=== PATIENT | female | born 1975 | race Caucasian/White ===

== ENCOUNTER → 2016-04-11 | Outpatient (CLI) | payer OTHER ==
[2016-04-11 17:33] LABS: CH 29.7; CHCM 34.4; HCT 39.6 % (34.0-46.0); HDW 2.98; HGB 13.1 gm/dL (11.4-16.0); MCH 28.8 pg (25.0-35.0); MCHC 33.2 g/dL (31.0-37.0); MCV 86.8 fL (80.0-100.0); Mean Platelet Volume 8.1; RBC 4.57 m/uL (3.80-5.40); RDW 12.8 % (11.5-15.5); WBC 3.2 k/uL (3.8-10.6)
[2016-04-11 17:42] LABS: ALT 134 U/L (9-52); AST 110 U/L (14-36); Alkaline Phosphatase 76 U/L (38-126); Anion Gap 12 mmol/L; Blood Urea Nitrogen 13 mg/dL (7-17); Calcium 9.5 mg/dL (8.4-10.2); Carbon Dioxide 27 mmol/L (22-30); Chloride 105 mmol/L (98-107); Glucose 90 mg/dL (74-99); Non-African American GFR(MDRD) >60 (>60 ml/min/1.73 sqM); Potassium 4.6 mmol/L (3.5-5.1); Sodium 144 mmol/L (137-145); Total Bilirubin 0.5 mg/dL (0.2-1.3); Total Protein 8.2 g/dL (6.3-8.2)
[2016-04-15 13:46] LABS: LOG HIV Copies/mL 4.36 (<1.60)
[2016-04-22 12:16] LABS: Mis test requested (Blood) HIV1 IG
== END | disposition home or self-care (01) ==
LOC: LABWHC1 16:50
PROVIDERS: ATTEND Internal Medicine Infectious Disease
DX: B20 Human immunodeficiency virus [HIV] disease (principal)
CPT/HCPCS: 36415; 80053; 85027; 86360; 87536; 87901; 87906

== ENCOUNTER → 2016-07-24 | Outpatient (CLI) | payer OTHER ==
[2016-07-24 13:07] LABS: Basophils % (A) 1 %; CH 30.9; CHCM 33.9; Eosinophils # (A) 0.1 k/uL (0-0.7); Eosinophils % (A) 2 %; HCT 45.6 % (34.0-46.0); HDW 2.82; Luc # (Auto) 0.13; Luc % (Auto) 2; Lymphocytes # (A) 1.3 k/uL (1.0-4.8); Lymphocytes % (A) 21 %; MCH 30.3 pg (25.0-35.0); MCV 91.7 fL (80.0-100.0); Mean Platelet Volume 7.4; Monocytes # (A) 0.3 k/uL (0-1.0); Monocytes % (A) 4 %; Neutrophils # (A) 4.3 k/uL (1.3-7.7); Neutrophils % (A) 70 %; RBC 4.97 m/uL (3.80-5.40); WBC 6.2 k/uL (3.8-10.6); WBC (Perox) 6.09
[2016-07-24 13:21] LABS: ALT 83 U/L (9-52); AST 57 U/L (14-36); Alkaline Phosphatase 74 U/L (38-126); Anion Gap 12 mmol/L; Blood Urea Nitrogen 17 mg/dL (7-17); Calcium 9.7 mg/dL (8.4-10.2); Carbon Dioxide 23 mmol/L (22-30); Chloride 105 mmol/L (98-107); Glucose 88 mg/dL (74-99); Non-African American GFR(MDRD) >60 (>60 ml/min/1.73 sqM); Potassium 4.4 mmol/L (3.5-5.1); Sodium 140 mmol/L (137-145); Total Bilirubin 0.8 mg/dL (0.2-1.3); Total Protein 8.9 g/dL (6.3-8.2)
[2016-07-25 14:48] LABS: LOG HIV Copies/mL <1.60 (<1.60)
== END | disposition home or self-care (01) ==
LOC: LABWHC1 12:15
PROVIDERS: ATTEND Internal Medicine Infectious Disease
DX: B20 Human immunodeficiency virus [HIV] disease (principal)
CPT/HCPCS: 36415; 80053; 85025; 86360; 87536

== ENCOUNTER 2016-10-28 15:48 | Inpatient (IN) | payer MEDICARE, OTHER ==
[2016-10-28] MEDS ORDERED: IPRATROPIUM-ALBUTEROL 3 ML NEB INHALATION PRN (17:52)
[2016-10-28] MEDS: methylPREDNISolone SOD SUCCI 125 MG/2 ML VIAL IV SCH ×2 (18:32→23:28)
[2016-10-28] MEDS ORDERED: ACETAMINOPHEN TAB 325 MG TAB PO PRN (18:41)
[2016-10-28 18:47] LABS: Basophils % (A) 1 %; CH 30.5; CHCM 33.8; Eosinophils # (A) 0.2 k/uL (0-0.7); Eosinophils % (A) 4 %; HCT 46.1 % (34.0-46.0); HGB 15.6 gm/dL (11.4-16.0); Luc # (Auto) 0.11; Luc % (Auto) 2; Lymphocytes # (A) 0.8 k/uL (1.0-4.8); Lymphocytes % (A) 13 %; MCH 30.8 pg (25.0-35.0); MCHC 33.9 g/dL (31.0-37.0); MCV 90.8 fL (80.0-100.0); Mean Platelet Volume 7.3; Monocytes # (A) 0.3 k/uL (0-1.0); Monocytes % (A) 4 %; Neutrophils # (A) 4.5 k/uL (1.3-7.7); Neutrophils % (A) 77 %; RBC 5.08 m/uL (3.80-5.40); WBC 5.9 k/uL (3.8-10.6)
[2016-10-28 19:08] LABS: Anion Gap 13 mmol/L; Blood Urea Nitrogen 8 mg/dL (7-17); Calcium 9.4 mg/dL (8.4-10.2); Carbon Dioxide 26 mmol/L (22-30); Chloride 102 mmol/L (98-107); Glucose 101 mg/dL (74-99); Non-African American GFR(MDRD) 55 (>60 ml/min/1.73 sqM); Potassium 4.4 mmol/L (3.5-5.1); Sodium 141 mmol/L (137-145)
[2016-10-28 19:26] LABS: Hemoglobin A1C 5.2 % (4.2-6.1)
[2016-10-28] MEDS: SYMBICORT 160-4.5 MCG INHALER INHALATION SCH (20:40)
[2016-10-28] MEDS: ALPRAZolam 0.5 MG TAB PO SCH (20:57)
[2016-10-28] MEDS: STRIBILD PO SCH (20:57)
[2016-10-28] MEDS: HYDROcodone/APAP 10-325MG 1 EACH TAB PO SCH (20:57)
[2016-10-28] MEDS ORDERED: ALPRAZolam 0.5 MG TAB PO PRN (21:00)
[2016-10-28 21:32] LABS: Glucose,Whole Blood 102 mg/dL (75-99)
[2016-10-28] MEDS: INSULIN LISPRO (humaLOG) 300 UNIT/3 ML VIAL SQ SCH (21:47)
[2016-10-29] MEDS: methylPREDNISolone SOD SUCCI 125 MG/2 ML VIAL IV SCH ×4 (05:30→23:48)
[2016-10-29] MEDS: SYMBICORT 160-4.5 MCG INHALER INHALATION SCH (05:32)
[2016-10-29] MEDS: IPRATROPIUM-ALBUTEROL 3 ML NEB INHALATION PRN ×2 (05:32→19:13)
[2016-10-29 07:42] LABS: Glucose,Whole Blood 140 mg/dL (75-99)
[2016-10-29] MEDS: INSULIN LISPRO (humaLOG) 300 UNIT/3 ML VIAL SQ SCH ×4 (07:50→21:33)
[2016-10-29] MEDS: AZITHROMYCIN 500 MG TAB PO SCH (07:51)
[2016-10-29] MEDS: HYDROcodone/APAP 10-325MG 1 EACH TAB PO SCH ×3 (07:51→21:31)
[2016-10-29] MEDS: ALPRAZolam 0.5 MG TAB PO SCH ×3 (07:52→21:31)
[2016-10-29 09:05] LABS: Appearance,Urine Clear (Clear); Bilirubin,Urine Negative (Negative); Glucose,Urine (UA) Negative (Negative); Ketones,Urine Negative (Negative); Leukocyte Esterase,Urine Negative (Negative); Nitrite,Urine Negative (Negative); Protein,Urine Negative (Negative); Specific Gravity,Urine 1.004 (1.001-1.035); UA Billing (MACRO vs. MICRO) CHEM; Urobilinogen,Urine <2.0 mg/dL (<2.0)
--- NOTE | 2016-10-29 10:02 | XR ---
EXAMINATION TYPE: XR chest 1V portable DATE OF EXAM: 10/29/2016 CLINICAL HISTORY: Difficulty breathing progress study. TECHNIQUE: Single AP portable upright view of the chest is obtained. COMPARISON: Chest x-ray from one day earlier FINDINGS: Somewhat low lung volumes are redemonstrated. Lungs remain grossly clear without pleural e ffusion or pneumothorax seen bilaterally. Cardiac silhouette size appears within normal limits. Rombauer us structures are intact. IMPRESSION: Overall stable findings, no suspicious acute infiltrate is identified.
[2016-10-29 12:06] LABS: Glucose,Whole Blood 211 mg/dL (75-99)
--- NOTE | 2016-10-29 12:32 | P.CNPUL ---
History of Present Illness Consult date: 10/29/16 Reason for consult: dyspnea History of present illness: A very pleasant 40-year-old female patient, asthmatic with previous history of smoking and no history of HIV on the treatment with most recent CD4 counts being on the 200 (119 range) and her viral counts are undetectable, who was admitted yesterday from our office because of increased shortness of breath and acute asthma exacerbation. I have had this patient on Symbicort maintenance however she has failed to continue the medication and over the past 3-4 months she hasn't been receiving her maintenance inhaler. She has been utilizing albuterol rescue inhaler and she had become progressively more short of breath and required frequent albuterol treatments. For that reason she came to our office and she was admitted to the hospital for an acute asthma exacerbation. Her chest is tight and she is wheezing and she is having frequent coughing spells. No significant sputum production. No hemoptysis. No thrush. She reports some difficulties in urination and she was obviously need a [employer] evaluation for later stage. No known history of involvement of ALLERGIES. She has a strong personal or family history of bronchial asthma. She smoked extensively in the past however she claims to quit smoking for now. She lives in the [facility] and she describes that her environment is clean. She has pets at home including dogs and cats. Most of nasal polyposis. Most of eczema. She's been having episodes of heartburn. The chest x-ray is not showing any acute suspicious pulmonary infiltrates. The patient is on a combination of DuoNeb nebulized treatments around the clock, Zithromax 5 mg by mouth daily, Symbicort 160/4.5 2 puffs twice a day and IV Solu-Medrol. In terms of her HIV, she is on Stribild tablets ,1 tablet at bedtime. Review of Systems Constitutional: Reports weakness Eyes: denies blurred vision, denies bulging eye, denies decreased vision Ears: deny: decreased hearing, ear discharge, earache, tinnitus Ears, nose, mouth and throat: Denies headache, Denies sore throat Cardiovascular: Reports decreased exercise tolerance, Reports dyspnea on exertion, Reports shortness of breath Respiratory: Reports cough, Reports dyspnea, Reports respiratory infections, Reports wheezing Gastrointestinal: Reports heartburn Genitourinary: Reports pelvic pain, Reports post void dribbling, Reports urgency , Reports vaginal dryness Musculoskeletal: Denies myalgias Musculoskeletal: absent: ankle pain, ankle stiffness, ankle swelling Integumentary: Denies pruritus, Denies rash Neurological: Denies numbness, Denies weakness Psychiatric: Denies anxiety, Denies depression Endocrine: Denies fatigue, Denies weight change Past Medical History Past Medical History: Asthma, Fibromyalgia, Pneumonia, Seizure Disorder Additional Past Medical History / Comment(s): Obesity, AIDS, CD4 count of 119 with undetectable viral count based on the most recent evaluation, acid reflux, osteoarthritis, History of Any Multi-Drug Resistant Organisms: None Reported Past Surgical History: Section, Cholecystectomy, Hysterectomy, Orthopedic Surgery Additional Past Surgical History / Comment(s): left shoulder sx, c-sec x3 Past Anesthesia/Blood Transfusion Reactions: No Reported Reaction Smoking Status: Former smoker - Past Family History Mother Family Medical History: CVA/TIA, Diabetes Mellitus, Myocardial Infarction ([place]) Additional Family Medical History / Comment(s): sarcoidosis, osteoporosis Father Family Medical History: Asthma, COPD Medications and Allergies Home Medications Medication Instructions Recorded Confirmed Type Albuterol Inhaler [Ventolin 2 puff INHALATION RT-Q4H PRN 05/25/14 10/28/16 History Inhaler] Budesonide-Formot 160-4.5 Mcg 2 puff INHALATION RT-BID 05/25/14 10/28/16 History [Symbicort 160-4.5 Mcg Inhaler] ALPRAZolam [ALPRAZolam] 1 mg PO TID 11/09/15 10/28/16 History Hydrocodone/Acetaminophen [[place] 1 tab PO TID 11/09/15 10/28/16 History 10-325] Albuterol Nebulized [Ventolin 2.5 mg INHALATION RT-Q4H PRN 10/28/16 10/28/16 History Nebulized] Elviteg/Holley/Emtric/Tenofo Dis 1 tab PO HS 10/28/16 10/28/16 History [Stribild Tablet] Allergies Allergy/AdvReac Type Severity Reaction Status Date / Time amoxicillin [From Augmentin] Allergy Swelling Verified 10/28/16 18:10 clavulanic acid Allergy Swelling Verified 10/28/16 18:10 [From Augmentin] prochlorperazine edisylate Allergy Confusion Verified 10/28/16 18:10 [From Compazine] prochlorperazine maleate Allergy Confusion Verified 10/28/16 18:10 [From Compazine] morphine AdvReac Chest Pain Verified 10/28/16 18:10 Physical Exam Vitals: Vital Signs Temp Pulse Pulse Pulse Resp BP Pulse Ox 10/29/16 11:56 85 10/29/16 11:41 85 10/29/16 07:00 97.1 F L 83 18 134/69 94 L 10/29/16 05:43 96 10/29/16 05:32 92 10/28/16 23:00 97.3 F L 91 22 136/91 94 L 10/28/16 18:49 97.6 F 91 18 153/96 94 L Intake and Output 10/28/16 10/29/16 10/29/16 22:59 06:59 14:59 Intake Total 740 200 Balance 740 200 Intake: Oral 740 200 Other: Voiding Method Toilet Toilet # Voids 2 2 # Bowel Movements 0 Weight 107.7 kg Head exam was generally normal. There was no scleral icterus or corneal arcus. Mucous membranes were moist.Neck was supple and without jugular venous distension, thyromegaly, or carotid bruits. Carotids were easily palpable bilaterally. There was no adenopathy. Lung sounds are markedly diminished and there is diffuse expiratory wheezes throughout lung his bilaterally.Cardiac exam revealed the PMI to be normally situated and sized. The rhythm was regular and no extrasystoles were noted during several minutes of auscultation. The first and second heart sounds were normal and physiologic splitting of the second heart sound was noted. There were no murmurs, rubs, clicks, or gallops.Abdominal exam revealed normal bowel sounds. The abdomen was soft, non- tender, and without masses, organomegaly, or appreciable enlargement of the abdominal aorta.Examination of the extremities revealed easily palpable radial, femoral and pedal pulses. There was no cyanosis, clubbing or edema. Results - Laboratory Findings CBC and BMP: 10/28/16 18:32 10/28/16 18:32 Abnormal lab findings: Abnormal Labs 10/28/16 10/28/16 10/28/16 18:32 18:32 21:01 Hct 46.1 H Lymphocytes # 0.8 L Creatinine 1.10 H Glucose 101 H POC Glucose (mg/dL) 102 H 10/29/16 10/29/16 06:59 11:55 Hct Lymphocytes # Creatinine Glucose POC Glucose (mg/dL) 140 H 211 H - Diagnostic Findings Chest x-ray: image reviewed Assessment and Plan Plan: Assessment 1 acute asthma exacerbation, likely secondary to suboptimal compliance with her maintenance inhalers. Chest x-ray is free of any acute pulmonary infiltrates. Rule out underlying bronchitis. CD4 count based on the most recent evaluations 119. No previous abortions take infections of the lungs. 2 obesity 3 HIV/AIDS, currently under treatment. Most recent viral counts are undetectable with a CD4 count of 119 4 anxiety/depression, history of 5 chronic pain 6 previous history of smoking. Plan Agree on the current treatment. No need to broaden the antibiotic coverage. Continue bronchodilators. Continue systemic steroids. Stop the Symbicort and it was this patient and accommodation of Perforomist and Pulmicort neb last treatment [id number], twice a day. We'll continue to follow.
--- NOTE | 2016-10-29 12:35 | P.HPIM ---
History of Present Illness Patient is a very pleasant 41-year-old female with history of HIV and last CD4 count being 129 came in with the complaints of shortness of breath was sent in from Dr. Duarte's clinic as patient did not have any improvement in her bronchitis. Patient started having symptoms last and she had a recent visit to [place]. Patient was short of breath wheezing patient is an asthma/ COPD exacerbation. Patient and is unable to cough up any phlegm but does have cough one time she did bring up little greenish sputum. Patient is presently on Rocephin and azithromycin without any pulmonary infiltrate or pneumonia on the chest x-ray because of which Rocephin was discontinued. Azithromycin is being continued and and the infectious disease Dr. Tubbs will decide about antibiotics. And patient is presently on high-dose systemic steroids inhalational treatments. Patient is not on Bactrim at this point of time in spite of her CD4 count because of significant side effects from Bactrim in the past. Patient is feeling better than yesterday but clinically on exam patient has significant expiratory wheeze on bronchus breath sounds bilaterally. Patient denied any fever chills, dysuria. But patient does feel hot from inside Review of Systems REVIEW OF SYSTEMS: CONSTITUTIONAL: No fever, no malaise, no fatigue. HEENT: No recent visual problems or hearing problems. Denied any sore throat. CARDIOVASCULAR: No chest pain, orthopnea, PND, no palpitations, no syncope. PULMONARY: As mentioned in HPI GASTROINTESTINAL: No diarrhea, no nausea, no vomiting, no abdominal pain. Normoactive bowel sounds. NEUROLOGICAL: No headaches, no weakness, no numbness. HEMATOLOGICAL: Denies any bleeding or petechiae. GENITOURINARY: Denies any burning micturition, frequency, or urgency. MUSCULOSKELETAL/RHEUMATOLOGICAL: Denies any joint pain, swelling, or any muscle pain. ENDOCRINE: Denies any polyuria or polydipsia. The rest of the 14-point review of systems is negative. Past Medical History Past Medical History: Asthma, Fibromyalgia, Pneumonia, Seizure Disorder Additional Past Medical History / Comment(s): HIV with AIDS. Last CD4 cell count of 136- 3 MONTHS AGO. migraines, "rt eye has scarring and freckles". * History of "asthma" this has been for many years and seem to be exercise- induced. uti's, "poor circulation" History of Any Multi-Drug Resistant Organisms: None Reported Past Surgical History: Section, Cholecystectomy, Hysterectomy, Orthopedic Surgery Additional Past Surgical History / Comment(s): left shoulder sx, c-sec x3 Past Anesthesia/Blood Transfusion Reactions: No Reported Reaction Smoking Status: Former smoker - Past Family History Mother Family Medical History: CVA/TIA, Diabetes Mellitus, Myocardial Infarction ([place]) Additional Family Medical History / Comment(s): sarcoidosis, osteoporosis Father Family Medical History: Asthma, COPD Medications and Allergies Home Medications Medication Instructions Recorded Confirmed Type Albuterol Inhaler [Ventolin 2 puff INHALATION RT-Q4H PRN 05/25/14 10/28/16 History Inhaler] Budesonide-Formot 160-4.5 Mcg 2 puff INHALATION RT-BID 05/25/14 10/28/16 History [Symbicort 160-4.5 Mcg Inhaler] ALPRAZolam [ALPRAZolam] 1 mg PO TID 11/09/15 10/28/16 History Hydrocodone/Acetaminophen [[place] 1 tab PO TID 11/09/15 10/28/16 History 10-325] Albuterol Nebulized [Ventolin 2.5 mg INHALATION RT-Q4H PRN 10/28/16 10/28/16 History Nebulized] Elviteg/Holley/Emtric/Tenofo Dis 1 tab PO HS 10/28/16 10/28/16 History [Stribild Tablet] Allergies Allergy/AdvReac Type Severity Reaction Status Date / Time amoxicillin [From Augmentin] Allergy Swelling Verified 10/28/16 18:10 clavulanic acid Allergy Swelling Verified 10/28/16 18:10 [From Augmentin] prochlorperazine edisylate Allergy Confusion Verified 10/28/16 18:10 [From Compazine] prochlorperazine maleate Allergy Confusion Verified 10/28/16 18:10 [From Compazine] morphine AdvReac Chest Pain Verified 10/28/16 18:10 Physical Exam Vitals: Vital Signs Temp Pulse Pulse Pulse Resp BP Pulse Ox 10/29/16 11:56 85 10/29/16 11:41 85 10/29/16 07:00 97.1 F L 83 18 134/69 94 L 10/29/16 05:43 96 10/29/16 05:32 92 10/28/16 23:00 97.3 F L 91 22 136/91 94 L 10/28/16 18:49 97.6 F 91 18 153/96 94 L Intake and Output 10/28/16 10/29/16 10/29/16 22:59 06:59 14:59 Intake Total 740 200 Balance 740 200 Intake: Oral 740 200 Other: Voiding Method Toilet Toilet # Voids 2 2 # Bowel Movements 0 Weight 107.7 kg PHYSICAL EXAMINATION: GENERAL: The patient is alert and oriented x3, not in any acute distress. Well developed, well nourished. HEENT: Pupils are round and equally reacting to light. EOMI. No scleral icterus. No conjunctival pallor. Normocephalic, atraumatic. No pharyngeal erythema. No thyromegaly. CARDIOVASCULAR: S1 and S2 present. No murmurs, rubs, or gallops. PULMONARY: Significant expiratory wheezing bilaterally along with rhonchorous breath sounds. The crit mildly decreased air entry into bilateral lung zavala. ABDOMEN: Soft, nontender, nondistended, normoactive bowel sounds. No palpable organomegaly. MUSCULOSKELETAL: No joint swelling or deformity. EXTREMITIES: No cyanosis, clubbing, or pedal edema. NEUROLOGICAL: Gross neurological examination did not reveal any focal deficits. SKIN: No rashes. Results CBC & Chem 7: 10/28/16 18:32 10/28/16 18:32 Labs: Abnormal Lab Results - Last 24 Hours (Table) 10/28/16 10/28/16 10/28/16 Range/Units 18:32 18:32 21:01 Hct 46.1 H (34.0-46.0) % Lymphocytes # 0.8 L (1.0-4.8) k/uL Creatinine 1.10 H (0.52-1.04) mg/dL Glucose 101 H (74-99) mg/dL POC Glucose (mg/dL) 102 H (75-99) mg/dL 10/29/16 10/29/16 Range/Units 06:59 11:55 Hct (34.0-46.0) % Lymphocytes # (1.0-4.8) k/uL Creatinine (0.52-1.04) mg/dL Glucose (74-99) mg/dL POC Glucose (mg/dL) 140 H 211 H (75-99) mg/dL Thrombosis Risk Factor Assmnt - Choose All That Apply Any of the Below Risk Factors Present?: Yes Each Factor Represents 1 point: Obesity (BMI >25) Other Risk Factors: No Thrombosis Risk Factor Assessment Total Risk Factor Score: 1 Thrombosis Risk Factor Assessment Level: Low Risk Assessment and Plan Plan: #1 acute exacerbation of COPD or asthma: Patient is on systemic steroids and inhalation treatments which will be continued. #2 possibility of Bactrim bronchitis for which patient will be continued on azithromycin and infectious disease will eval if the patient. #3 HIV with last CD4 count of 129: Patient is being continued on her antiretroviral therapy. #4 fibromyalgia. #5 seizure disorder. For above-mentioned chronic medical problems patient will be continued on her home medications and monitor.
--- NOTE | 2016-10-29 15:23 | P.CONS ---
History of Present Illness - Reason for Consult Consult date: 10/29/16 Asthma - History of Present Illness This is a 41-year-old female who follows in the office for history of HIV and AIDS who presented to Dr. Estrada's office with cough and shortness of breath secondary to exacerbation of asthma. She states that she went to [place] on Friday for her niece's wedding and returned on Friday while she was gone developed shortness of breath continued to worsen. She does have phlegm production and feels that but is unable to bring it up. Patient went in to see Dr. Estrada in the office and usually follows with Dr. Abraham and. She was made a direct admission for asthma exacerbation. She was placed initially on azithromycin and Rocephin as well as Solu-Medrol and nebulizer treatments. Patient also complains of difficult urination with pain with the initiation of urination and states that she cannot get much urine output. She feels like there is a blockage and she has to bear down very hard. She denies any trauma to the area. She states this is been going on for couple weeks. She also relates that her mother has history of urethral stricture. Patient has brought in Stribild from home which she has been taking here. Patient states that she is due to have her lab work done for Dr. Tubbs and has an appointment on November 07. Review of Systems All systems: negative Constitutional: Reports weakness, Denies chills, Denies fever Eyes: denies blurred vision, denies pain Ears, nose, mouth and throat: Denies headache, Denies sore throat Cardiovascular: Reports decreased exercise tolerance, Reports dyspnea on exertion, Reports leg edema, Denies chest pain, Denies edema, Denies shortness of breath Respiratory: Reports cough, Reports dyspnea, Denies cough with sputum, Denies excessive sputum, Denies hemoptysis, Denies home oxygen Gastrointestinal: Denies abdominal pain, Denies diarrhea, Denies nausea, Denies vomiting Genitourinary: Reports difficulty voiding, Reports pelvic pain, Denies dysuria, Denies hematuria Musculoskeletal: Denies myalgias Integumentary: Denies pruritus, Denies rash Neurological: Denies numbness, Denies weakness Psychiatric: Denies anxiety, Denies depression Endocrine: Denies fatigue, Denies weight change Past Medical History Past Medical History: Asthma, Fibromyalgia, Pneumonia, Seizure Disorder Additional Past Medical History / Comment(s): HIV with AIDS. Last CD4 cell count of 136- 3 MONTHS AGO. migraines, "rt eye has scarring and freckles". * History of "asthma" this has been for many years and seem to be exercise- induced. uti's, "poor circulation" History of Any Multi-Drug Resistant Organisms: None Reported Past Surgical History: Section, Cholecystectomy, Hysterectomy, Orthopedic Surgery Additional Past Surgical History / Comment(s): left shoulder sx, c-sec x3 Past Anesthesia/Blood Transfusion Reactions: No Reported Reaction Smoking Status: Former smoker - Past Family History Mother Family Medical History: CVA/TIA, Diabetes Mellitus, Myocardial Infarction ([place]) Additional Family Medical History / Comment(s): sarcoidosis, osteoporosis Father Family Medical History: Asthma, COPD Medications and Allergies Home Medications Medication Instructions Recorded Confirmed Type Albuterol Inhaler [Ventolin 2 puff INHALATION RT-Q4H PRN 05/25/14 10/28/16 History Inhaler] Budesonide-Formot 160-4.5 Mcg 2 puff INHALATION RT-BID 05/25/14 10/28/16 History [Symbicort 160-4.5 Mcg Inhaler] ALPRAZolam [ALPRAZolam] 1 mg PO TID 11/09/15 10/28/16 History Hydrocodone/Acetaminophen [[place] 1 tab PO TID 11/09/15 10/28/16 History 10-325] Albuterol Nebulized [Ventolin 2.5 mg INHALATION RT-Q4H PRN 10/28/16 10/28/16 History Nebulized] Elviteg/Holley/Emtric/Tenofo Dis 1 tab PO HS 10/28/16 10/28/16 History [Stribild Tablet] Allergies Allergy/AdvReac Type Severity Reaction Status Date / Time amoxicillin [From Augmentin] Allergy Swelling Verified 10/28/16 18:10 clavulanic acid Allergy Swelling Verified 10/28/16 18:10 [From Augmentin] prochlorperazine edisylate Allergy Confusion Verified 10/28/16 18:10 [From Compazine] prochlorperazine maleate Allergy Confusion Verified 10/28/16 18:10 [From Compazine] morphine AdvReac Chest Pain Verified 10/28/16 18:10 Physical Exam Vitals: Vital Signs Temp Pulse Pulse Pulse Resp BP Pulse Ox 10/29/16 07:00 97.1 F L 83 18 134/69 94 L 10/29/16 05:43 96 10/29/16 05:32 92 10/28/16 23:00 97.3 F L 91 22 136/91 94 L 10/28/16 18:49 97.6 F 91 18 153/96 94 L Intake and Output 10/28/16 10/29/16 10/29/16 22:59 06:59 14:59 Intake Total 740 200 Balance 740 200 Intake: Oral 740 200 Other: Voiding Method Toilet Toilet # Voids 2 2 # Bowel Movements 0 Weight 107.7 kg Gen: This is a morbidly obese 41-year-old rob Rutledge female. She is sitting up in bed and appears to be comfortable. She appears to be in no acute distress. She is able to speak in full sentences. HEENT: Head is atraumatic, normocephalic. Pupils equal, round. Sclerae is anicteric. NECK: Supple. No JVD. No lymphadenopathy. No thyromegaly. LUNGS: Diminished with expiratory wheezes bilaterally. No intercostal retractions. HEART: Regular rate and rhythm. No murmur. ABDOMEN: Morbidly obese Soft. Bowel sounds are present. No masses. No tenderness. No suprapubic tenderness. EXTREMITIES: No pedal edema. No calf tenderness. Dorsalis pedis +2 bilaterally. NEUROLOGICAL: Patient is awake, alert and oriented x3. Cranial nerves 2 through 12 are grossly intact. Results Results: Laboratory Results WBC 5.9 k/uL (3.8-10.6) 10/28/16 18:32 RBC 5.08 m/uL (3.80-5.40) 10/28/16 18:32 Hgb 15.6 gm/dL (11.4-16.0) 10/28/16 18:32 Hct 46.1 % (34.0-46.0) H 10/28/16 18:32 MCV 90.8 fL (80.0-100.0) 10/28/16 18:32 MCH 30.8 pg (25.0-35.0) 10/28/16 18:32 MCHC 33.9 g/dL (31.0-37.0) 10/28/16 18:32 RDW 13.0 % (11.5-15.5) 10/28/16 18:32 Plt Count 230 k/uL (150-450) 10/28/16 18:32 Neutrophils % 77 % 10/28/16 18:32 Lymphocytes % 13 % 10/28/16 18:32 Monocytes % 4 % 10/28/16 18:32 Eosinophils % 4 % 10/28/16 18:32 Basophils % 1 % 10/28/16 18:32 Neutrophils # 4.5 k/uL (1.3-7.7) 10/28/16 18:32 Lymphocytes # 0.8 k/uL (1.0-4.8) L 10/28/16 18:32 Monocytes # 0.3 k/uL (0-1.0) 10/28/16 18:32 Eosinophils # 0.2 k/uL (0-0.7) 10/28/16 18:32 Basophils # 0.0 k/uL (0-0.2) 10/28/16 18:32 Sodium 141 mmol/L (137-145) 10/28/16 18:32 Potassium 4.4 mmol/L (3.5-5.1) 10/28/16 18:32 Chloride 102 mmol/L (98-107) 10/28/16 18:32 Carbon Dioxide 26 mmol/L (22-30) 10/28/16 18:32 Anion Gap 13 mmol/L 10/28/16 18:32 BUN 8 mg/dL (7-17) 10/28/16 18:32 Creatinine 1.10 mg/dL (0.52-1.04) H 10/28/16 18:32 Est GFR (MDRD) Af Amer >60 (>60 ml/min/1.73 sqM) 10/28/16 18:32 Est GFR (MDRD) Non-Af 55 (>60 ml/min/1.73 sqM) 10/28/16 18:32 Glucose 101 mg/dL (74-99) H 10/28/16 18:32 POC Glucose (mg/dL) 211 mg/dL (75-99) H 10/29/16 11:55 POC Glu [employer] Service Worker ID Tatiana Wilhelm 10/29/16 11:[address] Glu mg/dL 103 mg/dL 10/28/16 18:32 Hemoglobin A1c 5.2 % (4.2-6.1) 10/28/16 18:32 Calcium 9.4 mg/dL (8.4-10.2) 10/28/16 18:32 Urine Color Colorless 10/29/16 07:56 Urine Appearance Clear (Clear) 10/29/16 07:56 Urine pH 7.0 (5.0-8.0) 10/29/16 07:56 Ur Specific [place] 1.004 (1.001-1.035) 10/29/16 07:56 Urine Protein Negative (Negative) 10/29/16 07:56 Urine Glucose (UA) Negative (Negative) 10/29/16 07:56 Urine Ketones Negative (Negative) 10/29/16 07:56 Urine Blood Negative (Negative) 10/29/16 07:56 Urine Nitrite Negative (Negative) 10/29/16 07:56 Urine Bilirubin Negative (Negative) 10/29/16 07:56 Urine Urobilinogen <2.0 mg/dL (<2.0) 10/29/16 07:56 Ur Leukocyte Esterase Negative (Negative) 10/29/16 07:56 CBC & Chem 7: 10/28/16 18:32 10/28/16 18:32 Labs: Abnormal Lab Results - Last 24 Hours (Table) 10/28/16 10/28/16 10/28/16 Range/Units 18:32 18:32 21:01 Hct 46.1 H (34.0-46.0) % Lymphocytes # 0.8 L (1.0-4.8) k/uL Creatinine 1.10 H (0.52-1.04) mg/dL Glucose 101 H (74-99) mg/dL POC Glucose (mg/dL) 102 H (75-99) mg/dL 10/29/16 Range/Units 06:59 Hct (34.0-46.0) % Lymphocytes # (1.0-4.8) k/uL Creatinine (0.52-1.04) mg/dL Glucose (74-99) mg/dL POC Glucose (mg/dL) 140 H (75-99) mg/dL Assessment and Plan Plan: This is a 41-year-old female presented to the hospital with acute exacerbation of asthma and is under the care of Dr. Mims. Patient also has history of HIV and AIDS for which she follows on a regular basis. Patient is due for follow-up appointment this month regarding repeat viral and CD4 counts which will be done at that time. Patient is currently on azithromycin which will be continued. Continue supportive care. Further recommendations as patient progresses. The above dictated assessment and findings were discussed with Dr. Tubbs. The impression and plan of care have been directed as dictated. Brenda Castro nurse practitioner acting as scribe for Dr. Tubbs.
[2016-10-29 17:31] LABS: Glucose,Whole Blood 179 mg/dL (75-99)
--- NOTE | 2016-10-29 18:27 | P.CON ---
Consult Note - . Consult date: 10/29/16 Assessment/Plan:: This is a 41-year-old female who follows in the office for history of HIV and AIDS who presented to Dr. Estrada's office with cough and shortness of breath secondary to exacerbation of asthma. She states that she went to [place] on Friday for her niece's wedding and returned on Friday while she was gone developed shortness of breath continued to worsen. She does have phlegm production and feels that but is unable to bring it up. Patient went in to see Dr. Estrada in the office and usually follows with Dr. Abraham and. She was made a direct admission for asthma exacerbation. She was placed initially on azithromycin and Rocephin as well as Solu-Medrol and nebulizer treatments. Patient also complains of difficult urination with pain with the initiation of urination and states that she cannot get much urine output. She feels like there is a blockage and she has to bear down very hard. She denies any trauma to the area. She states this is been going on for couple weeks. She also relates that her mother has history of urethral stricture. Patient has brought in Stribild from home which she has been taking here. Patient states that she is due to have her lab work done for Dr. Tubbs and has an appointment on November 07. Please see the consult note as dictated by nurse practitioner Mrs. Brenda Castro. 5-year-old woman presents as with an acute exacerbation of her asthma. She's been seen by pulmonary critical care. With her treatment she is now doing much better. Will continue current antibiotic therapy. She's having difficulty some urinary retention. Last for a bladder scan to see if this can't evaluate the possibility of urinary retention. If he is having difficulties urological evaluation or gynecological elevation would be indicated. Continue the Stribild as before and she is been tolerating it well. His first further follow-up of her HIV this can be done as an outpatient. Her routine testing do not need to be done during this stay. We will follow. I agree with evaluation , assessment and plan this 61 by nurse practitioner Mrs. Brenda Castro.
[2016-10-29] MEDS: FORMOTEROL FUMARATE 20 MCG/2 ML NEBU INHALATION SCH (19:13)
[2016-10-29] MEDS: BUDESONIDE 0.5 MG/2 ML NEBU INHALATION SCH (19:13)
[2016-10-29 20:50] LABS: Glucose,Whole Blood 230 mg/dL (75-99)
[2016-10-29] MEDS: STRIBILD PO SCH (21:31)
[2016-10-30] MEDS: IPRATROPIUM-ALBUTEROL 3 ML NEB INHALATION PRN ×6 (04:38→23:14)
[2016-10-30] MEDS: methylPREDNISolone SOD SUCCI 125 MG/2 ML VIAL IV SCH ×4 (06:57→23:27)
[2016-10-30 07:08] LABS: Glucose,Whole Blood 133 mg/dL (75-99)
[2016-10-30] MEDS: BUDESONIDE 0.5 MG/2 ML NEBU INHALATION SCH ×2 (07:17→19:33)
[2016-10-30] MEDS: FORMOTEROL FUMARATE 20 MCG/2 ML NEBU INHALATION SCH ×2 (07:17→19:33)
[2016-10-30] MEDS: HYDROcodone/APAP 10-325MG 1 EACH TAB PO SCH ×3 (07:54→21:31)
[2016-10-30] MEDS: ALPRAZolam 0.5 MG TAB PO SCH ×3 (07:54→21:32)
[2016-10-30] MEDS: AZITHROMYCIN 500 MG TAB PO SCH (07:55)
[2016-10-30] MEDS: INSULIN LISPRO (humaLOG) 300 UNIT/3 ML VIAL SQ SCH ×4 (07:55→21:32)
--- NOTE | 2016-10-30 09:29 | P.DS ---
Providers Date of admission: 10/28/16 17:29 This discharge summary and progress note Attending physician: Waleska Garcia Consults: 10/28/16 17:49 Consult Physician Routine Consulting Provider: Laura Mims Consult Reason/Comments: asthma exacerbation Do you want consulting provider notified?: Yes 10/28/16 20:37 Consult Physician Urgent Consulting Provider: Sujit Tubbs Reason/Comments: asthma Do you want consulting provider notified?: Yes [facility] [place] [facility] Course: 2-year-old female was admitted for severe back and bronchitis possibly and patient is and azithromycin. Patient is also being treated for COPD exacerbation. Patient saturations are good. Will ablate the patient in the hallway. Although her saturations are good patient is not feeling well and is still feeling short of breath and patient still has significant expiratory wheezing and rhonchus breath sounds because of that reason I'll leave the decision of discharge to pulmonary. Meantime will often walking pulse ox. Patient is still complaining of shortness of breath patient didn't sleep well probably because of the systemic steroids she is on which of which is high-dose. , Patient denied any nausea, vomiting, dysuria, new focal weakness. PHYSICAL EXAMINATION: GENERAL: The patient is alert and oriented x3, not in any acute distress. Well developed, well nourished. HEENT: Pupils are round and equally reacting to light. EOMI. No scleral icterus. No conjunctival pallor. Normocephalic, atraumatic. No pharyngeal erythema. No thyromegaly. CARDIOVASCULAR: S1 and S2 present. No murmurs, rubs, or gallops. PULMONARY: Improved expiratory wheezing bilaterally along with rhonchorous breath sounds. mildly decreased air entry into bilateral lung zavala. ABDOMEN: Soft, nontender, nondistended, normoactive bowel sounds. No palpable organomegaly. MUSCULOSKELETAL: No joint swelling or deformity. EXTREMITIES: No cyanosis, clubbing, or pedal edema. NEUROLOGICAL: Gross neurological examination did not reveal any focal deficits. SKIN: No rashes. #1 acute exacerbation of COPD or asthma: Patient is on systemic steroids and inhalation treatments which will be continued. #2 possibility of Bactrim bronchitis for which patient will be continued on azithromycin and discharge antibiotics as per infectious disease #3 HIV with last CD4 count of 129: Patient is being continued on her antiretroviral therapy. #4 fibromyalgia. #5 seizure disorder. Plan - Discharge Summary New Discharge Prescriptions: New predniSONE 10 mg PO DAILY #30 tab No Action Albuterol Inhaler [Ventolin Inhaler] 2 puff INHALATION RT-Q4H PRN PRN Reason: Shortness Of Breath Budesonide-Formot 160-4.5 Mcg [Symbicort 160-4.5 Mcg Inhaler] 2 puff INHALATION RT-BID Hydrocodone/Acetaminophen [Hudson 10-325] 1 tab PO TID ALPRAZolam [ALPRAZolam] 1 mg PO TID Albuterol Nebulized [Ventolin Nebulized] 2.5 mg INHALATION RT-Q4H PRN PRN Reason: Shortness Of Breath Elviteg/Holley/Emtric/Tenofo Dis [Stribild Tablet] 1 tab PO HS Discharge Medication List Albuterol Inhaler [Ventolin Inhaler] 2 puff INHALATION RT-Q4H PRN 05/25/14 [ History] Budesonide-Formot 160-4.5 Mcg [Symbicort 160-4.5 Mcg Inhaler] 2 puff INHALATION RT-BID 05/25/14 [History] ALPRAZolam [ALPRAZolam] 1 mg PO TID 11/09/15 [History] Hydrocodone/Acetaminophen [Hudson 10-325] 1 tab PO TID 11/09/15 [History] Albuterol Nebulized [Ventolin Nebulized] 2.5 mg INHALATION RT-Q4H PRN 10/28/16 [ History] Elviteg/Holley/Emtric/Tenofo Dis [Stribild Tablet] 1 tab PO HS 10/28/16 [History] predniSONE 10 mg PO DAILY #30 tab 10/30/16 [Rx] Patient Instructions/Handouts: Asthma (DC) Discharge Disposition: HOME SELF-CARE
[2016-10-30 12:16] LABS: Glucose,Whole Blood 192 mg/dL (75-99)
[2016-10-30] MEDS ORDERED: CHLORPHEN-HYDROcod 8-10mg/5ml 5 ML ORAL.SYRG PO SCH (13:00)
--- NOTE | 2016-10-30 13:48 | P.PN ---
Subjective A very pleasant 40-year-old female patient, asthmatic with previous history of smoking and no history of HIV on the treatment with most recent CD4 counts being on the 200 (119 range) and her viral counts are undetectable, who was admitted yesterday from our office because of increased shortness of breath and acute asthma exacerbation. I have had this patient on Symbicort maintenance however she has failed to continue the medication and over the past 3-4 months she hasn't been receiving her maintenance inhaler. She has been utilizing albuterol rescue inhaler and she had become progressively more short of breath and required frequent albuterol treatments. For that reason she came to our office and she was admitted to the hospital for an acute asthma exacerbation. Her chest is tight and she is wheezing and she is having frequent coughing spells. No significant sputum production. No hemoptysis. No thrush. She reports some difficulties in urination and she was obviously need a EYELET MAKER evaluation for later stage. No known history of involvement of ALLERGIES. She has a strong personal or family history of bronchial asthma. She smoked extensively in the past however she claims to quit smoking for now. She lives in the [facility] and she describes that her environment is clean. She has pets at home including dogs and cats. Most of nasal polyposis. Most of eczema. She's been having episodes of heartburn. The chest x-ray is not showing any acute suspicious pulmonary infiltrates. The patient is on a combination of DuoNeb nebulized treatments around the clock, Zithromax 5 mg by mouth daily, Symbicort 160/4.5 2 puffs twice a day and IV Solu-Medrol. In terms of her HIV, she is on Stribild tablets ,1 tablet at bedtime. The patient is seen again today in follow-up on the regular medical floor. She is awake and alert. She has had ongoing issues with coughing, chest tightness and shortness of breath. She also has complaints of insomnia most likely secondary to the steroids. She has been on her bronchodilators, Pulmicort and Perforomist, IV Solu Medrol and empiric antibiotics in the form of azithromycin. He continues to maintain good O2 saturations up to 100% on 2 L/m per nasal cannula. She's been afebrile. Hemodynamically stable. Objective - Vital Signs Vital signs: Vital Signs Temp 96.6 F L 10/30/16 07:00 Pulse 92 10/30/16 11:35 Resp 18 10/30/16 07:00 BP 116/56 10/30/16 07:00 Pulse Ox 100 10/30/16 07:00 Intake & Output 10/29/16 10/30/16 10/30/16 18:59 06:59 18:59 Intake Total 940 Balance 940 Intake: Oral 940 Other: Voiding Method Toilet Toilet # Voids 1 1 1 # Bowel Movements 0 1 - Exam Head exam was generally normal. There was no scleral icterus or corneal arcus. Mucous membranes were moist.Neck was supple and without jugular venous distension, thyromegaly, or carotid bruits. Carotids were easily palpable bilaterally. There was no adenopathy. Lung sounds are markedly diminished and there is diffuse expiratory wheezes throughout lung his bilaterally.Cardiac exam revealed the PMI to be normally situated and sized. The rhythm was regular and no extrasystoles were noted during several minutes of auscultation. The first and second heart sounds were normal and physiologic splitting of the second heart sound was noted. There were no murmurs, rubs, clicks, or gallops.Abdominal exam revealed normal bowel sounds. The abdomen was soft, non- tender, and without masses, organomegaly, or appreciable enlargement of the abdominal aorta.Examination of the extremities revealed easily palpable radial, femoral and pedal pulses. There was no cyanosis, clubbing or edema. - Labs CBC & Chem 7: 10/28/16 18:32 10/28/16 18:32 Labs: Abnormal Lab Results - Last 24 Hours (Table) 10/29/16 10/29/16 10/30/16 Range/Units 17:19 20:45 07:06 POC Glucose (mg/dL) 179 H 230 H 133 H (75-99) mg/dL 10/30/16 Range/Units 12:15 POC Glucose (mg/dL) 192 H (75-99) mg/dL Assessment and Plan Plan: Assessment 1 acute asthma exacerbation, likely secondary to suboptimal compliance with her maintenance inhalers. Chest x-ray is free of any acute pulmonary infiltrates. Rule out underlying bronchitis. CD4 count based on the most recent evaluations 119. No previous abortions take infections of the lungs. 2 obesity 3 HIV/AIDS, currently under treatment. Most recent viral counts are undetectable with a CD4 count of 119 4 anxiety/depression, history of 5 chronic pain 6 previous history of smoking. Plan The patient is seen and evaluated by Dr. Mims. We would prefer to continue with IV Solu-Medrol and she is still quite bronchospastic and wheezing. We will add Ambien for her insomnia. She remains on Xanax as needed. We did add Tussionex for her cough. We will continue to follow make further recommendations based on her clinical status.
[2016-10-30] MEDS ORDERED: CHLORPHEN-HYDROcod 8-10mg/5ml 5 ML ORAL.SYRG PO ONE (13:52)
[2016-10-30 16:44] LABS: Glucose,Whole Blood 168 mg/dL (75-99)
--- NOTE | 2016-10-30 17:54 | CDI ---
In responding to this query, please exercise your independent professional judgment. The [facility] Coding Staff and Clinical Documentation Specialists appreciate your assistance in clarifying documentation, maintaining compliance with coding guidelines, accurately documenting patients condition and capturing severity of illness. The fact that a question is asked does not imply that any particular answer is desired or expected. Communication forms are a method of clarifying documentation and are not made part of the Legal Health Record. Thank you in advance for your clarification. Last Revision, May 2015 Radha Castellanos [address] [facility] [place] [address] Documentation Clarification Form Date: 10/30/2016 5:41:00 PM From: Celia Efraín Admit Date: 10/28/2016 5:29:00 PM Patient Name: Mirtha Victor Visit Number: [id number] Discharge Date: Dr. 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 Patient history/risk factors: Asthma, HIV, Former smoker Clinical Indicators: Present with increased shortness of breath and diagnosed with acute asthma exacerbation. Her chest is tight and she is wheezing and having frequent coughing spells Chest x-ray: negative Vital Signs: Other Clinical Indicators: Treatment: Symbicort Albuterol Duoneb's ZZithromax PO Solu-Medrol IV (taper) Monitor O2 Saturations (titrate O2) In your professional opinion, can you please further specify the following, if known? With Acute Asthma Exacerbation Severity Mild intermittent Mild persistent Moderate persistent Severe persistent Other, please specify Unable to determine Form or Type Cough variant Childhood Exercise induced bronchospasm Extrinsic allergic Idiosyncratic Intrinsic nonallergic Late-onset Mixed Other, please specify Unable to determine Please document as an addendum in your progress notes in order to capture severity of illness and risk of mortality. Include clinical findings that support your diagnosis. FYI: Press F11 to launch patient chart. Place X here if this finding has no clinical significance, is not applicable or if you are not able to provide any additional documentation. NICOLA
[2016-10-30 20:48] LABS: Glucose,Whole Blood 250 mg/dL (75-99)
[2016-10-30] MEDS: CHLORPHEN-HYDROcod 8-10mg/5ml 5 ML ORAL.SYRG PO SCH (21:30)
[2016-10-30] MEDS: STRIBILD PO SCH (21:32)
[2016-10-31] MEDS: ZOLPIDEM 10 MG TAB PO PRN (02:17)
[2016-10-31] MEDS: IPRATROPIUM-ALBUTEROL 3 ML NEB INHALATION PRN ×4 (03:09→19:01)
[2016-10-31] MEDS: methylPREDNISolone SOD SUCCI 125 MG/2 ML VIAL IV SCH ×4 (06:14→23:47)
[2016-10-31 07:21] LABS: Glucose,Whole Blood 130 mg/dL (75-99)
[2016-10-31] MEDS: BUDESONIDE 0.5 MG/2 ML NEBU INHALATION SCH ×2 (07:44→19:00)
[2016-10-31] MEDS: FORMOTEROL FUMARATE 20 MCG/2 ML NEBU INHALATION SCH ×2 (07:44→19:01)
[2016-10-31] MEDS: INSULIN LISPRO (humaLOG) 300 UNIT/3 ML VIAL SQ SCH ×4 (07:45→20:54)
[2016-10-31] MEDS: CHLORPHEN-HYDROcod 8-10mg/5ml 5 ML ORAL.SYRG PO SCH ×2 (08:34→20:39)
[2016-10-31] MEDS: AZITHROMYCIN 500 MG TAB PO SCH (08:35)
[2016-10-31] MEDS: HYDROcodone/APAP 10-325MG 1 EACH TAB PO SCH ×3 (08:35→23:46)
[2016-10-31] MEDS: ALPRAZolam 0.5 MG TAB PO SCH ×3 (08:35→23:46)
--- NOTE | 2016-10-31 12:04 | P.PN ---
Subjective 41-year-old female was admitted for severe back and bronchitis possibly and patient is and azithromycin. Patient is also being treated for COPD exacerbation. Patient saturations are good. Will ablate the patient in the hallway. Although her saturations are good patient is not feeling well and is still feeling short of breath and patient still has significant expiratory wheezing and rhonchus breath sounds because of that reason I'll leave the decision of discharge to pulmonary. Meantime will often walking pulse ox. Patient is still complaining of shortness of breath patient didn't sleep well probably because of the systemic steroids she is on which of which is high-dose. , Patient denied any nausea, vomiting, dysuria, new focal weakness. 10/31/2016 Patient says she doesn't have any significant improvement although her wheezing did improve patient has good air entry into bilateral lung zavala. Objective - Vital Signs Vital signs: Vital Signs Temp 97.1 F L 10/31/16 07:00 Pulse 88 10/31/16 10:50 Resp 16 10/31/16 10:50 BP 134/72 10/31/16 07:00 Pulse Ox 95 10/31/16 07:44 Intake & Output 10/30/16 10/31/16 10/31/16 18:59 06:59 18:59 Other: # Voids 3 2 - Exam PHYSICAL EXAMINATION: GENERAL: The patient is alert and oriented x3, not in any acute distress. Well developed, well nourished. HEENT: Pupils are round and equally reacting to light. EOMI. No scleral icterus. No conjunctival pallor. Normocephalic, atraumatic. No pharyngeal erythema. No thyromegaly. CARDIOVASCULAR: S1 and S2 present. No murmurs, rubs, or gallops. PULMONARY: Improved expiratory wheezing bilaterally along with rhonchorous breath sounds. mildly decreased air entry into bilateral lung zavala. ABDOMEN: Soft, nontender, nondistended, normoactive bowel sounds. No palpable organomegaly. MUSCULOSKELETAL: No joint swelling or deformity. EXTREMITIES: No cyanosis, clubbing, or pedal edema. NEUROLOGICAL: Gross neurological examination did not reveal any focal deficits. SKIN: No rashes. - Labs CBC & Chem 7: 10/28/16 18:32 10/28/16 18:32 Labs: Abnormal Lab Results - Last 24 Hours (Table) 10/30/16 10/30/1610/30/17 Range/Units 12:15 16:42 20:41 POC Glucose (mg/dL) 192 H 168 H 250 H (75-99) mg/dL 10/31/16 Range/Units 06:54 POC Glucose (mg/dL) 130 H (75-99) mg/dL Assessment and Plan Plan: #1 acute exacerbation of COPD or asthma: Patient is on systemic steroids and inhalation treatments which will be continued. #2 possibility of Bactrim bronchitis for which patient will be continued on azithromycin and infectious disease will eval if the patient. #3 HIV with last CD4 count of 129: Patient is being continued on her antiretroviral therapy. #4 fibromyalgia. #5 seizure disorder. For above-mentioned chronic medical problems patient will be continued on her home medications and monitor.
[2016-10-31 12:05] LABS: Glucose,Whole Blood 222 mg/dL (75-99)
[2016-10-31] MEDS: CIPROFLOXACIN-DEXAMETH 0.3-0.1% DROPS 7.5 ML BTL BOTH EARS SCH ×2 (16:57→20:40)
[2016-10-31 17:22] LABS: Glucose,Whole Blood 182 mg/dL (75-99)
--- NOTE | 2016-10-31 17:36 | P.PN ---
Subjective A very pleasant 40-year-old female patient, asthmatic with previous history of smoking and no history of HIV on the treatment with most recent CD4 counts being on the 200 (119 range) and her viral counts are undetectable, who was admitted yesterday from our office because of increased shortness of breath and acute asthma exacerbation. I have had this patient on Symbicort maintenance however she has failed to continue the medication and over the past 3-4 months she hasn't been receiving her maintenance inhaler. She has been utilizing albuterol rescue inhaler and she had become progressively more short of breath and required frequent albuterol treatments. For that reason she came to our office and she was admitted to the hospital for an acute asthma exacerbation. Her chest is tight and she is wheezing and she is having frequent coughing spells. No significant sputum production. No hemoptysis. No thrush. She reports some difficulties in urination and she was obviously need a CLEANER CARPET AND UPHOLSTERY evaluation for later stage. No known history of involvement of ALLERGIES. She has a strong personal or family history of bronchial asthma. She smoked extensively in the past however she claims to quit smoking for now. She lives in the [facility] and she describes that her environment is clean. She has pets at home including dogs and cats. Most of nasal polyposis. Most of eczema. She's been having episodes of heartburn. The chest x-ray is not showing any acute suspicious pulmonary infiltrates. The patient is on a combination of DuoNeb nebulized treatments around the clock, Zithromax 5 mg by mouth daily, Symbicort 160/4.5 2 puffs twice a day and IV Solu-Medrol. In terms of her HIV, she is on Stribild tablets ,1 tablet at bedtime. The patient is seen again today in follow-up on the regular medical floor. She is awake and alert. She has had ongoing issues with coughing, chest tightness and shortness of breath. She also has complaints of insomnia most likely secondary to the steroids. She has been on her bronchodilators, Pulmicort and Perforomist, IV Solu Medrol and empiric antibiotics in the form of azithromycin. He continues to maintain good O2 saturations up to 100% on 2 L/m per nasal cannula. She's been afebrile. Hemodynamically stable. Objective - Vital Signs Vital signs: Vital Signs Temp 97.5 F L 10/31/16 15:00 Pulse 72 10/31/16 15:00 Resp 18 10/31/16 15:00 BP 122/63 10/31/16 15:00 Pulse Ox 94 L 10/31/16 15:00 Intake & Output 10/30/16 10/31/16 10/31/16 18:59 06:59 18:59 Other: Voiding Method Toilet # Voids 3 2 1 - Labs CBC & Chem 7: 10/28/16 18:32 10/28/16 18:32 Labs: Abnormal Lab Results - Last 24 Hours (Table) 10/30/16 10/31/16 10/31/16 Range/Units 20:41 06:54 11:57 POC Glucose (mg/dL) 250 H 130 H 222 H (75-99) mg/dL 10/31/16 Range/Units 17:12 POC Glucose (mg/dL) 182 H (75-99) mg/dL Assessment and Plan Plan: Assessment 1 acute exacerbation of moderate persistent chronic asthma secondary to suspected extrinsic ALLERGIC as well as the possibility due to suboptimal compliance with her maintenance inhalers. Chest x-ray is free of any acute pulmonary infiltrates. Rule out underlying bronchitis. CD4 count based on the most recent evaluations 119. No previous abortions take infections of the lungs. 2 obesity 3 HIV/AIDS, currently under treatment. Most recent viral counts are undetectable with a CD4 count of 119 4 anxiety/depression, history of 5 chronic pain 6 previous history of smoking. Plan The patient is seen and evaluated by Dr. Mims. She is not much improved today as compared to yesterday. If the patient is not improved by tomorrow we' ll plan on doing a bronchoscopy and BAL. We will continue with her current medications. We'll continue to follow.
[2016-10-31] MEDS: STRIBILD PO SCH (20:40)
[2016-10-31 20:53] LABS: Glucose,Whole Blood 180 mg/dL (75-99)
[2016-10-31] MEDS: LACTATED RINGERS 1,000 ML IV SCH (20:53)
--- NOTE | 2016-10-31 21:06 | P.PN ---
Subjective Principal diagnosis: Shortness of breath This is a 41-year-old female who follows in the office for history of HIV and AIDS who presented to Dr. Estrada's office with cough and shortness of breath secondary to exacerbation of asthma. She states that she went to [place] on Friday for her niece's wedding and returned on Friday while she was gone developed shortness of breath continued to worsen. She does have phlegm production and feels that but is unable to bring it up. Patient went in to see Dr. Estrada in the office and usually follows with Dr. Abraham and. She was made a direct admission for asthma exacerbation. She was placed initially on azithromycin and Rocephin as well as Solu-Medrol and nebulizer treatments. Patient also complains of difficult urination with pain with the initiation of urination and states that she cannot get much urine output. She feels like there is a blockage and she has to bear down very hard. She denies any trauma to the area. She states this is been going on for couple weeks. She also relates that her mother has history of urethral stricture. Patient has brought in Stribild from home which she has been taking here. Is noted she has had modest significant control of her HIV infection. Does have a low CD4 count of 116 last check. PERRLA hours been undetectable the last several evaluations. Continue to have ongoing difficulties with her cough and shortness of breath. She been evaluated by pulmonary medicine. With her lack of improvement plans for bronchoscopy have been made. Objective - Vital Signs Vital signs: Vital Signs Temp 97.5 F L 10/31/16 15:00 Pulse 90 10/31/16 19:25 Resp 18 10/31/16 16:00 BP 122/63 10/31/16 15:00 Pulse Ox 96 10/31/16 19:01 Intake & Output 10/31/16 10/31/16 11/01/16 06:59 18:59 06:59 Other: Voiding Method Toilet # Voids 2 1 - Exam Gen: This is a morbidly obese 41-year-old quanah Aamir female. She is sitting up in bed and appears to be comfortable. She appears to be in no acute distress. She is able to speak in full sentences. HEENT: Head is atraumatic, normocephalic. Pupils equal, round. Sclerae is anicteric. NECK: Supple. No JVD. No lymphadenopathy. No thyromegaly. LUNGS: Diminished with expiratory wheezes bilaterally. There are no bronchial sounds and no egophony. HEART: Regular rate and rhythm. No murmur. ABDOMEN: Morbidly obese Soft. Bowel sounds are present. No masses. No tenderness. No suprapubic tenderness. EXTREMITIES: No pedal edema. No calf tenderness. Dorsalis pedis +2 bilaterally. NEUROLOGICAL: Patient is awake, alert and oriented x3 - Labs CBC & Chem 7: 10/28/16 18:32 10/28/16 18:32 Labs: Abnormal Lab Results - Last 24 Hours (Table) 10/31/16 10/31/16 10/31/16 Range/Units 06:54 11:57 17:12 POC Glucose (mg/dL) 130 H 222 H 182 H (75-99) mg/dL 10/31/16 Range/Units 20:48 POC Glucose (mg/dL) 180 H (75-99) mg/dL Laboratory Results WBC 5.9 k/uL (3.8-10.6) 10/28/16 18:32 RBC 5.08 m/uL (3.80-5.40) 10/28/16 18:32 Hgb 15.6 gm/dL (11.4-16.0) 10/28/16 18:32 Hct 46.1 % (34.0-46.0) H 10/28/16 18:32 MCV 90.8 fL (80.0-100.0) 10/28/16 18:32 MCH 30.8 pg (25.0-35.0) 10/28/16 18:32 MCHC 33.9 g/dL (31.0-37.0) 10/28/16 18:32 RDW 13.0 % (11.5-15.5) 10/28/16 18:32 Plt Count 230 k/uL (150-450) 10/28/16 18:32 Neutrophils % 77 % 10/28/16 18:32 Lymphocytes % 13 % 10/28/16 18:32 Monocytes % 4 % 10/28/16 18:32 Eosinophils % 4 % 10/28/16 18:32 Basophils % 1 % 10/28/16 18:32 Neutrophils # 4.5 k/uL (1.3-7.7) 10/28/16 18:32 Lymphocytes # 0.8 k/uL (1.0-4.8) L 10/28/16 18:32 Monocytes # 0.3 k/uL (0-1.0) 10/28/16 18:32 Eosinophils # 0.2 k/uL (0-0.7) 10/28/16 18:32 Basophils # 0.0 k/uL (0-0.2) 10/28/16 18:32 Sodium 141 mmol/L (137-145) 10/28/16 18:32 Potassium 4.4 mmol/L (3.5-5.1) 10/28/16 18:32 Chloride 102 mmol/L (98-107) 10/28/16 18:32 Carbon Dioxide 26 mmol/L (22-30) 10/28/16 18:32 Anion Gap 13 mmol/L 10/28/16 18:32 BUN 8 mg/dL (7-17) 10/28/16 18:32 Creatinine 1.10 mg/dL (0.52-1.04) H 10/28/16 18:32 Est GFR (MDRD) Af Amer >60 (>60 ml/min/1.73 sqM) 10/28/16 18:32 Est GFR (MDRD) Non-Af 55 (>60 ml/min/1.73 sqM) 10/28/16 18:32 Glucose 101 mg/dL (74-99) H 10/28/16 18:32 POC Glucose (mg/dL) 180 mg/dL (75-99) H 10/31/16 20:48 POC Glu Photographic Artist Neisha Rutledge 10/31/16 20:[address] Glu mg/dL 103 mg/dL 10/28/16 18:32 Hemoglobin A1c 5.2 % (4.2-6.1) 10/28/16 18:32 Calcium 9.4 mg/dL (8.4-10.2) 10/28/16 18:32 Urine Color Colorless 10/29/16 07:56 Urine Appearance Clear (Clear) 10/29/16 07:56 Urine pH 7.0 (5.0-8.0) 10/29/16 07:56 Ur Specific [place] 1.004 (1.001-1.035) 10/29/16 07:56 Urine Protein Negative (Negative) 10/29/16 07:56 Urine Glucose (UA) Negative (Negative) 10/29/16 07:56 Urine Ketones Negative (Negative) 10/29/16 07:56 Urine Blood Negative (Negative) 10/29/16 07:56 Urine Nitrite Negative (Negative) 10/29/16 07:56 Urine Bilirubin Negative (Negative) 10/29/16 07:56 Urine Urobilinogen <2.0 mg/dL (<2.0) 10/29/16 07:56 Ur Leukocyte Esterase Negative (Negative) 10/29/16 07:56 Assessment and Plan (1) HIV disease Status: Acute (2) Asthma exacerbation Narrative/Plan: 41-year-old female with a long-standing history of HIV infection presents to hospital with significant shortness of breath and wheezing. Concerns to an acute exacerbation of underlying pulmonary disease due to the lack of her ongoing utilization of her pulmonary medicines. She is now receiving updrafts and steroids therapy. Despite that she still having significant wheezing and some shortness of breath. Chest x-ray is without significant infiltration. With her low CD4 count this is been discussed with pulmonary critical care and bronchoscopy will be performed to further evaluate and obtain specimens for PCP which she is at risk for. Continue current therapeutic interventions. Fortunately she does feel slightly better. Anxiolytics have helped. Continue her current antiretroviral therapy with Stribild which she has tolerated quite well. Is noted she is not diabetic but with the steroid therapy is having some significant hyperglycemia which is being treated with some insulin therapy which she is tolerating well. Status: Acute
[2016-11-01] MEDS: IPRATROPIUM-ALBUTEROL 3 ML NEB INHALATION PRN ×6 (00:01→23:47)
[2016-11-01] MEDS: methylPREDNISolone SOD SUCCI 125 MG/2 ML VIAL IV SCH ×3 (05:35→17:52)
[2016-11-01 06:56] LABS: Glucose,Whole Blood 132 mg/dL (75-99)
[2016-11-01] MEDS: FORMOTEROL FUMARATE 20 MCG/2 ML NEBU INHALATION SCH ×2 (07:37→20:50)
[2016-11-01] MEDS: BUDESONIDE 0.5 MG/2 ML NEBU INHALATION SCH ×2 (07:37→20:50)
[2016-11-01] MEDS: INSULIN LISPRO (humaLOG) 300 UNIT/3 ML VIAL SQ SCH ×4 (08:00→20:27)
[2016-11-01] MEDS: AZITHROMYCIN 500 MG TAB PO SCH (08:22)
[2016-11-01] MEDS: CHLORPHEN-HYDROcod 8-10mg/5ml 5 ML ORAL.SYRG PO SCH ×2 (08:22→20:23)
[2016-11-01] MEDS: ALPRAZolam 0.5 MG TAB PO SCH ×3 (08:22→22:12)
[2016-11-01] MEDS: CIPROFLOXACIN-DEXAMETH 0.3-0.1% DROPS 7.5 ML BTL BOTH EARS SCH ×2 (08:23→20:24)
[2016-11-01] MEDS: HYDROcodone/APAP 10-325MG 1 EACH TAB PO SCH ×3 (08:23→22:12)
[2016-11-01] MEDS ORDERED: LIDOCAINE 1% INJ 10MG/ML (20 ML MDV) ONE (11:47)
[2016-11-01] MEDS ORDERED: PROPOFOL 10 MG/ML 20 ML VIAL IV ONE (11:47)
[2016-11-01] MEDS ORDERED: SODIUM CHLORIDE 0.9% 1,000 ML IV ONE (11:47)
[2016-11-01] MEDS ORDERED: LIDOCAINE 2% INJ 20 MG/ML INTRATRACH ONE ×3 (11:58→12:13)
[2016-11-01 12:45] LABS: Glucose,Whole Blood 108 mg/dL (75-99)
--- NOTE | 2016-11-01 14:20 | P.PN ---
Subjective A very pleasant 40-year-old female patient, asthmatic with previous history of smoking and no history of HIV on the treatment with most recent CD4 counts being on the 200 (119 range) and her viral counts are undetectable, who was admitted yesterday from our office because of increased shortness of breath and acute asthma exacerbation. I have had this patient on Symbicort maintenance however she has failed to continue the medication and over the past 3-4 months she hasn't been receiving her maintenance inhaler. She has been utilizing albuterol rescue inhaler and she had become progressively more short of breath and required frequent albuterol treatments. For that reason she came to our office and she was admitted to the hospital for an acute asthma exacerbation. Her chest is tight and she is wheezing and she is having frequent coughing spells. No significant sputum production. No hemoptysis. No thrush. She reports some difficulties in urination and she was obviously need a CHIEF CONSTRUCTION INSPECTOR evaluation for later stage. No known history of involvement of ALLERGIES. She has a strong personal or family history of bronchial asthma. She smoked extensively in the past however she claims to quit smoking for now. She lives in the [facility] and she describes that her environment is clean. She has pets at home including dogs and cats. Most of nasal polyposis. Most of eczema. She's been having episodes of heartburn. The chest x-ray is not showing any acute suspicious pulmonary infiltrates. The patient is on a combination of DuoNeb nebulized treatments around the clock, Zithromax 5 mg by mouth daily, Symbicort 160/4.5 2 puffs twice a day and IV Solu-Medrol. In terms of her HIV, she is on Stribild tablets ,1 tablet at bedtime. The patient is seen again today 10/31/2016 in follow-up on the regular medical floor. She is awake and alert. She has had ongoing issues with coughing, chest tightness and shortness of breath. She also has complaints of insomnia most likely secondary to the steroids. She has been on her bronchodilators, Pulmicort and Perforomist, IV Solu Medrol and empiric antibiotics in the form of azithromycin. He continues to maintain good O2 saturations up to 100% on 2 L /m per nasal cannula. She's been afebrile. Hemodynamically stable. The patient is seen again today 11/01/2016 in follow-up on the regular medical floor. She did undergo bronchoscopy with BAL by Dr. Mims this morning. She was noted to have significant secretions in the lingula which is where the BAL was obtained. She tolerated the procedure well. Currently she is maintaining good O2 saturations in the mid 90s on room air. She is afebrile. Hemodynamically stable. She is still quite bronchospastic and wheezy. Objective - Vital Signs Vital signs: Vital Signs Temp 97.0 F L 11/01/16 12:58 Pulse 80 11/01/16 12:58 Resp 16 11/01/16 12:58 BP 121/68 11/01/16 12:58 Pulse Ox 95 11/01/16 12:58 Intake & Output 10/31/16 11/01/16 11/01/16 18:59 06:59 18:59 Intake Total 300 Balance 300 Intake: IV 300 Other: Voiding Method Toilet # Voids 1 2 1 - Exam Head exam was generally normal. There was no scleral icterus or corneal arcus. Mucous membranes were moist.Neck was supple and without jugular venous distension, thyromegaly, or carotid bruits. Carotids were easily palpable bilaterally. There was no adenopathy. Lung sounds are markedly diminished and there is diffuse expiratory wheezes throughout lung his bilaterally.Cardiac exam revealed the PMI to be normally situated and sized. The rhythm was regular and no extrasystoles were noted during several minutes of auscultation. The first and second heart sounds were normal and physiologic splitting of the second heart sound was noted. There were no murmurs, rubs, clicks, or gallops.Abdominal exam revealed normal bowel sounds. The abdomen was soft, non- tender, and without masses, organomegaly, or appreciable enlargement of the abdominal aorta.Examination of the extremities revealed easily palpable radial, femoral and pedal pulses. There was no cyanosis, clubbing or edema. - Labs CBC & Chem 7: 10/28/16 18:32 10/28/16 18:32 Labs: Abnormal Lab Results - Last 24 Hours (Table) 10/31/16 10/31/16 11/01/16 Range/Units 17:12 20:48 06:55 POC Glucose (mg/dL) 182 H 180 H 132 H (75-99) mg/dL 11/01/16 Range/Units 12:44 POC Glucose (mg/dL) 108 H (75-99) mg/dL Assessment and Plan Plan: Assessment 1 acute exacerbation of moderate persistent chronic asthma secondary to suspected extrinsic ALLERGIC as well as the possibility due to suboptimal compliance with her maintenance inhalers. Chest x-ray is free of any acute pulmonary infiltrates. Rule out underlying bronchitis. CD4 count based on the most recent evaluations 119. No previous opportunistic infections of the lungs. 2 obesity 3 HIV/AIDS, currently under treatment. Most recent viral counts are undetectable with a CD4 count of 119 4 anxiety/depression, history of 5 chronic pain 6 previous history of smoking. Plan The patient is seen and evaluated by Dr. Mims. She did undergo bronchoscopy with BAL today. Cultures are pending. We will continue with her current medications. We will increase her activity as tolerated. We'll continue to follow.
--- NOTE | 2016-11-01 14:21 | P.PN ---
Subjective 41-year-old female was admitted for severe back and bronchitis possibly and patient is and azithromycin. Patient is also being treated for COPD exacerbation. Patient saturations are good. Will ablate the patient in the hallway. Although her saturations are good patient is not feeling well and is still feeling short of breath and patient still has significant expiratory wheezing and rhonchus breath sounds because of that reason I'll leave the decision of discharge to pulmonary. Meantime will often walking pulse ox. 10/31/2016 Patient says she doesn't have any significant improvement although her wheezing did improve patient has good air entry into bilateral lung zavala. 11/01/2016 Patient underwent bronchoscopy please of her to pulmonology's dictation for further details. Patient believes her respiratory status improved compared to yesterday. Patient denied any nausea, vomiting, dysuria, new focal weakness. Objective - Vital Signs Vital signs: Vital Signs Temp 97.0 F L 11/01/16 12:58 Pulse 80 11/01/16 12:58 Resp 16 11/01/16 12:58 BP 121/68 11/01/16 12:58 Pulse Ox 95 11/01/16 12:58 Intake & Output 10/31/16 11/01/16 11/01/16 18:59 06:59 18:59 Intake Total 300 Balance 300 Intake: IV 300 Other: Voiding Method Toilet # Voids 1 2 1 - Exam PHYSICAL EXAMINATION: GENERAL: The patient is alert and oriented x3, not in any acute distress. Well developed, well nourished. HEENT: Pupils are round and equally reacting to light. EOMI. No scleral icterus. No conjunctival pallor. Normocephalic, atraumatic. No pharyngeal erythema. No thyromegaly. CARDIOVASCULAR: S1 and S2 present. No murmurs, rubs, or gallops. PULMONARY: noted as patient is stated to take the breast. Although wheezing appeared to have improved and rhonchus breath sounds appear to have improved. ABDOMEN: Soft, nontender, nondistended, normoactive bowel sounds. No palpable organomegaly. MUSCULOSKELETAL: No joint swelling or deformity. EXTREMITIES: No cyanosis, clubbing, or pedal edema. NEUROLOGICAL: Gross neurological examination did not reveal any focal deficits. SKIN: No rashes. - Labs CBC & Chem 7: 10/28/16 18:32 10/28/16 18:32 Labs: Abnormal Lab Results - Last 24 Hours (Table) 10/31/16 10/31/16 11/01/16 Range/Units 17:12 20:48 06:55 POC Glucose (mg/dL) 182 H 180 H 132 H (75-99) mg/dL 11/01/16 Range/Units 12:44 POC Glucose (mg/dL) 108 H (75-99) mg/dL Assessment and Plan Plan: #1 acute exacerbation of COPD or asthma: Patient is on systemic steroids and inhalation treatments which will be continued.is status post bronchoscopy #2 possibility of Bactrim bronchitis for which patient will be continued on azithromycin andand flat except as per infectious disease. #3 HIV with last CD4 count of 129: Patient is being continued on her antiretroviral therapy. #4 fibromyalgia. #5 seizure disorder. For above-mentioned chronic medical problems patient will be continued on her home medications and monitor.
[2016-11-01 17:14] LABS: Glucose,Whole Blood 175 mg/dL (75-99)
[2016-11-01] MEDS: LACTATED RINGERS 1,000 ML IV SCH (17:50)
[2016-11-01] MEDS: STRIBILD PO SCH (20:25)
[2016-11-01 20:29] LABS: Glucose,Whole Blood 168 mg/dL (75-99)
[2016-11-01] MEDS: ZOLPIDEM 10 MG TAB PO PRN (22:12)
[2016-11-02] MEDS: methylPREDNISolone SOD SUCCI 125 MG/2 ML VIAL IV SCH ×3 (00:15→13:32)
[2016-11-02 06:50] LABS: Glucose,Whole Blood 149 mg/dL (75-99)
[2016-11-02] MEDS: BUDESONIDE 0.5 MG/2 ML NEBU INHALATION SCH ×2 (07:37→18:13)
[2016-11-02] MEDS: FORMOTEROL FUMARATE 20 MCG/2 ML NEBU INHALATION SCH ×2 (07:37→18:13)
[2016-11-02] MEDS: IPRATROPIUM-ALBUTEROL 3 ML NEB INHALATION PRN ×4 (07:37→22:33)
[2016-11-02 07:45] LABS: CH 31.1; CHCM 33.5; HCT 43.5 % (34.0-46.0); HDW 2.54; HGB 14.6 gm/dL (11.4-16.0); MCH 31.2 pg (25.0-35.0); MCHC 33.5 g/dL (31.0-37.0); MCV 93.3 fL (80.0-100.0); Mean Platelet Volume 7.6; RBC 4.66 m/uL (3.80-5.40); RDW 13.4 % (11.5-15.5); WBC 8.5 k/uL (3.8-10.6)
[2016-11-02 08:08] LABS: Anion Gap 10 mmol/L; Blood Urea Nitrogen 27 mg/dL (7-17); Calcium 8.8 mg/dL (8.4-10.2); Carbon Dioxide 24 mmol/L (22-30); Chloride 102 mmol/L (98-107); Glucose 167 mg/dL (74-99); Non-African American GFR(MDRD) >60 (>60 ml/min/1.73 sqM); Potassium 4.5 mmol/L (3.5-5.1); Sodium 136 mmol/L (137-145)
[2016-11-02] MEDS: INSULIN LISPRO (humaLOG) 300 UNIT/3 ML VIAL SQ SCH ×4 (08:25→21:17)
[2016-11-02] MEDS: ALPRAZolam 0.5 MG TAB PO SCH ×3 (08:25→21:15)
[2016-11-02] MEDS: AZITHROMYCIN 500 MG TAB PO SCH (08:26)
[2016-11-02] MEDS: CIPROFLOXACIN-DEXAMETH 0.3-0.1% DROPS 7.5 ML BTL BOTH EARS SCH ×2 (08:26→20:43)
[2016-11-02] MEDS: HYDROcodone/APAP 10-325MG 1 EACH TAB PO SCH ×3 (08:26→21:15)
[2016-11-02] MEDS: CHLORPHEN-HYDROcod 8-10mg/5ml 5 ML ORAL.SYRG PO SCH ×2 (08:26→20:42)
[2016-11-02 12:06] LABS: Glucose,Whole Blood 172 mg/dL (75-99)
--- NOTE | 2016-11-02 14:03 | P.PN ---
Subjective A very pleasant 40-year-old female patient, asthmatic with previous history of smoking and no history of HIV on the treatment with most recent CD4 counts being on the 200 (119 range) and her viral counts are undetectable, who was admitted yesterday from our office because of increased shortness of breath and acute asthma exacerbation. I have had this patient on Symbicort maintenance however she has failed to continue the medication and over the past 3-4 months she hasn't been receiving her maintenance inhaler. She has been utilizing albuterol rescue inhaler and she had become progressively more short of breath and required frequent albuterol treatments. For that reason she came to our office and she was admitted to the hospital for an acute asthma exacerbation. Her chest is tight and she is wheezing and she is having frequent coughing spells. No significant sputum production. No hemoptysis. No thrush. She reports some difficulties in urination and she was obviously need a POPULATION HEALTH MANAGER evaluation for later stage. No known history of involvement of ALLERGIES. She has a strong personal or family history of bronchial asthma. She smoked extensively in the past however she claims to quit smoking for now. She lives in the [facility] and she describes that her environment is clean. She has pets at home including dogs and cats. Most of nasal polyposis. Most of eczema. She's been having episodes of heartburn. The chest x-ray is not showing any acute suspicious pulmonary infiltrates. The patient is on a combination of DuoNeb nebulized treatments around the clock, Zithromax 5 mg by mouth daily, Symbicort 160/4.5 2 puffs twice a day and IV Solu-Medrol. In terms of her HIV, she is on Stribild tablets ,1 tablet at bedtime. The patient is seen again today 10/31/2016 in follow-up on the regular medical floor. She is awake and alert. She has had ongoing issues with coughing, chest tightness and shortness of breath. She also has complaints of insomnia most likely secondary to the steroids. She has been on her bronchodilators, Pulmicort and Perforomist, IV Solu Medrol and empiric antibiotics in the form of azithromycin. He continues to maintain good O2 saturations up to 100% on 2 L /m per nasal cannula. She's been afebrile. Hemodynamically stable. The patient is seen again today 11/01/2016 in follow-up on the regular medical floor. She did undergo bronchoscopy with BAL by Dr. Mims this morning. She was noted to have significant secretions in the lingula which is where the BAL was obtained. She tolerated the procedure well. Currently she is maintaining good O2 saturations in the mid 90s on room air. She is afebrile. Hemodynamically stable. She is still quite bronchospastic and wheezy. The patient is seen again today 11/02/2016 in follow-up on the regular medical floor. She is resting fairly comfortably in bed. She is breathing better today as compared to yesterday but still not quite back to her baseline. She is dyspneic on minimal exertion. Her cough has improved. She did utilize Ambien last night to help her sleep as she has been having issues with insomnia secondary to steroids. Bronchial wash findings are pending. No leukocytosis. Afebrile. Continues to maintain good O2 saturations in the mid 90s on room air. Objective - Vital Signs Vital signs: Vital Signs Temp 97.1 F L 11/02/16 07:00 Pulse 84 11/02/16 11:58 Resp 16 11/02/16 07:00 BP 131/85 11/02/16 07:00 Pulse Ox 95 11/02/16 07:00 Intake & Output 11/01/16 11/02/16 11/02/16 18:59 06:59 18:59 Intake Total 300 Balance 300 Intake: IV 300 Other: Voiding Method Toilet # Voids 2 2 1 - Exam Head exam was generally normal. There was no scleral icterus or corneal arcus. Mucous membranes were moist.Neck was supple and without jugular venous distension, thyromegaly, or carotid bruits. Carotids were easily palpable bilaterally. There was no adenopathy. Lung sounds are markedly diminished and there is diffuse expiratory wheezes throughout lung his bilaterally.Cardiac exam revealed the PMI to be normally situated and sized. The rhythm was regular and no extrasystoles were noted during several minutes of auscultation. The first and second heart sounds were normal and physiologic splitting of the second heart sound was noted. There were no murmurs, rubs, clicks, or gallops.Abdominal exam revealed normal bowel sounds. The abdomen was soft, non- tender, and without masses, organomegaly, or appreciable enlargement of the abdominal aorta.Examination of the extremities revealed easily palpable radial, femoral and pedal pulses. There was no cyanosis, clubbing or edema. - Labs CBC & Chem 7: 11/02/16 07:33 11/02/16 07:33 Labs: Abnormal Lab Results - Last 24 Hours (Table) 11/01/16 11/01/16 11/01/16 Range/Units 12:15 17:13 20:24 Sodium (137-145) mmol/L BUN (7-17) mg/dL Glucose (74-99) mg/dL POC Glucose (mg/dL) 175 H 168 H (75-99) mg/dL Viral Test See Below H 11/02/16 11/02/16 11/02/16 Range/Units 06:48 07:33 12:04 Sodium 136 L (137-145) mmol/L BUN 27 H (7-17) mg/dL Glucose 167 H (74-99) mg/dL POC Glucose (mg/dL) 149 H 172 H (75-99) mg/dL Viral Test Microbiology - Last 24 Hours (Table) 11/01/16 12:15 Gram Stain - Preliminary Bronchoalviolar Lavage - Left Bronchial Washings Culture - Preliminary 11/01/16 12:15 Acid Fast Bacilli Culture - Preliminary Bronchoalviolar Lavage - Left 11/01/16 12:15 Fungal Culture - Preliminary Bronchoalviolar Lavage - Left Assessment and Plan Plan: Assessment 1 acute exacerbation of moderate persistent chronic asthma secondary to suspected extrinsic ALLERGIC as well as the possibility due to suboptimal compliance with her maintenance inhalers. Chest x-ray is free of any acute pulmonary infiltrates. Rule out underlying bronchitis. CD4 count based on the most recent evaluations 119. No previous opportunistic infections of the lungs. 2 obesity 3 HIV/AIDS, currently under treatment. Most recent viral counts are undetectable with a CD4 count of 119 4 anxiety/depression, history of 5 chronic pain 6 previous history of smoking. Plan The patient is seen and evaluated by Dr. Mims. She did undergo bronchoscopy with BAL yesterday. Cultures are pending. She is improved but not quite back to her baseline. We will switch her IV Solu-Medrol over to prednisone taper. Hopefully home within the next 24-48 hours. We will increase her activity as tolerated. We'll continue to follow.
--- NOTE | 2016-11-02 14:28 | P.PN ---
Subjective 41-year-old female was admitted for severe back and bronchitis possibly and patient is and azithromycin. Patient is also being treated for COPD exacerbation. Patient saturations are good. Will ablate the patient in the hallway. Although her saturations are good patient is not feeling well and is still feeling short of breath and patient still has significant expiratory wheezing and rhonchus breath sounds because of that reason I'll leave the decision of discharge to pulmonary. Meantime will often walking pulse ox. 10/31/2016 Patient says she doesn't have any significant improvement although her wheezing did improve patient has good air entry into bilateral lung zavala. 11/01/2016 Patient underwent bronchoscopy please of her to pulmonology's dictation for further details. Patient believes her respiratory status improved compared to yesterday. Is 2016 Patient has good air entry into bilateral lung zavala patient is feeling much better after bronchoscopy. Patient will be switched to oral steroids. Patient is drowsy because of her lack of sleep occurs of IV steroids. Patient also received Ambien because of lack of sleep. Patient denied any nausea, vomiting, dysuria, new focal weakness. Objective - Vital Signs Vital signs: Vital Signs Temp 97.1 F L 11/02/16 07:00 Pulse 84 11/02/16 11:58 Resp 16 11/02/16 07:00 BP 131/85 11/02/16 07:00 Pulse Ox 95 11/02/16 07:00 Intake & Output 11/01/16 11/02/16 11/02/16 18:59 06:59 18:59 Intake Total 300 Balance 300 Intake: IV 300 Other: Voiding Method Toilet # Voids 2 2 1 - Exam PHYSICAL EXAMINATION: GENERAL: The patient is alert and oriented x3, not in any acute distress. Well developed, well nourished. HEENT: Pupils are round and equally reacting to light. EOMI. No scleral icterus. No conjunctival pallor. Normocephalic, atraumatic. No pharyngeal erythema. No thyromegaly. CARDIOVASCULAR: S1 and S2 present. No murmurs, rubs, or gallops. PULMONARY: noted as patient is stated to take the breast. Although wheezing appeared to have improved and rhonchus breath sounds appear to have improved. Wheezing is much better compared to yesterday. ABDOMEN: Soft, nontender, nondistended, normoactive bowel sounds. No palpable organomegaly. MUSCULOSKELETAL: No joint swelling or deformity. EXTREMITIES: No cyanosis, clubbing, or pedal edema. NEUROLOGICAL: Gross neurological examination did not reveal any focal deficits. SKIN: No rashes. - Labs CBC & Chem 7: 11/02/16 07:33 11/02/16 07:33 Labs: Abnormal Lab Results - Last 24 Hours (Table) 11/01/16 11/01/16 11/01/16 Range/Units 12:15 17:13 20:24 Sodium (137-145) mmol/L BUN (7-17) mg/dL Glucose (74-99) mg/dL POC Glucose (mg/dL) 175 H 168 H (75-99) mg/dL Viral Test See Below H 11/02/16 11/02/16 11/02/16 Range/Units 06:48 07:33 12:04 Sodium 136 L (137-145) mmol/L BUN 27 H (7-17) mg/dL Glucose 167 H (74-99) mg/dL POC Glucose (mg/dL) 149 H 172 H (75-99) mg/dL Viral Test Microbiology - Last 24 Hours (Table) 11/01/16 12:15 Gram Stain - Preliminary Bronchoalviolar Lavage - Left Bronchial Washings Culture - Preliminary 11/01/16 12:15 Acid Fast Bacilli Culture - Preliminary Bronchoalviolar Lavage - Left 11/01/16 12:15 Fungal Culture - Preliminary Bronchoalviolar Lavage - Left Assessment and Plan Plan: #1 acute exacerbation of COPD or asthma: Patient is on systemic steroids and inhalation treatments which will be continued.is status post bronchoscopy #2 possibility of bacterial bronchitis for which patient will be continued on azithromycin , infectious disease is following the patient #3 HIV with last CD4 count of 129: Patient is being continued on her antiretroviral therapy. #4 fibromyalgia. #5 seizure disorder. For above-mentioned chronic medical problems patient will be continued on her home medications and monitor.
--- NOTE | 2016-11-02 16:12 | P.PN ---
Subjective Principal diagnosis: Shortness of breath This is a 41-year-old female who follows in the office for history of HIV and AIDS who presented to Dr. Estrada's office with cough and shortness of breath secondary to exacerbation of asthma. She states that she went to [place] on Friday for her niece's wedding and returned on Friday while she was gone developed shortness of breath continued to worsen. She does have phlegm production and feels that but is unable to bring it up. Patient went in to see Dr. Estrada in the office and usually follows with Dr. Abraham and. She was made a direct admission for asthma exacerbation. She was placed initially on azithromycin and Rocephin as well as Solu-Medrol and nebulizer treatments. Patient also complains of difficult urination with pain with the initiation of urination and states that she cannot get much urine output. She feels like there is a blockage and she has to bear down very hard. She denies any trauma to the area. She states this is been going on for couple weeks. She also relates that her mother has history of urethral stricture. Patient has brought in Stribild from home which she has been taking here. Is noted she has had modest significant control of her HIV infection. Does have a low CD4 count of 116 last check. Viral load been undetectable the last several evaluations. Bronchoscopy has occurred. This allowed improvement of her sniffy and cough wheezing and sputum production. She feels better. It certainly not at her baseline. Objective - Vital Signs Vital signs: Vital Signs Temp 97.3 F L 11/02/16 15:00 Pulse 78 11/02/16 15:00 Resp 20 11/02/16 15:00 BP 151/84 11/02/16 15:00 Pulse Ox 94 L 11/02/16 15:00 Intake & Output 11/01/16 11/02/16 11/02/16 18:59 06:59 18:59 Intake Total 300 Balance 300 Intake: IV 300 Other: Voiding Method Toilet # Voids 2 2 2 - Exam Gen: This is a morbidly obese 41-year-old elwin Aamir female. She is sitting up in bed and appears to be comfortable. She appears to be in no acute distress. She is able to speak in full sentences. HEENT: Head is atraumatic, normocephalic. Pupils equal, round. Sclerae is anicteric. NECK: Supple. No JVD. No lymphadenopathy. No thyromegaly. LUNGS: Improved air entry. There are symmetric bilateral air entry. Decreased wheezing. Few basilar crackles. HEART: Regular rate and rhythm. No murmur. ABDOMEN: Morbidly obese Soft. Bowel sounds are present. No masses. No tenderness. No suprapubic tenderness. EXTREMITIES: No pedal edema. No calf tenderness. Dorsalis pedis +2 bilaterally. NEUROLOGICAL: Patient is awake, alert and oriented x3 - Labs CBC & Chem 7: 11/02/16 07:33 11/02/16 07:33 Labs: Abnormal Lab Results - Last 24 Hours (Table) 11/01/16 11/01/16 11/01/16 Range/Units 12:15 17:13 20:24 Sodium (137-145) mmol/L BUN (7-17) mg/dL Glucose (74-99) mg/dL POC Glucose (mg/dL) 175 H 168 H (75-99) mg/dL Viral Test See Below H 11/02/16 11/02/16 11/02/16 Range/Units 06:48 07:33 12:04 Sodium 136 L (137-145) mmol/L BUN 27 H (7-17) mg/dL Glucose 167 H (74-99) mg/dL POC Glucose (mg/dL) 149 H 172 H (75-99) mg/dL Viral Test Microbiology - Last 24 Hours (Table) 11/01/16 12:15 Gram Stain - Preliminary Bronchoalviolar Lavage - Left Bronchial Washings Culture - Preliminary 11/01/16 12:15 Acid Fast Bacilli Culture - Preliminary Bronchoalviolar Lavage - Left 11/01/16 12:15 Fungal Culture - Preliminary Bronchoalviolar Lavage - Left Laboratory Results WBC 8.5 k/uL (3.8-10.6) 11/02/16 07:33 RBC 4.66 m/uL (3.80-5.40) 11/02/16 07:33 Hgb 14.6 gm/dL (11.4-16.0) 11/02/16 07:33 Hct 43.5 % (34.0-46.0) 11/02/16 07:33 MCV 93.3 fL (80.0-100.0) 11/02/16 07:33 MCH 31.2 pg (25.0-35.0) 11/02/16 07:33 MCHC 33.5 g/dL (31.0-37.0) 11/02/16 07:33 RDW 13.4 % (11.5-15.5) 11/02/16 07:33 Plt Count 277 k/uL (150-450) 11/02/16 07:33 Neutrophils % 77 % 10/28/16 18:32 Lymphocytes % 13 % 10/28/16 18:32 Monocytes % 4 % 10/28/16 18:32 Eosinophils % 4 % 10/28/16 18:32 Basophils % 1 % 10/28/16 18:32 Neutrophils # 4.5 k/uL (1.3-7.7) 10/28/16 18:32 Lymphocytes # 0.8 k/uL (1.0-4.8) L 10/28/16 18:32 Monocytes # 0.3 k/uL (0-1.0) 10/28/16 18:32 Eosinophils # 0.2 k/uL (0-0.7) 10/28/16 18:32 Basophils # 0.0 k/uL (0-0.2) 10/28/16 18:32 Sodium 136 mmol/L (137-145) L 11/02/16 07:33 Potassium 4.5 mmol/L (3.5-5.1) 11/02/16 07:33 Chloride 102 mmol/L (98-107) 11/02/16 07:33 Carbon Dioxide 24 mmol/L (22-30) 11/02/16 07:33 Anion Gap 10 mmol/L 11/02/16 07:33 BUN 27 mg/dL (7-17) H 11/02/16 07:33 Creatinine 1.01 mg/dL (0.52-1.04) 11/02/16 07:33 Est GFR (MDRD) Af Amer >60 (>60 ml/min/1.73 sqM) 11/02/16 07:33 Est GFR (MDRD) Non-Af >60 (>60 ml/min/1.73 sqM) 11/02/16 07:33 Glucose 167 mg/dL (74-99) H 11/02/16 07:33 POC Glucose (mg/dL) 172 mg/dL (75-99) H 11/02/16 12:04 POC Glu Fruit Shipper ID Juliet Shaikh 11/02/16 12:[address] Glu mg/dL 103 mg/dL 10/28/16 18:32 Hemoglobin A1c 5.2 % (4.2-6.1) 10/28/16 18:32 Calcium 8.8 mg/dL (8.4-10.2) 11/02/16 07:33 Urine Color Colorless 10/29/16 07:56 Urine Appearance Clear (Clear) 10/29/16 07:56 Urine pH 7.0 (5.0-8.0) 10/29/16 07:56 Ur Specific [place] 1.004 (1.001-1.035) 10/29/16 07:56 Urine Protein Negative (Negative) 10/29/16 07:56 Urine Glucose (UA) Negative (Negative) 10/29/16 07:56 Urine Ketones Negative (Negative) 10/29/16 07:56 Urine Blood Negative (Negative) 10/29/16 07:56 Urine Nitrite Negative (Negative) 10/29/16 07:56 Urine Bilirubin Negative (Negative) 10/29/16 07:56 Urine Urobilinogen <2.0 mg/dL (<2.0) 10/29/16 07:56 Ur Leukocyte Esterase Negative (Negative) 10/29/16 07:56 Virus Source See Below 11/01/16 12:15 Viral Test See Below H 11/01/16 12:15 Virus Analysis Interp See Below 11/01/16 12:15 Microbiology 11/01/16 12:15 Bronchoalviolar Lavage - Left Gram Stain - Preliminary 11/01/16 12:15 Bronchoalviolar Lavage - Left Bronchial Washings Culture - Preliminary 11/01/16 12:15 Bronchoalviolar Lavage - Left Acid Fast Bacilli Culture - Preliminary 11/01/16 12:15 Bronchoalviolar Lavage - Left Fungal Culture - Preliminary Assessment and Plan (1) HIV disease Status: Acute (2) Asthma exacerbation Narrative/Plan: 41-year-old female with a long-standing history of HIV infection presents to hospital with significant shortness of breath and wheezing. Concerns to an acute exacerbation of underlying pulmonary disease due to the lack of her ongoing utilization of her pulmonary medicines. She is now receiving updrafts and steroids therapy. Despite that she still having significant wheezing and some shortness of breath. Chest x-ray is without significant infiltration. With her low CD4 count this is been discussed with pulmonary critical care and bronchoscopy was performed to further evaluate and obtain specimens for PCP which she is at risk for. Continue current therapeutic interventions. Fortunately she does feel better. Anxiolytics have helped. Continue her current antiretroviral therapy with Stribild which she has tolerated quite well. Is noted she is not diabetic but with the steroid therapy is having some significant hyperglycemia which is being treated with some insulin therapy which she is tolerating well. Status: Acute
[2016-11-02] MEDS: LACTATED RINGERS 1,000 ML IV SCH (16:20)
[2016-11-02 17:15] LABS: Glucose,Whole Blood 118 mg/dL (75-99)
[2016-11-02] MEDS: STRIBILD PO SCH (20:43)
[2016-11-02 21:10] LABS: Glucose,Whole Blood 167 mg/dL (75-99)
[2016-11-02] MEDS: ZOLPIDEM 10 MG TAB PO PRN (21:15)
[2016-11-03 06:38] LABS: Glucose,Whole Blood 160 mg/dL (75-99)
[2016-11-03] MEDS: FORMOTEROL FUMARATE 20 MCG/2 ML NEBU INHALATION SCH ×2 (07:21→19:07)
[2016-11-03] MEDS: BUDESONIDE 0.5 MG/2 ML NEBU INHALATION SCH ×2 (07:21→19:07)
[2016-11-03] MEDS: IPRATROPIUM-ALBUTEROL 3 ML NEB INHALATION PRN ×4 (07:21→19:07)
[2016-11-03] MEDS: predniSONE 20 MG TAB PO SCH (08:12)
[2016-11-03] MEDS: INSULIN LISPRO (humaLOG) 300 UNIT/3 ML VIAL SQ SCH ×4 (08:12→21:23)
[2016-11-03] MEDS: CIPROFLOXACIN-DEXAMETH 0.3-0.1% DROPS 7.5 ML BTL BOTH EARS SCH ×2 (08:12→21:23)
[2016-11-03] MEDS: ALPRAZolam 0.5 MG TAB PO SCH ×3 (08:12→21:23)
[2016-11-03] MEDS: HYDROcodone/APAP 10-325MG 1 EACH TAB PO SCH ×3 (08:12→21:21)
[2016-11-03] MEDS: AZITHROMYCIN 500 MG TAB PO SCH (08:12)
[2016-11-03] MEDS: CHLORPHEN-HYDROcod 8-10mg/5ml 5 ML ORAL.SYRG PO SCH ×2 (08:30→21:24)
--- NOTE | 2016-11-03 11:08 | P.DS ---
Providers Date of admission: 10/28/16 17:29 Attending physician: Waleska Garcia Consults: 10/28/16 17:49 Consult Physician Routine Consulting Provider: Laura Mims Consult Reason/Comments: asthma exacerbation Do you want consulting provider notified?: Yes 10/28/16 20:37 Consult Physician Urgent Consulting Provider: Sujit Tubbs Reason/Comments: asthma Do you want consulting provider notified?: Yes Primary care physician: [facility] Course: 41-year-old female was admitted for severe back and bronchitis possibly and patient is and azithromycin. Patient is also being treated for COPD exacerbation. Patient saturations are good. Will ablate the patient in the hallway. Although her saturations are good patient is not feeling well and is still feeling short of breath and patient still has significant expiratory wheezing and rhonchus breath sounds because of that reason I'll leave the decision of discharge to pulmonary. Meantime will often walking pulse ox. 10/31/2016 Patient says she doesn't have any significant improvement although her wheezing did improve patient has good air entry into bilateral lung zavala. 11/01/2016 Patient underwent bronchoscopy please of her to pulmonology's dictation for further details. Patient believes her respiratory status improved compared to yesterday. Nov 02 2016 Patient has good air entry into bilateral lung zavala patient is feeling much better after bronchoscopy. Patient will be switched to oral steroids. Patient is drowsy because of her lack of sleep occurs of IV steroids. Patient also received Ambien because of lack of sleep. Nov 03 2016 Patient is feeling much better patient probably can be discharged today at that patient will be left to pulmonology. And is complaining of nausea and the burning sensation in the retrosternal throat area secondary to acid reflux from systemic steroids Patient denied any dysuria, new focal weakness. PHYSICAL EXAMINATION: GENERAL: The patient is alert and oriented x3, not in any acute distress. Well developed, well nourished. HEENT: Pupils are round and equally reacting to light. EOMI. No scleral icterus. No conjunctival pallor. Normocephalic, atraumatic. No pharyngeal erythema. No thyromegaly. CARDIOVASCULAR: S1 and S2 present. No murmurs, rubs, or gallops. PULMONARY: Improved significantly patient breath sounds are rhonchorous but significantly better compared to when asked today. Patient is status post bronchoscopy ABDOMEN: Soft, nontender, nondistended, normoactive bowel sounds. No palpable organomegaly. MUSCULOSKELETAL: No joint swelling or deformity. EXTREMITIES: No cyanosis, clubbing, or pedal edema. NEUROLOGICAL: Gross neurological examination did not reveal any focal deficits. SKIN: No rashes. #1 acute exacerbation of COPD or asthma: Patient is on systemic steroids and inhalation treatments which will be continued.is status post bronchoscopy #2 possibility of bacterial bronchitis for which patient will be continued on azithromycin , infectious disease is following the patient #3 HIV with last CD4 count of 129: Patient is being continued on her antiretroviral therapy. #4 fibromyalgia. #5 seizure disorder. Plan - Discharge Summary New Discharge Prescriptions: New predniSONE 10 mg PO DAILY #30 tab No Action Albuterol Inhaler [Ventolin Inhaler] 2 puff INHALATION RT-Q4H PRN PRN Reason: Shortness Of Breath Budesonide-Formot 160-4.5 Mcg [Symbicort 160-4.5 Mcg Inhaler] 2 puff INHALATION RT-BID Hydrocodone/Acetaminophen [[place] 10-325] 1 tab PO TID ALPRAZolam [ALPRAZolam] 1 mg PO TID Albuterol Nebulized [Ventolin Nebulized] 2.5 mg INHALATION RT-Q4H PRN PRN Reason: Shortness Of Breath Elviteg/Holley/Emtric/Tenofo Dis [Stribild Tablet] 1 tab PO HS Discharge Medication List Albuterol Inhaler [Ventolin Inhaler] 2 puff INHALATION RT-Q4H PRN 05/25/14 [ History] Budesonide-Formot 160-4.5 Mcg [Symbicort 160-4.5 Mcg Inhaler] 2 puff INHALATION RT-BID 05/25/14 [History] ALPRAZolam [ALPRAZolam] 1 mg PO TID 11/09/15 [History] Hydrocodone/Acetaminophen [[place] 10-325] 1 tab PO TID 11/09/15 [History] Albuterol Nebulized [Ventolin Nebulized] 2.5 mg INHALATION RT-Q4H PRN 10/28/16 [ History] Elviteg/Holley/Emtric/Tenofo Dis [Stribild Tablet] 1 tab PO HS 10/28/16 [History] predniSONE 10 mg PO DAILY #30 tab 10/30/16 [Rx] Patient Instructions/Handouts: Asthma (DC) Discharge Disposition: HOME SELF-CARE
[2016-11-03 12:20] LABS: Glucose,Whole Blood 123 mg/dL (75-99)
--- NOTE | 2016-11-03 14:07 | P.PN ---
Subjective A very pleasant 40-year-old female patient, asthmatic with previous history of smoking and no history of HIV on the treatment with most recent CD4 counts being on the 200 (119 range) and her viral counts are undetectable, who was admitted yesterday from our office because of increased shortness of breath and acute asthma exacerbation. I have had this patient on Symbicort maintenance however she has failed to continue the medication and over the past 3-4 months she hasn't been receiving her maintenance inhaler. She has been utilizing albuterol rescue inhaler and she had become progressively more short of breath and required frequent albuterol treatments. For that reason she came to our office and she was admitted to the hospital for an acute asthma exacerbation. Her chest is tight and she is wheezing and she is having frequent coughing spells. No significant sputum production. No hemoptysis. No thrush. 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 No known history of involvement of ALLERGIES. She has a strong personal or family history of bronchial asthma. She smoked extensively in the past however she claims to quit smoking for now. She lives in the [facility] and she describes that her environment is clean. She has pets at home including dogs and cats. Most of nasal polyposis. Most of eczema. She's been having episodes of heartburn. The chest x-ray is not showing any acute suspicious pulmonary infiltrates. The patient is on a combination of DuoNeb nebulized treatments around the clock, Zithromax 5 mg by mouth daily, Symbicort 160/4.5 2 puffs twice a day and IV Solu-Medrol. In terms of her HIV, she is on Stribild tablets ,1 tablet at bedtime. The patient is seen again today 10/31/2016 in follow-up on the regular medical floor. She is awake and alert. She has had ongoing issues with coughing, chest tightness and shortness of breath. She also has complaints of insomnia most likely secondary to the steroids. She has been on her bronchodilators, Pulmicort and Perforomist, IV Solu Medrol and empiric antibiotics in the form of azithromycin. He continues to maintain good O2 saturations up to 100% on 2 L /m per nasal cannula. She's been afebrile. Hemodynamically stable. The patient is seen again today 11/01/2016 in follow-up on the regular medical floor. She did undergo bronchoscopy with BAL by Dr. Mims this morning. She was noted to have significant secretions in the lingula which is where the BAL was obtained. She tolerated the procedure well. Currently she is maintaining good O2 saturations in the mid 90s on room air. She is afebrile. Hemodynamically stable. She is still quite bronchospastic and wheezy. The patient is seen again today 11/02/2016 in follow-up on the regular medical floor. She is resting fairly comfortably in bed. She is breathing better today as compared to yesterday but still not quite back to her baseline. She is dyspneic on minimal exertion. Her cough has improved. She did utilize Ambien last night to help her sleep as she has been having issues with insomnia secondary to steroids. Bronchial wash findings are pending. No leukocytosis. Afebrile. Continues to maintain good O2 saturations in the mid 90s on room air. On 11/03/2016 I'm seeing this patient in follow-up. Unfortunately she is still coughing and wheezing. Improvement in his dad however this is a very slow improvement at this point. The bronchoscopy and the bronchioloalveolar lavage has not shown any microbial growth.. The viral culture was positive for rhinovirus. The patient on oral prednisone 40 mg as part of burst taper. The patient on DuoNeb neb last treatment [id number]. The patient on Pulmicort Respules. Would add Tussionex to suppress the cough Objective - Vital Signs Vital signs: Vital Signs Temp 96.8 F L 11/03/16 07:00 Pulse 88 11/03/16 11:21 Resp 14 11/03/16 07:00 BP 115/77 11/03/16 07:00 Pulse Ox 92 L 11/03/16 07:00 Intake & Output 11/02/16 11/03/16 11/03/16 18:59 06:59 18:59 Intake Total 680 Balance 680 Intake: Oral 680 Other: Voiding Method Toilet # Voids 2 2 - Exam Head exam was generally normal. There was no scleral icterus or corneal arcus. Mucous membranes were moist.Neck was supple and without jugular venous distension, thyromegaly, or carotid bruits. Carotids were easily palpable bilaterally. There was no adenopathy. Lung sounds are markedly diminished and there is diffuse expiratory wheezes throughout lung his bilaterally.Cardiac exam revealed the PMI to be normally situated and sized. The rhythm was regular and no extrasystoles were noted during several minutes of auscultation. The first and second heart sounds were normal and physiologic splitting of the second heart sound was noted. There were no murmurs, rubs, clicks, or gallops.Abdominal exam revealed normal bowel sounds. The abdomen was soft, non- tender, and without masses, organomegaly, or appreciable enlargement of the abdominal aorta.Examination of the extremities revealed easily palpable radial, femoral and pedal pulses. There was no cyanosis, clubbing or edema. - Labs CBC & Chem 7: 11/02/16 07:33 11/02/16 07:33 Labs: Abnormal Lab Results - Last 24 Hours (Table) 11/02/16 11/02/16 11/03/16 Range/Units 17:13 20:59 06:36 POC Glucose (mg/dL) 118 H 167 H 160 H (75-99) mg/dL 11/03/16 Range/Units 12:19 POC Glucose (mg/dL) 123 H (75-99) mg/dL Microbiology - Last 24 Hours (Table) 11/01/16 12:15 Gram Stain - Final Bronchoalviolar Lavage - Left Bronchial Washings Culture - Final 11/01/16 12:15 Acid Fast Bacilli Smear - Final Bronchoalviolar Lavage - Left Acid Fast Bacilli Culture - Preliminary Assessment and Plan Plan: Assessment 1 acute asthma exacerbation, likely secondary to suboptimal compliance with her maintenance inhalers. Chest x-ray is free of any acute pulmonary infiltrates. Rule out underlying bronchitis. CD4 count based on the most recent evaluations 119. No previous abortions take infections of the lungs. Clinically, there is slow improvement. The bronchoscopy and the bronchioloalveolar lavage was done. There was no report chest it infection. The patient's BAL was positive for rhinovirus. Clinically the patient is slowly improving. Currently on a prednisone burst taper. Tussionex for cough. DuoNeb nebulized treatments around the clock. Pulmicort Respules. ID is on the case. 2 obesity 3 HIV/AIDS, currently under treatment. Most recent viral counts are undetectable with a CD4 count of 119 4 anxiety/depression, history of 5 chronic pain 6 previous history of smoking. Plan Antinea same treatment. Prednisone burst taper. Bronchodilators. Possible discharge within the next 24 hours. Awaiting final PCP All[facility] by PCR to rule out PCP infection.
[2016-11-03 17:01] LABS: Glucose,Whole Blood 148 mg/dL (75-99)
[2016-11-03] MEDS: PANTOPRAZOLE 40 MG TABLET PO SCH (17:10)
[2016-11-03] MEDS: guaiFENesin SYRUP 100MG/5ML 200 MG/10 ML CUP PO PRN (19:00)
[2016-11-03] MEDS: STRIBILD PO SCH (21:19)
[2016-11-03] MEDS: LACTATED RINGERS 1,000 ML IV SCH (21:24)
[2016-11-03 21:25] LABS: Glucose,Whole Blood 125 mg/dL (75-99)
[2016-11-03] MEDS: ZOLPIDEM 10 MG TAB PO PRN (21:29)
[2016-11-04] MEDS: guaiFENesin SYRUP 100MG/5ML 200 MG/10 ML CUP PO PRN (01:12)
[2016-11-04 07:55] LABS: Glucose,Whole Blood 102 mg/dL (75-99)
[2016-11-04] MEDS: INSULIN LISPRO (humaLOG) 300 UNIT/3 ML VIAL SQ SCH ×2 (08:06→12:49)
[2016-11-04] MEDS: predniSONE 20 MG TAB PO SCH (08:12)
[2016-11-04] MEDS: AZITHROMYCIN 500 MG TAB PO SCH (08:12)
[2016-11-04] MEDS: HYDROcodone/APAP 10-325MG 1 EACH TAB PO SCH (08:12)
[2016-11-04] MEDS: PANTOPRAZOLE 40 MG TABLET PO SCH (08:12)
[2016-11-04] MEDS: ALPRAZolam 0.5 MG TAB PO SCH (08:12)
[2016-11-04] MEDS: CHLORPHEN-HYDROcod 8-10mg/5ml 5 ML ORAL.SYRG PO SCH (08:13)
[2016-11-04] MEDS: CIPROFLOXACIN-DEXAMETH 0.3-0.1% DROPS 7.5 ML BTL BOTH EARS SCH (08:14)
[2016-11-04] MEDS: FORMOTEROL FUMARATE 20 MCG/2 ML NEBU INHALATION SCH (08:50)
[2016-11-04] MEDS: BUDESONIDE 0.5 MG/2 ML NEBU INHALATION SCH (08:50)
[2016-11-04] MEDS: IPRATROPIUM-ALBUTEROL 3 ML NEB INHALATION PRN ×2 (08:51→11:32)
[2016-11-04 10:54] VITALS: BMI 40.7
[2016-11-04 12:42] LABS: Glucose,Whole Blood 114 mg/dL (75-99)
[2016-11-04 12:54] LABS: Mis test requested (Non-blood) Pneum.jirovecii DFA
--- NOTE | 2016-11-04 13:15 | P.PN ---
Subjective A very pleasant 40-year-old female patient, asthmatic with previous history of smoking and no history of HIV on the treatment with most recent CD4 counts being on the 200 (119 range) and her viral counts are undetectable, who was admitted yesterday from our office because of increased shortness of breath and acute asthma exacerbation. I have had this patient on Symbicort maintenance however she has failed to continue the medication and over the past 3-4 months she hasn't been receiving her maintenance inhaler. She has been utilizing albuterol rescue inhaler and she had become progressively more short of breath and required frequent albuterol treatments. For that reason she came to our office and she was admitted to the hospital for an acute asthma exacerbation. Her chest is tight and she is wheezing and she is having frequent coughing spells. No significant sputum production. No hemoptysis. No thrush. She reports some difficulties in urination and she was obviously need a SUPPLEMENTAL MANAGER evaluation for later stage. No known history of involvement of ALLERGIES. She has a strong personal or family history of bronchial asthma. She smoked extensively in the past however she claims to quit smoking for now. She lives in the [facility] and she describes that her environment is clean. She has pets at home including dogs and cats. Most of nasal polyposis. Most of eczema. She's been having episodes of heartburn. The chest x-ray is not showing any acute suspicious pulmonary infiltrates. The patient is on a combination of DuoNeb nebulized treatments around the clock, Zithromax 5 mg by mouth daily, Symbicort 160/4.5 2 puffs twice a day and IV Solu-Medrol. In terms of her HIV, she is on Stribild tablets ,1 tablet at bedtime. The patient is seen again today 10/31/2016 in follow-up on the regular medical floor. She is awake and alert. She has had ongoing issues with coughing, chest tightness and shortness of breath. She also has complaints of insomnia most likely secondary to the steroids. She has been on her bronchodilators, Pulmicort and Perforomist, IV Solu Medrol and empiric antibiotics in the form of azithromycin. He continues to maintain good O2 saturations up to 100% on 2 L /m per nasal cannula. She's been afebrile. Hemodynamically stable. The patient is seen again today 11/01/2016 in follow-up on the regular medical floor. She did undergo bronchoscopy with BAL by Dr. Mims this morning. She was noted to have significant secretions in the lingula which is where the BAL was obtained. She tolerated the procedure well. Currently she is maintaining good O2 saturations in the mid 90s on room air. She is afebrile. Hemodynamically stable. She is still quite bronchospastic and wheezy. The patient is seen again today 11/02/2016 in follow-up on the regular medical floor. She is resting fairly comfortably in bed. She is breathing better today as compared to yesterday but still not quite back to her baseline. She is dyspneic on minimal exertion. Her cough has improved. She did utilize Ambien last night to help her sleep as she has been having issues with insomnia secondary to steroids. Bronchial wash findings are pending. No leukocytosis. Afebrile. Continues to maintain good O2 saturations in the mid 90s on room air. On 11/03/2016 I'm seeing this patient in follow-up. Unfortunately she is still coughing and wheezing. Improvement in his dad however this is a very slow improvement at this point. The bronchoscopy and the bronchioloalveolar lavage has not shown any microbial growth.. The viral culture was positive for rhinovirus. The patient on oral prednisone 40 mg as part of burst taper. The patient on DuoNeb neb last treatment [id number]. The patient on Pulmicort Respules. Would add Tussionex to suppress the cough The patient is seen again today 11/04/2016 in follow-up on the regular medical floor. She is doing better today as compared to yesterday. She is less bronchospastic and wheezy. She is been maintained on bronchodilators every 4 hours and when necessary along with Pulmicort and Perforomist inhalations twice a day. She is on a prednisone taper now. Her BAL did not reveal any positive bacterial cultures. There was rhinovirus detected. Objective - Vital Signs Vital signs: Vital Signs Temp 96.8 F L 11/04/16 07:00 Pulse 82 11/04/16 11:41 Resp 20 11/04/16 07:00 BP 132/76 11/04/16 07:00 Pulse Ox 93 L 11/04/16 07:00 Intake & Output 11/03/16 11/04/16 11/04/16 18:59 06:59 18:59 Intake Total 240 Balance 240 Weight 107.7 kg Intake: Oral 240 Other: Voiding Method Toilet Toilet # Voids 3 3 - Exam Head exam was generally normal. There was no scleral icterus or corneal arcus. Mucous membranes were moist.Neck was supple and without jugular venous distension, thyromegaly, or carotid bruits. Carotids were easily palpable bilaterally. There was no adenopathy. Lung sounds are markedly diminished and there is faint expiratory wheezes throughout lung his bilaterally.Cardiac exam revealed the PMI to be normally situated and sized. The rhythm was regular and no extrasystoles were noted during several minutes of auscultation. The first and second heart sounds were normal and physiologic splitting of the second heart sound was noted. There were no murmurs, rubs, clicks, or gallops.Abdominal exam revealed normal bowel sounds. The abdomen was soft, non- tender, and without masses, organomegaly, or appreciable enlargement of the abdominal aorta.Examination of the extremities revealed easily palpable radial, femoral and pedal pulses. There was no cyanosis, clubbing or edema. - Labs CBC & Chem 7: 11/02/16 07:33 11/02/16 07:33 Labs: Abnormal Lab Results - Last 24 Hours (Table) 11/03/16 11/03/16 11/04/16 Range/Units 17:00 21:10 07:45 POC Glucose (mg/dL) 148 H 125 H 102 H (75-99) mg/dL 11/04/16 Range/Units 12:40 POC Glucose (mg/dL) 114 H (75-99) mg/dL Microbiology - Last 24 Hours (Table) 11/01/16 12:15 Gram Stain - Final Bronchoalviolar Lavage - Left Bronchial Washings Culture - Final Assessment and Plan Plan: Assessment 1 acute exacerbation of moderate persistent chronic asthma secondary to suspected extrinsic ALLERGIC as well as the possibility due to suboptimal compliance with her maintenance inhalers. Chest x-ray is free of any acute pulmonary infiltrates. Suspect underlying bronchitis. CD4 count based on the most recent evaluations 119. No previous opportunistic infections of the lungs. 2 obesity 3 HIV/AIDS, currently under treatment. Most recent viral counts are undetectable with a CD4 count of 119 4 anxiety/depression, history of 5 chronic pain 6 previous history of smoking. Plan The patient is seen and evaluated by Dr. Duarte. She is improved. She should continue her current medications including a prednisone taper. She remains on empiric azithromycin. Upon discharge she'll follow-up in our office in 1-2 weeks' time. She is again educated regarding the importance of medication compliance.
[2016-11-04 15:39] VITALS: BP 133/73; PULSE 90; RESP 18; TEMP 97.7
--- NOTE | 2016-11-06 01:03 | P.DS ---
Providers Date of admission: 10/28/16 17:29 Expected date of discharge: 11/04/16 Attending physician: Waleska Garcia Consults: 10/28/16 17:49 Consult Physician Routine Consulting Provider: Laura Mims Consult Reason/Comments: asthma exacerbation Do you want consulting provider notified?: Yes 10/28/16 20:37 Consult Physician Urgent Consulting Provider: Sujit Tubbs Consult Reason/Comments: asthma Do you want consulting provider notified?: Yes Primary care physician: [facility] Course: PHYSICAL EXAMINATION: GENERAL: The patient is alert and oriented x3, not in any acute distress. Well developed, well nourished. HEENT: Pupils are round and equally reacting to light. EOMI. No scleral icterus. No conjunctival pallor. Normocephalic, atraumatic. No pharyngeal erythema. No thyromegaly. CARDIOVASCULAR: S1 and S2 present. No murmurs, rubs, or gallops. PULMONARY: Improved significantly patient breath sounds are rhonchorous but significantly better compared to when asked today. Patient is status post bronchoscopy ABDOMEN: Soft, nontender, nondistended, normoactive bowel sounds. No palpable organomegaly. MUSCULOSKELETAL: No joint swelling or deformity. EXTREMITIES: No cyanosis, clubbing, or pedal edema. NEUROLOGICAL: Gross neurological examination did not reveal any focal deficits. SKIN: No rashes. Discharge diagnosis #1 acute exacerbation of COPD or asthma: Patient is on systemic steroids and inhalation treatments which will be continued.is status post bronchoscopy #2 possibility of bacterial bronchitis for which patient will be continued on azithromycin , infectious disease is following the patient #3 HIV with last CD4 count of 129: Patient is being continued on her antiretroviral therapy. #4 fibromyalgia. #5 seizure disorder. 41-year-old female was admitted for severe back and bronchitis possibly and patient is and azithromycin. Patient is also being treated for COPD exacerbation. Patient saturations are good. Will ablate the patient in the hallway. Although her saturations are good patient is not feeling well and is still feeling short of breath and patient still has significant expiratory wheezing and rhonchus breath sounds because of that reason I'll leave the decision of discharge to pulmonary. Meantime will often walking pulse ox. 10/31/2016 Patient says she doesn't have any significant improvement although her wheezing did improve patient has good air entry into bilateral lung zavala. 11/01/2016 Patient underwent bronchoscopy please of her to pulmonology's dictation for further details. Patient believes her respiratory status improved compared to yesterday. Nov 02 2016 Patient has good air entry into bilateral lung zavala patient is feeling much better after bronchoscopy. Patient will be switched to oral steroids. Patient is drowsy because of her lack of sleep occurs of IV steroids. Patient also received Ambien because of lack of sleep. Nov 03 2016 Patient is feeling much better patient probably can be discharged today at that patient will be left to pulmonology. And is complaining of nausea and the burning sensation in the retrosternal throat area secondary to acid reflux from systemic steroids 11/04/2016 Patient's breathing status is much improved today. No wheezing noted. Patient was discharged home with tappering dose of steroids. Patient was cleared by pulmonary for discharge. Patient denied any dysuria, new focal weakness. Time taken greater than 35 minutes including 18 minutes for counseling and coordination of care Patient Condition at Discharge: Stable Plan - Discharge Summary New Discharge Prescriptions: New guaiFENesin SYRUP 100MG/5ML [Robitussin] 10 ml PO Q6H PRN #1 bottle PRN Reason: Cough predniSONE See Taper PO DAILY #30 tab Continue Albuterol Inhaler [Ventolin Hfa Inhaler] 2 puff INHALATION RT-Q4H PRN PRN Reason: Shortness Of Breath Budesonide-Formot 160-4.5 Mcg [Symbicort 160-4.5 Mcg Inhaler] 2 puff INHALATION RT-BID Hydrocodone/Acetaminophen [Cerro 10-325] 1 tab PO TID ALPRAZolam 1 mg PO TID Albuterol Nebulized [Ventolin Nebulized] 2.5 mg INHALATION RT-Q4H PRN PRN Reason: Shortness Of Breath Elviteg/Holley/Emtric/Tenofo Dis [Stribild Tablet] 1 tab PO HS Discharge Medication List Albuterol Inhaler [Ventolin Hfa Inhaler] 2 puff INHALATION RT-Q4H PRN 05/25/14 [ History] Budesonide-Formot 160-4.5 Mcg [Symbicort 160-4.5 Mcg Inhaler] 2 puff INHALATION RT-BID 05/25/14 [History] ALPRAZolam 1 mg PO TID 11/09/15 [History] Hydrocodone/Acetaminophen [Cerro 10-325] 1 tab PO TID 11/09/15 [History] Albuterol Nebulized [Ventolin Nebulized] 2.5 mg INHALATION RT-Q4H PRN 10/28/16 [ History] Elviteg/Holley/Emtric/Tenofo Dis [Stribild Tablet] 1 tab PO HS 10/28/16 [History] guaiFENesin SYRUP 100MG/5ML [Robitussin] 10 ml PO Q6H PRN #1 bottle 11/04/16 [Rx ] predniSONE See Taper PO DAILY #30 tab 11/04/16 [Rx] Follow up Appointment(s)/Referral(s): Sujit Tubbs MD [STAFF PHYSICIAN] - 11/07/16 2:30 pm Laura Mims MD [STAFF PHYSICIAN] - 1 Week Patient Instructions/Handouts: Asthma (DC) Care Plan Goals (MU): finish taking ear drops for 3 more days. 4 drops per ear. Discharge Disposition: HOME SELF-CARE
== END 2016-11-04 16:09 | disposition home or self-care (01) | DRG 190 ==
LOC: 4MS4W 17:29
PROVIDERS: ADMIT Hospitalist; ATTEND Hospitalist
DX: J44.1 Chronic obstructive pulmonary disease with (acute) exacerbation (principal); B20 Human immunodeficiency virus [HIV] disease; J45.41 Moderate persistent asthma with (acute) exacerbation; F32.9 Major depressive disorder, single episode, unspecified; B34.8 Other viral infections of unspecified site; E66.9 Obesity, unspecified; F41.9 Anxiety disorder, unspecified; G40.909 Epilepsy, unspecified, not intractable, without status epilepticus; G47.00 Insomnia, unspecified; G89.29 Other chronic pain; K21.9 Gastro-esophageal reflux disease without esophagitis; L30.9 Dermatitis, unspecified; M79.7 Fibromyalgia; R33.9 Retention of urine, unspecified; T38.0X5A Adverse effect of glucocorticoids and synthetic analogues, initial encounter; Z79.51 Long term (current) use of inhaled steroids; Z82.49 Family history of ischemic heart disease and other diseases of the circulatory system; Z82.5 Family history of asthma and other chronic lower respiratory diseases; Z82.62 Family history of osteoporosis; Z83.3 Family history of diabetes mellitus; Z87.891 Personal history of nicotine dependence; Z88.0 Allergy status to penicillin
CPT/HCPCS: 31624; 71010; 80048; 81003; 83036; 85025; 85027; 87070; 87102; 87116; 87205; 87206; 87252; 87299; 87496; 87498; 87502; 87529; 87798; 88108; 88305; 94640; 94760

== ENCOUNTER → 2017-04-02 | Outpatient (CLI) | payer MEDICARE, OTHER ==
[2017-04-02 13:35] LABS: Basophils % (A) 1 %; Eosinophils # (A) 0.2 k/uL (0-0.7); Eosinophils % (A) 3 %; HGB 15.4 gm/dL (11.4-16.0); Lymphocytes % (A) 19 %; MCH 29.9 pg (25.0-35.0); MCHC 33.4 g/dL (31.0-37.0); MCV 89.4 fL (80.0-100.0); Mean Platelet Volume 7.3; Monocytes # (A) 0.2 k/uL (0-1.0); Monocytes % (A) 5 %; Neutrophils # (A) 3.6 k/uL (1.3-7.7); Neutrophils % (A) 71 %; Platelet Count 250 k/uL (150-450); RBC 5.15 m/uL (3.80-5.40); RDW 12.8 % (11.5-15.5); WBC 5.1 k/uL (3.8-10.6)
[2017-04-02 13:55] LABS: ALT 40 U/L (9-52); AST 27 U/L (14-36); Albumin 4.7 g/dL (3.5-5.0); Alkaline Phosphatase 65 U/L (38-126); Anion Gap 11 mmol/L; Blood Urea Nitrogen 16 mg/dL (7-17); Calcium 10.1 mg/dL (8.4-10.2); Carbon Dioxide 26 mmol/L (22-30); Chloride 103 mmol/L (98-107); Glucose 89 mg/dL (74-99); Sodium 140 mmol/L (137-145); Total Bilirubin 0.4 mg/dL (0.2-1.3); Total Protein 7.5 g/dL (6.3-8.2)
[2017-04-03 12:21] LABS: T4/T8 Ratio (CD4:CD8) 0.2 (1.0-3.7)
[2017-04-03 14:22] LABS: HIV-1 RNA Not detected (Not detected); HIV-1 RNA, Quant <40 Copies/mL (<40)
== END | disposition home or self-care (01) ==
LOC: LABWHC1 13:04
PROVIDERS: ATTEND Internal Medicine Infectious Disease
DX: B20 Human immunodeficiency virus [HIV] disease (principal); Z88.8 Allergy status to other drugs, medicaments and biological substances; Z88.6 Allergy status to analgesic agent
CPT/HCPCS: 36415; 80053; 85025; 86360; 87536

== ENCOUNTER → 2017-04-17 | Outpatient (CLI) | payer MEDICARE, OTHER ==
--- NOTE | 2017-04-18 09:02 | CT ---
EXAMINATION TYPE: CT lumbar spine wo con DATE OF EXAM: 04/17/2017 COMPARISON: NONE HISTORY: Worsening chronic low back pain CT DLP: 993 mGycm CONTRAST: None TECHNIQUE: CT of the lumbar spine is performed on a spiral scan at 3 mm thick sections. Reconstructed images are performed in the coronal and sagittal planes. FINDINGS: T12-L1: No focal disc herniation or significant disc bulge is evident. No spinal canal stenosis or neural foraminal stenosis is present. L1-L2: No focal disc herniation or significant disc bulge is evident. No spinal canal stenosis or n eural foraminal stenosis is present L2-L3: Minimal disc bulge has anterior thecal sac contact. No spinal canal stenosis or neural foramin al stenosis is present. L3-L4: Endplate spurring and loss of disc height is to this level. Residual disc bulging has mild ant erior thecal sac compression. No AP spinal canal stenosis present. Neural foramen are patent. L4-L5: Mild disc bulge is present with moderate anterior thecal sac compression. Facet hypertrophy wi th ligamentum flavum laxity is mild posterior lateral thecal sac compression. Some mild narrowing may be present to the spinal canal. L5-S1: There is marked facet hypertrophy present this level. This has some posterior lateral thecal s ac compression slightly greater on the left. Residual disc bulge is present with mild anterior thecal sac compression. No AP spinal canal stenosis present. Neural foramen appear patent. Vertebral alignment appears normal. IMPRESSION: 1. Mild spinal canal narrowing through L4-5 secondary to moderate broad-based disc bulge and facet hy pertrophy. 2. Marked facet hypertrophy L5-S1 with posterior lateral thecal sac compression. No stenosis is prese nt. 3. Mild disc bulge L3-4 with degenerative disc changes.
== END | disposition home or self-care (01) ==
LOC: RADCTMAIN 16:56
PROVIDERS: ATTEND Internal Medicine Infectious Disease
DX: M48.061 Spinal stenosis, lumbar region without neurogenic claudication (principal); M51.27 Other intervertebral disc displacement, lumbosacral region; M47.816 Spondylosis without myelopathy or radiculopathy, lumbar region; M46.97 Unspecified inflammatory spondylopathy, lumbosacral region; G95.29 Other cord compression
CPT/HCPCS: 72131

== ENCOUNTER → 2017-06-04 | Outpatient (CLI) | payer MEDICARE, OTHER ==
[2017-06-04 15:56] LABS: Basophils # (A) 0.1 k/uL (0-0.2); Basophils % (A) 1 %; Eosinophils # (A) 0.2 k/uL (0-0.7); Eosinophils % (A) 5 %; HCT 42.7 % (34.0-46.0); HGB 14.9 gm/dL (11.4-16.0); Lymphocytes % (A) 20 %; MCH 30.5 pg (25.0-35.0); MCV 87.2 fL (80.0-100.0); Mean Platelet Volume 7.2; Monocytes # (A) 0.3 k/uL (0-1.0); Monocytes % (A) 5 %; Neutrophils # (A) 3.4 k/uL (1.3-7.7); Neutrophils % (A) 67 %; Platelet Count 234 k/uL (150-450); RBC 4.89 m/uL (3.80-5.40); RDW 12.4 % (11.5-15.5)
[2017-06-04 16:18] LABS: Albumin 4.3 g/dL (3.5-5.0); Calcium 10.1 mg/dL (8.4-10.2); Potassium 4.6 mmol/L (3.5-5.1); Total Bilirubin 0.5 mg/dL (0.2-1.3); Total Protein 7.3 g/dL (6.3-8.2)
[2017-06-05 12:32] LABS: T4/T8 Ratio (CD4:CD8) 0.2 (1.0-3.7)
[2017-06-05 14:37] LABS: HIV-1 RNA Not detected (Not detected); HIV-1 RNA, Quant <40 Copies/mL (<40)
== END | disposition home or self-care (01) ==
LOC: LABWHC1 15:20
PROVIDERS: ATTEND Internal Medicine Infectious Disease
DX: B20 Human immunodeficiency virus [HIV] disease (principal); Z88.0 Allergy status to penicillin; Z88.8 Allergy status to other drugs, medicaments and biological substances; Z88.5 Allergy status to narcotic agent
CPT/HCPCS: 36415; 80053; 82533; 85025; 86360; 87536

== ENCOUNTER → 2017-07-23 | Outpatient (CLI) | payer MEDICARE, OTHER ==
--- NOTE | 2017-07-23 15:47 | MR ---
EXAMINATION TYPE: MR cervical spine wo con DATE OF EXAM: 07/23/2017 3:01 PM COMPARISON: NONE HISTORY: Cervicalgia, Headaches Multiplanar MultiSpin echo imaging of the cervical spine was performed. Comparison: none C2-C3: No evidence for degenerative disc disease. No disc bulge/herniation or protrusion. No Canal stenosis. Foramina are patent bilaterally. C3-C4: No evidence for degenerative disc disease. No disc bulge/herniation or protrusion. No Canal stenosis. Foramina are patent bilaterally. C4-C5: No evidence for degenerative disc disease. No disc bulge/herniation or protrusion. No Canal stenosis. Foramina are patent bilaterally. C5-C6: There is evidence of mild disc desiccation. Mild posterior disc bulge with mild effacement mihai tral thecal sac. No evidence for disc herniation or protrusion. No central stenosis. Foramina are pat ent bilaterally. C6-C7: No evidence for degenerative disc disease. No disc bulge/herniation or protrusion. No Canal stenosis. Foramina are patent bilaterally. C7-T1: No evidence for degenerative disc disease. No disc bulge/herniation or protrusion. No Canal stenosis. Foramina are patent bilaterally. Cervical segments are intact. There is normal alignment. Cervical spinal cord is of normal signal. Craniovertebral junction relationships are within normal limits. IMPRESSION: 1. Disc desiccation and disc bulging at C5-6.
== END | disposition home or self-care (01) ==
LOC: RADMRIMAIN 14:28
PROVIDERS: ATTEND Psychiatry & Neurology Neurology
DX: M50.222 Other cervical disc displacement at C5-C6 level (principal); M54.5 Low back pain; Z88.5 Allergy status to narcotic agent; Z88.1 Allergy status to other antibiotic agents
CPT/HCPCS: 72141

== ENCOUNTER → 2017-07-24 | Outpatient (CLI) | payer MEDICARE, OTHER ==
--- NOTE | 2017-07-25 07:53 | MR ---
EXAMINATION TYPE: MR lumbar spine wo con DATE OF EXAM: 07/24/2017 COMPARISON: 11/09/2015 HISTORY: 41-year-old female LBP, BLE weakness x several years TECHNIQUE: Multiplanar, multisequence images of the lumbar spine were acquired. Findings: Vertebral body heights are preserved and alignment is maintained. No suspicious bone marrow replacement though there are multilevel fatty Modic type II endplate change s demonstrated particularly at T12-L1, L2-L3, L3-L4, and L5-S1. Associated degenerative disc disease with variable disc desiccation particularly at L3-L4 and L5-S1 w here there is moderate and moderate to severe disc space narrowing, respectively. Bulging discs are p resent at multiple levels. There has been some interval healing change of the previous posterior esperanza lar fissure at L3-L4. Prominent dorsal epidural fat is present as well as a component of congenital spinal canal stenosis i n the lumbar spine with AP canal dimension of 1.2 cm. Facet arthropathy mid to lower lumbar spine. Conus medullaris is normal. At T12-L1, no significant spinal canal or neuroforaminal stenosis. At L1-L2, no significant spinal canal or neural foraminal stenosis. At L2-L3, no significant spinal canal or foraminal stenosis. At L3-L4, small broad-based posterior disc protrusion. There is slight inferior migration of disc mat erial in the right paracentral region similar to prior but as mentioned previously, some healing of t he previous annular fissure. Prominent dorsal epidural fat and facet degenerative change. This accent uates the mild spinal canal stenosis. No significant neuroforaminal stenosis. At L4-L5, bulging disc with prominent dorsal epidural fat and facet arthropathy. Accentuated mild spi nal canal stenosis is slightly increased from 11/09/2015. No significant neuroforaminal stenosis. At L5-S1, there is hypertrophic facet arthropathy and bulging disc. No significant canal or foraminal stenosis. We note a large left lateral disc osteophyte complex at this level. This abuts the extrafo raminal left L5 nerve root, axial image 4. No prevertebral or paravertebral soft tissue abnormality seen. IMPRESSION: 1. Moderate multilevel degenerative disc disease superimposed on a congenital spinal canal stenosis. Facet arthropathy mid to lower lumbar spine with prominent dorsal epidural fat. 2. There are associated multilevel Modic type II fatty endplate changes, similar to prior. 3. There is underlying mild congenital spinal canal stenosis which is accentuated at L3-L4 and L4-L5 secondary to superimposed degenerative disc disease. Changes have slightly progressed at L4-L5. There is no td canal compromise. 4. Some interval healing change of the previous posterior annular fissure at L3-L4. 5. A large left lateral disc osteophyte complex at L5-S1 abuts the extraforaminal L5 nerve root, kenyatta lar to prior.
== END | disposition home or self-care (01) ==
LOC: RADMRIMAIN 15:39
PROVIDERS: ATTEND Psychiatry & Neurology Neurology
DX: M48.061 Spinal stenosis, lumbar region without neurogenic claudication (principal); M46.96 Unspecified inflammatory spondylopathy, lumbar region; Z88.8 Allergy status to other drugs, medicaments and biological substances; Z88.0 Allergy status to penicillin
CPT/HCPCS: 72148

== ENCOUNTER → 2017-10-29 | Outpatient (CLI) | payer MEDICARE, OTHER ==
[2017-10-29 13:34] LABS: Basophils % (A) 1 %; Eosinophils # (A) 0.2 k/uL (0-0.7); Eosinophils % (A) 3 %; HCT 42.8 % (34.0-46.0); HGB 14.7 gm/dL (11.4-16.0); Lymphocytes # (A) 1.2 k/uL (1.0-4.8); Lymphocytes % (A) 18 %; MCH 30.4 pg (25.0-35.0); MCHC 34.3 g/dL (31.0-37.0); MCV 88.5 fL (80.0-100.0); Mean Platelet Volume 7.2; Monocytes # (A) 0.3 k/uL (0-1.0); Monocytes % (A) 5 %; Neutrophils # (A) 4.9 k/uL (1.3-7.7); Neutrophils % (A) 73 %; Platelet Count 303 k/uL (150-450); RBC 4.84 m/uL (3.80-5.40); RDW 12.9 % (11.5-15.5); WBC 6.7 k/uL (3.8-10.6)
[2017-10-29 14:10] LABS: Albumin 4.9 g/dL (3.5-5.0); Calcium 10.2 mg/dL (8.4-10.2); Potassium 4.9 mmol/L (3.5-5.1); Total Bilirubin 0.6 mg/dL (0.2-1.3); Total Protein 7.9 g/dL (6.3-8.2)
[2017-10-30 12:19] LABS: T4/T8 Ratio (CD4:CD8) 0.2 (1.0-3.7)
[2017-11-01 12:48] LABS: HIV-1 RNA DETECTED (Not detected); HIV-1 RNA, Quant <40 Copies/mL (<40)
== END | disposition home or self-care (01) ==
LOC: LABWHC1 12:47
PROVIDERS: ATTEND Internal Medicine Infectious Disease
DX: B20 Human immunodeficiency virus [HIV] disease (principal)
CPT/HCPCS: 36415; 80053; 82533; 85025; 86360; 87536

== ENCOUNTER 2017-11-17 21:39 | Inpatient (IN) | payer MEDICARE, OTHER ==
[2017-11-17] MEDS ORDERED: SODIUM CHLORIDE 0.9% 1,000 ML IV STA (21:49)
[2017-11-17] MEDS ORDERED: LORazepam 2 MG/ML INJ IV STA (22:15)
[2017-11-17] MEDS ORDERED: LORazepam 2 MG/ML INJ IV PRN (22:16)
[2017-11-17] MEDS ORDERED: levETIRAcetam IV 1,000 MG in SALINE 1 100ML.BAG IVPB STA (22:16)
--- NOTE | 2017-11-17 22:22 | ED ---
General Adult HPI - General Chief complaint: Seizure Stated complaint: SEIZURE Time Seen by Provider: 11/17/17 21:49 Source: patient, RN notes reviewed, old records reviewed Mode of arrival: EMS Limitations: no limitations - History of Present Illness Initial comments: 42-year-old female with seizure disorder presents for evaluation of generalized tonic-clonic seizure witnessed by EMS lasting approximately 45 minutes. This was reversed with 5 mg of IV Versed. Patient is not currently on any prophylactic seizure medication. She has history of HIV and is currently on medication for her HIV. Patient states she had several seizures within the past 2 weeks. She was initially seeking medical attention for some paresthesias , as well as some chest pain. "EMS this did progress and resulted in tonic- clonic seizure. Patient had a brief period where she was postictal, when she awoke according to EMS she had no chest pain or paresthesia. - Related Data Home Medications Medication Instructions Recorded Confirmed Albuterol Inhaler [Ventolin Hfa 2 puff INHALATION RT-Q4H PRN 05/25/14 10/28/16 Inhaler] Budesonide-Formot 160-4.5 Mcg 2 puff INHALATION RT-BID 05/25/14 10/28/16 [Symbicort 160-4.5 Mcg Inhaler] ALPRAZolam 1 mg PO TID 11/09/15 10/28/16 Hydrocodone/Acetaminophen [[place] 1 tab PO TID 11/09/15 10/28/16 10-325] Albuterol Nebulized [Ventolin 2.5 mg INHALATION RT-Q4H PRN 10/28/16 10/28/16 Nebulized] Elviteg/Holley/Emtric/Tenofo Dis 1 tab PO HS 10/28/16 10/28/16 [Stribild Tablet] Previous Rx's Medication Instructions Recorded guaiFENesin SYRUP 100MG/5ML 10 ml PO Q6H PRN #1 bottle 11/04/16 [Robitussin] predniSONE See Taper PO DAILY #30 tab 11/04/16 Allergies Allergy/AdvReac Type Severity Reaction Status Date / Time amoxicillin [From Augmentin] Allergy Swelling Verified 10/28/16 18:10 clavulanic acid Allergy Swelling Verified 10/28/16 18:10 [From Augmentin] prochlorperazine edisylate Allergy Confusion Verified 10/28/16 18:10 [From Compazine] prochlorperazine maleate Allergy Confusion Verified 10/28/16 18:10 [From Compazine] morphine AdvReac Chest Pain Verified 10/28/16 18:10 Review of Systems ROS Statement: Those systems with pertinent positive or pertinent negative responses have been documented in the HPI. ROS Other: All systems not noted in ROS Statement are negative. Past Medical History Past Medical History: Asthma, Fibromyalgia, Pneumonia, Seizure Disorder Additional Past Medical History / Comment(s): HIV with AIDS. Last CD4 cell count of 136- 3 MONTHS AGO. migraines, "rt eye has scarring and freckles". * History of "asthma" this has been for many years and seem to be exercise- induced. uti's, "poor circulation" History of Any Multi-Drug Resistant Organisms: None Reported Past Surgical History: Section, Cholecystectomy, Hysterectomy, Orthopedic Surgery Additional Past Surgical History / Comment(s): left shoulder sx, c-sec x3 Past Anesthesia/Blood Transfusion Reactions: No Reported Reaction Smoking Status: Former smoker - Past Family History Mother Family Medical History: CVA/TIA, Diabetes Mellitus, Myocardial Infarction ([place]) Additional Family Medical History / Comment(s): sarcoidosis, osteoporosis Father Family Medical History: Asthma, COPD General Exam Limitations: no limitations General appearance: alert, in no apparent distress Head exam: Present: atraumatic, normocephalic Eye exam: Present: normal appearance, PERRL, EOMI ENT exam: Present: normal exam Neck exam: Present: normal inspection. Absent: tenderness, meningismus Respiratory exam: Present: normal lung sounds bilaterally. Absent: respiratory distress, wheezes Cardiovascular Exam: Present: regular rate, normal rhythm GI/Abdominal exam: Present: soft. Absent: distended, tenderness Extremities exam: Present: normal inspection, normal capillary refill. Absent: pedal edema Neurological exam: Present: alert, oriented X3, CN II-XII intact. Absent: motor sensory deficit Skin exam: Present: warm, dry, intact. Absent: cyanosis, diaphoretic Course Vital Signs 11/17/17 21:55 Temperature 97.1 F L Pulse Rate 99 Respiratory 15 Rate Blood Pressure 119/65 O2 Sat by Pulse 99 Oximetry - Reevaluation(s) Reevaluation #1: 11/17/17 22:21 Patient has witnessed tonic-clonic seizure in the emergency department lasting 3 -4 minutes, this was resolved with 2 mg of IV Ativan. EKG Findings - EKG Comments: EKG Findings:: EKG: Sinus rhythm, rate of 100, [place] interval 152, QRS duration 78 , QTC 459, a slight artifact secondary to tremor Medical Decision Making - Medical Decision Making 42-year-old female history of seizure presenting with seizure by EMS and recurrent seizure in the emergency department. Second seizure was after 5 mg of IV Versed, this did resolve with 2 additional milligrams of IV Ativan. Patient was postictal in the emergency department for approximately 30-45 minutes. Laboratory studies reveal normal CBC, normal CMP, head CT is obtained given this recurrent seizure as well as history of HIV and being immunocompromised. This is negative for any acute intracranial pathology. Patient is loaded with Keppra in the emergency department. She will be kept in observation to receive several doses of Keppra as well as neurology consultation. - Lab Data Result diagrams: 11/17/17 22:27 11/17/17 22:27 Lab Results 11/17/17 11/17/17 11/17/17 Range/Units 22:27 22:27 22:27 WBC (3.8-10.6) k/uL RBC (3.80-5.40) m/uL Hgb (11.4-16.0) gm/dL Hct (34.0-46.0) % MCV (80.0-100.0) fL MCH (25.0-35.0) pg MCHC (31.0-37.0) g/dL RDW (11.5-15.5) % Plt Count (150-450) k/uL Neutrophils % % Lymphocytes % % Monocytes % % Eosinophils % % Basophils % % Neutrophils # (1.3-7.7) k/uL Lymphocytes # (1.0-4.8) k/uL Monocytes # (0-1.0) k/uL Eosinophils # (0-0.7) k/uL Basophils # (0-0.2) k/uL Sodium 138 (137-145) mmol/L Potassium 4.2 (3.5-5.1) mmol/L Chloride 107 (98-107) mmol/L Carbon Dioxide 21 L (22-30) mmol/L Anion Gap 10 mmol/L BUN 15 (7-17) mg/dL Creatinine 0.80 (0.52-1.04) mg/dL Est GFR (CKD-EPI)AfAm >90 (>60 ml/min/1.73 sqM) Est GFR (CKD-EPI)NonAf >90 (>60 ml/min/1.73 sqM) Glucose 99 (74-99) mg/dL Plasma Lactic Acid Rowdy 1.2 (0.7-2.0) mmol/L Calcium 9.3 (8.4-10.2) mg/dL Total Bilirubin 0.5 (0.2-1.3) mg/dL AST 26 (14-36) U/L ALT 44 (9-52) U/L Alkaline Phosphatase 67 (38-126) U/L Troponin I <0.012 (0.000-0.034) ng/mL Total Protein 7.5 (6.3-8.2) g/dL Albumin 4.5 (3.5-5.0) g/dL Serum Alcohol <10 mg/dL 11/17/17 Range/Units 22:27 WBC 8.5 (3.8-10.6) k/uL RBC 4.80 (3.80-5.40) m/uL Hgb 14.7 (11.4-16.0) gm/dL Hct 42.5 (34.0-46.0) % MCV 88.6 (80.0-100.0) fL MCH 30.7 (25.0-35.0) pg MCHC 34.6 (31.0-37.0) g/dL RDW 12.5 (11.5-15.5) % Plt Count 293 (150-450) k/uL Neutrophils % 77 % Lymphocytes % 13 % Monocytes % 6 % Eosinophils % 3 % Basophils % 1 % Neutrophils # 6.5 (1.3-7.7) k/uL Lymphocytes # 1.1 (1.0-4.8) k/uL Monocytes # 0.5 (0-1.0) k/uL Eosinophils # 0.2 (0-0.7) k/uL Basophils # 0.1 (0-0.2) k/uL Sodium (137-145) mmol/L Potassium (3.5-5.1) mmol/L Chloride (98-107) mmol/L Carbon Dioxide (22-30) mmol/L Anion Gap mmol/L BUN (7-17) mg/dL Creatinine (0.52-1.04) mg/dL Est GFR (CKD-EPI)AfAm (>60 ml/min/1.73 sqM) Est GFR (CKD-EPI)NonAf (>60 ml/min/1.73 sqM) Glucose (74-99) mg/dL Plasma Lactic Acid [place] (0.7-2.0) mmol/L Calcium (8.4-10.2) mg/dL Total Bilirubin (0.2-1.3) mg/dL AST (14-36) U/L ALT (9-52) U/L Alkaline Phosphatase (38-126) U/L Troponin I (0.000-0.034) ng/mL Total Protein (6.3-8.2) g/dL Albumin (3.5-5.0) g/dL Serum Alcohol mg/dL Disposition Clinical Impression: Epileptic seizure, Status epilepticus Disposition: ADMITTED IP TO THIS [facility] Condition: Stable Is patient prescribed a controlled substance at d/c from ED?: No Referrals: None,Stated [Primary Care Provider] - 1-2 days Decision to Admit Reason: Admit from EC Decision Date: 11/17/17 Decision Time: 23:53
[2017-11-17 22:52] LABS: ALT 44 U/L (9-52); AST 26 U/L (14-36); Albumin 4.5 g/dL (3.5-5.0); Alcohol <10 mg/dL; Alkaline Phosphatase 67 U/L (38-126); Anion Gap 10 mmol/L; Blood Urea Nitrogen 15 mg/dL (7-17); Calcium 9.3 mg/dL (8.4-10.2); Carbon Dioxide 21 mmol/L (22-30); Chloride 107 mmol/L (98-107); Glucose 99 mg/dL (74-99); Potassium 4.2 mmol/L (3.5-5.1); Sodium 138 mmol/L (137-145); Total Bilirubin 0.5 mg/dL (0.2-1.3); Total Protein 7.5 g/dL (6.3-8.2)
[2017-11-17 23:05] LABS: Basophils # (A) 0.1 k/uL (0-0.2); Basophils % (A) 1 %; Eosinophils # (A) 0.2 k/uL (0-0.7); Eosinophils % (A) 3 %; HCT 42.5 % (34.0-46.0); HGB 14.7 gm/dL (11.4-16.0); Lymphocytes # (A) 1.1 k/uL (1.0-4.8); Lymphocytes % (A) 13 %; MCH 30.7 pg (25.0-35.0); MCHC 34.6 g/dL (31.0-37.0); MCV 88.6 fL (80.0-100.0); Monocytes # (A) 0.5 k/uL (0-1.0); Monocytes % (A) 6 %; Neutrophils # (A) 6.5 k/uL (1.3-7.7); Neutrophils % (A) 77 %; Platelet Count 293 k/uL (150-450); RDW 12.5 % (11.5-15.5); WBC 8.5 k/uL (3.8-10.6)
--- NOTE | 2017-11-17 23:24 | CT ---
EXAMINATION TYPE: CT brain wo con DATE OF EXAM: 11/17/2017 COMPARISON: 11/15/2014 HISTORY: SEIZURE CT DLP: 976.40 mGycm. Automated Exposure Control for Dose Reduction was Utilized. TECHNIQUE: CT scan of the head is performed without contrast. FINDINGS: Ventricles of normal size. There is no mass effect nor midline shift. There is no sign of i ntracranial hemorrhage. The calvarium is intact. There is minimal mucosal thickening in the posterior left maxillary sinus. There is minimal mucosal thickening in right side of sphenoid sinus. IMPRESSION: New mild left maxillary and sphenoid sinusitis. Negative CT scan of the brain.
[2017-11-17] MEDS ORDERED: IBUPROFEN 400 MG TAB PO PRN (23:49)
[2017-11-17] MEDS ORDERED: ACETAMINOPHEN TAB 325 MG TAB PO PRN (23:49)
[2017-11-17] MEDS ORDERED: NALOXONE 0.4 MG/ML 1 ML VIAL IV PRN (23:49)
[2017-11-18 00:39] LABS: Appearance,Urine Clear (Clear); Bacteria,Urine Rare /hpf; Bilirubin,Urine Negative (Negative); Blood,Urine Negative (Negative); Color,Urine Yellow; Glucose,Urine (UA) Negative (Negative); Hyaline Casts,Urine 4 /lpf (0-2); Ketones,Urine Negative (Negative); Leukocyte Esterase,Urine Large (Negative); Mucus,Urine Rare /hpf; Nitrite,Urine Negative (Negative); Protein,Urine Trace (Negative); RBC,Urine 2 /hpf (0-5); Specific Gravity,Urine 1.019 (1.001-1.035); Squamous Epithelial Cell,Urine 3 /hpf (0-4); Urobilinogen,Urine <2.0 mg/dL (<2.0); WBC,Urine 6 /hpf (0-5)
[2017-11-18 00:48] LABS: Amphetamine Screen,Urine Not Detected (NotDetected); Barbiturate Screen,Urine Not Detected (NotDetected); Benzodiazepines Screen,Urine Detected (NotDetected); Cocaine Screen,Urine Not Detected (NotDetected); Methadone Screen, Urine Not Detected (NotDetected); Opiate Screen,Urine Detected (NotDetected); Oxycodone Screen, Urine Not Detected (NotDetected); Phencyclidine Screen,Urine Not Detected (NotDetected); Tricyclic Antidepressant,Urine Not Detected (NotDetected); Urn Cannabinoid Scrn Not Detected (NotDetected)
[2017-11-18] MEDS: SODIUM CHLORIDE 0.9% 1,000 ML IV SCH (01:26)
[2017-11-18 01:33] VITALS: BMI 38.7
[2017-11-18] MEDS ORDERED: levETIRAcetam IV 1,000 MG in SALINE 1 100ML.BAG IVPB SCH (09:00)
[2017-11-18] MEDS ORDERED: ALBUTEROL NEBULIZED 2.5 MG/3 ML INHALATION PRN (09:34)
[2017-11-18] MEDS ORDERED: ALBUTEROL INHALER 60 PUFF/8 GM INHALER INHALATION PRN (09:34)
[2017-11-18] MEDS ORDERED: IPRATROPIUM-ALBUTEROL 3 ML NEB INHALATION PRN (09:38)
[2017-11-18] MEDS: IPRATROPIUM-ALBUTEROL 3 ML NEB INHALATION SCH ×3 (11:38→19:39)
[2017-11-18] MEDS ORDERED: LORazepam 2 MG/ML INJ IV PRN (12:21)
--- NOTE | 2017-11-18 14:24 | P.HPIM ---
History of Present Illness 41-year-old female admitted for possible seizures and status epilepticus. Patient evidently had a tonic clonic seizure witnessed by EMS and the another seizure which was not a tonic-clonic activity but the unresponsiveness for few minutes witnessed by nursing staff here, no loss of bowel or bladder incontinence. Patient had history of pseudoseizures in the past not on any antiseizure medications. Patient denied any fever chills patient doesn't have any tongue biting denied any aura-like symptoms unsure duration. The patient has postictal symptoms are not patient says she is confused but alert oriented 3 able to answer all my questions appropriately. Patient denied any headache or nausea vomiting fever chills patient is supposed to get an MRI as an outpatient.. Patient does have history of COPD not in acute exacerbation at this point of time does have history of HIV with the last CD4 count few days ago about 166 as per patient. CAT scan of the head was obtained here which did not show any significant abnormality. No weakness Review of Systems REVIEW OF SYSTEMS: CONSTITUTIONAL: No fever, no malaise, no fatigue. HEENT: No recent visual problems or hearing problems. Denied any sore throat. CARDIOVASCULAR: No chest pain, orthopnea, PND, no palpitations, no syncope. PULMONARY: No shortness of breath, no cough, no hemoptysis. GASTROINTESTINAL: No diarrhea, no nausea, no vomiting, no abdominal pain. Normoactive bowel sounds. NEUROLOGICAL: As mentioned in HPI HEMATOLOGICAL: Denies any bleeding or petechiae. GENITOURINARY: Denies any burning micturition, frequency, or urgency. MUSCULOSKELETAL/RHEUMATOLOGICAL: Denies any joint pain, swelling, or any muscle pain. ENDOCRINE: Denies any polyuria or polydipsia. The rest of the 14-point review of systems is negative. Past Medical History Past Medical History: Asthma, Fibromyalgia, Pneumonia, Seizure Disorder Additional Past Medical History / Comment(s): HIV with AIDS. Last CD4 cell count of 136. migraines, "rt eye has scarring and freckles". *History of "asthma" that is exercise induced, uti's, "poor circulation" History of Any Multi-Drug Resistant Organisms: None Reported Past Surgical History: Section, Cholecystectomy, Hysterectomy, Orthopedic Surgery Additional Past Surgical History / Comment(s): left shoulder sx, c-sec x3 Past Anesthesia/Blood Transfusion Reactions: No Reported Reaction Past Psychological History: Anxiety, Depression Additional Psychological History / Comment(s): Pt lives at home with her 3 children. She is independent normally. 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 No injection drug use. No experience. No extensive travel history. Smoking Status: Former smoker Past Alcohol Use History: None Reported Additional Past Alcohol Use History / Comment(s): started smoking 1988 smoked 1 pack per week and quit Past Drug Use History: None Reported - Past Family History Mother Family Medical History: CVA/TIA, Diabetes Mellitus, Myocardial Infarction ([place]) Additional Family Medical History / Comment(s): sarcoidosis, osteoporosis Father Family Medical History: Asthma, COPD Medications and Allergies Home Medications Medication Instructions Recorded Confirmed Type Albuterol Inhaler [Ventolin Hfa 2 puff INHALATION RT-Q4H PRN 05/25/14 11/18/17 History Inhaler] Budesonide-Formot 160-4.5 Mcg 2 puff INHALATION RT-BID 05/25/14 11/18/17 History [Symbicort 160-4.5 Mcg Inhaler] Hydrocodone/Acetaminophen [[place] 1 tab PO TID 11/09/15 11/18/17 History 10-325] Albuterol Nebulized [Ventolin 2.5 mg INHALATION RT-Q4H PRN 10/28/16 11/18/17 History Nebulized] Elviteg/Holley/Emtric/Tenofo Dis 1 tab PO HS 10/28/16 11/18/17 History [Stribild Tablet] Allergies Allergy/AdvReac Type Severity Reaction Status Date / Time amoxicillin [From Augmentin] Allergy Swelling Verified 11/18/17 08:26 clavulanic acid Allergy Swelling Verified 11/18/17 08:26 [From Augmentin] prochlorperazine edisylate Allergy Confusion Verified 11/18/17 08:26 [From Compazine] prochlorperazine maleate Allergy Confusion Verified 11/18/17 08:26 [From Compazine] morphine AdvReac Chest Pain Verified 11/18/17 08:26 Physical Exam Vitals: Vital Signs Temp Pulse Pulse Resp BP BP Pulse Ox 11/18/17 12:46 97.4 F L 82 18 96/55 98 11/18/17 11:50 92 11/18/17 11:39 92 11/18/17 08:00 76 16 11/18/17 05:00 97.0 F L 76 16 114/58 95 11/18/17 01:34 16 11/18/17 01:11 97.7 F 84 16 133/86 95 11/18/17 00:43 98.0 F 89 16 132/88 97 11/17/17 23:42 82 16 103/57 99 11/17/17 21:55 97.1 F L 99 15 119/65 99 Intake and Output 11/17/17 11/18/17 11/18/17 22:59 06:59 14:59 Intake Total 360 Balance 360 Intake: Oral 360 Other: # Voids 1 Weight 102.512 kg 102.512 kg PHYSICAL EXAMINATION: GENERAL: The patient is alert and oriented x3, not in any acute distress. Well developed, well nourished. HEENT: Pupils are round and equally reacting to light. EOMI. No scleral icterus. No conjunctival pallor. Normocephalic, atraumatic. No pharyngeal erythema. No thyromegaly. CARDIOVASCULAR: S1 and S2 present. No murmurs, rubs, or gallops. PULMONARY: Chest is clear to auscultation, no wheezing or crackles. ABDOMEN: Soft, nontender, nondistended, normoactive bowel sounds. No palpable organomegaly. MUSCULOSKELETAL: No joint swelling or deformity. EXTREMITIES: No cyanosis, clubbing, or pedal edema. NEUROLOGICAL: Gross neurological examination did not reveal any focal deficits. SKIN: No rashes. Results CBC & Chem 7: 11/17/17 22:27 11/17/17 22:27 Labs: Abnormal Lab Results - Last 24 Hours (Table) 11/17/17 11/18/17 Range/Units 22:27 00:10 Carbon Dioxide 21 L (22-30) mmol/L Urine Protein Trace H (Negative) Ur Leukocyte Esterase Large H (Negative) Urine WBC 6 H (0-5) /hpf Urine Bacteria Rare H (None) /hpf Hyaline Casts 4 H (0-2) /lpf Urine Mucus Rare H (None) /hpf Urine Opiates Screen Detected H (NotDetected) U Benzodiazepines Scrn Detected H (NotDetected) Thrombosis Risk Factor Assmnt - Choose All That Apply Any of the Below Risk Factors Present?: Yes Each Factor Represents 1 point: Age 41-60 years, Obesity (BMI >25) Other Risk Factors: No Thrombosis Risk Factor Assessment Total Risk Factor Score: 2 Thrombosis Risk Factor Assessment Level: Low Risk Assessment and Plan Plan: -Possible seizures: Patient has past medical history of pseudoseizures which were diagnosed in [facility] after she was and epilepsy monitoring unit patient was given Keppra here will be started on as needed Ativan for seizures, seizure precautions neurology will evaluate the patient. Will order EEG. -HIV with recent CD4 count 166 no further intervention patient will be resumed on antiretroviral therapy -Asthma moderate chronic intermittent without any acute exacerbation continue with inhaled steroids as needed albuterol. -Fibromyalgia -depression
--- NOTE | 2017-11-18 14:31 | CT ---
EXAMINATION TYPE: CT brain wo con DATE OF EXAM: 11/18/2017 COMPARISON: 11/17/2017 INDICATION: Episode of unresponsivness DLP: 1088 mGycm, Automated exposure control for dose reduction was used. CONTRAST: None CT of the brain is performed utilizing 3 mm thick sections through the posterior fossa and 3 mm thick sections through the remaining calvarium. Study is performed within 24 hours of arrival to the hosp ital. No abnormal hyperdensity is present to suggest an acute intracranial hemorrhage. No mass lesion is evident. No acute infarcts are evident. Ventricles and sulci are appropriate for the patient age. Paranasal sinuses and mastoid air cells within the [id number] are clear. IMPRESSIONS: 1. No acute intracranial process.
[2017-11-18] MEDS: HYDROcodone/APAP 10-325MG 1 EACH TAB PO SCH ×2 (16:09→23:21)
[2017-11-18] MEDS: SYMBICORT 160-4.5 MCG INHALER INHALATION SCH (19:39)
[2017-11-18] MEDS ORDERED: STRIBILD PO SCH (21:00)
[2017-11-18 22:39] VITALS: RESP 16
--- NOTE | 2017-11-18 23:20 | CONS ---
CONSULTATION DATE OF CONSULTATION: 11/18/2017. CHIEF COMPLAINT: Possible seizures. HISTORY OF PRESENT ILLNESS: Mrs. Victor is a 42-year-old, female, who was being evaluated by the Neurology service per the request of Dr. Cobian for possible seizures. The patient was brought into [facility] Emergency Room for a questionable tonic seizure. According to her, she was at home and started having symptoms of a panic attack, which she does have history of. She had been on benzodiazepines in the past, but is no longer treating with any psychiatrist for this. She states that her panic attack was getting so severe that she had to leave the house. She remembers driving to the fire department that is near her house and then called EMS. En route to the hospital, she states that she started having spasms and "the whole body locked up." She states that she was coherent and awake throughout the spell. She does have a previous history of pseudoseizures. In the emergency room, a CT scan of the brain was done, which was normal. The patient was taken down to the neurophysiology lab to get an EEG during the EEG, the patient became unresponsive and a code stroke was called. A stat repeat CT scan of the brain was done, which was again normal. I did review the EEG and there were no epileptic activities seen during her acute onset of unconsciousness/unresponsiveness. Her CBC and comprehensive metabolic profile were normal. Her urine drug screen was positive for opiates and benzodiazepine. She does take hydrocodone at home as needed for her pain, but does not have any prescriptions for benzodiazepines. Her urinalysis showed 6 WBCs with large leukocyte esterase. At the time of my evaluation, she is lying in her bed and appears to be in no acute distress. She denies any current neurological symptoms. PAST MEDICAL HISTORY: Asthma, fibromyalgia, pseudoseizures, HIV, migraine headaches, panic attacks, anxiety disorder, history of cholecystectomy, hysterectomy, orthopedic surgeries, . SOCIAL HISTORY: The patient quit smoking approximately 2 years ago. She denies any alcohol or drug use. FAMILY HISTORY: Positive for strokes, heart disease, diabetes, osteoporosis, chronic obstructive pulmonary disease. HOME MEDICATIONS: Reviewed in the chart. ALLERGIES: AUGMENTIN, AMOXICILLIN, COMPAZINE, MORPHINE. REVIEW OF SYSTEMS: As mentioned above and otherwise negative. PHYSICAL EXAM: Vital signs show a temperature of 97.4, pulse 82, respiration 18, blood pressure 96/55. GENERAL APPEARANCE: The patient is a mildly obese female who appears to be in no acute distress. HEENT: Normocephalic, atraumatic, mild frontal alopecia is seen, no facial asymmetry is noticed. NECK: Supple with no masses felt. CARDIOVASCULAR: Regular rate and rhythm. ABDOMEN: Nontender, nondistended. Extremities showed no edema or clubbing. NEUROLOGICAL EXAM: The patient is awake and oriented x3. Speech and language are normal. Strength is full in all 4 extremities. Sensory exam was normal to light touch in all 4 extremities. No seizure-like activity is seen. No facial asymmetry is noticed on cranial nerve testing. IMPRESSION: 1. Pseudoseizures. 2. Panic attacks. 3. Urinary tract infection. RECOMMENDATION: The patient's episodes are more consistent with pseudoseizures. The episode that occurred in the ambulance although was consistent with a generalized tonic seizure, the patient remembers that she was quite coherent and awake but "could not control her body." This is not consistent with any epileptic activity. Her second episode occurred while she was hooked up to the EEG machine and no epileptiform discharges were seen on the test. The patient does have a previous history of pseudoseizures that are mainly brought on by her panic attacks. The patient does need outpatient psychiatric therapy, which she does not have at this time. I will consult Psychiatry to evaluate and treat. A repeat EEG is scheduled for the morning. I will discontinue Keppra as she does not need any antiepileptic medications. Continue neuro checks. I do recommend antibiotic therapy for her urinary tract infection. Continue the rest of your current workup and management. I will continue to follow with you. Further recommendations to follow. Thank you for allowing me to participate in the care of your patient. If you have any questions, please feel free to contact me. MMODL / IJN: [id number] /
[2017-11-19] MEDS: SODIUM CHLORIDE 0.9% 1,000 ML IV SCH (00:26)
[2017-11-19] MEDS: HYDROcodone/APAP 10-325MG 1 EACH TAB PO SCH (07:36)
[2017-11-19] MEDS: IPRATROPIUM-ALBUTEROL 3 ML NEB INHALATION SCH ×3 (08:49→16:43)
[2017-11-19] MEDS: SYMBICORT 160-4.5 MCG INHALER INHALATION SCH (08:49)
--- NOTE | 2017-11-19 11:08 | EEG ---
ELECTROENCEPHALOGRAM REPORT DATE OF SERVICE: 11/18/2017 REASON FOR TESTING: Seizure. DESCRIPTION OF THE PROCEDURE: This EEG was performed using a 21-channel digital electroencephalograph, following international 10-20 system. DESCRIPTION OF THE RECORDING: From the beginning of the tracing, the background rhythm was mostly consisting of 8 Hz alpha frequency in the posterior occipital lead. No obvious asymmetry is seen. Significant muscle artifacts are seen and the patient became unresponsive and rigid. No epileptiform discharges were seen during this event. Significant artifacts are noticed in the EKG lead. The test was discontinued after only 2 minutes of recording due to medical reasons, and the patient was taken to the CT room for a STAT CT scan of the brain. INTERPRETATION: This EEG is limited, as the recording was only for approximately 3 minutes. The patient did become unresponsive, but no epileptiform discharges were seen during the episode. Significant muscle artifacts were noticed. Clinical correlation is recommended. LELAND / ÁNGEL: [id number] /
[2017-11-19 12:46] VITALS: BP 118/80; PULSE 84; TEMP 98.1
--- NOTE | 2017-11-19 14:31 | P.DS ---
Providers Date of admission: 11/18/17 02:49 Expected date of discharge: 11/19/17 Attending physician: Rose Cobian Consults: 11/17/17 23:50 Consult Physician Routine Consulting Provider: Sanam Morris Consult Reason/Comments: Seizure Do you want consulting provider notified?: Already Contacted 11/18/17 20:15 Consult Physician Routine Consulting Provider: Ana Gee Consult Reason/Comments: Severe panic attacks Do you want consulting provider notified?: Yes Primary care physician: Stated None Dr. Tubbs-PCP Hospital Course: Final Diagnoses: - Pseudoseizures, panic attacks as per neurology evaluation.Patient has past medical history of pseudoseizures which were diagnosed in after she was and epilepsy monitoring unit. -HIV with recent CD4 count 166 no further intervention patient will be resumed on antiretroviral therapy -Asthma moderate chronic intermittent without any acute exacerbation continue with inhaled steroids as needed albuterol. -Fibromyalgia -depression Hospital course:41-year-old female admitted for possible seizures and status epilepticus. Patient evidently had a tonic clonic seizure witnessed by EMS and the another seizure which was not a tonic-clonic activity but the unresponsiveness for few minutes witnessed by nursing staff here, no loss of bowel or bladder incontinence. Patient had history of pseudoseizures in the past not on any antiseizure medications. Patient denied any fever chills patient doesn't have any tongue biting denied any aura-like symptoms unsure duration. The patient has postictal symptoms are not patient says she is confused but alert oriented 3 able to answer all my questions appropriately. Patient denied any headache or nausea vomiting fever chills patient is supposed to get an MRI as an outpatient.. Patient does have history of COPD not in acute exacerbation at this point of time does have history of HIV with the last CD4 count few days ago about 166 as per patient. CAT scan of the head was obtained here which did not show any significant abnormality. No weakness Evaluated by neurology, neuro workup completed. Normal brain computed tomography scans. Initial EEG reported no epileptic activities ,anti- epileptics discontinued. Repeat EEG this morning with final results pending. Denies symptoms of acute UTI , no urinary frequency, pressure, burning with urination. No flank pain. Patient will be discharged home in a stable condition with guarded prognosis pending final EEG results, discharge recommendations and clearance from neurology. EXAMINATION: GENERAL: The patient is alert and oriented x3, not in any acute distress. CARDIOVASCULAR: S1 and S2 present. No murmurs, rubs, or gallops. PULMONARY: Chest is clear to auscultation, no wheezing or crackles. ABDOMEN: Soft, nontender, nondistended, normoactive bowel sounds. No palpable organomegal NEUROLOGICAL: Gross neurological examination did not reveal any focal deficits. The impression and plan of care has been dictated as directed. : I performed a history and examination of this patient, discussed the same with the dictator. I agree with the dictator's note ,documented as a scribe. Any additional findings or plans will be noted. Time taken: 35 minutes Patient Condition at Discharge: Stable Plan - Discharge Summary New Discharge Prescriptions: No Action Albuterol Inhaler [Ventolin Hfa Inhaler] 2 puff INHALATION RT-Q4H PRN PRN Reason: Shortness Of Breath Budesonide-Formot 160-4.5 Mcg [Symbicort 160-4.5 Mcg Inhaler] 2 puff INHALATION RT-BID Hydrocodone/Acetaminophen [[place] 10-325] 1 tab PO TID Albuterol Nebulized [Ventolin Nebulized] 2.5 mg INHALATION RT-Q4H PRN PRN Reason: Shortness Of Breath Elviteg/Holley/Emtric/Tenofo Dis [Stribild Tablet] 1 tab PO HS Discharge Medication List Albuterol Inhaler [Ventolin Hfa Inhaler] 2 puff INHALATION RT-Q4H PRN 05/25/14 [ History] Budesonide-Formot 160-4.5 Mcg [Symbicort 160-4.5 Mcg Inhaler] 2 puff INHALATION RT-BID 05/25/14 [History] Hydrocodone/Acetaminophen [[place] 10-325] 1 tab PO TID 11/09/15 [History] Albuterol Nebulized [Ventolin Nebulized] 2.5 mg INHALATION RT-Q4H PRN 10/28/16 [ History] Elviteg/Holley/Emtric/Tenofo Dis [Stribild Tablet] 1 tab PO HS 10/28/16 [History] Follow up Appointment(s)/Referral(s): Dr. STEFANI Psychiatry [Other] - 1 Week Sujit Tubbs MD [STAFF PHYSICIAN] - 12/04/17 3:45 pm () Patient Instructions/Handouts: Recurrent Seizures in Adults (DC), Status Epilepticus (DC) Activity/Diet/Wound Care/Special Instructions: Antiepileptic recommendations as per neurology. Confirm neurology follow-up prior to discharge. No driving
--- NOTE | 2017-11-19 15:51 | P.PN ---
Subjective Progress Note Date: 11/19/17 Principal diagnosis: Possible seizures This is a 42-year-old female continuing to be evaluated by the neurology service for possible seizures. She does not smoke [facility] emergency room for questionable tonic type seizure. She started having symptoms of a panic attack of which she has a long history. She has had no seizure-like activity since admission. She has a previous history of diagnosis of seizures.: CT of the brain was normal. She had an initial EEG and there were no epileptic activity seen during her onset of consciousness/ unresponsiveness. A repeat EEG has been performed. Objective - Vital Signs Vital signs: Vital Signs Temp 98.1 F 11/19/17 12:32 Pulse 84 11/19/17 12:32 Resp 16 11/19/17 12:32 BP 118/80 11/19/17 12:32 Pulse Ox 95 11/19/17 12:32 Intake & Output 11/18/17 11/19/17 11/19/17 18:59 06:59 18:59 Intake Total 720 1900 Balance 720 1900 Weight 102.512 kg Intake: Intake, IV Titration 220 Amount Sodium Chloride 0.9% 1, 120 000 ml @ 20 mls/hr IV . Q24H GANESH Rx#:[id number] levETIRAcetam IV 1,000 mg 100 In Saline 1 100ml.bag @ 400 mls/hr IVPB Q12HR GANESH Rx#:[id number] Oral 500 1900 Other: # Voids 1 2 - Constitutional General appearance: Present: cooperative, no acute distress - EENT Eyes: Present: EOMI, PERRLA. Absent: abnormal pupil, ptosis ENT: Present: hearing grossly normal - Neck Neck: Present: normal ROM. Absent: rigidity - Respiratory Respiratory: negative: prolonged expiration, prolonged inspiration - Cardiovascular Rhythm: regular - Neurologic Neurologic Comment(s): The patient is alert awake and oriented 3. Speech and language are normal. There is no facial asymmetry. Strength is 5 out of 5 in bilateral upper and lower extremities. There is no sensory deficit. No tremors or seizures are seen. Cranial nerves II through XII are intact globally. - Labs CBC & Chem 7: 11/17/17 22:27 11/17/17 22:27 Assessment and Plan (1) Pseudoseizures Current Visit: Yes Status: Acute Code(s): F44.5 - CONVERSION DISORDER WITH SEIZURES OR CONVULSIONS SNOMED Code(s): 369943967 (2) Panic attacks Current Visit: Yes Status: Acute Code(s): F41.0 - PANIC DISORDER [EPISODIC PAROXYSMAL ANXIETY] SNOMED Code(s): 112557499 (3) UTI (urinary tract infection) Current Visit: Yes Status: Acute Code(s): N39.0 - URINARY TRACT INFECTION, SITE NOT SPECIFIED SNOMED Code(s): 30176715 Plan: Again the patient's episodes are more consistent with pseudoseizures. During her right knee ambulance where there was some activity thought to be generalized tonic seizure activity, she was coherent and awake and remembers the entire episode. Recall that her second episode occurred while she was getting her EEG. In no epileptiform discharges were seen on the test. We have recommended outpatient psychiatric therapy be re-established. Barring any unforeseen abnormalities on her repeat EEG she is cleared from a neurological standpoint. I have performed a history and physical on the above patient. I have reviewed the above note, and agree.
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
--- NOTE | 2017-11-19 18:15 | EEG ---
ELECTROENCEPHALOGRAM REPORT DATE OF SERVICE: 11/19/2017 REASON FOR TESTING: Atypical spell, possible seizure. DESCRIPTION OF THE PROCEDURE: This EEG was performed using a 21-channel digital electroencephalograph, following international 10-20 system. DESCRIPTION OF THE RECORDING: From the beginning of the tracing, and with the patient's eyes closed, the background rhythm was mostly consisting of 9 Hz alpha frequency in the posterior occipital leads. No obvious asymmetry is seen. Photic stimulation was performed with significant muscle and movement artifacts seen throughout. No obvious epileptiform discharges were seen. Hyperventilation was not performed. Photic stimulation was repeated later in the tracing with a minimal driving response seen. No pathological waves were elicited. The patient remains awake throughout the tracing. No epileptiform discharges were seen. Her EKG lead showed a regular rate and rhythm. INTERPRETATION: This awake EEG can be considered within normal limits. There was no asymmetry seen. No epileptiform discharges were noticed. The absence of epileptiform discharges does not rule out the diagnosis of epilepsy; therefore clinical correlation is recommended. MMJACINTO / WALTERN: [id number] /
== END 2017-11-19 18:20 | disposition home or self-care (01) | DRG 880 ==
LOC: EC 21:39 → INTOOBSV 23:49 → OBSVTOIN 23:49 → 5ONC 23:49 → OBSVTOIN 11-18 02:49
PROVIDERS: ADMIT Internal Medicine; ATTEND Internal Medicine
DX: F44.5 Conversion disorder with seizures or convulsions (principal); B20 Human immunodeficiency virus [HIV] disease; N39.0 Urinary tract infection, site not specified; F17.200 Nicotine dependence, unspecified, uncomplicated; F32.9 Major depressive disorder, single episode, unspecified; F41.0 Panic disorder [episodic paroxysmal anxiety]; J44.9 Chronic obstructive pulmonary disease, unspecified; M79.7 Fibromyalgia; G43.909 Migraine, unspecified, not intractable, without status migrainosus; J45.20 Mild intermittent asthma, uncomplicated; D49.81 Neoplasm of unspecified behavior of retina and choroid; Z79.899 Other long term (current) drug therapy; Z79.51 Long term (current) use of inhaled steroids; Z88.1 Allergy status to other antibiotic agents; Z88.0 Allergy status to penicillin; Z88.8 Allergy status to other drugs, medicaments and biological substances; Z90.710 Acquired absence of both cervix and uterus; Z90.49 Acquired absence of other specified parts of digestive tract; Z87.01 Personal history of pneumonia (recurrent); Z82.3 Family history of stroke; Z82.49 Family history of ischemic heart disease and other diseases of the circulatory system; Z83.3 Family history of diabetes mellitus; Z82.62 Family history of osteoporosis; Z82.5 Family history of asthma and other chronic lower respiratory diseases
CPT/HCPCS: 36415; 70450; 80053; 80306; 80320; 81001; 81025; 83605; 84484; 85025; 93005; 94640; 95819; 96361; 96365; 96366; 96375; 99285

== ENCOUNTER → 2017-12-09 | Outpatient (CLI) | payer MEDICARE, OTHER ==
--- NOTE | 2017-12-09 16:55 | MR ---
EXAMINATION TYPE: MR brain wo/w con DATE OF EXAM: 12/09/2017 COMPARISON: Prior brain MRI 05/25/2014 HISTORY: Dizziness TECHNIQUE: Multiplanar, multisequence images of the brain and brainstem is performed without and with IV contras t, utilizing 10 mL intravenous Gadavist . FINDINGS: Diffusion weighted images demonstrate no evidence of a recent infarct or other diffusion ab normality. There is no extra-axial fluid collection or significant interval change in scattered, pun ctate foci of white matter signal abnormality on T2 and inversion recovery sequence, approximately 5 foci are present, the largest only approximately 2 to 3 mm on axial image 16 right frontal white evin er. The ventricular system and cisternal spaces are normal in size and appearance. The brain volume is age appropriate. Midline structures demonstrate normal morphology. The craniocervical junction appears within normal limits. Post contrast images demonstrate no abnormal enhancement. The dural venous sinuses appear pa tent. The visualized sinuses are remarkable for extensive inflammatory change especially in the sphen oid sinus, and the globes are intact. IMPRESSION: Stable brain MRI. Sphenoid sinus disease.
== END ==
LOC: RADMRIMAIN 15:47
PROVIDERS: ATTEND Physician Assistant
DX: R51 Headache (principal); R42 Dizziness and giddiness
CPT/HCPCS: 70553; A9581

== ENCOUNTER → 2018-07-09 | Outpatient (CLI) | payer MEDICARE, OTHER ==
[2018-07-09 16:55] LABS: Basophils % (A) 1 %; Eosinophils # (A) 0.1 k/uL (0-0.7); Eosinophils % (A) 3 %; HCT 40.5 % (34.0-46.0); HGB 13.5 gm/dL (11.4-16.0); Lymphocytes % (A) 21 %; MCH 28.5 pg (25.0-35.0); MCHC 33.3 g/dL (31.0-37.0); MCV 85.7 fL (80.0-100.0); Mean Platelet Volume 7.5; Monocytes # (A) 0.2 k/uL (0-1.0); Monocytes % (A) 4 %; Neutrophils # (A) 3.2 k/uL (1.3-7.7); Neutrophils % (A) 69 %; Platelet Count 238 k/uL (150-450); RBC 4.72 m/uL (3.80-5.40); RDW 13.7 % (11.5-15.5); WBC 4.6 k/uL (3.8-10.6)
[2018-07-10 01:18] LABS: Albumin 4.8 g/dL (3.80-4.90); Albumin/Globulin Ratio 1.78 (1.60-3.17); Anion Gap 10.1 mmol/L (4.00-12.00); Calcium 9.4 mg/dL (8.7-10.3); Carbon Dioxide 21.9 mmol/L (21.6-31.8); Globulin 2.7 g/dL (1.6-3.3); Potassium 4.3 mmol/L (3.5-5.5); Total Bilirubin 0.4 mg/dL (0.3-1.2); Total Protein 7.5 g/dL (6.2-8.2)
[2018-07-10 12:28] LABS: T4/T8 Ratio (CD4:CD8) 0.1 (1.0-3.7)
[2018-07-10 13:10] LABS: HIV-1 RNA DETECTED (Not detected)
== END ==
LOC: LABWHC1 16:03
PROVIDERS: ATTEND Internal Medicine Infectious Disease
DX: B20 Human immunodeficiency virus [HIV] disease (principal)
CPT/HCPCS: 36415; 80053; 85025; 86360; 87536; 87901

== ENCOUNTER → 2018-09-02 | Outpatient (CLI) | payer MEDICARE, OTHER ==
--- NOTE | 2018-09-02 16:20 | MR ---
EXAMINATION TYPE: MR sacroiliac joints wo con DATE OF EXAM: 09/02/2018 COMPARISON: Lumbar spine 07/24/2017. HISTORY: 43-year-old female bilateral, right greater than left hip and pelvic pain. TECHNIQUE: Multiplanar, multisequence images of the SI joints were obtained without IV contrast. FINDINGS: L5-S1 posterior fusion hardware is demonstrated. There is mild heterogeneous red marrow demonstrated throughout the osseous structures without suspici ous bone marrow replacement. The SI joints appear intact without significant subarticular marrow edema or evidence of erosions. The sacrum is intact. There is a large left lateral disc osteophyte complex at L5-S1 which abuts the extraforaminal left L5 nerve root. Findings unchanged from 07/24/2017. On the right at L5-S1, there is low to intermediate T1-weighted signal, refer to axial T1 image 26 al kimi the right lateral recess in the expected location of the exiting right L5 nerve root. IMPRESSION: 1. No specific MRI findings of sacroiliitis. No sacral fracture. 2. Low to intermediate T1 signal involving the right lateral recess of L5-S1 in a patient status post L5-S1 posterior and interbody fusion. Unable to exclude epidural/perineural granulation tissue near the exiting right L5 nerve root. Consider lumbar spine MRI without and with contrast to further evalu ate. The scan can be performed on a 1.5 Terrie magnet to decrease metal hardware artifact. 3. Left lateral disc osteophyte complex at L5-S1 is unchanged and abuts the extraforaminal left L5 ne rve root.
--- NOTE | 2018-09-02 16:37 | MR ---
EXAMINATION TYPE: MR hip RT wo con DATE OF EXAM: 09/02/2018 COMPARISON: Correlation radiograph same day HISTORY: 43-year-old female right hip pain TECHNIQUE: Multiplanar, multisequence images of the right hip were obtained without IV contrast. FINDINGS: Both hips show obtained deformity is along the anterior and superior femoral head neck junctions. Axi al image 19 also suggests bilateral superior acetabular retroversion. No significant hip joint effusion. No large para labral cyst. However, sagittal series suggests tear of the acetabular labrum in the ant erior superior quadrant, referred to sagittal images 10 and 11. Rectus femoris and hamstrings origins as well as iliopsoas and left gluteal insertions appear intact. There is a small intrasubstance tear involving the insertion of the posterosuperior gluteus medius in sertion onto the greater trochanter. No suspicious bone marrow replacement. No evidence for hip fracture or AVN. Uterus surgically absent. No abnormal fluid collection in the pelvis. There is symmetric course, caliber, and signal intensity of the sciatic nerves. IMPRESSION: 1. Bilateral femoral head neck junctions demonstrate CAM bumps and the axial series suggests superior acetabular retroversion. Correlate for mixed pincer and CAM type femoral acetabular impingement synd valdo. 2. Tear along the anterior superior quadrant of the right acetabular labrum. 3. Small intrasubstance tear involving the posterosuperior insertion of the gluteus medius.
--- NOTE | 2018-09-03 07:21 | XR ---
EXAMINATION TYPE: XR Hip RT and AP Pelvis DATE OF EXAM: 09/02/2018 COMPARISON: NONE HISTORY: Pain TECHNIQUE: A single AP view of the pelvis is obtained. Two views of the right hip are obtained. FINDINGS: There is no acute fracture/dislocation evident in the pelvis. The hip and sacroiliac join ts appear symmetric and unremarkable. The overlying soft tissue appears unremarkable. Postsurgical changes involving the lower lumbar spine. Calcifications in pelvis are likely vascular. Mild arthropathy of the hips correlate for femoral acetabular impingement. Nonspherical morphology of the femoral head bilaterally. Acetabular hypertrophy. IMPRESSION: 1. Postsurgical change lower lumbar spine. 2. Mild arthropathy of the hips bilaterally with findings suggestive of femoral acetabular impingemen t. Correlate clinically.
== END | disposition home or self-care (01) ==
LOC: RADMRIMAIN 14:19
PROVIDERS: ATTEND Neurological Surgery
DX: S73.191A Other sprain of right hip, initial encounter (principal); S76.312A Strain of muscle, fascia and tendon of the posterior muscle group at thigh level, left thigh, initial encounter; M25.851 Other specified joint disorders, right hip; M25.78 Osteophyte, vertebrae; Z98.1 Arthrodesis status
CPT/HCPCS: 72195; 73502

== ENCOUNTER → 2018-09-11 | Outpatient (CLI) | payer MEDICARE, OTHER ==
--- NOTE | 2018-09-11 09:47 | BD ---
EXAMINATION TYPE: Axial Bone Density DATE OF EXAM: 09/11/2018 COMPARISON: NONE CLINICAL HISTORY: Osteoporosis, HIV Height: 64 Weight: 244.8 FRAX RISK QUESTIONS: Alcohol (3 or more units per day): no Family History (Parent hip fracture): no Glucocorticoids (More than 3mos): no (Ex: prednisone, prednisolone, methylprednisolone, dexamethasone, and hydrocortisone). History of Fracture in Adulthood: no Secondary Osteoporosis: 1. Type 1 Diabetes: no 2. Hyperthyroidism: no 3. Menopause before 45: yes 4. Malnutrition: no 5. Chronic liver disease: no Rheumatoid Arthritis: no Current Tobacco Use: yes RISK FACTORS HISTORY OF: Surgery to Spine/Hip(right/left)/Wrist (right/left): l-4, l-5, s-1 When: 2019 Family History of Osteoporosis: yes Active: no Diet low in dairy products/other sources of calcium: no Postmenopausal woman: hysterectomy 2011 MEDICATIONS: hiv meds, narco, blood pressure meds Additional History: EXAM MEASUREMENTS: Bone mineral densitometry was performed using the [employer] System. Bone mineral density about the R hip (g/cm2): 0.934 Bone mineral density about the L hip (g/cm2): 0.958 T Score values are as follows: -----R Neck: -0.8 -----L Neck: -0.6 -----R Total: 0.2 -----L Total: 0.6 Bone mineral density : baseline Bone mineral density about the L Wrist (g/cm2): 0.763 T Score values are as follows: -----Dist. R+U: 0.3 -----Prox. R+U: 1.6 -----Radius total: 1.5 Bone mineral density : baseline IMPRESSION: Normal (Values between +1 and -1 indicate normal bone mass). Consider repeating this study in 5 year s or sooner if there is some new clinical indication. NOTE: T-SCORE=SD OF THE YOUNG ADULT MEAN.
== END | disposition home or self-care (01) ==
LOC: RADBDWWP 07:54
PROVIDERS: ATTEND Internal Medicine Infectious Disease
DX: M81.0 Age-related osteoporosis without current pathological fracture (principal); B20 Human immunodeficiency virus [HIV] disease; Z88.0 Allergy status to penicillin; Z88.5 Allergy status to narcotic agent; Z88.2 Allergy status to sulfonamides; Z88.8 Allergy status to other drugs, medicaments and biological substances
CPT/HCPCS: 77080

== ENCOUNTER → 2020-03-10 | Outpatient (CLI) | payer MEDICARE, OTHER ==
[2020-03-10 14:59] LABS: Basophils % (A) 1 %; Eosinophils # (A) 0.2 k/uL (0-0.7); Eosinophils % (A) 4 %; HCT 41.7 % (34.0-46.0); HGB 14.4 gm/dL (11.4-16.0); Lymphocytes # (A) 0.8 k/uL (1.0-4.8); Lymphocytes % (A) 18 %; MCH 30.3 pg (25.0-35.0); MCHC 34.6 g/dL (31.0-37.0); MCV 87.6 fL (80.0-100.0); Mean Platelet Volume 7.2; Monocytes # (A) 0.2 k/uL (0-1.0); Monocytes % (A) 5 %; Neutrophils # (A) 3.1 k/uL (1.3-7.7); Neutrophils % (A) 71 %; Platelet Count 195 k/uL (150-450); RBC 4.76 m/uL (3.80-5.40); RDW 12.6 % (11.5-15.5); WBC 4.4 k/uL (3.8-10.6)
[2020-03-10 19:20] LABS: African American GFR (CKD) 90.8 (60.0-200.0); Albumin 4.8 g/dL (3.80-4.90); Albumin/Globulin Ratio 1.78 (1.60-3.17); Anion Gap 8.2 mmol/L (4.00-12.00); BUN/Creat Ratio 18.89 Ratio (12.00-20.00); Calcium 9.7 mg/dL (8.7-10.3); Carbon Dioxide 26.8 mmol/L (21.6-31.8); Globulin 2.7 g/dL (1.6-3.3); Non-African American GFR(CKD) 78.3 (60.0-200.0); Potassium 4.4 mmol/L (3.5-5.5); Total Bilirubin 0.4 mg/dL (0.2-1.2); Total Protein 7.5 g/dL (6.2-8.2)
== END | disposition home or self-care (01) ==
LOC: LABWHC1 14:25
PROVIDERS: ATTEND Internal Medicine Infectious Disease
DX: B20 Human immunodeficiency virus [HIV] disease (principal)
CPT/HCPCS: 36415; 80053; 85025; 87536; 87901

== ENCOUNTER 2020-10-02 11:22 | Emergency (ER) | payer MEDICARE, OTHER ==
[2020-10-02] MEDS ORDERED: HYDROmorphone 0.5 MG/0.5 ML SYRINGE IVP STA ×2 (12:53→14:32)
[2020-10-02] MEDS ORDERED: methocarbamoL 750 MG TAB PO STA (12:53)
[2020-10-02 13:28] LABS: Basophils # (A) 0.1 k/uL (0-0.2); Basophils % (A) 1 %; Eosinophils # (A) 0.2 k/uL (0-0.7); Eosinophils % (A) 3 %; HCT 42.3 % (34.0-46.0); HGB 14.9 gm/dL (11.4-16.0); Lymphocytes # (A) 1.1 k/uL (1.0-4.8); Lymphocytes % (A) 21 %; MCH 31.1 pg (25.0-35.0); MCHC 35.2 g/dL (31.0-37.0); MCV 88.2 fL (80.0-100.0); Mean Platelet Volume 7.6; Monocytes # (A) 0.3 k/uL (0-1.0); Monocytes % (A) 6 %; Neutrophils # (A) 3.7 k/uL (1.3-7.7); Neutrophils % (A) 69 %; Platelet Count 226 k/uL (150-450); RDW 12.9 % (11.5-15.5); WBC 5.3 k/uL (3.8-10.6)
[2020-10-02 13:38] LABS: INR 0.9 (<1.2); Partial Thromboplastin Time 23.1 sec (22.0-30.0); Prothrombin Time 9.7 sec (9.0-12.0)
[2020-10-02 13:41] LABS: ALT 48 U/L (4-34); AST 45 U/L (14-36); African American GFR (CKD) >90 (>60 ml/min/1.73 sqM); Albumin 4.6 g/dL (3.5-5.0); Alkaline Phosphatase 66 U/L (38-126); Anion Gap 9 mmol/L; Blood Urea Nitrogen 12 mg/dL (7-17); Calcium 9.5 mg/dL (8.4-10.2); Carbon Dioxide 23 mmol/L (22-30); Chloride 108 mmol/L (98-107); Glucose 89 mg/dL (74-99); Non-African American GFR(CKD) 87 (>60 ml/min/1.73 sqM); Potassium 4.5 mmol/L (3.5-5.1); Sodium 140 mmol/L (137-145); Total Bilirubin 0.5 mg/dL (0.2-1.3); Total Protein 7.7 g/dL (6.3-8.2)
--- NOTE | 2020-10-02 13:53 | US ---
EXAMINATION TYPE: US thyroid st tissue head/neck DATE OF EXAM: 10/02/2020 COMPARISON: NONE CLINICAL HISTORY: mass in left neck. Patient states multiple palpable lumps left neck. At the patient's palpable near her left ear, there appears to be a complex cystic area within the par otid gland measuring 0.9 x 0.9 x 0.8 cm At the patient's palpable left neck near clavicle, there is a probable lymph node visualized measurin g 1.4 x 0.8 x 1.0 cm. IMPRESSION: There is a 0.9 x 0.9 x 0.8 cm complex appearing cystic lesion in the region of the left parotid gland . CT neck with contrast would be helpful for further evaluation. There is cortical thickening of a left neck lymph node which also would be better evaluated by CT.
--- NOTE | 2020-10-02 14:08 | US ---
EXAMINATION TYPE: US venous doppler duplex LE BI DATE OF EXAM: 10/02/2020 1:42 PM COMPARISON: NONE CLINICAL HISTORY: leg swelling, pain. SIDE PERFORMED: Bilateral TECHNIQUE: The lower extremity deep venous system is examined utilizing real time linear array sonog tejinder with graded compression, doppler sonography and color-flow sonography. VESSELS IMAGED: Common Femoral Vein Deep Femoral Vein Greater Saphenous Vein * Femoral Vein Popliteal Vein Proximal Calf Veins (* superficial vessels) Right Leg: Negative for DVT Left Leg: Negative for DVT IMPRESSION: No sonographic evidence for deep vein thrombosis of the lower extremities
--- NOTE | 2020-10-02 15:34 | CT ---
EXAMINATION TYPE: CT soft tissue neck w con DATE OF EXAM: 10/02/2020 COMPARISON: None HISTORY: Multiple bumps and lumps on neck and left sided facial swelling x2 weeks. CT DLP: 633.8 mGycm CONTRAST: CT scan of the neck is performed with IV Contrast, patient injected with 100ml mL of Isovue 300. Contrast enhanced CT of the neck was performed from the skull base through the lung apices. AIRWAY: The supraglottic, glottic, and subglottic portions of the airway appear patent and free of mass. SALIVARY GLANDS: The submandibular and parotid glands are free of mass or inflammatory process. Ther e are couple small lymph nodes noted adjacent to the left parotid gland measuring up to 1 cm. There i s also a lymph node adjacent to the right parotid gland lower pole which measures 8 mm. THYROID GLAND: No nodules or masses seen. LYMPH NODES: No adenopathy seen greater than 1cm. LUNG APICES: No nodule or mass is seen. OTHER: Vascular structures are patent. No significant degenerative change of the cervical spine. N o abscess seen. IMPRESSION: There is no evidence for abscess. There are subcentimeter seen adjacent to the parotid glands bilater ally left slightly greater than right.
--- NOTE | 2020-10-02 16:09 | ED ---
General Adult HPI - General Chief complaint: Extremity Problem,Nontraumatic Stated complaint: leg pain/neck pain Time Seen by Provider: 10/02/20 12:08 Source: patient Mode of arrival: wheelchair Limitations: no limitations - History of Present Illness Initial comments: Patient is a 45-year-old female with past medical history remarkable for fibromyalgia, seizure disorder, HIV and AIDS now compliant with Genvoya who previously was off any medications with last known CD4 count of 72 however this is from one year ago and patient since been taken tinfoil who presents to the emergency department complaining of multiple complaints. She states she has s mall superficial bites located over the left side of her face as well as palpable lymph nodes in her left neck. She is also complaining of bilateral posterior knee pain and calf pain. She does have a history of chronic leg pain and back pain and has a nerve stimulator in her back, however states that the pain from her knees down bilaterally which is has been worse. She denies any worsening swelling. She denies any chest pain or shortness of breath. She denies any abdominal pain, nausea, vomiting. She denies any headaches, weakness, numbness. She denies any fevers, chills, sick contacts. She has no urinary complaints. She denies any vaginal discharge or bleeding. She states she does not have a sore throat. She denies any headaches. She otherwise has no acute complaints and his primarily Concerned with her 2 complaints above. The swelling in her neck is nontender. Patient's posterior legs have a sharp/achy pain, however patient is still able to walk. She denies any history of blood clots. Patient otherwise has no acute complaints at this time. - Related Data Home Medications Medication Instructions Recorded Confirmed Budesonide-Formot 160-4.5 Mcg 2 puff INHALATION RT-BID 05/25/14 10/02/20 [Symbicort 160-4.5 Mcg Inhaler] Elviteg/Cob/Emtri/Tenof Alafen 1 tab PO DAILY 10/02/20 10/02/20 [Genvoya Tablet] HYDROcodone/APAP 10-325MG [[place] 1 tab PO Q8H PRN 10/02/20 10/02/20 10-325] Previous Rx's Medication Instructions Recorded Ibuprofen [Motrin] 800 mg PO Q8H #21 tab 07/12/21 methocarbamoL [Robaxin] 1,500 mg PO TID #42 tab 10/02/20 Allergies Allergy/AdvReac Type Severity Reaction Status Date / Time amoxicillin [From Augmentin] Allergy Swelling Verified 10/02/20 12:50 clavulanic acid Allergy Swelling Verified 10/02/20 12:50 [From Augmentin] prochlorperazine edisylate Allergy Confusion Verified 10/02/20 12:50 [From Compazine] prochlorperazine maleate Allergy Confusion Verified 10/02/20 12:50 [From Compazine] morphine AdvReac Chest Pain Verified 10/02/20 12:50 Review of Systems ROS Statement: Those systems with pertinent positive or pertinent negative responses have been documented in the HPI. Review of Systems: CONST: Denies fever EYES: Denies blurry vision ENT: Endorses enlarged lymph nodes. C/V: Denies Chest pain RESP: Denies shortness of breath GI: Denies abdominal pain : Denies dysuria SKIN: Denies rash. MSK: Endorses bilateral lower extremity pain. NEURO: Denies headache ROS Other: All systems not noted in ROS Statement are negative. Past Medical History Past Medical History: Asthma, Fibromyalgia, Pneumonia, Seizure Disorder Additional Past Medical History / Comment(s): HIV with AIDS. Last CD4 cell count of 8. migraines, "rt eye has scarring and freckles". uti's, "poor circulation" History of Any Multi-Drug Resistant Organisms: None Reported Past Surgical History: Section, Cholecystectomy, Hysterectomy, Orthopedic Surgery Additional Past Surgical History / Comment(s): left shoulder sx, c-sec x3 Past Anesthesia/Blood Transfusion Reactions: No Reported Reaction Past Psychological History: Anxiety, Depression Smoking Status: Current every day smoker Past Alcohol Use History: None Reported Past Drug Use History: Marijuana - Past Family History Mother Family Medical History: CVA/TIA, Diabetes Mellitus, Myocardial Infarction ([place]) Additional Family Medical History / Comment(s): sarcoidosis, osteoporosis Father Family Medical History: Asthma, COPD General Exam - General Exam Comments Initial Comments: General: Appears in no acute distress. HEAD: Normal with no signs of head trauma. EYES: PERRLA, EOMI, conjunctiva normal, no discharge. ENT: Hearing grossly intact, normal oropharynx. NECK: Patient has what appears to be mosquito bites located over her left cheek as well as 2 palpable lymph nodes, both in the anterior cervical chain. This is isolated to the left side. RESPIRATORY: Clear breath sounds bilaterally. No wheezes, rales, or rhonchi. C/V: Regular rate and rhythm. S1 and S2 auscultated, no edema, peripheral pulses 2+ and intact throughout ABD: Abd is soft, nontender, nondistended EXT: Patient has tenderness to palpation of bilateral popliteal region which extends into the bilateral posterior calves. Legs are symmetrical. She is neurovascularly intact. SKIN: Bite like lesions over the left cheek, approximately 4 tablets to be excoriated with a small scab located superficially on top. She also has the palpable, small, 2 nontender enlarged lymph nodes in the left anterior cervical chain that are likely less than 1 cm in size. NEURO: Alert and oriented x 4. Cranial nerves II-XII intact. No focal sensory or strength deficits. Patient is able to ambulate, however with some mild diffi culty secondary to leg pain. Limitations: no limitations Course Vital Signs 10/02/20 10/02/20 10/02/20 11:33 13:11 14:11 Temperature 98.1 F Pulse Rate 84 83 87 Respiratory 18 18 18 Rate Blood Pressure 130/79 133/88 127/78 O2 Sat by Pulse 97 98 100 Oximetry 10/02/20 10/02/20 14:43 16:08 Temperature 96.8 F L Pulse Rate 85 Respiratory 16 18 Rate Blood Pressure 148/101 138/79 O2 Sat by Pulse 97 Oximetry Medical Decision Making - Medical Decision Making Based on the patient's presentation and physical exam, concern for possible DVTs in the bilateral lower extremity is externally tender to palpation posterior calf as well as posterior popliteal space. There are symmetrical, so my suspicion remains low. Leg exam is otherwise unremarkable. This possible that this is acute on chronic pain. While score for DVT is low, however we will obtain venous duplexes of the bilateral lower extremities. We will also obtain basic laboratory studies. As for the patient's face rash as well as enlarged lymph nodes, we'll obtain a soft tissue ultrasound of the neck to evaluate the enlarged lymph nodes. Repeat CD4 count will be sent but likely not return during this visit, which I discussed with the patient and she was in agreement. She is taking Genvoya and has been compliant with her medications and shows no other signs of infection at this time. Patient will be administered Dilaudid for pain management. She was given at this point. Patient's venous duplexes were negative for acute deep T. Patient soft tissue ultrasound revealed a possible cystic lesion in the region of the left parotid gland and they recommended CT with contrast in the neck to further evaluate it. There is also small enlarged lymph node of left neck as well. The recommended a CT of the neck. CT soft tissue of the neck revealed an enlarged lymph node adjacent to left parotid gland. All adenopathy is less than 1 cm in size. Remainder of the CT is unremarkable. Laboratory studies are relatively unremarkable with very slightly elevated AST and LT of 45 and 48 respectively. Remainder of her laboratory studies unremarkable. On reevaluation, patient is feeling somewhat improved. I did discuss her imaging as well as laboratory studies with her and explained that I would like her to follow up with her PCP within the next 3 days if possible. States her leg pain is improved, and will follow-up with her back surgeon and she states it is possibly secondary to her chronic back pain. I have low suspicion for any AIDS defining illness at this time as she is compliant with her medication now and laboratory studies are relatively unremarkable. She is afebrile with no signs of infection. Imaging has not revealed any signs or source of infection. The rash on her face is likely secondary to bug bites, possible mosquito bites as she has been outside more lately. I did discuss with her admission versus discharge home for pain control and she selected discharge home. She will follow up with her PCP. Patient was therefore discharged home in stable condition. I did provide her with strict return precautions. - Lab Data Result diagrams: 10/02/20 13:02 10/02/20 13:02 Lab Results 10/02/20 10/02/20 10/02/20 Range/Units 13:02 13:02 13:02 WBC 5.3 (3.8-10.6) k/uL RBC 4.80 (3.80-5.40) m/uL Hgb 14.9 (11.4-16.0) gm/dL Hct 42.3 (34.0-46.0) % MCV 88.2 (80.0-100.0) fL MCH 31.1 (25.0-35.0) pg MCHC 35.2 (31.0-37.0) g/dL RDW 12.9 (11.5-15.5) % Plt Count 226 (150-450) k/uL MPV 7.6 Neutrophils % 69 % Lymphocytes % 21 % Monocytes % 6 % Eosinophils % 3 % Basophils % 1 % Neutrophils # 3.7 (1.3-7.7) k/uL Lymphocytes # 1.1 (1.0-4.8) k/uL Monocytes # 0.3 (0-1.0) k/uL Eosinophils # 0.2 (0-0.7) k/uL Basophils # 0.1 (0-0.2) k/uL PT 9.7 (9.0-12.0) sec INR 0.9 (<1.2) APTT 23.1 (22.0-30.0) sec Sodium 140 (137-145) mmol/L Potassium 4.5 (3.5-5.1) mmol/L Chloride 108 H (98-107) mmol/L Carbon Dioxide 23 (22-30) mmol/L Anion Gap 9 mmol/L BUN 12 (7-17) mg/dL Creatinine 0.82 (0.52-1.04) mg/dL Est GFR (CKD-EPI)AfAm >90 (>60 ml/min/1.73 sqM) Est GFR (CKD-EPI)NonAf 87 (>60 ml/min/1.73 sqM) Glucose 89 (74-99) mg/dL Calcium 9.5 (8.4-10.2) mg/dL Total Bilirubin 0.5 (0.2-1.3) mg/dL AST 45 H (14-36) U/L ALT 48 H (4-34) U/L Alkaline Phosphatase 66 (38-126) U/L Total Protein 7.7 (6.3-8.2) g/dL Albumin 4.6 (3.5-5.0) g/dL Disposition Clinical Impression: Musculoskeletal pain, Lymphadenopathy, Bug bite of face without infection Disposition: HOME SELF-CARE Condition: Fair Prescriptions: Ibuprofen [Motrin] 800 mg PO Q8H #21 tab methocarbamoL [Robaxin] 1,500 mg PO TID #42 tab Is patient prescribed a controlled substance at d/c from ED?: No Referrals: None,Stated [Primary Care Provider] - 1-2 days Judson Hanks MD [STAFF PHYSICIAN] - 1-2 days
[2020-10-02 16:10] VITALS: BP 138/79; PULSE 85; RESP 18; TEMP 96.8
[2020-10-03 10:55] LABS: T4/T8 Ratio (CD4:CD8) 0.1 (1.0-3.7)
== END 2020-10-02 16:09 | disposition home or self-care (01) ==
LOC: EC 11:22
DX: R59.1 Generalized enlarged lymph nodes (principal); S00.86XA Insect bite (nonvenomous) of other part of head, initial encounter; M25.562 Pain in left knee; M25.561 Pain in right knee; J45.909 Unspecified asthma, uncomplicated; G40.909 Epilepsy, unspecified, not intractable, without status epilepticus; M79.7 Fibromyalgia; B20 Human immunodeficiency virus [HIV] disease; F17.200 Nicotine dependence, unspecified, uncomplicated; F12.90 Cannabis use, unspecified, uncomplicated; Z79.1 Long term (current) use of non-steroidal anti-inflammatories (NSAID); Z79.51 Long term (current) use of inhaled steroids; Z82.49 Family history of ischemic heart disease and other diseases of the circulatory system; Z83.3 Family history of diabetes mellitus; Z82.62 Family history of osteoporosis; Z88.0 Allergy status to penicillin; Z88.1 Allergy status to other antibiotic agents; Z88.5 Allergy status to narcotic agent; Z88.8 Allergy status to other drugs, medicaments and biological substances; W57.XXXA Bitten or stung by nonvenomous insect and other nonvenomous arthropods, initial encounter
CPT/HCPCS: 36415; 80053; 86360; 85025; 85610; 85730; 76536; 93970; 70491; 99284; 96374; 96376; J1170; Q9967

== ENCOUNTER 2020-10-04 20:28 | Inpatient (IN) | payer MEDICARE, OTHER ==
--- NOTE | 2020-10-04 21:30 | ED ---
General Adult HPI - General Chief complaint: Extremity Problem,Nontraumatic Stated complaint: leg & neck pain-revisit Time Seen by Provider: 10/04/20 20:58 Source: patient Mode of arrival: ambulatory Limitations: no limitations - History of Present Illness Initial comments: This patient is a 45-year-old woman presenting to be evaluated for 2 complaints. The main complaint today appears to be that she is having lumps developed around her neck and scalp. This been going on for number days and she states that is getting worse over the past 1-2 days. In addition she has been having bilateral leg pains that she feels is an aching. It is constant. It is worse when she attempts to walk or use her legs. The patient had been seen here for these complaints on Friday, and states that no direct cause was found and she was going to follow-up with her physician but she is feeling worse now. -: days(s) Location: head, left, right, lower extremity Radiation: non-radiation Quality: aching Consistency: constant Improves with: none Worsens with: movement - Related Data Home Medications Medication Instructions Recorded Confirmed Budesonide-Formot 160-4.5 Mcg 2 puff INHALATION RT-BID 05/25/14 10/04/20 [Symbicort 160-4.5 Mcg Inhaler] Elviteg/Cob/Emtri/Tenof Alafen 1 tab PO DAILY 10/02/20 10/04/20 [Genvoya Tablet] HYDROcodone/APAP 10-325MG [[place] 1 tab PO Q8H PRN 10/02/20 10/04/20 10-325] Previous Rx's Medication Instructions Recorded Ibuprofen [Motrin] 800 mg PO Q8H #21 tab 10/02/20 methocarbamoL [Robaxin] 1,500 mg PO TID #42 tab 10/02/20 Allergies Allergy/AdvReac Type Severity Reaction Status Date / Time amoxicillin [From Augmentin] Allergy Swelling Verified 10/04/20 20:41 clavulanic acid Allergy Swelling Verified 10/04/20 20:41 [From Augmentin] prochlorperazine edisylate Allergy Confusion Verified 10/04/20 20:41 [From Compazine] prochlorperazine maleate Allergy Confusion Verified 10/04/20 20:41 [From Compazine] morphine AdvReac Chest Pain Verified 10/04/20 20:41 Review of Systems ROS Statement: Those systems with pertinent positive or pertinent negative responses have been documented in the HPI. ROS Other: All systems not noted in ROS Statement are negative. Constitutional: Denies: fever, chills, weakness Respiratory: Denies: cough, dyspnea Cardiovascular: Denies: chest pain, palpitations, edema Gastrointestinal: Denies: abdominal pain, vomiting, diarrhea Genitourinary: Denies: dysuria, hematuria Musculoskeletal: Reports: as per HPI, myalgia. Denies: back pain Skin: Denies: rash, lesions Neurological: Denies: headache, weakness, numbness, paresthesias Past Medical History Past Medical History: Asthma, Fibromyalgia, Pneumonia, Seizure Disorder Additional Past Medical History / Comment(s): HIV with AIDS. Last CD4 cell count of 8. migraines, "rt eye has scarring and freckles". uti's, "poor circulation" History of Any Multi-Drug Resistant Organisms: None Reported Past Surgical History: Section, Cholecystectomy, Hysterectomy, Orthopedic Surgery Additional Past Surgical History / Comment(s): left shoulder sx, c-sec x3 Past Anesthesia/Blood Transfusion Reactions: No Reported Reaction Past Psychological History: Anxiety, Depression Smoking Status: Current every day smoker Past Alcohol Use History: None Reported Past Drug Use History: Marijuana - Past Family History Mother Family Medical History: CVA/TIA, Diabetes Mellitus, Myocardial Infarction ([place]) Additional Family Medical History / Comment(s): sarcoidosis, osteoporosis Father Family Medical History: Asthma, COPD General Exam Limitations: no limitations General appearance: alert, in no apparent distress Head exam: Present: atraumatic, normocephalic Eye exam: Present: normal appearance. Absent: scleral icterus, conjunctival injection Neck exam: Present: normal inspection, full ROM, lymphadenopathy. Absent: tenderness, meningismus Respiratory exam: Present: normal lung sounds bilaterally. Absent: respiratory distress, wheezes, rales, rhonchi, stridor Cardiovascular Exam: Present: regular rate, normal rhythm, normal heart sounds. Absent: systolic murmur, diastolic murmur, rubs, gallop GI/Abdominal exam: Present: soft. Absent: distended, tenderness, guarding, rebound, rigid, mass Extremities exam: Present: normal inspection, full ROM, normal capillary refill, calf tenderness. Absent: pedal edema Back exam: Present: normal inspection. Absent: CVA tenderness (R), CVA tenderness (L) Neurological exam: Present: alert Skin exam: Present: warm, dry, intact, normal color. Absent: rash Course Vital Signs 10/04/20 10/04/20 10/04/20 20:37 23:06 23:19 Temperature 98.2 F 98.9 F Pulse Rate 86 92 Pulse Rate [ Pulse Oximetery ] Respiratory 20 16 16 Rate Blood Pressure 145/86 131/93 Blood Pressure [Left Arm] O2 Sat by Pulse 98 96 Oximetry 10/05/20 10/05/20 00:29 00:57 Temperature 98.6 F 98.0 F Pulse Rate 84 Pulse Rate [ 90 Pulse Oximetery ] Respiratory 16 18 Rate Blood Pressure 135/87 Blood Pressure 136/81 [Left Arm] O2 Sat by Pulse 97 95 Oximetry Medical Decision Making - Medical Decision Making Given that this patient's second visit for these complaints was admitted so that she can see infectious disease. - Lab Data Result diagrams: 10/06/20 05:44 10/06/20 05:44 Lab Results 10/04/20 10/04/20 10/04/20 Range/Units 22:18 22:18 22:18 WBC 4.8 (3.8-10.6) k/uL RBC 4.90 (3.80-5.40) m/uL Hgb 15.2 (11.4-16.0) gm/dL Hct 43.1 (34.0-46.0) % MCV 87.9 (80.0-100.0) fL MCH 30.9 (25.0-35.0) pg MCHC 35.2 (31.0-37.0) g/dL RDW 12.9 (11.5-15.5) % Plt Count 237 (150-450) k/uL MPV 7.6 Neutrophils % 66 % Lymphocytes % 22 % Monocytes % 5 % Eosinophils % 5 % Basophils % 1 % Neutrophils # 3.2 (1.3-7.7) k/uL Lymphocytes # 1.1 (1.0-4.8) k/uL Monocytes # 0.2 (0-1.0) k/uL Eosinophils # 0.2 (0-0.7) k/uL Basophils # 0.1 (0-0.2) k/uL ESR (0-20) mm/hr D-Dimer 0.52 (<0.60) mg/L FEU Sodium 139 (137-145) mmol/L Potassium 4.1 (3.5-5.1) mmol/L Chloride 104 (98-107) mmol/L Carbon Dioxide 26 (22-30) mmol/L Anion Gap 9 mmol/L BUN 13 (7-17) mg/dL Creatinine 0.83 (0.52-1.04) mg/dL Est GFR (CKD-EPI)AfAm >90 (>60 ml/min/1.73 sqM) Est GFR (CKD-EPI)NonAf 87 (>60 ml/min/1.73 sqM) Glucose 96 (74-99) mg/dL Plasma Lactic Acid Rowdy (0.7-2.0) mmol/L Calcium 10.6 H (8.4-10.2) mg/dL Ferritin (10.0-291.0) ng/mL Total Bilirubin 0.4 (0.2-1.3) mg/dL AST 42 H (14-36) U/L ALT 50 H (4-34) U/L Alkaline Phosphatase 68 (38-126) U/L Lactate Dehydrogenase (313-618) U/L C-Reactive Protein (<1.0) mg/dL Total Protein 8.0 (6.3-8.2) g/dL Albumin 4.8 (3.5-5.0) g/dL Rheumatoid Factor (0-15) IU/mL CHERRI Screen (NEGATIVE) Heterophile Antibody (Negative) 10/04/20 10/04/20 10/04/20 Range/Units 22:18 22:18 22:18 WBC (3.8-10.6) k/uL RBC (3.80-5.40) m/uL Hgb (11.4-16.0) gm/dL Hct (34.0-46.0) % MCV (80.0-100.0) fL MCH (25.0-35.0) pg MCHC (31.0-37.0) g/dL RDW (11.5-15.5) % Plt Count (150-450) k/uL MPV Neutrophils % % Lymphocytes % % Monocytes % % Eosinophils % % Basophils % % Neutrophils # (1.3-7.7) k/uL Lymphocytes # (1.0-4.8) k/uL Monocytes # (0-1.0) k/uL Eosinophils # (0-0.7) k/uL Basophils # (0-0.2) k/uL ESR 13 (0-20) mm/hr D-Dimer (<0.60) mg/L FEU Sodium (137-145) mmol/L Potassium (3.5-5.1) mmol/L Chloride (98-107) mmol/L Carbon Dioxide (22-30) mmol/L Anion Gap mmol/L BUN (7-17) mg/dL Creatinine (0.52-1.04) mg/dL Est GFR (CKD-EPI)AfAm (>60 ml/min/1.73 sqM) Est GFR (CKD-EPI)NonAf (>60 ml/min/1.73 sqM) Glucose (74-99) mg/dL Plasma Lactic Acid Rowdy 0.8 (0.7-2.0) mmol/L Calcium (8.4-10.2) mg/dL Ferritin (10.0-291.0) ng/mL Total Bilirubin (0.2-1.3) mg/dL AST (14-36) U/L ALT (4-34) U/L Alkaline Phosphatase (38-126) U/L Lactate Dehydrogenase (313-618) U/L C-Reactive Protein (<1.0) mg/dL Total Protein (6.3-8.2) g/dL Albumin (3.5-5.0) g/dL Rheumatoid Factor (0-15) IU/mL CHERRI Screen (NEGATIVE) Heterophile Antibody Negative (Negative) 10/04/20 10/04/20 Range/Units 22:18 22:18 WBC (3.8-10.6) k/uL RBC (3.80-5.40) m/uL Hgb (11.4-16.0) gm/dL Hct (34.0-46.0) % MCV (80.0-100.0) fL MCH (25.0-35.0) pg MCHC (31.0-37.0) g/dL RDW (11.5-15.5) % Plt Count (150-450) k/uL MPV Neutrophils % % Lymphocytes % % Monocytes % % Eosinophils % % Basophils % % Neutrophils # (1.3-7.7) k/uL Lymphocytes # (1.0-4.8) k/uL Monocytes # (0-1.0) k/uL Eosinophils # (0-0.7) k/uL Basophils # (0-0.2) k/uL ESR (0-20) mm/hr D-Dimer (<0.60) mg/L FEU Sodium (137-145) mmol/L Potassium (3.5-5.1) mmol/L Chloride (98-107) mmol/L Carbon Dioxide (22-30) mmol/L Anion Gap mmol/L BUN (7-17) mg/dL Creatinine (0.52-1.04) mg/dL Est GFR (CKD-EPI)AfAm (>60 ml/min/1.73 sqM) Est GFR (CKD-EPI)NonAf (>60 ml/min/1.73 sqM) Glucose (74-99) mg/dL Plasma Lactic Acid Rowdy (0.7-2.0) mmol/L Calcium (8.4-10.2) mg/dL Ferritin 331.2 H (10.0-291.0) ng/mL Total Bilirubin (0.2-1.3) mg/dL AST (14-36) U/L ALT (4-34) U/L Alkaline Phosphatase (38-126) U/L Lactate Dehydrogenase 540 (313-618) U/L C-Reactive Protein <0.5 (<1.0) mg/dL Total Protein (6.3-8.2) g/dL Albumin (3.5-5.0) g/dL Rheumatoid Factor 9 (0-15) IU/mL CHERRI Screen NEGATIVE (NEGATIVE) Heterophile Antibody (Negative) Disposition Clinical Impression: Musculoskeletal pain, Lymphadenopathy, HIV disease Disposition: ADMITTED IP TO THIS HOSP Condition: Fair
[2020-10-04 22:26] LABS: Basophils # (A) 0.1 k/uL (0-0.2); Basophils % (A) 1 %; Eosinophils # (A) 0.2 k/uL (0-0.7); Eosinophils % (A) 5 %; HCT 43.1 % (34.0-46.0); HGB 15.2 gm/dL (11.4-16.0); Lymphocytes # (A) 1.1 k/uL (1.0-4.8); Lymphocytes % (A) 22 %; MCH 30.9 pg (25.0-35.0); MCHC 35.2 g/dL (31.0-37.0); MCV 87.9 fL (80.0-100.0); Mean Platelet Volume 7.6; Monocytes # (A) 0.2 k/uL (0-1.0); Monocytes % (A) 5 %; Neutrophils # (A) 3.2 k/uL (1.3-7.7); Neutrophils % (A) 66 %; Platelet Count 237 k/uL (150-450); RDW 12.9 % (11.5-15.5); WBC 4.8 k/uL (3.8-10.6)
[2020-10-04 22:42] LABS: ALT 50 U/L (4-34); AST 42 U/L (14-36); African American GFR (CKD) >90 (>60 ml/min/1.73 sqM); Albumin 4.8 g/dL (3.5-5.0); Alkaline Phosphatase 68 U/L (38-126); Anion Gap 9 mmol/L; Blood Urea Nitrogen 13 mg/dL (7-17); Calcium 10.6 mg/dL (8.4-10.2); Carbon Dioxide 26 mmol/L (22-30); Chloride 104 mmol/L (98-107); Glucose 96 mg/dL (74-99); Non-African American GFR(CKD) 87 (>60 ml/min/1.73 sqM); Potassium 4.1 mmol/L (3.5-5.1); Sodium 139 mmol/L (137-145); Total Bilirubin 0.4 mg/dL (0.2-1.3)
[2020-10-04] MEDS ORDERED: HYDROmorphone 0.5 MG/0.5 ML SYRINGE IVP STA (22:44)
[2020-10-04] MEDS ORDERED: HYDROcodone/APAP 5-325MG 1 EACH TAB PO PRN (23:27)
[2020-10-04] MEDS ORDERED: ACETAMINOPHEN TAB 325 MG TAB PO PRN (23:27)
[2020-10-04] MEDS ORDERED: ONDANSETRON 4 MG/2 ML VIAL IVP PRN (23:27)
[2020-10-04] MEDS ORDERED: NALOXONE 0.4 MG/ML 1 ML VIAL IV PRN (23:27)
[2020-10-05] MEDS: HYDROcodone/APAP 10-325MG 1 EACH TAB PO PRN ×3 (02:32→17:24)
[2020-10-05] MEDS: IBUPROFEN 800 MG TAB PO SCH ×3 (04:40→16:02)
[2020-10-05] MEDS: methocarbamoL 750 MG TAB PO SCH ×3 (07:37→21:22)
[2020-10-05] MEDS: SYMBICORT 160-4.5 MCG INHALER INHALATION SCH ×2 (09:14→21:10)
[2020-10-05] MEDS: [UNRECOGNIZED DRUG - OTHER] PO SCH (09:41)
[2020-10-05] MEDS ORDERED: TEMAZEPAM 15 MG CAP PO PRN (12:08)
--- NOTE | 2020-10-05 12:34 | XR ---
EXAMINATION TYPE: XR chest 1V portable DATE OF EXAM: 10/05/2020 COMPARISON: 10/29/2016 HISTORY: Heart failure TECHNIQUE: Single frontal view of the chest is obtained. FINDINGS: There is no focal air space opacity, pleural effusion, or pneumothorax seen. The cardiac silhouette size is within normal limits. The osseous structures are intact. IMPRESSION: No acute process.
[2020-10-05 12:35] LABS: C Reactive Protein <0.5 mg/dL (<1.0); LDH 540 U/L (313-618)
[2020-10-05] MEDS: ALPRAZolam 0.25 MG TAB PO PRN (16:03)
--- NOTE | 2020-10-05 16:52 | CT ---
EXAMINATION TYPE: CT chest w con DATE OF EXAM: 10/05/2020 COMPARISON: Chest x-ray 10/05/2020 HISTORY: Congestive heart failure, chest pain, cervical lymphadenopathy, question lung cancer CT DLP: 749 mGycm Automated exposure control for dose reduction was used. CONTRAST: CT scan of the chest is performed with IV Contrast, patient injected with 100 mL of Isovue M300. FINDINGS: LUNGS: The lungs are grossly clear, there is no concerning parenchymal mass or nodule identified. T here is no pleural effusion or pneumothorax seen. The tracheobronchial tree is patent. MEDIASTINUM: There are no greater than 1 cm hilar or mediastinal lymph nodes. No pericardial effusi on is seen. There is some mild coronary calcifications AORTA: No additional significant abnormality is seen. OTHER: Liver shows low attenuation possibly due to hepatic steatosis, patient is status post cholecys tectomy. IMPRESSION: No acute abnormality within the chest. No evident lung mass. Coronary artery disease. He patic steatosis, there may be underlying hepatomegaly. Postop change.
--- NOTE | 2020-10-05 17:03 | HP ---
HISTORY AND PHYSICAL DATE OF SERVICE: 10/05/2020 CHIEF COMPLAINT: Leg pain, neck pain as well as neck swelling and facial rash. HISTORY OF PRESENT ILLNESS: This is a 45-year-old woman with a past medical history of HIV related AIDS, history of asthma, fibromyalgia, history of seizure disorder, history of cystitis, history of anxiety and depression being followed by Dr. Fontana in the outpatient setting as well as Neurology in the outpatient setting was noted to have some facial pain and lumps developing in the neck and facial rash. The patient came to [facility]. This was getting worse over the last 1-2 days. Patient also had bilateral leg pain also. There is no history of fever, rigors, chills. No history of headache, loss of consciousness, seizures. The patient basically had a neck CT scan that did not show any acute abnormality at this time. There is no history of fever, rigors, chills. PAST MEDICAL HISTORY: Asthma, fibromyalgia, pneumonia, seizure disorder, HIV with last CD4 cell count was 80. MEDICATIONS: Home medications are Robaxin, Motrin, [place], Genvoya, Symbicort. Doses reviewed. ALLERGIES: AMOXICILLIN, COMPAZINE AND MORPHINE. FAMILY HISTORY: History of CVA, TIA, diabetes mellitus, myocardial infarction, sarcoidosis, osteoporosis. SOCIAL HISTORY: History of smoking. History of THC. No history of alcohol intake. REVIEW OF SYSTEMS: ENT: As mentioned earlier. CARDIOVASCULAR: No angina or palpitations. RESPIRATORY: As mentioned earlier. GI: As mentioned earlier. : No dysuria. NERVOUS SYSTEM: As mentioned earlier. ALLERGY/IMMUNOLOGY: No asthma or hayfever. MUSCULOSKELETAL: As mentioned earlier. HEMATOLOGY: As mentioned earlier. ENDOCRINE: As mentioned earlier. CONSTITUTIONAL: As mentioned earlier. DERMATOLOGY: Negative. PSYCHIATRY: As mentioned earlier. PHYSICAL EXAM: GENERAL: Patient is alert and oriented times three. VITAL SIGNS: Pulse 90, blood pressure 130/81, respirations 18, temperature 98, pulse ox 94% on room air. HEENT: Conjunctivae normal. Oral mucosa moist. NECK: Cervical lymphadenopathy, left more than right, multiple, firm, mobile. RESPIRATORY: Breath sounds diminished at the bases. No rhonchi, no crackles. HEART: S1 and S2, muffled. No S3 or S4. ABDOMEN: Soft, no tenderness. No masses palpable. EXTREMITIES: No edema, no swelling. NERVOUS: Higher functions as mentioned earlier. Moves all four limbs. No focal motor or sensory deficits. LYMPHATICS: As mentioned earlier. SKIN: No rashes. JOINTS: No active deforming arthropathy. LAB: CBC within normal limits. D-dimer is 0.52, calcium is 10.6 and AST is 42, ALT is 50. ASSESSMENT: 1. Cervical lymphadenopathy and bilateral leg pain for evaluation. 2. Elevated AST and ALT. 3. History of HIV AIDS. 4. Mild hypercalcemia. 5. History of asthma. 6. History of fibromyalgia. 7. History of pneumonia. 8. History of seizure disorder. 9. History of migraines. 10.History of cholecystectomy. 11.History of anxiety, depression. 12.History of nicotine dependence. 13.History of THC. 14.Obesity with body mass index 42.6. 15.FULL CODE. RECOMMENDATIONS AND DISCUSSION: This is a 46-year-old woman who presented with multiple complex medical issues, we will monitor the patient closely. Continue the current management and continue symptomatic treatment. Otherwise at this time I recommend a CT scan of the chest also to complete the workup. More blood workup. Symptomatic treatment will be provided. Resume the home medications. Infectious disease evaluation. Prognosis guarded because of multiple complex medical issues. Further recommendations to follow. MMODL / IJN: [id number] /
--- NOTE | 2020-10-06 00:10 | CONS ---
CONSULTATION DATE OF SERVICE: 10/05/2020 REASON FOR CONSULTATION: HIV/AIDS. HISTORY OF PRESENT ILLNESS: The patient is a 45-year-old female with past medical history significant for HIV/AIDS. The patient has been on multiple different anti-retroviral regimen. She has been started on Genvoya about 2 months ago, the patient tolerating so far. The patient presented to [facility] ER last evening for evaluation of bumps around the neck and scalp pain that has been going on for a day or two before presentation to hospital. The patient denies having any pain to the bump area. No significant surrounding redness or any drainage from them. The patient also complaining of bilateral leg pain, more of a dull aching pain, 6 to 7/10 and worse with walking. The patient complaining of the pain is moving from the foot up to the leg and thigh area. The patient denies having any pain in her low back. She denies any history of any falls or any weakness. Denies having any bowel or bladder problem. On presentation to the hospital. The patient was afebrile. No fever has been recorded. Subsequently, the patient did not have any tachycardia. She is currently saturating 95 to 97% on room air. The patient did have a normal white count with no lymphopenia or left shift. Sedimentation rate was normal. D-dimer is 0.52. Creatinine is normal. Liver enzymes mildly elevated. Creatinine 0.5. CHERRI screen is negative. The patient did have a chest x-ray that was reported negative for any acute process. She also have a CT of the chest completed. No acute inflammatory abnormality was noticed. No evident lung mass ( ). The patient has been in the hospital for further workup. Infectious Disease was consulted for history of HIV. The patient will continue her Genvoya. REVIEW OF SYSTEMS: Positive points have been mentioned in HPI. Rest of systems are negative. PAST MEDICAL HISTORY: Asthma, fibromyalgia, pneumonia, seizure disorder, HIV/AIDS. PAST SURGERY HISTORY: , cholecystectomy, hysterectomy, left shoulder surgery. SOCIAL HISTORY: Current everyday smoker. Did admit to marijuana use. FAMILY HISTORY: Mother with history of CVA, TIA, History of asthma and COPD. ALLERGIES: AUGMENTIN, MEDICATIONS: Currently the patient is on Tylenol, [place], Xanax, , Dilaudid, Motrin, Robaxin, Narcan, Genvoya, Protonix, Restoril. PHYSICAL EXAMINATION: Blood pressure 103/65, pulse of 81 temperature is 97.8, she is 95% on room air. GENERAL DESCRIPTION: Is a middle-aged female up in the chair in no distress. No tachypnea or accessory muscles of respiration use. HEENT: Examination shows no pallor or scleral icterus. Oral mucous membrane is dry. NECK: Trachea central, no thyromegaly. LUNGS: Unlabored breathing. Clear to auscultation anteriorly. No wheeze or crackle. HEART: S1-S2, regular rate and rhythm. ABDOMEN: Soft, no tenderness or rigidity. EXTREMITIES: Normal feet. SKIN: No rash or mass palpable. NEUROLOGIC: The patient is awake, alert, oriented x3. Affect normal. LABS: Hemoglobin is 15.1, white count 4.8, BUN of 13, creatinine 0.83. Liver enzymes mildly elevated. Chemistry was negative. The patient CD4 count on February 2020 was 81. DIAGNOSTIC IMPRESSION: 1. Patient with hospital with multiple symptoms. Main symptom has been weakness and pain to the lower extremity in this patient who has a history of HIV and AIDS. Has been started on Genvoya., however symptoms are not typical of his peripheral neuropathy type of picture and patient may need further workup per Neurology for her pain and weakness to the leg. 2. Patient with HIV and AIDS. The patient is to be compliant with her medication. for the last 2 months. PLAN: 1. We will repeat her CD4 count, HIV 1. 2. Continue with Genvoya. 3. Recommend Neurology evaluation. 4. We will follow on clinical condition and further adjust medication if needed. Thank you for this consultation. Will follow this patient along with you. MMODL / IJN: [id number] /
[2020-10-06] MEDS: IBUPROFEN 400 MG TAB PO SCH ×4 (00:28→21:53)
[2020-10-06 04:53] LABS: Rheumatoid Factor, Qnt 9 IU/mL (0-15)
[2020-10-06 05:24] LABS: Ferritin 331.2 ng/mL (10.0-291.0)
[2020-10-06] MEDS: SYMBICORT 160-4.5 MCG INHALER INHALATION SCH ×2 (08:27→20:16)
[2020-10-06] MEDS: methocarbamoL 750 MG TAB PO SCH ×3 (08:51→21:53)
[2020-10-06] MEDS: PANTOPRAZOLE 40 MG TABLET PO SCH (08:52)
[2020-10-06 09:33] LABS: Basophils # (A) 0.02 X 10*3/uL (0.00-0.10); Basophils % (A) 0.6 %; Eosinophils # (A) 0.14 X 10*3/uL (0.04-0.35); Eosinophils % (A) 3.9 %; HCT 39.2 % (37.2-46.3); HGB 12.7 g/dL (12.0-15.0); Lymphocytes # (A) 0.84 X 10*3/uL (0.90-5.00); Lymphocytes % (A) 23.5 %; MCH 29.6 pg (27.0-32.0); MCHC 32.4 g/dL (32.0-37.0); MCV 91.4 fL (80.0-97.0); Mean Platelet Volume 10.5 fL (9.5-12.2); Monocytes # (A) 0.21 X 10*3/uL (0.20-1.00); Monocytes % (A) 5.9 %; Neutrophils # (A) 2.36 X 10*3/uL (1.80-7.70); Neutrophils % (A) 65.8 %; Platelet Count 186 X 10*3/uL (140-440); RBC 4.29 X 10*6/uL (4.10-5.20); RDW 12.7 % (11.5-14.5); WBC 3.58 X 10*3/uL (4.50-10.00)
[2020-10-06 09:39] LABS: African American GFR (CKD) 90.1 (60.0-200.0); Anion Gap 5.8 mmol/L (4.00-12.00); BUN/Creat Ratio 15.56 Ratio (12.00-20.00); Calcium 8.5 mg/dL (8.7-10.3); Carbon Dioxide 26.2 mmol/L (21.6-31.8); Non-African American GFR(CKD) 77.8 (60.0-200.0); Potassium 4.2 mmol/L (3.5-5.5)
[2020-10-06] MEDS: HYDROcodone/APAP 10-325MG 1 EACH TAB PO PRN ×2 (11:54→20:07)
[2020-10-06] MEDS: [UNRECOGNIZED DRUG - OTHER] PO SCH (11:55)
--- NOTE | 2020-10-06 19:43 | PN ---
PROGRESS NOTE DATE OF SERVICE: 10/06/2020 REASON FOR FOLLOWUP: 1. Pneumonia, HIV/AIDS. 2. Lower extremity pain and weakness noted. INTERVAL HISTORY: The patient is afebrile. The patient is complaining of pain and weakness to lower extremity. No bowel or bladder problem. No chest pain, shortness of breath or cough. No diarrhea. Overall rash to the neck area has decreased in intensity. PHYSICAL EXAMINATION: Blood pressure 114/74, pulse of 69, temperature she is 96% on room air. GENERAL DESCRIPTION: Is a middle-aged female up in the chair in no distress. RESPIRATORY SYSTEM: Unlabored breathing, clear to auscultation. HEART: S1, S2. Regular rate and rhythm. ABDOMEN: Soft, no tenderness. EXTREMITIES: No edema of the feet. LABS: Hemoglobin 12.0, hematocrit 3.5, BUN of 14, creatinine 0.9. DIAGNOSTIC IMPRESSION AND PLAN: Patient with HIV/AIDS and this patient is currently covered with Genvoya, to continue to improve. Patient hospital with weakness and leg pain. Urine culture has been ordered. Will await recommendation. MMODL / IJN: [id number] /
--- NOTE | 2020-10-06 20:26 | PN ---
PROGRESS NOTE DATE OF SERVICE: 10/06/2020 This 45-year-old woman was admitted with cervical lymphadenopathy, also complaining of bilateral leg pains also. Dr. Fontana is following the patient closely. No chest pain. No palpitations. No fever. The patient also complained neck pain also. PHYSICAL EXAMINATION: Alert and oriented x3. Pulse blood pressure 140/74, respiration 16, temperature 98 degrees, pulse ox 97% on room air. GENERAL DESCRIPTION: Conjunctivae normal. NECK: Has cervical lymphadenopathy, tender. CARDIOVASCULAR SYSTEM: S1, S2 muffled. ABDOMEN: Soft. NERVOUS SYSTEM: No focal deficits. LABS: WBC 3.5, hemoglobin 12.7. Other labs are noted. Calcium is 8.5. ASSESSMENT: 1. Cervical lymphadenopathy with bilateral leg pain for evaluation. 2. Elevated AST, ALT. 3. History of HIV/AIDS. 4. Mild hypercalcemia. 5. History of asthma. 6. History of fibromyalgia. 7. History of pneumonia. 8. History of seizure disorder. 9. History of migraines. 10.History of cholecystectomy. 11.History of anxiety, depression. 12.History of nicotine. 13.History of THC. 14.Obesity with body mass index of 40.6. 15.Rule out peripheral neuropathy. 16.FULL CODE. RECOMMENDATIONS AND DISCUSSION: To continue current medications, symptomatic treatment. Otherwise, recommend neurology consultation, suggested by Dr. Fontana. Continue rest of medications. Prognosis guarded. Further recommendations to follow. MMODL / IJN: [id number] /
[2020-10-06] MEDS: ALPRAZolam 0.25 MG TAB PO PRN (21:53)
--- NOTE | 2020-10-06 23:35 | P.CNNES ---
History of Present Illness Consult date: 10/06/20 Requesting physician: Waleska Garcia Reason for Consult: Leg pain History of Present Illness: Patient is a 45-year-old female came to the hospital on 10/04/2020 for evaluation of right leg pain. Patient has history of HIV, currently stable. Patient states due to her HIV status, she is used to having body aches and pains here and there. Patient states that for last 6 months she has developed pain in the arch of the right foot and lateral aspect of the right foot. She was diagnosed with bone spurs and plantar fasciitis. About 2 weeks ago her right calf started cramping and within 2 days it reached the knee. She gets pain in the medial aspect of the right knee, on the top side and back of the right knee. The symptoms are worse when she is walking. She rates her pain 8/10. At night it hurts really bad. Denies any rash. No vesicles. When she is walking, the right knee hurts really bad. However when she is laying at night, it cramps in the jefferson, and the lower leg. When she is bending her knee, it feels very tight and painful. It hurts on the jefferson bone as well. Denies any numbness or tingling. Patient states she has had back surgery, and does have chronic back issues but the low back pain has not got worse lately has not changed. She denies any symptoms in the left leg or any symptoms in the upper limbs. CT of the chest showed no acute abnormality within the chest. No evident lung mass. Coronary artery disease. Hepatic steatosis. Patient had a MRI of cervical spine without contrast on 07/23/2017 which revealed disc desiccation and disc bulging at C5 6. No herniation or protrusion. No stenosis. MRI of the lumbar spine without contrast from 07/24/2017 showed moderate multilevel degenerative disc disease superimposed on a congenital spinal canal stenosis. Facet arthropathy mid to lower lumbar spine with prominent dorsal epidural fat. There are associated multilevel Modic type II fat each end plate changes, similar to prior. There is underlying mild congenital spinal canal stenosis which is accentuated at L3 4 and L4 5 secondary to superimposed degenerative disc disease. Changes have slightly progressed at L4 5. There is no td canal compromise. Some interval healing change of the previous posterior annular fissure at L3 4. A large left lateral disc osteophyte complex at L5-S1 Abbotts extraforaminal L5 nerve root similar to prior. MRI of the pelvis was negative for sacroiliitis. Low to intermediate T1 signal involving the right lateral recess of L5-S1 in a patient status post L5-S1 posterior and interbody fusion. Unable to exclude epidural/perineural granulation tissue near the exiting right L5 nerve root. Consider lumbar spine MRI without and with contrast to further evaluate. Left lateral disc osteophyte complex at L5-S1 is unchanged and abuts the extraforaminal left L5 nerve root. MRI of the hip from 09/02/2018 showed bilateral foraminal head and neck junction demonstrated CAM bumps in the axial series suggest superior acetabular retroversion. Correlate for mixed inside and CAM-type femoral acetabular impingement syndrome. T and along the anterior superior quadrant of the right acetabular labrum. Small intrasubstance tear involving the posterior superior insertion of the gluteus medius. Patient's blood test shows negative rheumatoid factor, CHERRI, lujan virus. Chem- 7 is normal, AST 42, ALT 50. CBC is normal. ESR 13. Lyme titer has been checked, results pending. Review of Systems As above in detail. All other review of systems unremarkable. Past Medical History Past Medical History: Asthma, Fibromyalgia, Pneumonia, Seizure Disorder Additional Past Medical History / Comment(s): HIV with AIDS. Last CD4 cell count of 8. migraines, "rt eye has scarring and freckles". uti's, "poor circulation" History of Any Multi-Drug Resistant Organisms: None Reported Past Surgical History: Section, Cholecystectomy, Hysterectomy, Orthopedic Surgery Additional Past Surgical History / Comment(s): left shoulder sx, c-sec x3 Past Anesthesia/Blood Transfusion Reactions: No Reported Reaction Past Psychological History: Anxiety, Depression Additional Psychological History / Comment(s): Pt lives at home with her 3 children. She is independent normally. 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 No injection drug use. No experience. No extensive travel history. Smoking Status: Current every day smoker Past Alcohol Use History: None Reported Additional Past Alcohol Use History / Comment(s): started smoking 1988 smoked 1 pack per week and quit -2016 Past Drug Use History: Marijuana - Past Family History Mother Family Medical History: CVA/TIA, Diabetes Mellitus, Myocardial Infarction ([place]) Additional Family Medical History / Comment(s): sarcoidosis, osteoporosis Father Family Medical History: Asthma, COPD Medications and Allergies Home Medications Medication Instructions Recorded Confirmed Type Budesonide-Formot 160-4.5 Mcg 2 puff INHALATION RT-BID 05/25/14 10/04/20 History [Symbicort 160-4.5 Mcg Inhaler] Elviteg/Cob/Emtri/Tenof Alafen 1 tab PO DAILY 10/02/20 10/04/20 History [Genvoya Tablet] HYDROcodone/APAP 10-325MG [[place] 1 tab PO Q8H PRN 10/02/20 10/04/20 History 10-325] Ibuprofen [Motrin] 800 mg PO Q8H #21 tab 10/02/20 10/04/20 Rx methocarbamoL [Robaxin] 1,500 mg PO TID #42 tab 10/02/20 10/04/20 Rx Allergies Allergy/AdvReac Type Severity Reaction Status Date / Time amoxicillin [From Augmentin] Allergy Swelling Verified 10/04/20 20:41 clavulanic acid Allergy Swelling Verified 10/04/20 20:41 [From Augmentin] prochlorperazine edisylate Allergy Confusion Verified 10/04/20 20:41 [From Compazine] prochlorperazine maleate Allergy Confusion Verified 10/04/20 20:41 [From Compazine] morphine AdvReac Chest Pain Verified 10/04/20 20:41 Physical Examination - Vital Signs Vital Signs: Vital Signs Temp Pulse Resp BP Pulse Ox 10/06/20 18:44 97.8 F 73 18 157/77 97 10/06/20 15:00 98.0 F 79 16 114/74 96 10/06/20 07:00 98.2 F 75 18 115/80 97 10/06/20 02:00 90 10/06/20 01:02 98.3 F 90 19 105/62 97 Intake and Output 10/06/20 10/06/20 10/06/20 06:59 14:59 22:59 Other: Voiding Method Toilet # Voids 2 2 Patient is a middle aged female, very pleasant, in no acute distress. Patient is alert awake oriented to time place and person. Speech and language functions are normal. Attention, concentration and fund of knowledge is adequate. On cranial examination, pupils are round and reacting to light, visual zavala are full on confrontation, extraocular muscles are intact with no nystagmus. Face is symmetric, tongue protrudes to the midline. Palatal elevation and sensation normal, hearing and shoulder shrug normal, facial sensation normal. Shoulder shrug normal. On muscle strength testing, there is no pronator drift and the strength is normal in arms and legs distally and proximally. Detail testing of the right leg also appears normal although there was some guarding due to pain, but the strength appears essentially normal. Deep tendon reflexes are symmetric, 2 at the biceps, 1 brachioradialis, 2 at the knees, 1 at ankles and plantars downgoing bilaterally. Sensory to touch is equal with no neglect, with no loss of sensation in any dermatome. Cerebellar function showed no ataxia for [id number] testing. No dysdiadochokinesia. Tone and bulk of muscles normal. Gait mildly antalgic due to right leg pain. On general examination, there is no carotid bruit or murmur, S1-S2 audible. Abdomen is soft nontender. Chest is clear. Peripheral pulses are present. No edema. Patient does have right calf hypertrophy. At least 3/4th of an inch difference between the 2 lower extremities Results - Laboratory Findings CBC and BMP: 10/06/20 05:44 10/06/20 05:44 Abnormal Lab Findings: Abnormal Labs 10/04/20 10/04/20 10/06/20 22:18 22:18 05:44 WBC 3.58 L Lymphocytes # 0.84 L Glucose Calcium 10.6 H Ferritin 331.2 H AST 42 H ALT 50 H 10/06/20 05:44 WBC Lymphocytes # Glucose 116 H Calcium 8.5 L Ferritin AST ALT Assessment and Plan Assessment: * Right knee and lower leg pain. Neurological examination is normal. Patient has some giveaway weakness due to pain, but reflexes and sensations are normal. Although there is no swelling of the knee, but still suspect right knee joint pathology with radiation of pain to the right lower leg. * Right calf hypertrophy, which sometimes can be seen with S1 radiculopathy. * History of chronic back pain, not recently worse. * HIV positive. Plan: * Suggest orthopedic consultation for possible right knee pain. May consider MRI of the right knee. * If above negative, then EMG and nerve conduction study of right lower extremity, which can be performed as as outpatient. * Lyme titer pending. Will check CPK. Thank you for the consult.
[2020-10-07] MEDS: PANTOPRAZOLE 40 MG TABLET PO SCH (07:30)
[2020-10-07] MEDS: SYMBICORT 160-4.5 MCG INHALER INHALATION SCH ×2 (08:25→20:27)
[2020-10-07] MEDS: IBUPROFEN 400 MG TAB PO SCH ×3 (10:02→20:39)
[2020-10-07] MEDS: HYDROcodone/APAP 10-325MG 1 EACH TAB PO PRN ×2 (10:06→18:05)
[2020-10-07] MEDS: methocarbamoL 750 MG TAB PO SCH ×3 (10:08→20:40)
[2020-10-07] MEDS: [UNRECOGNIZED DRUG - OTHER] PO SCH (10:09)
[2020-10-07] MEDS: HYDROmorphone 0.5 MG/0.5 ML SYRINGE IM PRN ×2 (12:58→22:33)
[2020-10-07] MEDS: ALPRAZolam 0.25 MG TAB PO PRN (13:04)
--- NOTE | 2020-10-07 15:01 | US ---
EXAMINATION TYPE: US venous doppler duplex LE RT DATE OF EXAM: 10/07/2020 2:06 PM COMPARISON: US CLINICAL HISTORY: r/o DVT. Right calf pain post right groin injection for right hip. SIDE PERFORMED: Right TECHNIQUE: The lower extremity deep venous system is examined utilizing real time linear array sonog tejinder with graded compression, doppler sonography and color-flow sonography. VESSELS IMAGED: Common Femoral Vein Deep Femoral Vein Greater Saphenous Vein * Femoral Vein Popliteal Vein Small Saphenous Vein * Proximal Calf Veins (* superficial vessels) Right Leg: Negative for DVT IMPRESSION: No evidence of deep vein thrombosis in the right leg.
--- NOTE | 2020-10-07 18:05 | PN ---
PROGRESS NOTE DATE OF SERVICE: 10/07/2020 REASON FOR FOLLOW UP: HIV, bilateral leg pain. INTERVAL HISTORY: The patient is afebrile. The patient is still complaining of pain to the lower extremity and now complaining of more swelling. The ultrasound was repeated, was negative for DVT. Patient denies having any chest pain, shortness of breath or cough. No abdominal pain or diarrhea. PHYSICAL EXAMINATION: Blood pressure 124/80 with a pulse of 85, temperature 98.3, she is 97% on room air. General description is a middle-aged female lying in no distress. Respiratory system unlabored breathing. Clear to auscultation anteriorly. Heart S1, S2. Regular rate and rhythm. Abdomen soft, no tenderness. LABS: CK is 76. Blood culture has been negative. DIAGNOSTIC IMPRESSION AND PLAN: 1. Patient with HIV for which patient to continue with . 2. Patient with bilateral lower extremity pain. Workup is currently in progress. MMODL / IJN: [id number] /
--- NOTE | 2020-10-07 18:23 | PN ---
PROGRESS NOTE DATE OF SERVICE: 10/07/2020 This 45-year-old woman who was admitted with cervical lymphadenopathy, also complaining of severe leg pain. Patient unable to ambulate, according to her. We ordered neurology evaluation, as well as vascular evaluation to rule out DVT. The patient asymptomatic. No chest pain. No palpitations. No fever. PHYSICAL EXAMINATION: Alert, attentive. Pulse 85, blood pressure 120/80, respiration 18, temperature 98.2, pulse ox 97% on room air. HEENT: Conjunctivae normal. NECK: No JVD. CARDIOVASCULAR: S1, S2 muffled. RESPIRATORY: Breath sounds diminished in the bases. A few rhonchi, no crackles. ABDOMEN: Soft, nontender. LEGS: Right leg swelling and some edema also present. NERVOUS SYSTEM: No focal deficits. LABS: Sodium 139, and creatine kinase is 76. D-dimer is 0.52. ASSESSMENT: 1. Cervical lymphadenopathy with bilateral leg pain for evaluation. 2. History of elevated AST, ALT. 3. Gait dysfunction secondary to right leg pain and swelling and right knee pain. 4. History of HIV/AIDS. 5. History of mild hypercalcemia. 6. History of asthma. 7. History of fibromyalgia. 8. History of pneumonia. 9. History of seizure disorder. 10.History of migraines. 11.History of cholecystectomy. 12.History of anxiety, depression. 13.History of nicotine dependence. 14.History of THC. 15.Obesity with body mass index of 40.6. 16.Rule out peripheral neuropathy. 17.FULL CODE. RECOMMENDATION AND DISCUSSION: Continue the current management, otherwise orthopedic evaluation. Venous Doppler. Prognosis guarded because of multiple complex medical issues. Recommendations to follow. MMODL / IJN: [id number] /
[2020-10-07 21:50] LABS: Hemoglobin A1C 5.5 % (4.0-6.0)
[2020-10-08 08:04] VITALS: BP 107/64; PULSE 93; RESP 18; TEMP 98
[2020-10-08] MEDS: SYMBICORT 160-4.5 MCG INHALER INHALATION SCH (08:45)
[2020-10-08] MEDS: methocarbamoL 750 MG TAB PO SCH (10:08)
[2020-10-08] MEDS: IBUPROFEN 400 MG TAB PO SCH (10:09)
[2020-10-08] MEDS: PANTOPRAZOLE 40 MG TABLET PO SCH (10:09)
[2020-10-08] MEDS: HYDROmorphone 0.5 MG/0.5 ML SYRINGE IM PRN (10:10)
[2020-10-08] MEDS: [UNRECOGNIZED DRUG - OTHER] PO SCH (10:10)
--- NOTE | 2020-10-08 11:00 | XR ---
EXAMINATION TYPE: XR knee complete bilateral DATE OF EXAM: 10/08/2020 COMPARISON: None HISTORY: Pain TECHNIQUE: 3 view bilateral knees FINDINGS: Joint spaces are preserved. No joint effusions are evident. No acute fracture or dislocatio n is evident. Follow up exams can be performed 7-10 days from acute trauma for continued pain. IMPRESSION: 1. No acute osseous abnormalities bilateral knees.
--- NOTE | 2020-10-08 11:23 | P.CNOR ---
History of Present Illness - HPI Consult date: 10/08/20 History of present illness: This is a 45-year-old female who is admitted for cervical lymphadenopathy. Patient's past medical history is significant for HIV/AIDS, asthma, fibromyalgia, migraines, UTIs and seizure disorder. Orthopedics is consulted due to bilateral lower leg pain. Patient is seen and evaluated at bedside today. Patient states that she has had pain in both knees for approximately 2 weeks and this started after getting a pain injection in the right hip. Patient localizes her pain to both knees, and states that the right is worse than left. Patient states that her pain in the right knee is worse with walking, but she is able to bear full weight on both lower extremities. Patient denies any injury. Patient states that she has a history of lower back issues which has caused pain in the right foot previously, but her current pain is a different for her. Patient denies any locking, catching or giving way. Patient denies any fever/chills, numbness, weakness, tingling, abdominal pain, shortness of breath or chest pain. Review of Systems See HPI. Past Medical History Past Medical History: Asthma, Fibromyalgia, Pneumonia, Seizure Disorder Additional Past Medical History / Comment(s): HIV with AIDS. Last CD4 cell count of 8. migraines, "rt eye has scarring and freckles". uti's, "poor circulation" History of Any Multi-Drug Resistant Organisms: None Reported Past Surgical History: Section, Cholecystectomy, Hysterectomy, Orthopedic Surgery Additional Past Surgical History / Comment(s): left shoulder sx, c-sec x3 Past Anesthesia/Blood Transfusion Reactions: No Reported Reaction Past Psychological History: Anxiety, Depression Smoking Status: Current every day smoker Past Alcohol Use History: None Reported Past Drug Use History: Marijuana - Past Family History Mother Family Medical History: CVA/TIA, Diabetes Mellitus, Myocardial Infarction ([place]) Additional Family Medical History / Comment(s): sarcoidosis, osteoporosis Father Family Medical History: Asthma, COPD Medications and Allergies Home Medications Medication Instructions Recorded Confirmed Type Budesonide-Formot 160-4.5 Mcg 2 puff INHALATION RT-BID 05/25/14 10/04/20 History [Symbicort 160-4.5 Mcg Inhaler] Elviteg/Cob/Emtri/Tenof Alafen 1 tab PO DAILY 10/02/20 10/04/20 History [Genvoya Tablet] HYDROcodone/APAP 10-325MG [[place] 1 tab PO Q8H PRN 10/02/20 10/04/20 History 10-325] Ibuprofen [Motrin] 800 mg PO Q8H #21 tab 10/02/20 10/04/20 Rx methocarbamoL [Robaxin] 1,500 mg PO TID #42 tab 10/02/20 10/04/20 Rx Allergies Allergy/AdvReac Type Severity Reaction Status Date / Time amoxicillin [From Augmentin] Allergy Swelling Verified 10/04/20 20:41 clavulanic acid Allergy Swelling Verified 10/04/20 20:41 [From Augmentin] prochlorperazine edisylate Allergy Confusion Verified 10/04/20 20:41 [From Compazine] prochlorperazine maleate Allergy Confusion Verified 10/04/20 20:41 [From Compazine] morphine AdvReac Chest Pain Verified 10/04/20 20:41 Physical Examination On exam patient is sitting up comfortably in bed in no acute distress. Patient is alert and oriented 3. Right knee: There is mild joint line tenderness to palpation over the right knee. There is no effusion, erythema or ecchymosis. Patient has full active extension of the right knee without pain or difficulty. Patient has active flexion of the right knee to 90 with some discomfort. There is no ligamentous instability. Calf is soft and nontender to palpation. Sensation intact. Neurovascular status and circulatory status are intact. Left knee: There is no tenderness to palpation over the left knee. There is no effusion, erythema or ecchymosis. Patient has full active range of motion of the left knee without pain or difficulty. There is no ligamentous instability. Calf is soft and nontender to palpation. Sensation intact. Neurovascular status and circulatory status are intact. Results X-rays of bilateral knees are negative for any fracture, dislocation or significant arthritis. A Doppler of the right lower extremity is negative for DVT. - Labs Labs: Microbiology - Last 24 Hours (Table) 10/04/20 21:55 Blood Culture - Preliminary Blood No Growth after 72 hours 10/04/20 22:05 Blood Culture - Preliminary Blood No Growth after 72 hours H & H 10/04/20 10/06/20 Range/Units 22:18 05:44 Hgb 15.2 12.7 (11.4-16.0) gm/dL Hct 43.1 39.2 (34.0-46.0) % Result Diagrams: 10/06/20 05:44 10/06/20 05:44 Assessment and Plan (1) HIV disease Current Visit: Yes Status: Acute Code(s): B20 - HUMAN IMMUNODEFICIENCY VIRUS [HIV] DISEASE SNOMED Code(s): 58599566 (2) Musculoskeletal pain Current Visit: Yes Status: Acute Code(s): M79.18 - MYALGIA, OTHER SITE SNOMED Code(s): 060952869 (3) Bilateral knee pain Current Visit: Yes Status: Acute Code(s): M25.561 - PAIN IN RIGHT KNEE; M25.562 - PAIN IN LEFT KNEE SNOMED Code(s): 3944878653 Plan: 1. X-rays are reviewed and are negative for any fracture, dislocation or significant arthritis. 2. Recommend physical therapy as needed for mobilization. 3. Patient may follow up as an outpatient.
[2020-10-08] MEDS: HYDROcodone/APAP 10-325MG 1 EACH TAB PO PRN (11:32)
--- NOTE | 2020-10-08 15:07 | PN ---
PROGRESS NOTE DATE OF SERVICE: 10/08/2020 REASON FOR FOLLOWUP: 1. HIV. 2. Leg pain. INTERVAL HISTORY: Patient is afebrile. The patient is breathing comfortably. Denies any chest pain, shortness of breath, abdominal pain, or worsening pain in the lower extremity. No bowel or bladder problem. PHYSICAL EXAMINATION: Blood pressure 107/64, pulse of 93, temperature is 98, she is 97% on room air. General description is a middle-aged female up in the chair in no distress. Respiratory system: Unlabored breathing, clear to auscultation anteriorly. Heart S1, S2. Regular rate and rhythm. Abdomen is soft, no tenderness. Legs reveal some swelling, no redness. LABS: No new labs have been obtained today. DIAGNOSTIC IMPRESSION AND PLAN: 1. Patient with HIV for which the patient is currently on Genvoya to continue. CD4 count value has been requested and those will be followed in the outpatient setting. 2. The patient with complaints of leg pain, being monitored by [facility]. MMODL / IJN: [id number] /
--- NOTE | 2020-10-09 06:57 | DS ---
DISCHARGE SUMMARY DATE OF SERVICE: 10/08/2020 FINAL DIAGNOSIS: 1. Cervical lymphadenopathy, painful, with bilateral leg pain for evaluation. 2. Possible peripheral neuropathy. 3. Elevated AST ALT history. 4. Gait dysfunction secondary to right leg pain and swelling of the right knee joint. 5. History of HIV AIDS. 6. History of mild hypercalcemia. 7. History of asthma. 8. History of fibromyalgia. 9. History of pneumonia. 10.History of seizure disorder. 11.History of migraine. 12.History of cholecystectomy. 13.History of anxiety, depression. 14.History of nicotine dependence. 15.History of THC. 16.Obesity with body mass index of 40.6. 17.FULL CODE. DISCHARGE DISPOSITION: The patient will be discharged in stable condition with guarded prognosis. HISTORY OF PRESENT ILLNESS: This 45-year-old woman with a past medical history of multiple medical problems admitted with multiple medical problems as mentioned earlier. Patient has cervical lymphadenopathy. Recommended outpatient followup otherwise, treated symptomatically, improved significantly. Multiple consultants saw the patient including Orthopedic Surgery, Neurology and Infectious Disease. Recommended outpatient followup. PHYSICAL EXAMINATION: On exam, vitals stable. Cardiovascular S1 and S2. Abdomen soft. Nervous system no focal deficits. RECOMMENDATION AND DISCUSSION: Recommend the patient follow up closely with Dr. Fontana for infectious disease issues. Follow up with Dr. Oliveros, primary and Dr. Reardon for evaluation of the primary issues. The patient will need continued followup regarding the left cervical lymphadenopathy and the lymph node in the outpatient setting in the next few weeks or 1-2 months. The patient will need a biopsy of the lymph nodes and further studies by Surgery as an outpatient. I would also recommend close followup with Neurology to rule out the possibility of any peripheral neuropathy. Otherwise also recommend Psychiatry evaluation. Continue follow up with local psychiatrist regarding the patient's anxiety, depression, possible panic attacks. DISCHARGE DISPOSITION: The discharge diet is cardiac. Activity limited until followup. Follow up with Dr. Oliveros and Dr. Reardon in 1 week. Follow up with Orthopedics as mentioned earlier. Follow up with Dr. Fontana as recommended. DISCHARGE MEDICATIONS ARE: 1. genvoya 1 tablets daily. 2. [place] 10 mg q.8 p.r.n. 3. Symbicort 2 puffs b.i.d. 4. Motrin 800 mg q.8 p.r.n. 5. Multivitamins 1 p.o. daily. 6. Robaxin 1500 mg t.i.d. p.r.n. 7. Xanax 0.5 t.i.d. p.r.n. The patient will be discharged in stable condition with guarded prognosis. MMJACINTO / WALTERN: [id number] / MTDD
[2020-10-09 10:44] LABS: T4/T8 Ratio (CD4:CD8) 0.1 (1.0-3.7)
[2020-10-09 21:02] LABS: HIV-1 RNA DETECTED (Not detected); HIV-1 RNA, Quant 524 Copies/mL (<40)
== END 2020-10-08 17:52 | disposition home or self-care (01) | DRG 977 ==
LOC: EC 20:28 → 6NMEDSUR 23:27 → OBSVTOIN 10-07 13:41
PROVIDERS: ADMIT Hospitalist; ATTEND Hospitalist
DX: G62.9 Polyneuropathy, unspecified (principal); B20 Human immunodeficiency virus [HIV] disease; Z68.41 Body mass index [BMI] 40.0-44.9, adult; E66.9 Obesity, unspecified; E83.52 Hypercalcemia; Z87.891 Personal history of nicotine dependence; F32.9 Major depressive disorder, single episode, unspecified; F41.0 Panic disorder [episodic paroxysmal anxiety]; F41.9 Anxiety disorder, unspecified; G40.909 Epilepsy, unspecified, not intractable, without status epilepticus; I25.10 Atherosclerotic heart disease of native coronary artery without angina pectoris; Z87.01 Personal history of pneumonia (recurrent); R59.0 Localized enlarged lymph nodes; Z87.440 Personal history of urinary (tract) infections; J45.909 Unspecified asthma, uncomplicated; K76.0 Fatty (change of) liver, not elsewhere classified; M25.78 Osteophyte, vertebrae; Z20.822 Contact with and (suspected) exposure to COVID-19; M48.061 Spinal stenosis, lumbar region without neurogenic claudication; R94.5 Abnormal results of liver function studies; R21 Rash and other nonspecific skin eruption; M51.36 Other intervertebral disc degeneration, lumbar region; M72.2 Plantar fascial fibromatosis; M77.9 Enthesopathy, unspecified; M79.7 Fibromyalgia; M47.9 Spondylosis, unspecified; G43.909 Migraine, unspecified, not intractable, without status migrainosus; R26.9 Unspecified abnormalities of gait and mobility; M25.562 Pain in left knee; M25.561 Pain in right knee; G89.29 Other chronic pain; M62.89 Other specified disorders of muscle; Z90.49 Acquired absence of other specified parts of digestive tract; Z90.710 Acquired absence of both cervix and uterus; Z79.51 Long term (current) use of inhaled steroids; Z82.49 Family history of ischemic heart disease and other diseases of the circulatory system; Z82.5 Family history of asthma and other chronic lower respiratory diseases; Z82.62 Family history of osteoporosis; Z83.3 Family history of diabetes mellitus; Z82.3 Family history of stroke; Z84.89 Family history of other specified conditions; Z98.890 Other specified postprocedural states; Z88.5 Allergy status to narcotic agent; Z88.0 Allergy status to penicillin; Z88.8 Allergy status to other drugs, medicaments and biological substances
CPT/HCPCS: 36415; 71045; 71260; 80048; 80053; 82550; 82728; 83036; 83605; 83615; 85025; 85379; 85652; 86038; 86140; 86308; 86360; 86431; 86618; 87040; 87536; 94640; 96374; 99285

== ENCOUNTER → 2020-12-25 | Outpatient (CLI) | payer MEDICARE, OTHER ==
[2020-12-25 13:02] LABS: Basophils % (A) 1 %; Eosinophils # (A) 0.2 k/uL (0-0.7); Eosinophils % (A) 4 %; HCT 45.6 % (34.0-46.0); Lymphocytes % (A) 19 %; MCH 29.8 pg (25.0-35.0); MCV 90.3 fL (80.0-100.0); Mean Platelet Volume 7.6; Monocytes # (A) 0.2 k/uL (0-1.0); Monocytes % (A) 4 %; Neutrophils # (A) 3.7 k/uL (1.3-7.7); Neutrophils % (A) 70 %; Platelet Count 233 k/uL (150-450); RBC 5.05 m/uL (3.80-5.40); RDW 12.2 % (11.5-15.5); WBC 5.3 k/uL (3.8-10.6)
[2020-12-25 13:26] LABS: Potassium 4.6 mmol/L (3.5-5.1)
== END | disposition home or self-care (01) ==
LOC: LABPAT 12:17
PROVIDERS: ATTEND Orthopaedic Surgery
DX: Z01.812 Encounter for preprocedural laboratory examination (principal); M23.91 Unspecified internal derangement of right knee
CPT/HCPCS: 80051; 85025

== ENCOUNTER 2021-01-04 08:57 | Day surgery (SDC) | payer MEDICARE, OTHER ==
[2021-01-03 10:40] VITALS: BMI 41.5
--- NOTE | 2021-01-03 16:35 | HP ---
HISTORY AND PHYSICAL DATE OF SURGERY: 01/04/2021 Mirtha Victor is a 45-year-old patient seen with progressive right knee pain. We discussed options for treatment. She elected to proceed with arthroscopy. Consent was obtained. PAST MEDICAL HISTORY: Gastroesophageal reflux disease, asthma. PAST SURGICAL HISTORY: section, cholecystectomy, hysterectomy, bladder surgery, spine surgery. DAILY MEDICATIONS: Ibuprofen, Pepcid. ALLERGIES: Augmentin, Compazine, morphine. SOCIAL HISTORY: Smokes 1/4 pack of cigarettes a day. PHYSICAL EVALUATION OF THE RIGHT KNEE: Range of motion is -4/5 to 90. Mild to moderate effusion. Tenderness along the medial joint line. Positive medial Jean's. Positive lateral Jean's. Ligaments stable. Hip rotation without pain. Distal neurovascular exam intact. RADIOGRAPHS: Right knee revealed mild osteoarthritis. MRI right knee revealed bucket-handle medial meniscal tear. IMPRESSION: 1. Internal derangement of right knee with medial meniscal tear. 2. Asthma. 3. Chronic opioid use. PLAN: Right knee arthroscopy with partial meniscectomy and debridement. MMODL / IJN: [id number] /
[~2021-01-04 08:57] MED LIST: CLINDAMYCIN 900 MG in DEXTROSE 5% IN WATER 50 ML IVPB PRN; DEXAMETHASONE SOD PHOSPHATE 4 MG/ML 1 ML VIAL IV ONE; LACTATED RINGERS 1,000 ML IV SCH; ONDANSETRON 4 MG/2 ML VIAL IVP ONE
[2021-01-04] MEDS ORDERED: ONDANSETRON 4 MG/2 ML VIAL ONE (09:25)
[2021-01-04] MEDS ORDERED: LIDOCAINE 1% (10MG/ML) FOR IV START INTRADERMA ONE (09:40)
[2021-01-04] MEDS ORDERED: MIDAZOLAM 2 MG/2 ML VIAL IV ONE (09:55)
[2021-01-04] MEDS ORDERED: SODIUM CHLORIDE 0.9% 100 ML BAG ONE (10:14)
[2021-01-04] MEDS ORDERED: PROPOFOL 10 MG/ML 20 ML VIAL IV ONE (10:14)
[2021-01-04] MEDS ORDERED: MIDAZOLAM 2 MG/2 ML VIAL ONE (10:14)
[2021-01-04] MEDS ORDERED: ceFAZolin 1,000 MG VIAL ONE (10:14)
[2021-01-04] MEDS ORDERED: LIDOCAINE 1% INJ 10MG/ML (20 ML MDV) ONE (10:14)
[2021-01-04] MEDS ORDERED: SUCCINYLCHOLINE CHLORIDE 100 MG/5 ML SYR IV ONE (10:14)
[2021-01-04] MEDS ORDERED: fentaNYL (PF) 50 MCG/ML 2 ML AMP ONE (10:14)
[2021-01-04] MEDS ORDERED: BUPIVACAINE (PF) 0.25% 30 ML VIAL INTRAARTIC ONE (10:18)
--- NOTE | 2021-01-04 10:59 | P.OP ---
Date of Procedure: 01/04/21 Preoperative Diagnosis: Internal derangement right knee Postoperative Diagnosis: 1. Complex tear medial meniscus right knee 2. Grade 2 chondromalacia medial femoral condyle right knee 3. Reactive synovitis medial, lateral and suprapatellar compartments right knee Procedure(s) Performed: 1. Arthroscopic partial medial meniscectomy right knee 2. Arthroscopic chondroplasty medial femoral condyle right knee 3. Arthroscopic partial synovectomy medial, lateral and suprapatellar compartments right knee Anesthesia: TIFFANIEA, local Surgeon: Jamin Lambert Estimated Blood Loss (ml): 7 Pathology: none sent Condition: stable Disposition: PACU Indications for Procedure: 45-year-old patient seen with progressive right knee pain. After treatment options were discussed, she elected to proceed with arthroscopy. Operative Findings: see description of procedure Description of Procedure: Patient was taken to the operative suite. Patient underwent a general anesthetic by the department of anesthesia. Patient was given preoperative antibiotics. The right lower extremity was placed in a well-padded arthroscopic leg sanchez. The right leg was prepped and draped in the normal sterile orthopedic fashion. A lateral parapatellar and suprapatellar incision was made. Trochars were inserted. Arthroscopy was initiated. Suprapatellar pouch revealed diffuse thick reactive synovitis. The patellofemoral joint appeared articulate congruently. There was grade 1 chondromalacia of the patella with no tears. The scope was guided into the medial gutter. No loose bodies or plica were identified. The scope was then guided into the medial compartment. A medial parapatellar incision was made. Trocar inserted followed by probe. There was a complex tear involving the posterior horn of the medial meniscus. There were grade 2 chondromalacia changes of the medial femoral condyle with some osteochondral flap tears present. There was thick reactive synovitis anteriorly. I performed a partial medial meniscectomy getting down to stable meniscal tissue. I performed a chondroplasty of the medial femoral condyle getting down to stable osteochondral tissue. I performed a partial synovectomy decompressing the thick reactive synovitis. The residual meniscus was probed and found to be stable. The residual osteochondral surface was stable. There was good decompression of the synovitis. Scope and probe were then guided into the intercondylar notch. Cruciates were identified, probed and found to be stable. The scope and probe were then guided into lateral compartment. The lateral meniscus was probed and found to be stable. There was no significant chondromalacia. There was some thick reactive synovitis anteriorly. I introduced a motorized shaver and performed a partial synovectomy. Shaver was removed. There was good decompression of the synovitis. The scope was in guided back into the suprapatellar compartment. I introduced a motorized shaver into the super patellar compartment. I debrided some piecemeal fragments of meniscus I encountered. I performed a partial synovectomy decompressing the thick reactive synovitis. Shaver was removed. There appeared be good decompression of the synovitis. I took one more look around the entire knee, no residual debris. Instruments were now removed from the joint. The joint was infiltrated with .25% Marcaine. Steri-Strips were applied to the portal sites. Sterile dressings were applied. The patient was placed into a LEMUEL hose. No tourniquet was utilized. The patient was awakened, transferred to a bed and taken to recovery stable satisfactory condition.
[2021-01-04 11:05] VITALS: TEMP 96.4
[2021-01-04] MEDS ORDERED: diphenhydrAMINE 50 MG/ML 1 ML VIAL ONE (11:08)
[2021-01-04] MEDS ORDERED: diphenhydrAMINE 50 MG/ML 1 ML VIAL IVP ONE (11:10)
[2021-01-04] MEDS: HYDROmorphone 0.5 MG/0.5 ML SYRINGE IVP PRN ×4 (11:13→11:49)
[2021-01-04] MEDS ORDERED: fentaNYL (PF) 50 MCG/ML 2 ML AMP IVP ONE (12:16)
[2021-01-04 13:02] VITALS: BP 120/74; PULSE 79; RESP 9
== END 2021-01-04 13:28 | disposition home health service (06) ==
LOC: OR 08:57
PROVIDERS: ATTEND Orthopaedic Surgery
DX: M23.203 Derangement of unspecified medial meniscus due to old tear or injury, right knee (principal); M94.261 Chondromalacia, right knee; M65.861 Other synovitis and tenosynovitis, right lower leg; B20 Human immunodeficiency virus [HIV] disease; K21.9 Gastro-esophageal reflux disease without esophagitis; J45.909 Unspecified asthma, uncomplicated; F41.9 Anxiety disorder, unspecified; Z98.891 History of uterine scar from previous surgery; F17.210 Nicotine dependence, cigarettes, uncomplicated; Z90.49 Acquired absence of other specified parts of digestive tract; Z90.710 Acquired absence of both cervix and uterus; Z98.890 Other specified postprocedural states; Z79.891 Long term (current) use of opiate analgesic; Z79.51 Long term (current) use of inhaled steroids; Z79.1 Long term (current) use of non-steroidal anti-inflammatories (NSAID); Z79.899 Other long term (current) drug therapy; Z88.5 Allergy status to narcotic agent; Z88.0 Allergy status to penicillin; Z88.8 Allergy status to other drugs, medicaments and biological substances
CPT/HCPCS: 29881; 29876; J2250; J1200; J2405; J0690; J2001; J3010; J0330; J2704; J1170

== ENCOUNTER 2021-02-22 15:28 | Emergency (ER) | payer MEDICARE, OTHER ==
[2021-02-22] MEDS ORDERED: IPRATROPIUM-ALBUTEROL 3 ML NEB INHALATION STA (17:06)
[2021-02-22] MEDS ORDERED: ACETAMINOPHEN TAB 500 MG TAB PO STA (17:09)
--- NOTE | 2021-02-22 17:09 | ED ---
General Adult HPI - General Chief complaint: Upper Respiratory Infection Stated complaint: Congestion, cough Time Seen by Provider: 02/22/21 16:56 Source: patient, RN notes reviewed Mode of arrival: ambulatory Limitations: no limitations - History of Present Illness Initial comments: Patient is a pleasant 45-year-old female presenting to the emergency Department with cough. Onset of symptoms was around a week ago. Patient has cough with green sputum. Patient also has nasal congestion with green drainage. Patient unclear if she has had fevers. Patient has a boyfriend who tested positive for Covid. Patient tested negative over a week ago. Patient does have history of asthma. No leg pain or leg swelling. - Related Data Home Medications Medication Instructions Recorded Confirmed Budesonide-Formot 160-4.5 Mcg 2 puff INHALATION RT-BID 05/25/14 02/22/21 [Symbicort 160-4.5 Mcg Inhaler] Elviteg/Cob/Emtri/Tenof Alafen 1 tab PO DAILY 10/02/20 02/22/21 [Genvoya Tablet] HYDROcodone/APAP 10-325MG [[place] 1 tab PO Q8H PRN 10/02/20 02/22/21 10-325] Albuterol Inhaler [Ventolin Hfa 2 puff INHALATION RT-QID PRN 02/22/21 02/22/21 Inhaler] Previous Rx's Medication Instructions Recorded Sulfamethox-Tmp 800-160Mg [Bactrim 1 each PO Q12HR #20 tab 02/22/21 DS 800-160 mg] predniSONE [Deltasone] 20 mg PO BID #10 tab 02/22/21 Allergies Allergy/AdvReac Type Severity Reaction Status Date / Time amoxicillin [From Augmentin] Allergy Swelling Verified 02/22/21 18:08 clavulanic acid Allergy Swelling Verified 02/22/21 18:08 [From Augmentin] prochlorperazine edisylate Allergy Confusion Verified 02/22/21 18:08 [From Compazine] prochlorperazine maleate Allergy Confusion Verified 02/22/21 18:08 [From Compazine] morphine AdvReac Chest Pain Verified 02/22/21 18:08 Review of Systems ROS Statement: Those systems with pertinent positive or pertinent negative responses have been documented in the HPI. ROS Other: All systems not noted in ROS Statement are negative. Constitutional: Reports: chills Eyes: Denies: eye pain ENT: Reports: congestion. Denies: ear pain Respiratory: Reports: cough Cardiovascular: Denies: chest pain Endocrine: Reports: fatigue Gastrointestinal: Denies: abdominal pain Genitourinary: Denies: dysuria Musculoskeletal: Denies: back pain Skin: Denies: rash Neurological: Denies: weakness Past Medical History Past Medical History: Asthma, Fibromyalgia, Pneumonia, Seizure Disorder Additional Past Medical History / Comment(s): HIV with AIDS. Last CD4 cell coun t of 8. migraines, "rt eye has scarring and freckles". uti's, "poor circulation" History of Any Multi-Drug Resistant Organisms: None Reported Past Surgical History: Section, Cholecystectomy, Hysterectomy, Orthopedic Surgery Additional Past Surgical History / Comment(s): left shoulder sx, c-sec x3 Past Anesthesia/Blood Transfusion Reactions: No Reported Reaction Past Psychological History: Anxiety, Depression Smoking Status: Current every day smoker Past Alcohol Use History: None Reported Past Drug Use History: None Reported - Past Family History Mother Family Medical History: CVA/TIA, Diabetes Mellitus, Myocardial Infarction ([place]) Additional Family Medical History / Comment(s): sarcoidosis, osteoporosis Father Family Medical History: Asthma, COPD General Exam Limitations: no limitations General appearance: alert, in no apparent distress Head exam: Present: normocephalic Eye exam: Present: normal appearance Neck exam: Present: normal inspection Respiratory exam: Present: wheezes (Mild expiratory) Cardiovascular Exam: Present: tachycardia GI/Abdominal exam: Present: soft. Absent: tenderness Extremities exam: Present: normal inspection Neurological exam: Present: alert Psychiatric exam: Present: normal affect, normal mood Skin exam: Present: normal color Course Vital Signs 02/22/21 02/22/21 02/22/21 16:00 17:32 17:37 Temperature 99.4 F Pulse Rate 118 H 118 H 118 H Respiratory 24 Rate Blood Pressure 131/89 O2 Sat by Pulse 98 Oximetry Medical Decision Making - Medical Decision Making Patient reevaluated and resting comfortably in bed. Case was discussed with Dr. Mims who is really with this patient. He did review x-ray and vital signs and lab. He is comfortable with discharge of patient and does recommend steroid and antibiotic. He is agreeable to provide monoclonal antibodies. Patient was recently exposed and not vaccinated with immunocompromised - Lab Data Result diagrams: 02/22/21 18:15 02/22/21 18:15 Lab Results 02/22/21 02/22/21 02/22/21 Range/Units 16:06 18:15 18:15 WBC 5.2 (3.8-10.6) k/uL RBC 4.99 (3.80-5.40) m/uL Hgb 14.6 (11.4-16.0) gm/dL Hct 42.8 (34.0-46.0) % MCV 85.9 (80.0-100.0) fL MCH 29.3 (25.0-35.0) pg MCHC 34.1 (31.0-37.0) g/dL RDW 12.9 (11.5-15.5) % Plt Count 218 (150-450) k/uL MPV 7.6 Neutrophils % 76 % Lymphocytes % 15 % Monocytes % 4 % Eosinophils % 2 % Basophils % 1 % Neutrophils # 3.9 (1.3-7.7) k/uL Lymphocytes # 0.8 L (1.0-4.8) k/uL Monocytes # 0.2 (0-1.0) k/uL Eosinophils # 0.1 (0-0.7) k/uL Basophils # 0.1 (0-0.2) k/uL PT 9.3 (9.0-12.0) sec INR 0.8 (<1.2) APTT 24.0 (22.0-30.0) sec Sodium (137-145) mmol/L Potassium (3.5-5.1) mmol/L Chloride (98-107) mmol/L Carbon Dioxide (22-30) mmol/L Anion Gap mmol/L BUN (7-17) mg/dL Creatinine (0.52-1.04) mg/dL Est GFR (CKD-EPI)AfAm (>60 ml/min/1.73 sqM) Est GFR (CKD-EPI)NonAf (>60 ml/min/1.73 sqM) Glucose (74-99) mg/dL Plasma Lactic Acid Rowdy (0.7-2.0) mmol/L Calcium (8.4-10.2) mg/dL Total Bilirubin (0.2-1.3) mg/dL AST (14-36) U/L ALT (4-34) U/L Alkaline Phosphatase (38-126) U/L Troponin I (0.000-0.034) ng/mL Total Protein (6.3-8.2) g/dL Albumin (3.5-5.0) g/dL Coronavirus (PCR) Not Detected (Not Detectd) 02/22/21 02/22/21 02/22/21 Range/Units 18:15 18:15 18:15 WBC (3.8-10.6) k/uL RBC (3.80-5.40) m/uL Hgb (11.4-16.0) gm/dL Hct (34.0-46.0) % MCV (80.0-100.0) fL MCH (25.0-35.0) pg MCHC (31.0-37.0) g/dL RDW (11.5-15.5) % Plt Count (150-450) k/uL MPV Neutrophils % % Lymphocytes % % Monocytes % % Eosinophils % % Basophils % % Neutrophils # (1.3-7.7) k/uL Lymphocytes # (1.0-4.8) k/uL Monocytes # (0-1.0) k/uL Eosinophils # (0-0.7) k/uL Basophils # (0-0.2) k/uL PT (9.0-12.0) sec INR (<1.2) APTT (22.0-30.0) sec Sodium 137 (137-145) mmol/L Potassium 4.2 (3.5-5.1) mmol/L Chloride 103 (98-107) mmol/L Carbon Dioxide 24 (22-30) mmol/L Anion Gap 10 mmol/L BUN 12 (7-17) mg/dL Creatinine 0.92 (0.52-1.04) mg/dL Est GFR (CKD-EPI)AfAm 88 (>60 ml/min/1.73 sqM) Est GFR (CKD-EPI)NonAf 76 (>60 ml/min/1.73 sqM) Glucose 127 H (74-99) mg/dL Plasma Lactic Acid Rowdy 1.4 (0.7-2.0) mmol/L Calcium 9.5 (8.4-10.2) mg/dL Total Bilirubin 0.3 (0.2-1.3) mg/dL AST 27 (14-36) U/L ALT 28 (4-34) U/L Alkaline Phosphatase 68 (38-126) U/L Troponin I <0.012 (0.000-0.034) ng/mL Total Protein 8.0 (6.3-8.2) g/dL Albumin 4.4 (3.5-5.0) g/dL Coronavirus (PCR) (Not Detectd) - Radiology Data Radiology results: image reviewed (Chest x-ray shows no acute process) Disposition Clinical Impression: Bronchitis Disposition: HOME SELF-CARE Condition: Stable Instructions (If sedation given, give patient instructions): Acute Bronchitis (ED) Additional Instructions: Please follow-up with primary care physician, Dr. Mims, and your infectious disease doctor within the next couple days for recheck. Return for fevers, difficulty breathing, not tolerating fluids, worsening symptoms or any other concerns. [id number] Tylenol as needed. Do not get vaccinated for COVID- 19 secondary to receiving monoclonal antibodies for 90 days. Prescription for antibiotics and steroids have been sent to pharmacy. Prescriptions: Sulfamethox-Tmp 800-160Mg [Bactrim DS 800-160 mg] 1 each PO Q12HR #20 tab predniSONE [Deltasone] 20 mg PO BID #10 tab Is patient prescribed a controlled substance at d/c from ED?: No Referrals: Armando Oliveros MD [Primary Care Provider] - 1-2 days Time of Disposition: 19:40
--- NOTE | 2021-02-22 17:33 | XR ---
EXAMINATION: XR chest 2V DATE AND TIME: 02/22/2021 5:27 PM CLINICAL INDICATION: PHH; difficulty breathing TECHNIQUE: Departmental protocol COMPARISON: 10/05/2020 FINDINGS: The overlying soft tissues are prominent. The lungs appear to be clear. The pleural spaces are negative. The cardiac silhouette is not enlarged. The remainder of the mediastinal silhouette is unremarkable. The skeletal structures and soft tissues are negative for acute findings. IMPRESSION: No acute radiographic process.
[2021-02-22 18:25] LABS: Basophils # (A) 0.1 k/uL (0-0.2); Basophils % (A) 1 %; Eosinophils # (A) 0.1 k/uL (0-0.7); Eosinophils % (A) 2 %; HCT 42.8 % (34.0-46.0); HGB 14.6 gm/dL (11.4-16.0); Lymphocytes # (A) 0.8 k/uL (1.0-4.8); Lymphocytes % (A) 15 %; MCH 29.3 pg (25.0-35.0); MCHC 34.1 g/dL (31.0-37.0); MCV 85.9 fL (80.0-100.0); Mean Platelet Volume 7.6; Monocytes # (A) 0.2 k/uL (0-1.0); Monocytes % (A) 4 %; Neutrophils # (A) 3.9 k/uL (1.3-7.7); Neutrophils % (A) 76 %; Platelet Count 218 k/uL (150-450); RBC 4.99 m/uL (3.80-5.40); RDW 12.9 % (11.5-15.5); WBC 5.2 k/uL (3.8-10.6)
[2021-02-22 18:35] LABS: Albumin 4.4 g/dL (3.5-5.0); Calcium 9.5 mg/dL (8.4-10.2); Potassium 4.2 mmol/L (3.5-5.1); Total Bilirubin 0.3 mg/dL (0.2-1.3)
[2021-02-22 18:41] LABS: INR 0.8 (<1.2); Prothrombin Time 9.3 sec (9.0-12.0)
[2021-02-22] MEDS ORDERED: SODIUM CHLORIDE 0.9% 50 ML IVPB ONE (20:00)
[2021-02-22] MEDS ORDERED: CASIRIVIMAB (REGN10933) (EUA) 600 MG, IMDEVIMAB (REGN10987) (EUA) 600 MG in SODIUM CHLO... IVPB ONE (20:00)
[2021-02-22 22:17] VITALS: BP 119/74; PULSE 86; RESP 16; TEMP 98.7
[2021-02-24 12:13] LABS: T4/T8 Ratio (CD4:CD8) 0.2 (1.0-3.7)
== END 2021-02-22 22:10 | disposition home or self-care (01) ==
LOC: EC 15:28
DX: J40 Bronchitis, not specified as acute or chronic (principal); Z20.822 Contact with and (suspected) exposure to COVID-19; M79.7 Fibromyalgia; F17.200 Nicotine dependence, unspecified, uncomplicated
CPT/HCPCS: 36415; 94640; 80053; 86360; 83605; 84484; 85025; 85610; 85730; 87040; 87635; 71046; 99284; Q0244

== ENCOUNTER → 2021-04-06 | Outpatient (CLI) | payer MEDICARE, OTHER ==
[2021-04-06 14:55] LABS: HCT 46.8 % (37.2-46.3); MCH 28.7 pg (27.0-32.0); MCHC 32.1 g/dL (32.0-37.0); MCV 89.7 fL (80.0-97.0); Mean Platelet Volume 10.6 fL (9.5-12.2); Platelet Count 185 X 10*3/uL (140-440); RBC 5.22 X 10*6/uL (4.10-5.20); RDW 13.1 % (11.5-14.5); WBC 3.87 X 10*3/uL (4.50-10.00)
[2021-04-06 15:41] LABS: % Iron Saturation 21.76 (12.00-45.00); African American GFR (CKD) 86.3 (60.0-200.0); Albumin/Globulin Ratio 1.7 (1.60-3.17); Anion Gap 11.2 mmol/L (10.00-18.00); BUN/Creat Ratio 14.58 Ratio (12.00-20.00); Blood Urea Nitrogen 13.6 mg/dL (9.0-27.0); Calcium 9.9 mg/dL (8.7-10.3); Carbon Dioxide 24.9 mmol/L (20.0-27.5); Globulin 2.9 g/dL (1.6-3.3); Non-African American GFR(CKD) 74.5 (60.0-200.0); Potassium 4.5 mmol/L (3.5-5.5); T4, Free (Free Thyroxine) 1.22 ng/dL (0.800-1.800); Total Bilirubin 0.3 mg/dL (0.30-1.20); Total Protein 7.9 g/dL (6.2-8.2)
[2021-04-07 01:41] LABS: HIV 2 AB Non-Reactive (Non-Reactive); HIV AB P24 REACTIVE (Non-Reactive); HIV P24 AG Non-Reactive (Non-Reactive)
[2021-04-07 12:16] LABS: T4/T8 Ratio (CD4:CD8) 0.1 (1.0-3.7)
== END | disposition home or self-care (01) ==
LOC: LABWHC1 10:13
PROVIDERS: ATTEND Internal Medicine
DX: R53.82 Chronic fatigue, unspecified (principal)
CPT/HCPCS: 36415; 80053; 82306; 82607; 83036; 83540; 83550; 84439; 84443; 85027; 86360; 87389; 87390

== ENCOUNTER 2021-05-01 16:24 | Emergency (ER) | payer MEDICARE, OTHER ==
[2021-05-01 16:58] VITALS: TEMP 98.2
[2021-05-01] MEDS ORDERED: SODIUM CHLORIDE 0.9% 1,000 ML IV STA (17:07)
[2021-05-01] MEDS ORDERED: ONDANSETRON 4 MG/2 ML VIAL IVP STA (17:14)
[2021-05-01] MEDS ORDERED: HYDROmorphone 1 MG/ML 1 ML SYRINGE IVP STA (17:14)
--- NOTE | 2021-05-01 17:17 | ED ---
Abdominal Pain HPI - General Chief Complaint: Abdominal Pain Stated Complaint: left side pain Time Seen by Provider: 05/01/21 17:05 Source: patient, RN notes reviewed Mode of arrival: ambulatory Limitations: no limitations - History of Present Illness Initial Comments: This is a pleasant 45-year-old female with a history of HIV, previous ying cystectomy, hysterectomy. Patient states she previously had a total hysterectomy. She presents today with 3-4 days of left-sided abdominal pain. She states that the pain is constant, exacerbated by palpation, states that she feels something hard in her abdomen. She also had some vomiting. No changes in bowel movement. No hematuria. No chest pain or shortness of breath. No headache, no fever or chills, no changes in vision or hearing, no sore throat or difficulty with speech, no neck pain, no chest pain or shortness of breath, no abdominal pain, no nausea or vomiting, no changes in urination or bowel movements, no numbness or tingling, no extremity pain, no skin rashes or lesions. Last CD4 count was 2 months ago. Patient is on HIV therapy. MD Complaint: abdominal pain - Related Data Home Medications Medication Instructions Recorded Confirmed Budesonide-Formot 160-4.5 Mcg 2 puff INHALATION RT-BID 05/25/14 02/22/21 [Symbicort 160-4.5 Mcg Inhaler] Elviteg/Cob/Emtri/Tenof Alafen 1 tab PO DAILY 10/02/20 02/22/21 [Genvoya Tablet] HYDROcodone/APAP 10-325MG [[place] 1 tab PO Q8H PRN 10/02/20 02/22/21 10-325] Albuterol Inhaler [Ventolin Hfa 2 puff INHALATION RT-QID PRN 02/22/21 02/22/21 Inhaler] Previous Rx's Medication Instructions Recorded Sulfamethox-Tmp 800-160Mg [Bactrim 1 each PO Q12HR #20 tab 02/22/21 DS 800-160 mg] predniSONE [Deltasone] 20 mg PO BID #10 tab 02/22/21 Ketorolac [Toradol] 10 mg PO Q6HR #12 tab 05/01/21 Tamsulosin [Flomax] 0.4 mg PO DAILY #5 cap 05/01/21 Allergies Allergy/AdvReac Type Severity Reaction Status Date / Time amoxicillin [From Augmentin] Allergy Swelling Verified 05/01/21 16:58 clavulanic acid Allergy Swelling Verified 05/01/21 16:58 [From Augmentin] prochlorperazine edisylate Allergy Confusion Verified 05/01/21 16:58 [From Compazine] prochlorperazine maleate Allergy Confusion Verified 05/01/21 16:58 [From Compazine] morphine AdvReac Chest Pain Verified 05/01/21 16:58 Review of Systems ROS Statement: Those systems with pertinent positive or pertinent negative responses have been documented in the HPI. ROS Other: All systems not noted in ROS Statement are negative. Past Medical History Past Medical History: Asthma, Fibromyalgia, Pneumonia, Seizure Disorder Additional Past Medical History / Comment(s): HIV with AIDS. Last CD4 cell count of 8. migraines, "rt eye has scarring and freckles". uti's, "poor circulation" History of Any Multi-Drug Resistant Organisms: None Reported Past Surgical History: Section, Cholecystectomy, Hysterectomy, Orthopedic Surgery Additional Past Surgical History / Comment(s): left shoulder sx, c-sec x3 Past Anesthesia/Blood Transfusion Reactions: No Reported Reaction Past Psychological History: Anxiety, Depression Smoking Status: Current every day smoker Past Alcohol Use History: None Reported Past Drug Use History: None Reported - Past Family History Mother Family Medical History: CVA/TIA, Diabetes Mellitus, Myocardial Infarction ([place]) Additional Family Medical History / Comment(s): sarcoidosis, osteoporosis Father Family Medical History: Asthma, COPD General Exam - General Exam Comments Initial Comments: Patient in moderate distress. Does not appear to be ill or toxic. Limitations: no limitations General appearance: alert, in no apparent distress Head exam: Present: atraumatic, normocephalic, normal inspection Eye exam: Present: normal appearance, PERRL, EOMI. Absent: scleral icterus, conjunctival injection, periorbital swelling ENT exam: Present: normal exam, mucous membranes moist Neck exam: Present: normal inspection. Absent: tenderness, meningismus, lymphadenopathy Respiratory exam: Present: normal lung sounds bilaterally. Absent: respiratory distress, wheezes, rales, rhonchi, stridor Cardiovascular Exam: Present: regular rate, normal rhythm, normal heart sounds. Absent: systolic murmur, diastolic murmur, rubs, gallop, clicks GI/Abdominal exam: Present: soft, tenderness, guarding, normal bowel sounds, ot her (Left lower quadrant and left upper abdominal pain). Absent: distended, rebound, rigid Extremities exam: Present: normal inspection, full ROM, normal capillary refill. Absent: tenderness, pedal edema, joint swelling, calf tenderness Back exam: Present: normal inspection Neurological exam: Present: alert, oriented X3, CN II-XII intact Psychiatric exam: Present: normal affect, normal mood Skin exam: Present: warm, dry, intact, normal color. Absent: rash Course Vital Signs 05/01/21 05/01/21 16:54 17:18 Temperature 98.2 F Pulse Rate 98 102 H Respiratory 16 14 Rate Blood Pressure 120/83 141/62 O2 Sat by Pulse 97 95 Oximetry - Reevaluation(s) Reevaluation #1: 05/01/21 18:37 Medical record is reviewed Symptoms are improved here in the emergency department Patient is informed of results and questions answered Patient in no distress Patient is improved. Patient still having some pain in the area of the left flank. Computed tomography scan shows a small fat-containing umbilical hernia. Small ventral hernia. No evidence of obstruction. No mass. No hydronephrosis or stone. Urinalysis did show red cells within the urine. Patient has had a total hysterectomy. Medical Decision Making - Medical Decision Making Given the patient's presentation of left flank pain. I suspect the patient may have some renal colic especially since she has red cells in urine. There is no evidence of infectious process. Patient's white blood cell count was normal. There was no evidence of hydronephrosis or hydroureter. Has had a total hysterectomy. There was no evidence of diverticulitis or bowel obstruction. I'm going to treat the patient for renal colic. We'll have her follow up with urology. She can also follow up with her regular physician. The patient is R received a prescription for antibiotics and antiemetics by her primary care physician. - Lab Data Result diagrams: 05/01/21 17:27 05/01/21 17: Lab Results 05/01/21 05/01/21 05/01/21 Range/Units 17:27 17: 17:27 WBC 5.6 (3.8-10.6) k/uL RBC 4.93 (3.80-5.40) m/uL Hgb 14.9 (11.4-16.0) gm/dL Hct 44.7 (34.0-46.0) % MCV 90.8 (80.0-100.0) fL MCH 30.3 (25.0-35.0) pg MCHC 33.4 (31.0-37.0) g/dL RDW 13.9 (11.5-15.5) % Plt Count 241 (150-450) k/uL MPV 7.3 Neutrophils % 72 % Lymphocytes % 16 % Monocytes % 5 % Eosinophils % 3 % Basophils % 1 % Neutrophils # 4.0 (1.3-7.7) k/uL Lymphocytes # 0.9 L (1.0-4.8) k/uL Monocytes # 0.3 (0-1.0) k/uL Eosinophils # 0.2 (0-0.7) k/uL Basophils # 0.0 (0-0.2) k/uL Sodium 136 L (137-145) mmol/L Potassium 4.0 (3.5-5.1) mmol/L Chloride 104 (98-107) mmol/L Carbon Dioxide 25 (22-30) mmol/L Anion Gap 7 mmol/L BUN 10 (7-17) mg/dL Creatinine 1.01 (0.52-1.04) mg/dL Est GFR (CKD-EPI)AfAm 78 (>60 ml/min/1.73 sqM) Est GFR (CKD-EPI)NonAf 68 (>60 ml/min/1.73 sqM) Glucose 107 H (74-99) mg/dL Plasma Lactic Acid Rowdy (0.7-2.0) mmol/L Calcium 9.9 (8.4-10.2) mg/dL Total Bilirubin 0.5 (0.2-1.3) mg/dL AST 32 (14-36) U/L ALT 36 H (4-34) U/L Alkaline Phosphatase 73 (38-126) U/L Total Protein 8.1 (6.3-8.2) g/dL Albumin 4.6 (3.5-5.0) g/dL Lipase 117 (23-300) U/L Urine Color Yellow Urine Appearance Clear (Clear) Urine pH 6.5 (5.0-8.0) Ur Specific [place] 1.026 (1.001-1.035) Urine Protein 1+ H (Negative) Urine Glucose (UA) Negative (Negative) Urine Ketones Negative (Negative) Urine Blood Trace H (Negative) Urine Nitrite Negative (Negative) Urine Bilirubin Negative (Negative) Urine Urobilinogen 2.0 (<2.0) mg/dL Ur Leukocyte Esterase Trace H (Negative) Urine RBC 8 H (0-5) /hpf Urine WBC 5 (0-5) /hpf Ur Squamous Epith Cells 5 H (0-4) /hpf Urine Mucus Few H (None) /hpf 05/01/21 Range/Units 17:27 WBC (3.8-10.6) k/uL RBC (3.80-5.40) m/uL Hgb (11.4-16.0) gm/dL Hct (34.0-46.0) % MCV (80.0-100.0) fL MCH (25.0-35.0) pg MCHC (31.0-37.0) g/dL RDW (11.5-15.5) % Plt Count (150-450) k/uL MPV Neutrophils % % Lymphocytes % % Monocytes % % Eosinophils % % Basophils % % Neutrophils # (1.3-7.7) k/uL Lymphocytes # (1.0-4.8) k/uL Monocytes # (0-1.0) k/uL Eosinophils # (0-0.7) k/uL Basophils # (0-0.2) k/uL Sodium (137-145) mmol/L Potassium (3.5-5.1) mmol/L Chloride (98-107) mmol/L Carbon Dioxide (22-30) mmol/L Anion Gap mmol/L BUN (7-17) mg/dL Creatinine (0.52-1.04) mg/dL Est GFR (CKD-EPI)AfAm (>60 ml/min/1.73 sqM) Est GFR (CKD-EPI)NonAf (>60 ml/min/1.73 sqM) Glucose (74-99) mg/dL Plasma Lactic Acid Rowdy 1.7 (0.7-2.0) mmol/L Calcium (8.4-10.2) mg/dL Total Bilirubin (0.2-1.3) mg/dL AST (14-36) U/L ALT (4-34) U/L Alkaline Phosphatase (38-126) U/L Total Protein (6.3-8.2) g/dL Albumin (3.5-5.0) g/dL Lipase (23-300) U/L Urine Color Urine Appearance (Clear) Urine pH (5.0-8.0) Ur Specific [place] (1.001-1.035) Urine Protein (Negative) Urine Glucose (UA) (Negative) Urine Ketones (Negative) Urine Blood (Negative) Urine Nitrite (Negative) Urine Bilirubin (Negative) Urine Urobilinogen (<2.0) mg/dL Ur Leukocyte Esterase (Negative) Urine RBC (0-5) /hpf Urine WBC (0-5) /hpf Ur Squamous Epith Cells (0-4) /hpf Urine Mucus (None) /hpf Disposition Clinical Impression: Acute left flank pain, Renal cyst, right Disposition: HOME SELF-CARE Condition: Stable Instructions (If sedation given, give patient instructions): Flank Pain (ED) Additional Instructions: Medical follow-up appointment with your regular physician as well as the provided urologist. He did have a cyst on your right kidney which is an incidental finding. This would not be related to your current symptom Follow-up with your regular physician as directed. Return to the ER immediately if any symptoms worsen, new symptoms arise, or any other problems develop. Clear liquid diet for the next 24 hours. Prescriptions: Tamsulosin [Flomax] 0.4 mg PO DAILY #5 cap Ketorolac [Toradol] 10 mg PO Q6HR #12 tab Is patient prescribed a controlled substance at d/c from ED?: No Referrals: Armando Oliveros MD [Primary Care Provider] - 1-2 days Time of Disposition: 18:39
[2021-05-01 17:20] VITALS: BP 141/62; PULSE 102; RESP 14
[2021-05-01 17:41] LABS: Basophils % (A) 1 %; Eosinophils # (A) 0.2 k/uL (0-0.7); Eosinophils % (A) 3 %; HCT 44.7 % (34.0-46.0); HGB 14.9 gm/dL (11.4-16.0); Lymphocytes # (A) 0.9 k/uL (1.0-4.8); Lymphocytes % (A) 16 %; MCH 30.3 pg (25.0-35.0); MCHC 33.4 g/dL (31.0-37.0); MCV 90.8 fL (80.0-100.0); Mean Platelet Volume 7.3; Monocytes # (A) 0.3 k/uL (0-1.0); Monocytes % (A) 5 %; Neutrophils % (A) 72 %; Platelet Count 241 k/uL (150-450); RBC 4.93 m/uL (3.80-5.40); RDW 13.9 % (11.5-15.5); WBC 5.6 k/uL (3.8-10.6)
[2021-05-01 17:54] LABS: Albumin 4.6 g/dL (3.5-5.0); Calcium 9.9 mg/dL (8.4-10.2); Total Bilirubin 0.5 mg/dL (0.2-1.3); Total Protein 8.1 g/dL (6.3-8.2)
[2021-05-01 18:02] LABS: Appearance,Urine Clear (Clear); Bilirubin,Urine Negative (Negative); Blood,Urine Trace (Negative); Color,Urine Yellow; Glucose,Urine (UA) Negative (Negative); Ketones,Urine Negative (Negative); Leukocyte Esterase,Urine Trace (Negative); Mucus,Urine Few /hpf; Nitrite,Urine Negative (Negative); PH, Urine 6.5 (5.0-8.0); Protein,Urine 1+ (Negative); RBC,Urine 8 /hpf (0-5); Specific Gravity,Urine 1.026 (1.001-1.035); Squamous Epithelial Cell,Urine 5 /hpf (0-4); WBC,Urine 5 /hpf (0-5)
--- NOTE | 2021-05-01 18:12 | XR ---
EXAMINATION TYPE: XR chest 1V portable DATE OF EXAM: 05/01/2021 COMPARISON: Chest x-ray February 22, 2021 HISTORY: Chest and epigastric pain. TECHNIQUE: Single frontal view of the chest is obtained. FINDINGS: There is no suspicious focal air space opacity, pleural effusion, or pneumothorax seen. T he cardiac silhouette size remains within normal limits. Spinal stimulator device lower thoracic spin al canal redemonstrated. IMPRESSION: No acute process. No significant change from prior.
--- NOTE | 2021-05-01 18:25 | CT ---
EXAMINATION TYPE: CT abdomen pelvis w con CT DLP: 2001.8 mGycm, Automated exposure control for dose reduction was used. DATE OF EXAM: 05/01/2021 6:15 PM COMPARISON: None CLINICAL INDICATION:Female, 45 years old with history of left side abd pain ; LUQ pain TECHNIQUE: Standard CT of the abdomen and pelvis following the administration of 100 cc of Isovue 3 00 IV contrast material. Coronal and sagittal reformats were performed. FINDINGS: LOWER CHEST: Unremarkable ABDOMEN LIVER: Unremarkable GALLBLADDER AND BILE DUCTS: The gallbladder is surgically absent. PANCREAS: Unremarkable. SPLEEN: Unremarkable. ADRENAL GLANDS: Unremarkable. KIDNEYS AND URETERS: No evidence of hydronephrosis or renal calculus. The ureters are unremarkable. R ight renal cyst measuring 17 mm. PELVIS BLADDER: Unremarkable REPRODUCTIVE: The uterus is surgically absent. ABDOMEN & PELVIS STOMACH AND BOWEL: Stomach and duodenum are unremarkable. Scattered diverticula are noted throughout the colon. No evidence of bowel obstruction. PERITONEUM: No evidence of pneumoperitoneum or free fluid. VASCULATURE: No evidence of aortic aneurysm. MUSCULOSKELETAL: No acute osseous abnormalities next, fixation hardware involving L5 and S1. L3-L4 mi ld disc bulging and osteophyte present. LYMPH NODES: No gross evidence for lymphadenopathy. SOFT TISSUE/ABDOMINAL WALL: Posterior back stimulator device with leads terminating within the thecal sac. Ventral hernia measuring 12 mm at the neck. Fat filled umbilical hernia is present. IMPRESSION: 1. No acute intra-abdominal process. 2. Colonic diverticulosis.
== END 2021-05-01 19:20 | disposition home or self-care (01) ==
LOC: EC 16:24
DX: N28.1 Cyst of kidney, acquired (principal); J45.909 Unspecified asthma, uncomplicated; G40.909 Epilepsy, unspecified, not intractable, without status epilepticus; M79.7 Fibromyalgia; F32.A Depression, unspecified; F41.9 Anxiety disorder, unspecified; F17.200 Nicotine dependence, unspecified, uncomplicated; Z79.51 Long term (current) use of inhaled steroids; Z79.52 Long term (current) use of systemic steroids; Z79.899 Other long term (current) drug therapy
CPT/HCPCS: 36415; 80053; 83605; 83690; 85025; 81001; 71045; 74177; 99284; 96374; 96375; 96361; J2405; J1170; Q9967

== ENCOUNTER → 2021-09-18 | Outpatient (CLI) | payer MEDICARE, OTHER | END | disposition home or self-care (01) | LOC: RADMRIMAIN 12:55 | PROVIDERS: ATTEND Orthopaedic Surgery | DX: Z53.9 Procedure and treatment not carried out, unspecified reason (principal) ==

== ENCOUNTER → 2021-10-04 | Outpatient (CLI) | payer MEDICARE, OTHER ==
[2021-10-04 18:26] LABS: Basophils # (A) 0.02 X 10*3/uL (0.00-0.10); Basophils % (A) 0.6 %; Eosinophils # (A) 0.17 X 10*3/uL (0.04-0.35); HGB 14.7 g/dL (12.0-15.0); Immature Grans, Automated 0.3 %; Lymphocytes # (A) 0.76 X 10*3/uL (0.90-5.00); Lymphocytes % (A) 22.3 %; MCH 28.9 pg (27.0-32.0); MCHC 33.4 g/dL (32.0-37.0); MCV 86.4 fL (80.0-97.0); Mean Platelet Volume 10.9 fL (9.5-12.2); Monocytes # (A) 0.27 X 10*3/uL (0.20-1.00); Monocytes % (A) 7.9 %; NRBC Per 100 WBC 0 /100 WBCS (0.0-0.0); Neutrophils # (A) 2.18 X 10*3/uL (1.80-7.70); Neutrophils % (A) 63.9 %; Platelet Count 172 X 10*3/uL (140-440); RBC 5.09 X 10*6/uL (4.10-5.20); RDW 11.9 % (11.5-14.5); WBC 3.41 X 10*3/uL (4.50-10.00)
[2021-10-04 18:39] LABS: African American GFR (CKD) 77.9 (60.0-200.0); Albumin 4.5 g/dL (3.8-4.9); Albumin/Globulin Ratio 1.58 (1.60-3.17); Anion Gap 10.5 mmol/L (10.00-18.00); BUN/Creat Ratio 15.05 Ratio (12.00-20.00); Blood Urea Nitrogen 15.2 mg/dL (9.0-27.0); Calcium 9.5 mg/dL (8.7-10.3); Carbon Dioxide 26.1 mmol/L (20.0-27.5); Globulin 2.9 g/dL (1.6-3.3); Non-African American GFR(CKD) 67.2 (60.0-200.0); Potassium 4.6 mmol/L (3.5-5.5); Total Bilirubin 0.3 mg/dL (0.30-1.20); Total Protein 7.3 g/dL (6.2-8.2)
[2021-10-05 12:35] LABS: T4/T8 Ratio (CD4:CD8) 0.1 (1.0-3.7)
[2021-10-05 13:05] LABS: HIV-1 RNA DETECTED (Not detected); LOG HIV Copies/mL 4.86 (<1.60)
== END | disposition home or self-care (01) ==
LOC: LABWHC1 12:55
PROVIDERS: ATTEND Internal Medicine Infectious Disease
DX: B20 Human immunodeficiency virus [HIV] disease (principal)
CPT/HCPCS: 36415; 80053; 85025; 86360; 87536

== ENCOUNTER → 2021-11-08 | Outpatient (CLI) | payer MEDICARE, OTHER | END | disposition home or self-care (01) | LOC: LABWHC1 14:44 | PROVIDERS: ATTEND Internal Medicine Infectious Disease | DX: B20 Human immunodeficiency virus [HIV] disease (principal) | CPT/HCPCS: 36415; 87901 ==

== ENCOUNTER → 2021-11-08 | Outpatient (CLI) | payer MEDICARE, OTHER ==
[2021-11-08 22:47] LABS: Basophils # (A) 0.06 X 10*3/uL (0.00-0.10); Basophils % (A) 1.2 %; Eosinophils % (A) 3.9 %; HCT 41.3 % (37.2-46.3); HGB 13.4 g/dL (12.0-15.0); Immature Grans, Automated 0.4 %; Lymphocytes # (A) 0.99 X 10*3/uL (0.90-5.00); Lymphocytes % (A) 19.5 %; MCH 28.6 pg (27.0-32.0); MCHC 32.4 g/dL (32.0-37.0); MCV 88.2 fL (80.0-97.0); Mean Platelet Volume 10.3 fL (9.5-12.2); Monocytes # (A) 0.33 X 10*3/uL (0.20-1.00); Monocytes % (A) 6.5 %; NRBC Per 100 WBC 0 /100 WBCS (0.0-0.0); Neutrophils # (A) 3.47 X 10*3/uL (1.80-7.70); Neutrophils % (A) 68.5 %; Platelet Count 232 X 10*3/uL (140-440); RBC 4.68 X 10*6/uL (4.10-5.20); RDW 12.8 % (11.5-14.5); WBC 5.07 X 10*3/uL (4.50-10.00)
[2021-11-08 23:04] LABS: Anion Gap 10.8 mmol/L (10.00-18.00); Carbon Dioxide 26.2 mmol/L (20.0-27.5); Potassium 4.9 mmol/L (3.5-5.5)
== END | disposition home or self-care (01) ==
LOC: LABPAT 14:42
PROVIDERS: ATTEND Orthopaedic Surgery
DX: Z01.812 Encounter for preprocedural laboratory examination (principal); M23.92 Unspecified internal derangement of left knee
CPT/HCPCS: 80051; 85025

== ENCOUNTER 2021-11-15 10:40 | Day surgery (SDC) | payer MEDICARE, OTHER ==
[2021-11-13 15:08] VITALS: BMI 41.1
--- NOTE | 2021-11-14 23:59 | HP ---
HISTORY AND PHYSICAL DATE OF SURGERY: 11/15/2021 HISTORY OF PRESENT ILLNESS: Mirtha Victor is a 46-year-old patient seen with progressive left knee pain. We discussed options for treatment. She elected to proceed with left knee arthroscopy. Consent was obtained. PAST MEDICAL HISTORY: Asthma, gastroesophageal reflux disease. PAST SURGICAL HISTORY: section, cholecystectomy, hysterectomy, and bladder surgery. DAILY MEDICATIONS: 1. Hydrocodone. 2. Ibuprofen. 3. Pepcid. ALLERGIES: Augmentin, Compazine, morphine. SOCIAL HISTORY: Smokes cigarettes. PHYSICAL EVALUATION OF THE LEFT KNEE: Range of motion 0-120. Mild effusion. Tenderness to medial joint line. Positive medial Jean's. Ligaments stable. Hip rotation without pain. Distal neurovascular exam is intact. RADIOGRAPHS: Radiographs of the left knee reveal moderate osteoarthritis, MRI left knee revealed medial meniscal tear and discoid lateral meniscus. IMPRESSION: 1. Internal derangement of left knee with medial meniscal tear. 2. Gastroesophageal reflux disease. 3. History of chronic opioid use. PLAN: Left knee arthroscopy with partial meniscectomy and debridement. MMODL / IJN: [id number] /
[~2021-11-15 10:40] MED LIST changes: -CLINDAMYCIN 900 MG in DEXTROSE 5% IN WATER 50 ML IVPB PRN; +HYDROmorphone 0.5 MG/0.5 ML SYRINGE IVP PRN; +LIDOCAINE 1% (10MG/ML) FOR IV START INTRADERMA PRN; +METOCLOPRAMIDE 5 MG/ML 2 ML VIAL IVP PRN
[2021-11-15] MEDS ORDERED: SCOPOLAMINE 1 MG/72 HR PATCH TRANSDERM ONE (11:49)
[2021-11-15] MEDS ORDERED: MIDAZOLAM 2 MG/2 ML VIAL IV ONE (11:49)
[2021-11-15] MEDS ORDERED: fentaNYL (PF) 50 MCG/ML 2 ML AMP ONE (12:14)
[2021-11-15] MEDS ORDERED: SUCCINYLCHOLINE CHLORIDE 200 MG/10 ML VIAL IV ONE (12:14)
[2021-11-15] MEDS ORDERED: ALBUTEROL HFA INHALER INHALATION ONE (12:14)
[2021-11-15] MEDS ORDERED: LIDOCAINE 2% INJ 20 MG/ML (2 ML VIAL) ONE (12:14)
[2021-11-15] MEDS ORDERED: MIDAZOLAM 2 MG/2 ML VIAL ONE (12:14)
[2021-11-15] MEDS ORDERED: PROPOFOL 10 MG/ML 20 ML VIAL IV ONE (12:14)
[2021-11-15] MEDS ORDERED: BUPIVACAINE (PF) 0.25% 30 ML VIAL SQ ONE ×2 (12:15→12:50)
[2021-11-15] MEDS ORDERED: ALBUTEROL NEBULIZED 2.5 MG/3 ML INHALATION ONE (13:08)
--- NOTE | 2021-11-15 13:08 | P.OP ---
Date of Procedure: 11/15/21 Preoperative Diagnosis: Internal derangement left knee Postoperative Diagnosis: 1. Tear medial and lateral meniscus left knee 2. Grade 2 chondromalacia medial femoral condyle left knee 3. Reactive synovitis medial, lateral and suprapatellar compartments left knee Procedure(s) Performed: 1. Arthroscopic partial medial and lateral meniscectomy left knee 2. Arthroscopic chondroplasty medial femoral condyle left knee 3. Arthroscopic partial synovectomy medial, lateral and suprapatellar compartments left knee Anesthesia: TIFFANIEA, local Surgeon: Jamin Lambert Estimated Blood Loss (ml): 8 Pathology: none sent Condition: stable Disposition: PACU Indications for Procedure: 46-year-old patient seen with progressive left knee pain. After treatment options were discussed, she elected to proceed with arthroscopy. Operative Findings: See description of procedure Description of Procedure: Patient was taken to the operative suite. Patient underwent a general anesthetic by the department of anesthesia. Patient was given preoperative antibiotics. The left lower extremity was placed in a well-padded arthroscopic leg sanchez. The left leg was prepped and draped in the normal sterile orthopedic fashion. A lateral parapatellar and suprapatellar incision was made. Trochars were inserted. Arthroscopy was initiated. Suprapatellar pouch revealed diffuse thick reactive synovitis. The patellofemoral joint appeared to articulate congruently. There . There was grade 1 chondromalacia of the patellofemoral joint. The scope was guided into the medial gutter. No loose bodies or plica were identified. The scope was then guided into the medial compartment. A medial parapatellar incision was made. Trocar inserted followed by probe. There was a radial tear posterior horn medial meniscus. There were grade 2 chondromalacia changes of the medial femoral condyle with some osteochondral tears present. There was thick reactive synovitis anteriorly. I performed a partial medial meniscectomy, getting down to stable meniscal tissue. I performed a partial synovectomy decompressing the reactive synovitis. I performed a chondroplasty getting down to stable osteochondral tissue of the medial femoral condyle. The residual meniscus was probed and was found to be stable. The residual osteochondral surface of the medial femoral condyle was stable. There was good decompression of the synovitis. Scope and probe were then guided into the intercondylar notch. Cruciates were identified, probed and found to be stable. The scope and probe were then guided into lateral compartment. There was a discoid lateral meniscus with a small tear centrally. There was mild grade 1 chondromalacia changes of the lateral compartment. There was some reactive synovitis anteriorly. I performed a partial lateral meni scectomy getting down to stable meniscal tissue. I performed a partial synovectomy decompressing the reactive synovitis. The residual meniscus was stable. There was good decompression of the synovitis. The scope was in guided back into the suprapatellar compartment. I introduced a motorized shaver into the suprapatellar compartment. I debrided some piecemeal fragments of meniscus that I encountered. I performed a partial synovectomy. Shaver was now removed. There was good decompression of the synovitis. I took one more look on the entire knee, no residual debris. Instruments were now removed from the joint. The joint was infiltrated with .25% Marcaine. Steri-Strips were applied to the portal sites. Sterile dressings were applied. The patient was placed into a LEMUEL hose. No tourniquet was utilized. The patient was awakened, transferred to a bed and taken to recovery stable satisfactory condition.
[2021-11-15 13:23] VITALS: TEMP 97.2
[2021-11-15 14:15] VITALS: RESP 20
[2021-11-15] MEDS ORDERED: HYDROcodone/APAP 10-325MG 1 EACH TAB PO ONE (14:32)
[2021-11-15] MEDS ORDERED: HYDROcodone/APAP 10-325MG 1 EACH TAB ONE (14:32)
[2021-11-15 15:07] VITALS: BP 144/87; PULSE 74
== END 2021-11-15 15:23 | disposition home or self-care (01) ==
LOC: OR 10:40
PROVIDERS: ATTEND Orthopaedic Surgery
DX: M23.301 Other meniscus derangements, unspecified lateral meniscus, left knee (principal); M23.304 Other meniscus derangements, unspecified medial meniscus, left knee; M94.262 Chondromalacia, left knee; M65.862 Other synovitis and tenosynovitis, left lower leg; J45.909 Unspecified asthma, uncomplicated; B20 Human immunodeficiency virus [HIV] disease; G40.909 Epilepsy, unspecified, not intractable, without status epilepticus; M79.7 Fibromyalgia; F41.9 Anxiety disorder, unspecified; F17.210 Nicotine dependence, cigarettes, uncomplicated; K21.9 Gastro-esophageal reflux disease without esophagitis; Z79.891 Long term (current) use of opiate analgesic; Z88.6 Allergy status to analgesic agent; Z88.8 Allergy status to other drugs, medicaments and biological substances; Z90.49 Acquired absence of other specified parts of digestive tract; Z90.710 Acquired absence of both cervix and uterus; Z98.891 History of uterine scar from previous surgery; Z87.448 Personal history of other diseases of urinary system
CPT/HCPCS: 29880; J2250; J0330; J1100; J0690; J2405; J3010; J2704; J1170; J2001

== ENCOUNTER 2022-02-14 13:41 | Observation (INO) | payer MEDICARE, OTHER ==
[2022-02-14] MEDS ORDERED: LORazepam 1 MG TAB PO STA (14:10)
[2022-02-14] MEDS ORDERED: IPRATROPIUM-ALBUTEROL 3 ML NEB INHALATION STA (14:10)
[2022-02-14] MEDS ORDERED: methylPREDNISolone SOD SUCCI 125 MG/2 ML VIAL IV STA (14:10)
--- NOTE | 2022-02-14 14:14 | ED ---
SOB HPI - General Chief Complaint: Shortness of Breath Stated Complaint: SOB/cough Time Seen by Provider: 02/14/22 13:47 Source: patient, RN notes reviewed Mode of arrival: ambulatory Limitations: no limitations - History of Present Illness Initial Comments: This is a 46-year-old female with a PMHx of AIDS and asthma who presents to the emergency department for difficulty breathing. Symptoms have been present over the last week. A few days ago she was at urgent care and given a shot of steroids, a breathing treatment, and started on doxycycline. She returned today, was given another breathing treatment and another dose of steroids. States that her breathing has not improved and she continues to feel worse. Urgent care subsequently instructed her to come to the emergency department. She is also using albuterol breathing treatments at home with no relief. States that she is also very tired and has associated chest pain. Believes that this may be related to her asthma. Denies any fevers, chills, sore throat, palpitations, abdominal pain, nausea, vomiting, diarrhea, back pain, or headaches. MD Complaint: shortness of breath, cough, chest pain Onset/Timin -: week(s) Known History Of: asthma - Related Data Home Oxygen Therapy: No Home Medications Medication Instructions Recorded Confirmed Budesonide-Formot 160-4.5 Mcg 2 puff INHALATION RT-BID 05/25/14 02/14/22 [Symbicort 160-4.5 Mcg Inhaler] Elviteg/Cob/Emtri/Tenof Alafen 1 tab PO DAILY 10/02/20 02/14/22 [Genvoya Tablet] HYDROcodone/APAP 10-325MG [[place] 1 tab PO Q8H PRN 10/02/20 02/14/22 10-325] Albuterol Inhaler [Ventolin Hfa 2 puff INHALATION RT-QID PRN 02/22/21 02/14/22 Inhaler] Erenumab-Aooe [Aimovig 140 mg SQ Q30D 11/13/21 02/14/22 Autoinjector] Acetaminophen [Tylenol Extra 1,500 mg PO Q6HR PRN 02/14/22 02/14/22 Strength] Atorvastatin [Lipitor] 20 mg PO DAILY 02/14/22 02/14/22 Doxycycline Hyclate 100 mg PO BID 02/14/22 02/14/22 Ergocalciferol (Vitamin D2) 1,250 mcg PO SA 02/14/22 02/14/22 [Drisdol (50,000 Iu)] Allergies Allergy/AdvReac Type Severity Reaction Status Date / Time amoxicillin [From Augmentin] Allergy Swelling Verified 02/14/22 16:39 clavulanic acid Allergy Swelling Verified 02/14/22 16:39 [From Augmentin] prochlorperazine edisylate Allergy Confusion Verified 02/14/22 16:39 [From Compazine] prochlorperazine maleate Allergy Confusion Verified 02/14/22 16:39 [From Compazine] morphine AdvReac Chest Pain Verified 02/14/22 16:39 Review of Systems ROS Statement: Those systems with pertinent positive or pertinent negative responses have been documented in the HPI. ROS Other: All systems not noted in ROS Statement are negative. Past Medical History Past Medical History: Asthma, Fibromyalgia, Pneumonia, Seizure Disorder Additional Past Medical History / Comment(s): HIV with AIDS. Last CD4 cell count of 8. migraines, "rt eye has scarring and freckles". uti's, "poor circulation" History of Any Multi-Drug Resistant Organisms: None Reported Past Surgical History: Section, Cholecystectomy, Hysterectomy, Orthopedic Surgery Additional Past Surgical History / Comment(s): left shoulder sx, c-sec x3 Past Anesthesia/Blood Transfusion Reactions: No Reported Reaction Additional Past Anesthesia/Blood Transfusion Reaction / Comment(s): Hard to awake. Past Psychological History: Anxiety, Depression Smoking Status: Current every day smoker Past Alcohol Use History: None Reported Past Drug Use History: Marijuana - Past Family History Mother Family Medical History: CVA/TIA, Diabetes Mellitus, Myocardial Infarction ([place]) Additional Family Medical History / Comment(s): sarcoidosis, osteoporosis Father Family Medical History: Asthma, COPD General Exam Limitations: no limitations General appearance: alert, in distress Head exam: Present: atraumatic, normocephalic, normal inspection Respiratory exam: Present: wheezes, decreased breath sounds, prolonged expiratory, other (labored breathing) Cardiovascular Exam: Present: regular rate, normal rhythm, normal heart sounds. Absent: systolic murmur, diastolic murmur, rubs, gallop, clicks Neurological exam: Present: alert, oriented X3, CN II-XII intact Psychiatric exam: Present: normal affect, normal mood Skin exam: Present: warm, dry, intact, normal color. Absent: rash Course Vital Signs 02/14/22 02/14/22 02/14/22 13:43 14:54 15:12 Temperature 98.5 F Pulse Rate 87 82 75 Respiratory 20 22 Rate Blood Pressure 152/93 142/89 O2 Sat by Pulse 99 99 Oximetry 02/14/22 02/14/22 15:19 16:38 Temperature Pulse Rate 78 86 Respiratory 18 Rate Blood Pressure 134/87 O2 Sat by Pulse 98 Oximetry Medical Decision Making - Medical Decision Making This is a 46-year-old female who presents to the emergency department for difficulty breathing. Patient is notably short of breath, she is having breathlessness when speaking and very labored breathing. When sitting up, the patient saturates between 95 and 99%. However if she tries to move or when she starts coughing, it drops to 87-90%. She had no relief with the DuoNeb and continues to be working very hard to breathe. Lab work obtained and found to be nonactionable. My interpretation of the chest x-ray reveals no localized consolidations or infiltrates. She was given a dose of Solu-Medrol. She was also given a dose of Ativan, as when she was first placed in the room she was having a lot of anxiety about her health and difficulty breathing, causing her to be very tearful. She is also considered immunocompromised with AIDS putting her at risk of opportunistic infection. Due to the patient's frequent oxygen desaturations and failed outpatient management, will admit to medicine for asthma exacerbation. Pulmonology consult placed per admitting team's request. This case was discussed in detail with the attending ED physician. Presentation, findings, and treatment plan discussed in detail as well. - Lab Data Result diagrams: 02/14/22 14:54 02/14/22 14:54 Lab Results 02/14/22 02/14/22 02/14/22 Range/Units 14:54 14:54 14:54 WBC 6.8 (3.8-10.6) k/uL RBC 5.15 (3.80-5.40) m/uL Hgb 15.6 (11.4-16.0) gm/dL Hct 44.9 (34.0-46.0) % MCV 87.2 (80.0-100.0) fL MCH 30.2 (25.0-35.0) pg MCHC 34.6 (31.0-37.0) g/dL RDW 12.2 (11.5-15.5) % Plt Count 226 (150-450) k/uL MPV 8.2 Neutrophils % 81 % Lymphocytes % 13 % Monocytes % 3 % Eosinophils % 1 % Basophils % 0 % Neutrophils # 5.5 (1.3-7.7) k/uL Lymphocytes # 0.9 L (1.0-4.8) k/uL Monocytes # 0.2 (0-1.0) k/uL Eosinophils # 0.1 (0-0.7) k/uL Basophils # 0.0 (0-0.2) k/uL PT 9.8 (9.0-12.0) sec INR 0.9 (<1.2) APTT 22.1 (22.0-30.0) sec D-Dimer 0.31 (<0.60) mg/L FEU Sodium 140 (137-145) mmol/L Potassium 4.3 (3.5-5.1) mmol/L Chloride 106 (98-107) mmol/L Carbon Dioxide 21 L (22-30) mmol/L Anion Gap 13 mmol/L BUN 14 (7-17) mg/dL Creatinine 0.97 (0.52-1.04) mg/dL Est GFR (CKD-EPI)AfAm 82 (>60 ml/min/1.73 sqM) Est GFR (CKD-EPI)NonAf 71 (>60 ml/min/1.73 sqM) Glucose 103 H (74-99) mg/dL Plasma Lactic Acid Rowdy (0.7-2.0) mmol/L Calcium 9.6 (8.4-10.2) mg/dL Total Bilirubin 0.6 (0.2-1.3) mg/dL AST 31 (14-36) U/L ALT 37 H (4-34) U/L Alkaline Phosphatase 77 (38-126) U/L Troponin I (0.000-0.034) ng/mL NT-Pro-B Natriuret Pep pg/mL Total Protein 8.7 H (6.3-8.2) g/dL Albumin 5.2 H (3.5-5.0) g/dL Urine Color Urine Appearance (Clear) Urine pH (5.0-8.0) Ur Specific [place] (1.001-1.035) Urine Protein (Negative) Urine Glucose (UA) (Negative) Urine Ketones (Negative) Urine Blood (Negative) Urine Nitrite (Negative) Urine Bilirubin (Negative) Urine Urobilinogen (<2.0) mg/dL Ur Leukocyte Esterase (Negative) Urine RBC (0-5) /hpf Urine WBC (0-5) /hpf Ur Squamous Epith Cells (0-4) /hpf Urine Bacteria (None) /hpf Urine Mucus (None) /hpf Urine HCG, Qual (Not Detectd) Coronavirus (PCR) (Not Detectd) Influenza Type A RNA (Not Detectd) Influenza Type B (PCR) (Not Detectd) 02/14/22 02/14/22 02/14/22 Range/Units 14:54 14:54 14:54 WBC (3.8-10.6) k/uL RBC (3.80-5.40) m/uL Hgb (11.4-16.0) gm/dL Hct (34.0-46.0) % MCV (80.0-100.0) fL MCH (25.0-35.0) pg MCHC (31.0-37.0) g/dL RDW (11.5-15.5) % Plt Count (150-450) k/uL MPV Neutrophils % % Lymphocytes % % Monocytes % % Eosinophils % % Basophils % % Neutrophils # (1.3-7.7) k/uL Lymphocytes # (1.0-4.8) k/uL Monocytes # (0-1.0) k/uL Eosinophils # (0-0.7) k/uL Basophils # (0-0.2) k/uL PT (9.0-12.0) sec INR (<1.2) APTT (22.0-30.0) sec D-Dimer (<0.60) mg/L FEU Sodium (137-145) mmol/L Potassium (3.5-5.1) mmol/L Chloride (98-107) mmol/L Carbon Dioxide (22-30) mmol/L Anion Gap mmol/L BUN (7-17) mg/dL Creatinine (0.52-1.04) mg/dL Est GFR (CKD-EPI)AfAm (>60 ml/min/1.73 sqM) Est GFR (CKD-EPI)NonAf (>60 ml/min/1.73 sqM) Glucose (74-99) mg/dL Plasma Lactic Acid Rowdy 2.9 H* (0.7-2.0) mmol/L Calcium (8.4-10.2) mg/dL Total Bilirubin (0.2-1.3) mg/dL AST (14-36) U/L ALT (4-34) U/L Alkaline Phosphatase (38-126) U/L Troponin I <0.012 (0.000-0.034) ng/mL NT-Pro-B Natriuret Pep 67 pg/mL Total Protein (6.3-8.2) g/dL Albumin (3.5-5.0) g/dL Urine Color Urine Appearance (Clear) Urine pH (5.0-8.0) Ur Specific [place] (1.001-1.035) Urine Protein (Negative) Urine Glucose (UA) (Negative) Urine Ketones (Negative) Urine Blood (Negative) Urine Nitrite (Negative) Urine Bilirubin (Negative) Urine Urobilinogen (<2.0) mg/dL Ur Leukocyte Esterase (Negative) Urine RBC (0-5) /hpf Urine WBC (0-5) /hpf Ur Squamous Epith Cells (0-4) /hpf Urine Bacteria (None) /hpf Urine Mucus (None) /hpf Urine HCG, Qual (Not Detectd) Coronavirus (PCR) (Not Detectd) Influenza Type A RNA (Not Detectd) Influenza Type B (PCR) (Not Detectd) 02/14/22 02/14/22 02/14/22 Range/Units 14:54 14:54 15:01 WBC (3.8-10.6) k/uL RBC (3.80-5.40) m/uL Hgb (11.4-16.0) gm/dL Hct (34.0-46.0) % MCV (80.0-100.0) fL MCH (25.0-35.0) pg MCHC (31.0-37.0) g/dL RDW (11.5-15.5) % Plt Count (150-450) k/uL MPV Neutrophils % % Lymphocytes % % Monocytes % % Eosinophils % % Basophils % % Neutrophils # (1.3-7.7) k/uL Lymphocytes # (1.0-4.8) k/uL Monocytes # (0-1.0) k/uL Eosinophils # (0-0.7) k/uL Basophils # (0-0.2) k/uL PT (9.0-12.0) sec INR (<1.2) APTT (22.0-30.0) sec D-Dimer (<0.60) mg/L FEU Sodium (137-145) mmol/L Potassium (3.5-5.1) mmol/L Chloride (98-107) mmol/L Carbon Dioxide (22-30) mmol/L Anion Gap mmol/L BUN (7-17) mg/dL Creatinine (0.52-1.04) mg/dL Est GFR (CKD-EPI)AfAm (>60 ml/min/1.73 sqM) Est GFR (CKD-EPI)NonAf (>60 ml/min/1.73 sqM) Glucose (74-99) mg/dL Plasma Lactic Acid Rowdy (0.7-2.0) mmol/L Calcium (8.4-10.2) mg/dL Total Bilirubin (0.2-1.3) mg/dL AST (14-36) U/L ALT (4-34) U/L Alkaline Phosphatase (38-126) U/L Troponin I (0.000-0.034) ng/mL NT-Pro-B Natriuret Pep pg/mL Total Protein (6.3-8.2) g/dL Albumin (3.5-5.0) g/dL Urine Color Yellow Urine Appearance Clear (Clear) Urine pH 6.5 (5.0-8.0) Ur Specific [place] 1.021 (1.001-1.035) Urine Protein 1+ H (Negative) Urine Glucose (UA) Negative (Negative) Urine Ketones Negative (Negative) Urine Blood Small H (Negative) Urine Nitrite Negative (Negative) Urine Bilirubin Negative (Negative) Urine Urobilinogen <2.0 (<2.0) mg/dL Ur Leukocyte Esterase Negative (Negative) Urine RBC 7 H (0-5) /hpf Urine WBC 4 (0-5) /hpf Ur Squamous Epith Cells 3 (0-4) /hpf Urine Bacteria Rare H (None) /hpf Urine Mucus Rare H (None) /hpf Urine HCG, Qual (Not Detectd) Coronavirus (PCR) Not Detected (Not Detectd) Influenza Type A RNA Not Detected (Not Detectd) Influenza Type B (PCR) Not Detected (Not Detectd) 02/14/22 Range/Units 15:01 WBC (3.8-10.6) k/uL RBC (3.80-5.40) m/uL Hgb (11.4-16.0) gm/dL Hct (34.0-46.0) % MCV (80.0-100.0) fL MCH (25.0-35.0) pg MCHC (31.0-37.0) g/dL RDW (11.5-15.5) % Plt Count (150-450) k/uL MPV Neutrophils % % Lymphocytes % % Monocytes % % Eosinophils % % Basophils % % Neutrophils # (1.3-7.7) k/uL Lymphocytes # (1.0-4.8) k/uL Monocytes # (0-1.0) k/uL Eosinophils # (0-0.7) k/uL Basophils # (0-0.2) k/uL PT (9.0-12.0) sec INR (<1.2) APTT (22.0-30.0) sec D-Dimer (<0.60) mg/L FEU Sodium (137-145) mmol/L Potassium (3.5-5.1) mmol/L Chloride (98-107) mmol/L Carbon Dioxide (22-30) mmol/L Anion Gap mmol/L BUN (7-17) mg/dL Creatinine (0.52-1.04) mg/dL Est GFR (CKD-EPI)AfAm (>60 ml/min/1.73 sqM) Est GFR (CKD-EPI)NonAf (>60 ml/min/1.73 sqM) Glucose (74-99) mg/dL Plasma Lactic Acid [place] (0.7-2.0) mmol/L Calcium (8.4-10.2) mg/dL Total Bilirubin (0.2-1.3) mg/dL AST (14-36) U/L ALT (4-34) U/L Alkaline Phosphatase (38-126) U/L Troponin I (0.000-0.034) ng/mL NT-Pro-B Natriuret Pep pg/mL Total Protein (6.3-8.2) g/dL Albumin (3.5-5.0) g/dL Urine Color Urine Appearance (Clear) Urine pH (5.0-8.0) Ur Specific [place] (1.001-1.035) Urine Protein (Negative) Urine Glucose (UA) (Negative) Urine Ketones (Negative) Urine Blood (Negative) Urine Nitrite (Negative) Urine Bilirubin (Negative) Urine Urobilinogen (<2.0) mg/dL Ur Leukocyte Esterase (Negative) Urine RBC (0-5) /hpf Urine WBC (0-5) /hpf Ur Squamous Epith Cells (0-4) /hpf Urine Bacteria (None) /hpf Urine Mucus (None) /hpf Urine HCG, Qual Not Detected (Not Detectd) Coronavirus (PCR) (Not Detectd) Influenza Type A RNA (Not Detectd) Influenza Type B (PCR) (Not Detectd) - EKG Data -: EKG Interpreted by Nv EKG Comments: Sinus rhythm. Normal axis. Ventricular rate 76 bpm, [place] interval 147 ms, QRS duration 100 ms, QTC 402 ms. - Radiology Data Radiology results: report reviewed, image reviewed Disposition Clinical Impression: Asthma exacerbation, AIDS (acquired immune deficiency syndrome) Disposition: ADMITTED IP TO THIS [facility] Referrals: None,Stated [REFERRING] - 1-2 days
[2022-02-14 15:00] LABS: Basophils % (A) 0 %; Eosinophils # (A) 0.1 k/uL (0-0.7); Eosinophils % (A) 1 %; HCT 44.9 % (34.0-46.0); HGB 15.6 gm/dL (11.4-16.0); Lymphocytes # (A) 0.9 k/uL (1.0-4.8); Lymphocytes % (A) 13 %; MCH 30.2 pg (25.0-35.0); MCHC 34.6 g/dL (31.0-37.0); MCV 87.2 fL (80.0-100.0); Mean Platelet Volume 8.2; Monocytes # (A) 0.2 k/uL (0-1.0); Monocytes % (A) 3 %; Neutrophils # (A) 5.5 k/uL (1.3-7.7); Neutrophils % (A) 81 %; Platelet Count 226 k/uL (150-450); RBC 5.15 m/uL (3.80-5.40); RDW 12.2 % (11.5-15.5); WBC 6.8 k/uL (3.8-10.6)
--- NOTE | 2022-02-14 15:04 | XR ---
EXAMINATION TYPE: XR chest 2V DATE OF EXAM: 02/14/2022 COMPARISON: 05/01/2021 HISTORY: Cough TECHNIQUE: 2 views FINDINGS: Heart and mediastinum are normal. Lungs are clear. Diaphragm is normal. Bony thorax is inta ct. There is neural stimulator in the thoracic spine. There are chest leads. IMPRESSION: Normal chest. No change.
[2022-02-14 15:20] LABS: INR 0.9 (<1.2); Partial Thromboplastin Time 22.1 sec (22.0-30.0); Prothrombin Time 9.8 sec (9.0-12.0)
[2022-02-14 15:22] LABS: Albumin 5.2 g/dL (3.5-5.0); Calcium 9.6 mg/dL (8.4-10.2); Potassium 4.3 mmol/L (3.5-5.1); Total Bilirubin 0.6 mg/dL (0.2-1.3); Total Protein 8.7 g/dL (6.3-8.2)
[2022-02-14 15:23] LABS: Appearance,Urine Clear (Clear); Bacteria,Urine Rare /hpf; Bilirubin,Urine Negative (Negative); Blood,Urine Small (Negative); Color,Urine Yellow; Glucose,Urine (UA) Negative (Negative); Ketones,Urine Negative (Negative); Leukocyte Esterase,Urine Negative (Negative); Mucus,Urine Rare /hpf; Nitrite,Urine Negative (Negative); PH, Urine 6.5 (5.0-8.0); Protein,Urine 1+ (Negative); RBC,Urine 7 /hpf (0-5); Specific Gravity,Urine 1.021 (1.001-1.035); Squamous Epithelial Cell,Urine 3 /hpf (0-4); Urobilinogen,Urine <2.0 mg/dL (<2.0); WBC,Urine 4 /hpf (0-5)
[2022-02-14] MEDS ORDERED: ACETAMINOPHEN TAB 325 MG TAB PO PRN (17:26)
[2022-02-14] MEDS ORDERED: NALOXONE 0.4 MG/ML 1 ML VIAL IV PRN (17:26)
[2022-02-14] MEDS ORDERED: IBUPROFEN 400 MG TAB PO PRN (17:26)
[2022-02-14] MEDS ORDERED: SODIUM CHLORIDE 0.9% 500 ML 500 ML IV ONE (19:58)
[2022-02-14] MEDS: HYDROcodone/APAP 10-325MG 1 EACH TAB PO PRN (20:13)
[2022-02-14] MEDS: SYMBICORT 160-4.5 MCG INHALER INHALATION SCH (20:34)
[2022-02-14] MEDS: ALBUTEROL NEBULIZED 2.5 MG/3 ML INHALATION SCH (20:34)
[2022-02-14 21:17] LABS: Glucose,Whole Blood 269 mg/dL (70-110)
--- NOTE | 2022-02-14 21:41 | CT ---
EXAMINATION TYPE: CT brain wo con DATE OF EXAM: 02/14/2022 COMPARISON: 11/18/2017 HISTORY: Code stroke CT DLP: 1208.50 mGycm Automated exposure control for dose reduction was used. Images of the brain obtained with no contrast. Ventricles have normal size. There is no mass effect or midline shift. No sign of intracranial hemorr idalmis. The calvarium is intact. Skull base is intact. IMPRESSION: Negative unenhanced head CT scan. No change.
[2022-02-14] MEDS: LORazepam 2 MG/ML INJ IV PRN (22:02)
[2022-02-14] MEDS ORDERED: levETIRAcetam IV 1,000 MG in SALINE 1 100ML.BAG IVPB ONE (22:15)
[2022-02-14] MEDS: SODIUM CHLORIDE 0.9% 1,000 ML IV SCH (23:06)
[2022-02-15] MEDS: methylPREDNISolone SOD SUCCI 40 MG/ML 1 ML VIAL IV SCH ×3 (00:24→16:25)
[2022-02-15] MEDS: ALBUTEROL NEBULIZED 2.5 MG/3 ML INHALATION SCH ×7 (01:06→23:40)
[2022-02-15] MEDS: [UNRECOGNIZED DRUG - OTHER] PO SCH (08:22)
[2022-02-15] MEDS: ATORVASTATIN 20 MG TAB PO SCH (08:24)
[2022-02-15] MEDS: FAMOTIDINE 20 MG TAB PO SCH (08:24)
[2022-02-15] MEDS: LORazepam 2 MG/ML INJ IV PRN (08:31)
[2022-02-15] MEDS: levETIRAcetam IV 500 MG in SODIUM CHLORIDE 0.9% 100 ML IVPB SCH ×2 (08:34→21:19)
[2022-02-15] MEDS: SYMBICORT 160-4.5 MCG INHALER INHALATION SCH ×2 (09:31→19:41)
--- NOTE | 2022-02-15 10:32 | P.CNNES ---
History of Present Illness Consult date: 02/15/22 Requesting physician: Freeman Gifford Reason for Consult: Possible seizure History of Present Illness: Patient is a 46-year-old female, with AIDS, most recent CD4 count of 69, came to the hospital yesterday at 1:41 PM for wheezing, shortness of breath and worsening of asthma. While in the hospital, she had a seizure type spell last night at 11:05 PM per nursing report, patient complained of pressure in her head , not feeling well. Her blood pressure was 123/80. At 11:05 PM, patient apparently became unresponsive, nonverbal to name and touched, I started to flinch and left-sided facial droop. Stroke code was initiated. Nursing staff contacted Dr. Epperson, and Keppra and Ativan were given. This prompted neurology consultation. Today at 8:52 AM, patient had another spell, when she was talking to the nurse and started to stare off. Patient became unresponsive, left arm contracted, left facial droop and the episode lasted for a minute. Patient was given Ativan 0.5 mg. Her blood pressure was 155/97. Patient states she has history of seizure disorder that started about 6 years ago. Patient stated that she had pneumonia, and was hospitalized for 8 days. She received lot of steroids during hospitalization. 2 weeks after discharge seizures started happening. The seizures would occur everyday, in and out all day. She would be confused, locks up. She was hospitalized at [facility] nt had multiple MRIs, EEGs even EEG overnight and no seizure activity was found. She was diagnosed with nonepileptic seizures. Patient states that after 2-3 years, the seizures slowed down in frequency. However she has noticed that every time she takes prednisone, her anxiety gets super high, and she goes into panic attacks. Over the years she has learned breathing exercises and she make sure that she does not get prednisone. Patient states that recently her asthma started acting up. She went to the [facility] urgent care where she was given dexamethasone on 02/12/2022. Her symptoms did not improve, therefore she received another dose of dexamethasone 2 days later, which is yesterday on . Her asthma could not get under control with a lot of freezing therefore she came to the hospital for further management of her asthma. Patient states that she still get seizure-like spells, once in a while when she gets confused and foggy. She states her speech and hence lockup, she does not shake. She freezes. These episodes are occurring about couple times a month lasting for 10 minutes. However after this spell, she is confused for "hours". She has noticed that she cannot get her thoughts together. She goes into a stare or gets "clicking of her tongue". Patient says that she tried Depakote, which was too strong for her. Vital signs arrival blood pressure 152/93, pulse rate 87 temperature 98.5. Patient's blood test shows normal CBC, PT/PTT, normal electrolytes and renal functions. Lactate was 2.9, which went up to 4.0. AST normal, ALT 37. Troponin is negative. UA negative. Coronal virus PCR and influenza screen negative. CT head reported as negative. I personally review CT head, agree with the findings. No acute process. Visualized paranasal sinuses are clear. Chest x-ray is normal with no change. EKG shows normal sinus rhythm. Patient's home medications include Symbicort, Genvoya, [place] 10/325 mg every 8 hours when necessary, albuterol, Aimovig 140 mg subcu every 30 days, Lipitor 20 mg, vitamin D 50,000 units, doxycycline 100 mg twice a day Patient has been seen by myself previously on 10/06/2020 for right leg pain, on pre-existing chronic back pain. Patient had previous normal EEGs on 05/26/2014 and 11/19/2017. Patient denies diabetes. She does have hypertension and hyperlipidemia. Patient has chronic back pain. She has a spinal cord stimulator. She has aids for 25 years. Patient still smokes < 5 cigarettes per day. She says that she has been a light smoker for over 20 years. Denies any alcohol or drugs. Review of Systems Constitutional: Denies chills, Denies fever Eyes: denies blurred vision, denies pain Ears, nose, mouth and throat: Denies headache, Denies sore throat Cardiovascular: Reports shortness of breath, Denies chest pain Respiratory: Reports cough, Reports cough with sputum, Reports wheezing Gastrointestinal: Denies abdominal pain, Denies diarrhea, Denies nausea, Denies vomiting Genitourinary: Denies dysuria, Denies hematuria Musculoskeletal: Reports low back pain, Reports muscle cramps, Denies myalgias Integumentary: Denies pruritus, Denies rash Neurological: Reports as per HPI Psychiatric: Reports anxiety, Reports depression Endocrine: Denies fatigue, Denies weight change Hematologic/Lymphatic: Denies easy bruising Allergic/Immunologic: Reports persistent infections, Reports wheezing Past Medical History Past Medical History: Asthma, Fibromyalgia, Pneumonia, Seizure Disorder Additional Past Medical History / Comment(s): HIV with AIDS. migraines, "rt eye has scarring and freckles". uti's, "poor circulation" History of Any Multi-Drug Resistant Organisms: None Reported Past Surgical History: Section, Cholecystectomy, Hysterectomy, Orthopedic Surgery Additional Past Surgical History / Comment(s): left shoulder sx, c-sec x3, spinal fusion, spinal stimulator Past Anesthesia/Blood Transfusion Reactions: No Reported Reaction Additional Past Anesthesia/Blood Transfusion Reaction / Comment(s): Hard to awake. Past Psychological History: Anxiety, Depression Additional Psychological History / Comment(s): Pt lives at home with her 3 children. She is independent normally. 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 No injection drug use. No experience. No extensive travel history. Smoking Status: Current every day smoker Past Alcohol Use History: None Reported Additional Past Alcohol Use History / Comment(s): started smoking 1988 smoked 1 pack per week and quit Past Drug Use History: Marijuana Additional Drug Use History / Comment(s): Edibles once in a while to sleep. - Past Family History Mother Family Medical History: CVA/TIA, Diabetes Mellitus, Myocardial Infarction ([place]) Additional Family Medical History / Comment(s): sarcoidosis, osteoporosis Father Family Medical History: Asthma, COPD Medications and Allergies Home Medications Medication Instructions Recorded Confirmed Type Budesonide-Formot 160-4.5 Mcg 2 puff INHALATION RT-BID 05/25/14 02/14/22 History [Symbicort 160-4.5 Mcg Inhaler] Elviteg/Cob/Emtri/Tenof Alafen 1 tab PO DAILY 10/02/20 02/14/22 History [Genvoya Tablet] HYDROcodone/APAP 10-325MG [[place] 1 tab PO Q8H PRN 10/02/20 02/14/22 History 10-325] Albuterol Inhaler [Ventolin Hfa 2 puff INHALATION RT-QID PRN 02/22/21 02/14/22 History Inhaler] Erenumab-Aooe [Aimovig 140 mg SQ Q30D 11/13/21 02/14/22 History Autoinjector] Acetaminophen [Tylenol Extra 1,500 mg PO Q6HR PRN 02/14/22 02/14/22 History Strength] Atorvastatin [Lipitor] 20 mg PO DAILY 02/14/22 02/14/22 History Doxycycline Hyclate 100 mg PO BID 02/14/22 02/14/22 History Ergocalciferol (Vitamin D2) 1,250 mcg PO SA 02/14/22 02/14/22 History [Drisdol (50,000 Iu)] Allergies Allergy/AdvReac Type Severity Reaction Status Date / Time amoxicillin [From Augmentin] Allergy Swelling Verified 02/14/22 16:39 clavulanic acid Allergy Swelling Verified 02/14/22 16:39 [From Augmentin] prochlorperazine edisylate Allergy Confusion Verified 02/14/22 16:39 [From Compazine] prochlorperazine maleate Allergy Confusion Verified 02/14/22 16:39 [From Compazine] morphine AdvReac Chest Pain Verified 02/14/22 16:39 Physical Examination - Vital Signs Vital Signs: Vital Signs Temp Pulse Pulse Resp BP BP Pulse Ox 02/15/22 08:15 98.5 F 69 20 120/75 96 02/15/22 05:19 88 02/15/22 05:11 88 02/15/22 04:12 98.7 F 85 16 139/76 95 02/15/22 01:16 80 02/15/22 01:06 88 02/14/22 23:23 97.7 F 105 H 20 123/68 95 02/14/22 20:50 74 02/14/22 20:38 76 02/14/22 19:28 97.2 F L 101 H 20 131/81 95 02/14/22 18:00 97.8 F 92 96 16 146/92 137/89 96 02/14/22 16:38 86 18 134/87 98 02/14/22 15:19 78 02/14/22 15:12 75 02/14/22 14:54 82 22 142/89 99 02/14/22 13:43 98.5 F 87 20 152/93 99 Intake and Output 02/14/22 02/15/22 02/15/22 22:59 06:59 14:59 Other: Voiding Method Toilet # Voids 2 Weight 108.409 kg Patient is a middle aged female, in no acute distress. Patient is alert awake oriented to time place and person. Patient knows it is January 2022 and that she is in [facility] in [place]. Speech and language functions are normal. Patient can name and repeat very well. No aphasia or dysarthria. Attention, concentration and fund of knowledge is adequate. On cranial nerve examination, pupils are equal, round and reacting to light, visual zavala are full on confrontation, with no neglect on double simultaneous stimulation. Extraocular muscles are intact with no nystagmus. She holds her face/mouth as if there is left-sided drooping. However it appears fairly equal on active testing. Her tongue protrudes to the midline. Palatal elevation and sensation normal, hearing and shoulder shrug normal, facial sensation decreased on the left. On muscle strength testing, there is no pronator drift and the strength is normal in arms and legs distally and proximally. Deep tendon reflexes are symmetric biceps 1+, brachioradialis 1+, knees 1 and plantars are downgoing bilaterally. Sensory to touch is decreased in the entire left side of the body including face arm and leg. No neglect on double simultaneous depression. Cerebellar function showed no ataxia for [id number] testing. No dysdiadochokinesia. No ataxia for [id number] testing on either side. Tone and bulk of muscles normal. Gait deferred.. On general examination, there is no carotid bruit or murmur, S1-S2 audible. Chest is clear on consultation. Abdomen is soft nontender. No organomegaly, bowel sounds present. Peripheral pulses are present. No edema. Results - Laboratory Findings CBC and BMP: 02/14/22 14:54 02/14/22 14:54 Abnormal Lab Findings: Abnormal Labs 02/14/22 02/14/22 02/14/22 14:54 14:54 14:54 Lymphocytes # 0.9 L Carbon Dioxide 21 L Glucose 103 H POC Glucose (mg/dL) Plasma Lactic Acid Rowdy 2.9 H* ALT 37 H Total Protein 8.7 H Albumin 5.2 H Urine Protein Urine Blood Urine RBC Urine Bacteria Urine Mucus 02/14/22 02/14/22 02/14/22 15:01 18:01 21:15 Lymphocytes # Carbon Dioxide Glucose POC Glucose (mg/dL) 269 H Plasma Lactic Acid Rowdy 4.0 H* ALT Total Protein Albumin Urine Protein 1+ H Urine Blood Small H Urine RBC 7 H Urine Bacteria Rare H Urine Mucus Rare H 02/14/22 02/15/22 02/15/22 22:16 02:01 05:40 Lymphocytes # Carbon Dioxide Glucose POC Glucose (mg/dL) Plasma Lactic Acid Rowdy 3.4 H* 2.3 H* 2.5 H* ALT Total Protein Albumin Urine Protein Urine Blood Urine RBC Urine Bacteria Urine Mucus Assessment and Plan Assessment: * Possible seizure disorder, with breakthrough seizure while in the hospital. 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 Rule out epileptic versus nonepileptic seizures. * Numbness of the left side, left facial droop, rule out stroke/TIA. * Acute exacerbation of asthma * HIV, AIDS * Tobacco use * Hyperlipidemia * Hypertension * Chronic back pain * Spinal cord stimulator Plan: * EEG evaluate for epileptiform activity * Carotid Doppler * 2-D echo to rule out embolic source. * Patient cannot have MRI of the brain, due to presence of spinal cord stimula tor. Patient had a recent MRI of brain performed at [facility]. We will try to obtain the results. * B12, folate, fasting lipid panel. Patient had a normal hemoglobin A1c 5.7 on 04/06/2021, and TSH 2.26. * Patient has been loaded with Keppra 1000 mg IV 1 dose followed by 500 mg twice a day. We will continue Keppra for now. * Patient does have multiple vascular risk factors. We'll start aspirin 81 mg daily for stroke prevention. * Treatment of asthma and other medical conditions as per IM and other specialties. * Recommend complete tobacco cessation. * Neurology will follow. Thank you for the consult. Time with Patient: Greater than 30
--- NOTE | 2022-02-15 11:09 | P.CNPUL ---
History of Present Illness Consult date: 02/15/22 Reason for consult: dyspnea History of present illness: 46-year-old female patient, known history of asthma/COPD was been maintained on Symbicort on outpatient basis. The patient was having worsening shortness of breath and symptoms of bronchitis and increased COPD/asthma exacerbation. She was seen at the urgent care where she was given a course of doxycycline. She came to the emergency department as the patient was having worsening shortness of breath and she was requiring frequent breathing treatments. She was requesting steroids. Note that she was given a steroid shot at the urgent care. The patient was also feeling tired. She was having some nonspecific chest aching. She is a chronic smoker and she smokes approximately one pack of cigarettes a day and currently she is wearing a pain patch nicotine patch. At the same time, the patient is receiving a combination of treatment for her HIV and she is currently on a combination of Genvoya and Aimovig. Her CD4 counts were low. Based on all this, the patient was admitted to the hospital and while in the hospital, she had a epileptic event and for that reason a neuro cons ultation was requested and the patient is undergoing a neuro consultation. She was quite anxious in the emergency department and she was tearful and she was given Ativan. This morning, the patient was seen by neurology. She is being worked up for possible seizure disorder/breakthrough seizure possibly nonepileptic in nature versus pseudoseizures. She did express some numbness in her left side involving the left upper extremity and left face and leg. EEG is to be done. Carotid Dopplers are ordered. Unable to do an MRI as the patient has a nerve stimulator. She was loaded with IV Keppra. She is also being treated for COPD/asthma exacerbation. The white cycles at 6.8 with a hemoglobin of 15.6. The lactic acid level was at 3.4 dropped down to 2.5. Normal coagulation profile. Normal electrolytes. Troponins were negative. Covid 19 testing was negative. Influenza screen was negative. Her most serious recent CD4 count is 69. This was measured on 10/04/2021. Review of Systems Constitutional: Reports weakness Eyes: denies blurred vision, denies bulging eye, denies decreased vision Ears: deny: decreased hearing, ear discharge, earache, tinnitus Ears, nose, mouth and throat: Denies headache, Denies sore throat Cardiovascular: Reports decreased exercise tolerance, Reports dyspnea on exertion, Reports shortness of breath Respiratory: Reports cough, Reports dyspnea, Reports respiratory infections, Reports wheezing Gastrointestinal: Reports heartburn Genitourinary: Reports pelvic pain, Reports post void dribbling, Reports urgency , Reports vaginal dryness Musculoskeletal: Denies myalgias Musculoskeletal: absent: ankle pain, ankle stiffness, ankle swelling Integumentary: Denies pruritus, Denies rash Neurological: Denies numbness, Denies weakness Psychiatric: Denies anxiety, Denies depression Endocrine: Denies fatigue, Denies weight change All systems: negative Constitutional: Reports chronic pain, Reports daytime sleepiness, Reports fatigue, Reports weakness, Reports weight gain Eyes: denies as per HPI, denies blurred vision, denies bulging eye, denies decreased vision, denies diplopia, denies discharge, denies dry eye, denies irritation, denies itching, denies pain, denies photophobia, denies loss of peripheral vision, denies loss of vision, denies tunnel vision/blind spots Ears: deny: decreased hearing, ear discharge, earache, tinnitus Ears, nose, mouth and throat: Reports as per HPI Breasts: absent: as per HPI, change in shape, gynecomastia Breasts: Reports as per HPI Cardiovascular: Reports decreased exercise tolerance, Reports dyspnea on exertion Respiratory: Reports cough, Reports dyspnea, Reports wheezing Gastrointestinal: Reports as per HPI Genitourinary: Reports as per HPI Menstruation: Reports as per HPI Musculoskeletal: Reports as per HPI Musculoskeletal: absent: ankle pain, ankle stiffness, ankle swelling Integumentary: Reports as per HPI Neurological: Reports as per HPI, Reports seizures, Reports weakness Psychiatric: Reports as per HPI Endocrine: Reports as per HPI Hematologic/Lymphatic: Reports as per HPI Allergic/Immunologic: Reports as per HPI Past Medical History Past Medical History: Asthma, Fibromyalgia, Pneumonia, Seizure Disorder Additional Past Medical History / Comment(s): HIV with AIDS. migraines, "rt eye has scarring and freckles". uti's, "poor circulation" History of Any Multi-Drug Resistant Organisms: None Reported Past Surgical History: Section, Cholecystectomy, Hysterectomy, Orthopedic Surgery Additional Past Surgical History / Comment(s): left shoulder sx, c-sec x3, spinal fusion, spinal stimulator Past Anesthesia/Blood Transfusion Reactions: No Reported Reaction Additional Past Anesthesia/Blood Transfusion Reaction / Comment(s): Hard to awake. Past Psychological History: Anxiety, Depression Additional Psychological History / Comment(s): Pt lives at home with her 3 children. She is independent normally. 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 No injection drug use. No experience. No extensive travel history. Smoking Status: Current every day smoker Past Alcohol Use History: None Reported Additional Past Alcohol Use History / Comment(s): started smoking 1988 smoked 1 pack per week and quit Past Drug Use History: Marijuana Additional Drug Use History / Comment(s): Edibles once in a while to sleep. - Past Family History Mother Family Medical History: CVA/TIA, Diabetes Mellitus, Myocardial Infarction ([place]) Additional Family Medical History / Comment(s): sarcoidosis, osteoporosis Father Family Medical History: Asthma, COPD Medications and Allergies Home Medications Medication Instructions Recorded Confirmed Type Budesonide-Formot 160-4.5 Mcg 2 puff INHALATION RT-BID 05/25/14 02/14/22 History [Symbicort 160-4.5 Mcg Inhaler] Elviteg/Cob/Emtri/Tenof Alafen 1 tab PO DAILY 10/02/20 02/14/22 History [Genvoya Tablet] HYDROcodone/APAP 10-325MG [[place] 1 tab PO Q8H PRN 10/02/20 02/14/22 History 10-325] Albuterol Inhaler [Ventolin Hfa 2 puff INHALATION RT-QID PRN 02/22/21 02/14/22 H istory Inhaler] Erenumab-Aooe [Aimovig 140 mg SQ Q30D 11/13/21 02/14/22 History Autoinjector] Acetaminophen [Tylenol Extra 1,500 mg PO Q6HR PRN 02/14/22 02/14/22 History Strength] Atorvastatin [Lipitor] 20 mg PO DAILY 02/14/22 02/14/22 History Doxycycline Hyclate 100 mg PO BID 02/14/22 02/14/22 History Ergocalciferol (Vitamin D2) 1,250 mcg PO SA 02/14/22 02/14/22 History [Drisdol (50,000 Iu)] Allergies Allergy/AdvReac Type Severity Reaction Status Date / Time amoxicillin [From Augmentin] Allergy Swelling Verified 02/14/22 16:39 clavulanic acid Allergy Swelling Verified 02/14/22 16:39 [From Augmentin] prochlorperazine edisylate Allergy Confusion Verified 02/14/22 16:39 [From Compazine] prochlorperazine maleate Allergy Confusion Verified 02/14/22 16:39 [From Compazine] morphine AdvReac Chest Pain Verified 02/14/22 16:39 Physical Exam Vitals: Vital Signs Temp Pulse Pulse Resp BP BP Pulse Ox 02/15/22 08:40 131/78 02/15/22 08:30 155/97 02/15/22 08:15 98.5 F 69 20 120/75 96 02/15/22 05:19 88 02/15/22 05:11 88 02/15/22 04:12 98.7 F 85 16 139/76 95 02/15/22 01:16 80 02/15/22 01:06 88 02/14/22 23:23 97.7 F 105 H 20 123/68 95 02/14/22 20:50 74 02/14/22 20:38 76 02/14/22 19:28 97.2 F L 101 H 20 131/81 95 02/14/22 18:00 97.8 F 92 96 16 146/92 137/89 96 02/14/22 16:38 86 18 134/87 98 02/14/22 15:19 78 02/14/22 15:12 75 02/14/22 14:54 82 22 142/89 99 02/14/22 13:43 98.5 F 87 20 152/93 99 Intake and Output 02/14/22 02/15/22 02/15/22 22:59 06:59 14:59 Other: Voiding Method Toilet # Voids 2 Weight 108.409 kg Head exam was generally normal. There was no scleral icterus or corneal arcus. Mucous membranes were moist.Neck was supple and without jugular venous distension, thyromegaly, or carotid bruits. Carotids were easily palpable bilaterally. There was no adenopathy. Lung sounds are markedly diminished and there is diffuse expiratory wheezes throughout lung his bilaterally.Cardiac exam revealed the PMI to be normally situated and sized. The rhythm was regular and no extrasystoles were noted during several minutes of auscultation. The first and second heart sounds were normal and physiologic splitting of the second heart sound was noted. There were no murmurs, rubs, clicks, or gallops.Abdominal exam revealed normal bowel sounds. The abdomen was soft, non-tender, and without masses, organomegaly, or appreciable enlargement of the abdominal aorta.Examination of the extremities revealed easily palpable radial, femoral and pedal pulses. There was no cyanosis, clubbing or edema. Results - Laboratory Findings CBC and BMP: 02/14/22 14:54 02/14/22 14:54 PT/INR, D-dimer PT 9.8 sec (9.0-12.0) 02/14/22 14:54 INR 0.9 (<1.2) 02/14/22 14:54 D-Dimer 0.31 mg/L FEU (<0.60) 02/14/22 14:54 Abnormal lab findings: Abnormal Labs 02/14/22 02/14/22 02/14/22 14:54 14:54 14:54 Lymphocytes # 0.9 L Carbon Dioxide 21 L Glucose 103 H POC Glucose (mg/dL) Plasma Lactic Acid Rowdy 2.9 H* ALT 37 H Total Protein 8.7 H Albumin 5.2 H Urine Protein Urine Blood Urine RBC Urine Bacteria Urine Mucus 02/14/22 02/14/22 02/14/22 15:01 18:01 21:15 Lymphocytes # Carbon Dioxide Glucose POC Glucose (mg/dL) 269 H Plasma Lactic Acid Rowdy 4.0 H* ALT Total Protein Albumin Urine Protein 1+ H Urine Blood Small H Urine RBC 7 H Urine Bacteria Rare H Urine Mucus Rare H 02/14/22 02/15/22 02/15/22 22:16 02:01 05:40 Lymphocytes # Carbon Dioxide Glucose POC Glucose (mg/dL) Plasma Lactic Acid Rowdy 3.4 H* 2.3 H* 2.5 H* ALT Total Protein Albumin Urine Protein Urine Blood Urine RBC Urine Bacteria Urine Mucus - Diagnostic Findings Chest x-ray: image reviewed Assessment and Plan Plan: acute COPD/ asthma exacerbation, the viral screen was negative and a chest x-ray is free of any acute pulmonary infiltration. Currently on room air oxygen. Slightly improved compared to yesterday although she still bronchospastic and wheezy. Seizures versus pseudoseizures currently under investigation. Awaiting EEG and carotid Dopplers. Patient was loaded with Keppra obesity HIV/AIDS, currently under treatment. Most recent CD4 count is up to 120 after being as low as 70 as the patient was started on antiretroviral treatment. anxiety/depression, history of chronic pain Smoker plan Continue bronchodilators and steroids. Continue antiepileptic treatment and neuro workup is in progress. Smoking cessation counseling was done. The patient will be given nicotine patch. We'll continue to follow and will make further recommendations based on her progress.
--- NOTE | 2022-02-15 11:15 | US ---
EXAMINATION TYPE: US carotid duplex BILAT DATE OF EXAM: 02/15/2022 COMPARISON: NONE CLINICAL HISTORY: ?facial droop. Facial droop TECHNIQUE: Carotid duplex ultrasound examination. Indirect Doppler criteria was utilized. FINDINGS: EXAM MEASUREMENTS: RIGHT: Peak Systolic Velocity (PSV) cm/sec ----- Right CCA: 117.6 ----- Right ICA: 72.4 ----- Right ECA: 160.1 ICA/CCA ratio: 0.6 RIGHT: End Diastole cm/sec ----- Right CCA: 21.7 ----- Right ICA: 28.5 ----- Right ECA: 20.7 LEFT: Peak Systolic Velocity (PSV) cm/sec ----- Left CCA: 127.4 ----- Left ICA: 85.3 ----- Left ECA: 121.0 ICA/CCA ratio: 0.7 LEFT: End Diastole cm/sec ----- Left CCA: 24.1 ----- Left ICA: 21.9 ----- Left ECA: 17.6 VERTEBRALS (direction of flow): Right Vertebral: Antegrade Left Vertebral: Antegrade Rhythm: Normal PEST CONTROL PILOT NOTES: Mild plaque bilateral bifurcations. Mildly elevated velocities right ECA IMPRESSION: Less than 50% stenosis of the bilateral carotid bifurcations Criteria for Assigning % of Stenosis / Diameter reduction (Estimation based on the indirect measurements of the internal carotid artery velocities (ICA PSV). 1. Normal (no stenosis)=ICA PSV < 125 cm/s: ratio < 2.0: ICA EDV<40 cm/s. 2. Less than 50% stenosis=ICA PSV < 125 cm/s: ratio < 2.0: ICA EDV<40 cm/s. 3. 50 to 69% stenosis=ICA PSV of 125 to 230 cm/s: ration 2.0 ? 4.0: ICA EDV 40-100 cm/s. 4. Greater than 70% stenosis to near occlusion= ICA PSV > 230 cm/s: ratio > 4.0: ICA EDV > 100 cm/s. 5. Near occlusion= ICA PSV velocities may be low or undetectable: variable ratio and ICA EDV. 6. Total occlusion=unable to detect flow.
[2022-02-15] MEDS: ASPIRIN 81 MG PO SCH (11:50)
[2022-02-15] MEDS: HYDROcodone/APAP 10-325MG 1 EACH TAB PO PRN ×2 (11:51→21:24)
[2022-02-15] MEDS: SODIUM CHLORIDE 0.9% 1,000 ML IV SCH (11:55)
--- NOTE | 2022-02-15 12:36 | P.HPIM ---
History of Present Illness H&P Date: 02/15/22 History of present illness; patient is a 46-year-old lady with past medical history significant for asthma, HIV with AIDS, fibromyalgia who presented to the ER because of shortness of breath. Patient has been complaining of worsening shortness of breath for the last couple of weeks. Patient was seen in urgent care and was given a course of doxycycline. Patient states that her breathing did not improve so she came to the ER. Patient denies any fevers or chills . Denies any lethargy or weakness. In the ER, patient was worked up, chest x-ray was negative for pneumonia, patient was admitted to hospitalist service. In the hospital, patient had episode of seizure like activity. At that time patient had a computed tomography scan also had that was negative for any acute intrarenal process. Neurology and pulmonology were consulted. REVIEW OF SYSTEMS: CONSTITUTIONAL: No fever, no malaise, no fatigue. HEENT: No recent visual problems or hearing problems. Denied any sore throat. CARDIOVASCULAR: As mentioned in HPI PULMONARY: As mentioned in HPI GASTROINTESTINAL: No diarrhea, no nausea, no vomiting, no abdominal pain. NEUROLOGICAL: No headaches, no weakness, no numbness. HEMATOLOGICAL: Denies any bleeding or petechiae. GENITOURINARY: Denies any burning micturition, frequency, or urgency. MUSCULOSKELETAL/RHEUMATOLOGICAL: Denies any joint pain, swelling, or any muscle pain. ENDOCRINE: Denies any polyuria or polydipsia. The rest of the 14-point review of systems is negative. PHYSICAL EXAMINATION: GENERAL: The patient is alert and oriented x3, not in any acute distress. Well developed, well nourished. HEENT: Pupils are round and equally reacting to light. EOMI. No scleral icterus. No conjunctival pallor. Normocephalic, atraumatic. No pharyngeal erythema. No thyromegaly. CARDIOVASCULAR: S1 and S2 present. No murmurs, rubs, or gallops. PULMONARY: Chest is clear to auscultation, no wheezing or crackles. ABDOMEN: Soft, nontender, nondistended, normoactive bowel sounds. No palpable organomegaly. MUSCULOSKELETAL: No joint swelling or deformity. EXTREMITIES: No cyanosis, clubbing, or pedal edema. NEUROLOGICAL: Gross neurological examination did not reveal any focal deficits. SKIN: No rashes. Assessment and plan Acute COPD exacerbation Acute asthma exacerbation HIV/AIDS Seizures Anxiety Depression Plan; Monitor vital signs Monitor CBC Monitor renal functions Seizure precautions EEG ordered MRI brain ordered Ultrasound of carotids ordered. Continue breathing treatments Neurology consulted. Consult pulmonology Past Medical History Past Medical History: Asthma, Fibromyalgia, Pneumonia, Seizure Disorder Additional Past Medical History / Comment(s): HIV with AIDS. migraines, "rt eye has scarring and freckles". uti's, "poor circulation" History of Any Multi-Drug Resistant Organisms: None Reported Past Surgical History: Section, Cholecystectomy, Hysterectomy, Orthopedic Surgery Additional Past Surgical History / Comment(s): left shoulder sx, c-sec x3, spinal fusion, spinal stimulator Past Anesthesia/Blood Transfusion Reactions: No Reported Reaction Additional Past Anesthesia/Blood Transfusion Reaction / Comment(s): Hard to awake. Past Psychological History: Anxiety, Depression Additional Psychological History / Comment(s): Pt lives at home with her [employer] morales. She is independent normally. 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 No injection drug use. No experience. No extensive travel history. Smoking Status: Current every day smoker Past Alcohol Use History: None Reported Additional Past Alcohol Use History / Comment(s): started smoking 1988 smoked 1 pack per week and quit Past Drug Use History: Marijuana Additional Drug Use History / Comment(s): Edibles once in a while to sleep. - Past Family History Mother Family Medical History: CVA/TIA, Diabetes Mellitus, Myocardial Infarction ([place]) Additional Family Medical History / Comment(s): sarcoidosis, osteoporosis Father Family Medical History: Asthma, COPD Medications and Allergies Home Medications Medication Instructions Recorded Confirmed Type Budesonide-Formot 160-4.5 Mcg 2 puff INHALATION RT-BID 05/25/14 02/14/22 History [Symbicort 160-4.5 Mcg Inhaler] Elviteg/Cob/Emtri/Tenof Alafen 1 tab PO DAILY 10/02/20 02/14/22 History [Genvoya Tablet] HYDROcodone/APAP 10-325MG [[place] Tobacco 1 tab PO Q8H PRN 10/02/20 02/14/22 History 10-325] Albuterol Inhaler [Ventolin Hfa 2 puff INHALATION RT-QID PRN 02/22/21 02/14/22 History Inhaler] Erenumab-Aooe [Aimovig 140 mg SQ Q30D 11/13/21 02/14/22 History Autoinjector] Acetaminophen [Tylenol Extra 1,500 mg PO Q6HR PRN 02/14/22 02/14/22 History Strength] Atorvastatin [Lipitor] 20 mg PO DAILY 02/14/22 02/14/22 History Doxycycline Hyclate 100 mg PO BID 02/14/22 02/14/22 History Ergocalciferol (Vitamin D2) 1,250 mcg PO SA 02/14/22 02/14/22 History [Drisdol (50,000 Iu)] Allergies Allergy/AdvReac Type Severity Reaction Status Date / Time amoxicillin [From Augmentin] Allergy Swelling Verified 02/14/22 16:39 clavulanic acid Allergy Swelling Verified 02/14/22 16:39 [From Augmentin] prochlorperazine edisylate Allergy Confusion Verified 02/14/22 16:39 [From Compazine] prochlorperazine maleate Allergy Confusion Verified 02/14/22 16:39 [From Compazine] morphine AdvReac Chest Pain Verified 02/14/22 16:39 Physical Exam Vitals: Vital Signs Temp Pulse Pulse Resp BP BP Pulse Ox 02/15/22 11:37 97.6 F 96 20 133/75 96 02/15/22 08:40 131/78 02/15/22 08:30 155/97 02/15/22 08:15 98.5 F 69 20 120/75 96 02/15/22 05:19 88 02/15/22 05:11 88 02/15/22 04:12 98.7 F 85 16 139/76 95 02/15/22 01:16 80 02/15/22 01:06 88 02/14/22 23:23 97.7 F 105 H 20 123/68 95 02/14/22 20:50 74 02/14/22 20:38 76 02/14/22 19:28 97.2 F L 101 H 20 131/81 95 02/14/22 18:00 97.8 F 92 96 16 146/92 137/89 96 02/14/22 16:38 86 18 134/87 98 02/14/22 15:19 78 02/14/22 15:12 75 02/14/22 14:54 82 22 142/89 99 02/14/22 13:43 98.5 F 87 20 152/93 99 Intake and Output 02/14/22 02/15/22 02/15/22 22:59 06:59 14:59 Other: Voiding Method Toilet # Voids 2 Weight 108.409 kg Results CBC & Chem 7: 02/14/22 14:54 02/14/22 14:54 Labs: Abnormal Lab Results - Last 24 Hours (Table) 02/14/22 02/14/22 02/14/22 Range/Units 14:54 14:54 14:54 Lymphocytes # 0.9 L (1.0-4.8) k/uL Carbon Dioxide 21 L (22-30) mmol/L Glucose 103 H (74-99) mg/dL POC Glucose (mg/dL) (70-110) mg/dL Plasma Lactic Acid Rowdy 2.9 H* (0.7-2.0) mmol/L ALT 37 H (4-34) U/L Total Protein 8.7 H (6.3-8.2) g/dL Albumin 5.2 H (3.5-5.0) g/dL Urine Protein (Negative) Urine Blood (Negative) Urine RBC (0-5) /hpf Urine Bacteria (None) /hpf Urine Mucus (None) /hpf 02/14/22 02/14/22 02/14/22 Range/Units 15:01 18:01 21:15 Lymphocytes # (1.0-4.8) k/uL Carbon Dioxide (22-30) mmol/L Glucose (74-99) mg/dL POC Glucose (mg/dL) 269 H (70-110) mg/dL Plasma Lactic Acid Rowdy 4.0 H* (0.7-2.0) mmol/L ALT (4-34) U/L Total Protein (6.3-8.2) g/dL Albumin (3.5-5.0) g/dL Urine Protein 1+ H (Negative) Urine Blood Small H (Negative) Urine RBC 7 H (0-5) /hpf Urine Bacteria Rare H (None) /hpf Urine Mucus Rare H (None) /hpf 02/14/22 02/15/22 02/15/22 Range/Units 22:16 02:01 05:40 Lymphocytes # (1.0-4.8) k/uL Carbon Dioxide (22-30) mmol/L Glucose (74-99) mg/dL POC Glucose (mg/dL) (70-110) mg/dL Plasma Lactic Acid Rowdy 3.4 H* 2.3 H* 2.5 H* (0.7-2.0) mmol/L ALT (4-34) U/L Total Protein (6.3-8.2) g/dL Albumin (3.5-5.0) g/dL Urine Protein (Negative) Urine Blood (Negative) Urine RBC (0-5) /hpf Urine Bacteria (None) /hpf Urine Mucus (None) /hpf 02/15/22 Range/Units 11:11 Lymphocytes # (1.0-4.8) k/uL Carbon Dioxide (22-30) mmol/L Glucose (74-99) mg/dL POC Glucose (mg/dL) (70-110) mg/dL Plasma Lactic Acid Rowdy 3.0 H* (0.7-2.0) mmol/L ALT (4-34) U/L Total Protein (6.3-8.2) g/dL Albumin (3.5-5.0) g/dL Urine Protein (Negative) Urine Blood (Negative) Urine RBC (0-5) /hpf Urine Bacteria (None) /hpf Urine Mucus (None) /hpf
[2022-02-15] MEDS: NICOTINE 21MG/24HR PATCH TRANSDERM SCH (12:52)
--- NOTE | 2022-02-15 13:32 | EEG ---
ELECTROENCEPHALOGRAM REPORT PREAMBLE: This is a 46-year-old female with seizure-like spells. EEG FINDINGS: This is a 21-channel digital EEG recorded with video component, utilizing 10/20 international system with referential and bipolar montages. The recording is technically limited because of presence of persistent 60 hertz cycle interference through out most of the study. Filters were used. The recording consists of the patient being asleep, with presence of some diffuse low amplitude theta and delta activity, mixed with some vertex waves and sleep spindles. Again, the study was difficult to interpret because of presence of 60 cycle hertz interference. Some brief awake pattern was seen with presence of 8 hertz posterior dominant alpha rhythm. No definitive focal or generalized epileptiform activity was seen. Photic driving response was not clearly seen. IMPRESSION: This is a technically limited study because of presence of near constant 60-second hertz artifact during most of the study. Otherwise, the study appears to be normal awake, drowsy and sleep. No definitive epileptiform activity was seen. Suggest prolonged, sleep-deprived EEG if your suspicion for seizures is high. MMODL / IJN: [id number] /
[2022-02-15] MEDS: ONDANSETRON 4 MG/2 ML VIAL IVP PRN (21:25)
[2022-02-16] MEDS: methylPREDNISolone SOD SUCCI 40 MG/ML 1 ML VIAL IV SCH ×2 (00:41→09:28)
[2022-02-16] MEDS: SODIUM CHLORIDE 0.9% 1,000 ML IV SCH ×3 (01:06→23:35)
[2022-02-16] MEDS: ALBUTEROL NEBULIZED 2.5 MG/3 ML INHALATION SCH ×5 (02:58→20:14)
[2022-02-16] MEDS: LORazepam 2 MG/ML INJ IV PRN ×3 (04:08→18:33)
[2022-02-16] MEDS: HYDROcodone/APAP 10-325MG 1 EACH TAB PO PRN ×2 (05:23→18:06)
[2022-02-16 08:38] LABS: HCT 39.2 % (34.0-46.0); HGB 13.1 gm/dL (11.4-16.0); MCH 30.1 pg (25.0-35.0); MCHC 33.4 g/dL (31.0-37.0); MCV 90.3 fL (80.0-100.0); Mean Platelet Volume 8.5; Platelet Count 215 k/uL (150-450); RBC 4.34 m/uL (3.80-5.40); RDW 12.7 % (11.5-15.5); WBC 7.2 k/uL (3.8-10.6)
[2022-02-16 08:51] LABS: ALT 26 U/L (4-34); AST 21 U/L (14-36); African American GFR (CKD) >90 (>60 ml/min/1.73 sqM); Albumin 3.9 g/dL (3.5-5.0); Alkaline Phosphatase 60 U/L (38-126); Anion Gap 7 mmol/L; Blood Urea Nitrogen 17 mg/dL (7-17); Calcium 8.3 mg/dL (8.4-10.2); Carbon Dioxide 22 mmol/L (22-30); Chloride 111 mmol/L (98-107); Glucose 120 mg/dL (74-99); Non-African American GFR(CKD) 84 (>60 ml/min/1.73 sqM); Sodium 140 mmol/L (137-145); Total Bilirubin 0.4 mg/dL (0.2-1.3); Total Protein 6.5 g/dL (6.3-8.2)
[2022-02-16] MEDS ORDERED: ERGOCALCIFEROL 1,250 MCG (50,000 IU) CAPSULE PO SCH (09:00)
[2022-02-16] MEDS ORDERED: guaiFENesin SYRUP 100MG/5ML 200 MG/10 ML CUP PO PRN (09:09)
[2022-02-16] MEDS: SYMBICORT 160-4.5 MCG INHALER INHALATION SCH ×2 (09:10→20:27)
[2022-02-16] MEDS: [UNRECOGNIZED DRUG - OTHER] PO SCH (09:10)
[2022-02-16] MEDS: ASPIRIN 81 MG PO SCH (09:28)
[2022-02-16] MEDS: KETOROLAC 15 MG/ML 1 ML VIAL IVP PRN ×2 (09:28→23:37)
[2022-02-16] MEDS: ATORVASTATIN 20 MG TAB PO SCH (09:29)
[2022-02-16] MEDS: NICOTINE 21MG/24HR PATCH TRANSDERM SCH (09:29)
[2022-02-16] MEDS: guaiFENesin 600 MG TABLET.ER PO SCH ×2 (09:29→21:13)
[2022-02-16] MEDS: FAMOTIDINE 20 MG TAB PO SCH (09:29)
--- NOTE | 2022-02-16 11:23 | P.PN ---
Subjective Progress Note Date: 02/16/22 patient is a 46-year-old lady with past medical history significant for asthma, HIV with AIDS, fibromyalgia who presented to the ER because of shortness of breath. Patient has been complaining of worsening shortness of breath for the last couple of weeks. Patient was seen in urgent care and was given a course of doxycycline. Patient states that her breathing did not improve so she came to the ER. Patient denies any fevers or chills . Denies any lethargy or weakness. In the ER, patient was worked up, chest x-ray was negative for pneumonia, patient was admitted to hospitalist service. In the hospital, patient had episode of seizure like activity. At that time patient had a computed tomography scan also had that was negative for any acute intrarenal process. Neurology and pulmonology were consulted. 02/16. Patient seen and examined. States she feels worse compared to yesterday. Still has shortness of breath. Complaining of congestion and cough REVIEW OF SYSTEMS: CONSTITUTIONAL: No fever, no malaise,. CARDIOVASCULAR: No chest pain, no palpitations, no syncope. PULMONARY: Complaining of shortness of breath. Complaining of cough GASTROINTESTINAL: No diarrhea, no nausea,no abdominal pain. NEUROLOGICAL: No headaches, no weakness, PHYSICAL EXAMINATION: GENERAL: The patient is alert and oriented x3, not in any acute distress. Well developed, well nourished. HEENT: Pupils are round and equally reacting to light. EOMI. No scleral icterus. No conjunctival pallor. Normocephalic, atraumatic. No pharyngeal erythema. No thyromegaly. CARDIOVASCULAR: S1 and S2 present. No murmurs, rubs, or gallops. PULMONARY: Coarse breath sounds bilaterally, no wheezing or crackles. ABDOMEN: Soft, nontender, nondistended, normoactive bowel sounds. No palpable organomegaly. MUSCULOSKELETAL: No joint swelling or deformity. EXTREMITIES: No cyanosis, clubbing, or pedal edema. NEUROLOGICAL: Gross neurological examination did not reveal any focal deficits. SKIN: No rashes. Assessment and plan Acute COPD exacerbation Acute asthma exacerbation HIV/AIDS Seizures Anxiety Depression Plan; Monitor vital signs Monitor CBC Monitor renal functions Seizure precautions EEG showed no definite epileptiform activity MRI brain could not be performed because of spinal stimulator Ultrasound of carotids shows less than 50% stenosis of the bilateral carotid arteries Continue breathing treatments Follow-up on neurology recommendations Follow-up on pulmonary recommendations Objective - Vital Signs Vital signs: Vital Signs Temp 98.2 F 02/16/22 09:37 Pulse 77 02/16/22 09:37 Resp 18 02/16/22 09:37 BP 117/66 02/16/22 09:37 Pulse Ox 98 02/16/22 09:37 FiO2 Intake & Output 02/15/22 02/16/22 02/16/22 18:59 06:59 18:59 Intake Total 625 1400 118 Balance 625 1400 118 Intake: Intake, IV Titration 625 1000 Amount Sodium Chloride 0.9% 1, 525 900 000 ml @ 75 mls/hr IV . [id number] [facility] Rx#:[id number] levETIRAcetam IV 500 mg 100 100 In Sodium Chloride 0.9% 100 ml @ 400 mls/hr IVPB Q12H [facility] Rx#:[id number] Oral 400 118 Other: Voiding Method Toilet # Voids 1 - Labs CBC & Chem 7: 02/16/22 07:32 02/16/22 07:32 Labs: Abnormal Lab Results - Last 24 Hours (Table) 02/15/22 02/15/22 02/16/22 Range/Units 11:11 14:52 07:32 Chloride 111 H (98-107) mmol/L Glucose 120 H (74-99) mg/dL Plasma Lactic Acid Rowdy 3.0 H* 3.5 H* (0.7-2.0) mmol/L Calcium 8.3 L (8.4-10.2) mg/dL
[2022-02-16] MEDS: levETIRAcetam IV 500 MG in SODIUM CHLORIDE 0.9% 100 ML IVPB SCH (11:32)
[2022-02-16] MEDS: FOLIC ACID 1 MG TAB PO SCH (11:33)
[2022-02-16] MEDS: ONDANSETRON 4 MG/2 ML VIAL IVP PRN ×2 (11:38→21:15)
[2022-02-16] MEDS ORDERED: methylPREDNISolone ACETATE 40 MG/ML 1 ML VIAL IM STA (12:49)
[2022-02-16] MEDS ORDERED: methylPREDNISolone ACETATE 80 MG/ML 1 ML VIAL IM ONE (13:00)
[2022-02-16 13:39] LABS: Chol/HDL Ratio 4.67 Ratio; LDL Cholesterol,Calculated 83.3 mg/dL (0.0-131.0)
[2022-02-16] MEDS: polyethylene glycoL 3350 17 GM POWD.PACK PO SCH (14:56)
--- NOTE | 2022-02-16 15:23 | P.PN ---
Subjective Progress Note Date: 02/16/22 46-year-old female patient, known history of asthma/COPD was been maintained on Symbicort on outpatient basis. The patient was having worsening shortness of breath and symptoms of bronchitis and increased COPD/asthma exacerbation. She was seen at the urgent care where she was given a course of doxycycline. She came to the emergency department as the patient was having worsening shortness of breath and she was requiring frequent breathing treatments. She was requesting steroids. Note that she was given a steroid shot at the urgent care. The patient was also feeling tired. She was having some nonspecific chest aching. She is a chronic smoker and she smokes approximately one pack of cigarettes a day and currently she is wearing a pain patch nicotine patch. At the same time, the patient is receiving a combination of treatment for her HIV and she is currently on a combination of Genvoya and Aimovig. Her CD4 counts were low. Based on all this, the patient was admitted to the hospital and while in the hospital, she had a epileptic event and for that reason a neuro consultation was requested and the patient is undergoing a neuro consultation. She was quite anxious in the emergency department and she was tearful and she was given Ativan. This morning, the patient was seen by neurology. She is being worked up for possible seizure disorder/breakthrough seizure possibly nonepileptic in nature versus pseudoseizures. She did express some numbness in her left side involving the left upper extremity and left face and leg. EEG is to be done. Carotid Dopplers are ordered. Unable to do an MRI as the patient has a nerve stimulator. She was loaded with IV Keppra. She is also being treated for COPD/asthma exacerbation. The white cycles at 6.8 with a hemoglobin of 15.6. The lactic acid level was at 3.4 dropped down to 2.5. Normal coagulation profile. Normal electrolytes. Troponins were negative. Covid 19 testing was negative. Influenza screen was negative. Her most serious recent CD4 count is 69. This was measured on 10/04/2021. 02/16/2022, the patient essentially unchanged. Still short of breath bronchospastic and wheezy. EEG was done and the patient was not found to have any seizures. I believe that the reaction that the patient had was mainly due to steroids. She has had has a high level of anxiety. Based on that, we have not given her any further steroid doses. She declines to take any form of other steroids other than Depo-Medrol IM. She declines taking prednisone. She declined IV Solu-Medrol and Decadron. Her condition is still rough in terms of breathing. She is still having chest that is wheezing and shortness of breath. Labs from today show a white cell count of 7.2 with hemoglobin 15.1. BUN 17 with a creatinine of 0.8. The lactic acid level is down to 3.5. Objective - Vital Signs Vital signs: Vital Signs Temp 98.4 F 02/16/22 12:00 Pulse 79 02/16/22 14:59 Resp 17 02/16/22 14:59 BP 157/85 02/16/22 14:59 Pulse Ox 97 02/16/22 14:59 FiO2 Intake & Output 02/15/22 02/16/22 02/16/22 18:59 06:59 18:59 Intake Total 625 1400 118 Balance 625 1400 118 Intake: Intake, IV Titration 625 1000 Amount Sodium Chloride 0.9% 1, 525 900 000 ml @ 75 mls/hr IV . [id number] [facility] Rx#:[id number] levETIRAcetam IV 500 mg 100 100 In Sodium Chloride 0.9% 100 ml @ 400 mls/hr IVPB Q12H [facility] Rx#:[id number] Oral 400 118 Other: Voiding Method Toilet # Voids 1 - Exam Head exam was generally normal. There was no scleral icterus or corneal arcus. Mucous membranes were moist.Neck was supple and without jugular venous distension, thyromegaly, or carotid bruits. Carotids were easily palpable bilaterally. There was no adenopathy. Lung sounds are markedly diminished and there is diffuse expiratory wheezes throughout lung his bilaterally.Cardiac exam revealed the PMI to be normally situated and sized. The rhythm was regular and no extrasystoles were noted during several minutes of auscultation. The first and second heart sounds were normal and physiologic splitting of the second heart sound was noted. There were no murmurs, rubs, clicks, or gallops.Abdominal exam revealed normal bowel sounds. The abdomen was soft, non-tender, and without masses, organomegaly, or appreciable enlargement of the abdominal aort a.Examination of the extremities revealed easily palpable radial, femoral and pedal pulses. There was no cyanosis, clubbing or edema. - Labs CBC & Chem 7: 02/16/22 07:32 02/16/22 07:32 Labs: Abnormal Lab Results - Last 24 Hours (Table) 02/15/22 02/16/22 Range/Units 14:52 07:32 Chloride 111 H (98-107) mmol/L Glucose 120 H (74-99) mg/dL Plasma Lactic Acid Rowdy 3.5 H* (0.7-2.0) mmol/L Calcium 8.3 L (8.4-10.2) mg/dL Triglycerides 224.00 H (0.00-149.00) mg/dL VLDL Cholesterol, Calc 44.80 H (5.00-40.00) mg/dL HDL Cholesterol 34.90 L (40.00-60.00) mg/dL Assessment and Plan Plan: acute COPD/ asthma exacerbation, the viral screen was negative and a chest x-ray is free of any acute pulmonary infiltration. Currently on room air oxygen. Slightly improved compared to yesterday although she still bronchospastic and wheezy. Seizures versus pseudoseizures currently under investigation. Awaiting EEG and carotid Dopplers. Patient was loaded with Keppra. I believe this is more sober side effect to steroids and the patient had an EEG that showed no evidence of any seizure activity. obesity HIV/AIDS, currently under treatment. Most recent CD4 count is up to 120 after being as low as 70 as the patient was started on antiretroviral treatment. anxiety/depression, history of chronic pain Smoker plan Continue bronchodilators We will discontinue IV Solu-Medrol We'll give the patient Depo-Medrol shot 120 mg IM 1 Watch for any side effects Continue bronchodilators Neurologically on the case Smoking cessation counseling was done. The patient will be given nicotine patch. We'll continue to follow and will make further recommendations based on her progress.
[2022-02-16] MEDS: levETIRAcetam 500 MG TAB PO SCH (21:13)
[2022-02-16] MEDS: DOCUSATE 100 MG CAP PO SCH (21:13)
[2022-02-17] MEDS: ALBUTEROL NEBULIZED 2.5 MG/3 ML INHALATION SCH ×4 (00:55→11:59)
[2022-02-17] MEDS: HYDROcodone/APAP 10-325MG 1 EACH TAB PO PRN (03:07)
[2022-02-17 08:16] LABS: HGB 12.6 gm/dL (11.4-16.0); MCH 30.8 pg (25.0-35.0); MCHC 34.2 g/dL (31.0-37.0); MCV 90.2 fL (80.0-100.0); Mean Platelet Volume 8.3; Platelet Count 223 k/uL (150-450); RDW 12.2 % (11.5-15.5); WBC 6.8 k/uL (3.8-10.6)
[2022-02-17] MEDS: FAMOTIDINE 20 MG TAB PO SCH (08:58)
[2022-02-17] MEDS: FOLIC ACID 1 MG TAB PO SCH (08:58)
[2022-02-17] MEDS: polyethylene glycoL 3350 17 GM POWD.PACK PO SCH (08:58)
[2022-02-17] MEDS: levETIRAcetam 500 MG TAB PO SCH (08:58)
[2022-02-17] MEDS: ASPIRIN 81 MG PO SCH (08:58)
[2022-02-17] MEDS: DOCUSATE 100 MG CAP PO SCH (08:58)
[2022-02-17] MEDS: NICOTINE 21MG/24HR PATCH TRANSDERM SCH (08:58)
[2022-02-17] MEDS: KETOROLAC 15 MG/ML 1 ML VIAL IVP PRN (08:58)
[2022-02-17] MEDS: ATORVASTATIN 20 MG TAB PO SCH (08:58)
[2022-02-17] MEDS: guaiFENesin 600 MG TABLET.ER PO SCH (08:58)
[2022-02-17] MEDS: SYMBICORT 160-4.5 MCG INHALER INHALATION SCH (09:03)
[2022-02-17] MEDS: [UNRECOGNIZED DRUG - OTHER] PO SCH (09:07)
[2022-02-17] MEDS ORDERED: CYANOCOBALAMIN 500 MCG TAB PO SCH (11:30)
--- NOTE | 2022-02-17 11:32 | P.PN ---
Subjective Progress Note Date: 02/16/22 Patient was seen for a follow-up. Patient is laying comfortably in the bed. No further seizures or syncope. Objective - Vital Signs Vital signs: Vital Signs Temp 98.4 F 02/16/22 12:00 Pulse 79 02/16/22 14:59 Resp 17 02/16/22 14:59 BP 157/85 02/16/22 14:59 Pulse Ox 97 02/16/22 14:59 FiO2 Intake & Output 02/15/22 02/16/22 02/16/22 18:59 06:59 18:59 Intake Total 625 1400 118 Balance 625 1400 118 Intake: Intake, IV Titration 625 1000 Amount Sodium Chloride 0.9% 1, 525 900 000 ml @ 75 mls/hr IV . [id number] [facility] Rx#:[id number] levETIRAcetam IV 500 mg 100 100 In Sodium Chloride 0.9% 100 ml @ 400 mls/hr IVPB Q12H [facility] Rx#:[id number] Oral 400 118 Other: Voiding Method Toilet # Voids 1 - Exam Clinically unchanged. Mentation is normal. - Labs CBC & Chem 7: 02/17/22 06:36 02/16/22 07:32 Labs: Abnormal Lab Results - Last 24 Hours (Table) 02/16/22 Range/Units 07:32 Chloride 111 H (98-107) mmol/L Glucose 120 H (74-99) mg/dL Calcium 8.3 L (8.4-10.2) mg/dL Triglycerides 224.00 H (0.00-149.00) mg/dL VLDL Cholesterol, Calc 44.80 H (5.00-40.00) mg/dL HDL Cholesterol 34.90 L (40.00-60.00) mg/dL Assessment and Plan Assessment: * Possible seizure disorder, with breakthrough seizure while in the hospital. 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 Rule out epileptic versus nonepileptic seizures versus mixed seizure disorder. * Numbness of the left side, left facial droop, rule out stroke/TIA. * Acute exacerbation of asthma * HIV, AIDS * Tobacco use * Hyperlipidemia * Hypertension * Chronic back pain * Spinal cord stimulator Plan: * EEG was technically limited because of presence of near constant 60 cycle hertz artifact during most of the study. Otherwise the study appears to be normal awake and drowsy and sleep. No definitive epileptiform activity was seen. Suggest prolonged, sleep deprived EEG. Suspicion for seizures is high. * Patient has been loaded with Keppra 1000 mg IV 1 dose followed by 500 mg twice a day. We will continue Keppra for now. * Carotid Doppler revealed less than 50% stenosis of bilateral ICA. * 2-D echo still pending to rule out embolic source. * Patient does have multiple vascular risk factors. We'll start aspirin 81 mg daily for stroke prevention. * Patient cannot have MRI of the brain, due to presence of spinal cord stimulator. Patient had a recent MRI of brain performed at [facility]. We will try to obtain the results. * B12 362, folate 5.10, fasting lipid panel with cholesterol 163, LDL 83, HDL 34 and triglycerides 224. Continue Lipitor 20 mg daily. Start B12, folate r eplacement. * Patient had a normal hemoglobin A1c 5.7 on 04/06/2021, and TSH 2.26. * Treatment of asthma and other medical conditions as per IM and other specialties. * Recommend complete tobacco cessation.
--- NOTE | 2022-02-17 11:33 | P.PN ---
Subjective Progress Note Date: 02/17/22 46-year-old female patient, known history of asthma/COPD was been maintained on Symbicort on outpatient basis. The patient was having worsening shortness of breath and symptoms of bronchitis and increased COPD/asthma exacerbation. She was seen at the urgent care where she was given a course of doxycycline. She came to the emergency department as the patient was having worsening shortness of breath and she was requiring frequent breathing treatments. She was requesting steroids. Note that she was given a steroid shot at the urgent care. The patient was also feeling tired. She was having some nonspecific chest aching. She is a chronic smoker and she smokes approximately one pack of cigarettes a day and currently she is wearing a pain patch nicotine patch. At the same time, the patient is receiving a combination of treatment for her HIV and she is currently on a combination of Genvoya and Aimovig. Her CD4 counts were low. Based on all this, the patient was admitted to the hospital and while in the hospital, she had a epileptic event and for that reason a neuro consultation was requested and the patient is undergoing a neuro consultation. She was quite anxious in the emergency department and she was tearful and she was given Ativan. This morning, the patient was seen by neurology. She is being worked up for possible seizure disorder/breakthrough seizure possibly nonepileptic in nature versus pseudoseizures. She did express some numbness in her left side involving the left upper extremity and left face and leg. EEG is to be done. Carotid Dopplers are ordered. Unable to do an MRI as the patient has a nerve stimulator. She was loaded with IV Keppra. She is also being treated for COPD/asthma exacerbation. The white cycles at 6.8 with a hemoglobin of 15.6. The lactic acid level was at 3.4 dropped down to 2.5. Normal coagulation profile. Normal electrolytes. Troponins were negative. Covid 19 testing was negative. Influenza screen was negative. Her most serious recent CD4 count is 69. This was measured on 10/04/2021. 02/16/2022, the patient essentially unchanged. Still short of breath bronchospastic and wheezy. EEG was done and the patient was not found to have any seizures. I believe that the reaction that the patient had was mainly due to steroids. She has had has a high level of anxiety. Based on that, we have not given her any further steroid doses. She declines to take any form of other steroids other than Depo-Medrol IM. She declines taking prednisone. She declined IV Solu-Medrol and Decadron. Her condition is still rough in terms of breathing. She is still having chest that is wheezing and shortness of breath. Labs from today show a white cell count of 7.2 with hemoglobin 15.1. BUN 17 with a creatinine of 0.8. The lactic acid level is down to 3.5. On today's evaluation of 02/17/2022, she is slightly better. I given a Depo- Medrol shot 120 mg IM yesterday and she had some limited side effects. It was essentially manageable. No loss of consciousness. No agitation. No jerky body movements. She remains on labetalol nebulized treatments and she is also on Symbicort. Objective - Vital Signs Vital signs: Vital Signs Temp 98.4 F 02/17/22 08:00 Pulse 84 02/17/22 09:15 Resp 18 02/17/22 08:00 BP 107/59 02/17/22 08:00 Pulse Ox 98 02/17/22 08:00 FiO2 Intake & Output 02/16/22 02/17/22 02/17/22 18:59 06:59 18:59 Intake Total 838 925 Balance 838 925 Intake: Intake, IV Titration 825 Amount Sodium Chloride 0.9% 1, 825 000 ml @ 75 mls/hr IV . [id number] [facility] Rx#:[id number] Oral 838 100 Other: Voiding Method Toilet # Voids 3 3 # Bowel Movements 0 - Exam Head exam was generally normal. There was no scleral icterus or corneal arcus. Mucous membranes were moist.Neck was supple and without jugular venous distension, thyromegaly, or carotid bruits. Carotids were easily palpable bilaterally. There was no adenopathy. Lung sounds are markedly diminished and there is diffuse expiratory wheezes throughout lung his bilaterally.Cardiac exam revealed the PMI to be normally situated and sized. The rhythm was regular and no extrasystoles were noted during several minutes of auscultation. The first and second heart sounds were normal and physiologic splitting of the second heart sound was noted. There were no murmurs, rubs, clicks, or gallops.Abdominal exam revealed normal bowel sounds. The abdomen was soft, non-tender, and without masses, organomegaly, or appreciable enlargement of the abdominal a citlaly.Examination of the extremities revealed easily palpable radial, femoral and pedal pulses. There was no cyanosis, clubbing or edema. - Labs CBC & Chem 7: 02/17/22 06:36 02/16/22 07:32 Labs: Abnormal Lab Results - Last 24 Hours (Table) 02/16/22 Range/Units 07:32 Triglycerides 224.00 H (0.00-149.00) mg/dL VLDL Cholesterol, Calc 44.80 H (5.00-40.00) mg/dL HDL Cholesterol 34.90 L (40.00-60.00) mg/dL Assessment and Plan Plan: acute COPD/ asthma exacerbation, the viral screen was negative and a chest x-ray is free of any acute pulmonary infiltration. Currently on room air oxygen. Seizures versus pseudoseizures currently under investigation. Awaiting EEG and carotid Dopplers. Patient was loaded with Keppra. I believe this is more sober side effect to steroids and the patient had an EEG that showed no evidence of any seizure activity. obesity HIV/AIDS, currently under treatment. Most recent CD4 count is up to 120 after being as low as 70 as the patient was started on antiretroviral treatment. anxiety/depression, history of chronic pain Smoker plan Continue bronchodilators No steroids because of side effects and the patient was given only a dose of Depo-Medrol shot 120 mg IM 1 without any side effects Watch for any side effects Continue bronchodilators Neurologically on the case Smoking cessation counseling was done. The patient will be given nicotine patch. We'll continue to follow and will make further recommendations based on her progress. can be discharged home
[2022-02-17] MEDS: LORazepam 2 MG/ML INJ IV PRN (12:00)
--- NOTE | 2022-02-17 12:01 | P.DS ---
Providers Date of admission: 02/14/22 16:14 Expected date of discharge: 02/17/22 Attending physician: Bhupinder Gomez MD Consults: 02/14/22 17:26 Consult Physician Urgent Consulting Provider: Laura Mims Consult Reason/Comments: asthma exacerbation Do you want consulting provider notified?: Yes 02/14/22 22:07 Consult Physician Routine Consulting Provider: Sathish Alvarado Consult Reason/Comments: possible seizure Do you want consulting provider notified?: Yes [facility] Course: Discharge diagnoses; Acute COPD exacerbation Acute asthma exacerbation HIV/AIDS Seizures Anxiety Depression Plan; Monitor vital signs Monitor CBC Monitor renal functions Seizure precautions EEG showed no definite epileptiform activity MRI brain could not be performed because of spinal stimulator Ultrasound of carotids shows less than 50% stenosis of the bilateral carotid arteries Continue breathing treatments Follow-up on neurology recommendations, recommend discharging on Keppra 500 mg twice a day pulmonology cleared the patient for discharge Hospital course; patient is a 46-year-old lady with past medical history significant for asthma, HIV with AIDS, fibromyalgia who presented to the ER because of shortness of breath. Patient has been complaining of worsening shortness of breath for the last couple of weeks. Patient was seen in urgent care and was given a course of doxycycline. Patient states that her breathing did not improve so she came to the ER. Patient denies any fevers or chills . Denies any lethargy or weakness. In the ER, patient was worked up, chest x-ray was negative for pneumonia, patient was admitted to hospitalist service. In the hospital, patient had episode of seizure like activity. At that time patient had a computed tomography scan also had that was negative for any acute intrarenal process. Neurology and pulmonology were consulted. 02/16. Patient seen and examined. States she feels worse compared to yesterday. Still has shortness of breath. Complaining of congestion and cough8. 02/17/22. Patient seen and examined. Currently doing much better. No further episodes of seizures. Neurology recommended starting patient on Keppra 500 mg twice a day. Pulmonology cleared the patient for discharge PHYSICAL EXAMINATION: GENERAL: The patient is alert and oriented x3, not in any acute distress. Well developed, well nourished. HEENT: Pupils are round and equally reacting to light. EOMI. No scleral icterus. No conjunctival pallor. Normocephalic, atraumatic. No pharyngeal erythema. No thyromegaly. CARDIOVASCULAR: S1 and S2 present. No murmurs, rubs, or gallops. PULMONARY: Chest is clear to auscultation, no wheezing or crackles. ABDOMEN: Soft, nontender, nondistended, normoactive bowel sounds. No palpable organomegaly. MUSCULOSKELETAL: No joint swelling or deformity. EXTREMITIES: No cyanosis, clubbing, or pedal edema. NEUROLOGICAL: Gross neurological examination did not reveal any focal deficits. SKIN: No rashes. Patient Condition at Discharge: Stable Plan - Discharge Summary New Discharge Prescriptions: New Folic Acid 1 mg PO DAILY #30 tab ALPRAZolam [Xanax] 0.25 mg PO Q8HR PRN 3 Days #9 tab PRN Reason: Anxiety levETIRAcetam [Keppra] 500 mg PO Q12HR #30 tab Cyanocobalamin [Vitamin B-12] 500 mcg PO DAILY #30 tab Continue Budesonide-Formot 160-4.5 Mcg [Symbicort 160-4.5 Mcg Inhaler] 2 puff INHALATION RT-BID Elviteg/Cob/Emtri/Tenof Alafen [Genvoya Tablet] 1 tab PO DAILY Atorvastatin [Lipitor] 20 mg PO DAILY HYDROcodone/APAP 10-325MG [[place] 10-325] 1 tab PO Q8H PRN PRN Reason: Pain Albuterol Inhaler [Ventolin Hfa Inhaler] 2 puff INHALATION RT-QID PRN PRN Reason: Shortness Of Breath Erenumab-Aooe [Aimovig Autoinjector] 140 mg SQ Q30D Ergocalciferol (Vitamin D2) [Drisdol (50,000 Iu)] 1,250 mcg PO SA Doxycycline Hyclate 100 mg PO BID Acetaminophen [Tylenol Extra Strength] 1,500 mg PO Q6HR PRN PRN Reason: Fever And/ Or Pain Discharge Medication List Budesonide-Formot 160-4.5 Mcg [Symbicort 160-4.5 Mcg Inhaler] 2 puff INHALATION RT-BID 05/25/14 [History] Elviteg/Cob/Emtri/Tenof Alafen [Genvoya Tablet] 1 tab PO DAILY 07/12/21 [Hi story] HYDROcodone/APAP 10-325MG [[place] 10-325] 1 tab PO Q8H PRN 10/02/20 [History] Albuterol Inhaler [Ventolin Hfa Inhaler] 2 puff INHALATION RT-QID PRN 02/22/21 [History] Erenumab-Aooe [Aimovig Autoinjector] 140 mg SQ Q30D 11/13/21 [History] Acetaminophen [Tylenol Extra Strength] 1,500 mg PO Q6HR PRN 02/14/22 [History] Atorvastatin [Lipitor] 20 mg PO DAILY 02/14/22 [History] Doxycycline Hyclate 100 mg PO BID 02/14/22 [History] Ergocalciferol (Vitamin D2) [Drisdol (50,000 Iu)] 1,250 mcg PO SA 02/14/22 [History] ALPRAZolam [Xanax] 0.25 mg PO Q8HR PRN 3 Days #9 tab 02/17/22 [Rx] Cyanocobalamin [Vitamin B-12] 500 mcg PO DAILY #30 tab 02/17/22 [Rx] Folic Acid 1 mg PO DAILY #30 tab 02/17/22 [Rx] levETIRAcetam [Keppra] 500 mg PO Q12HR #30 tab 02/17/22 [Rx] Follow up Appointment(s)/Referral(s): Mayur Alvarado DO [Doctor of Osteopathic Medicine] - 1 Week None,Stated [REFERRING] - 1-2 days
[2022-02-17 13:19] VITALS: BP 150/75; PULSE 71; RESP 17; TEMP 98
[2022-02-18] MEDS: ALBUTEROL NEBULIZED 2.5 MG/3 ML INHALATION SCH (00:46)
== END 2022-02-17 16:13 | disposition home or self-care (01) ==
LOC: EC 13:41 → 6NMEDSUR 16:14 → 3SCARD 23:20
PROVIDERS: ADMIT Internal Medicine; ATTEND Internal Medicine
DX: J44.1 Chronic obstructive pulmonary disease with (acute) exacerbation (principal); R29.810 Facial weakness; R20.0 Anesthesia of skin; M79.7 Fibromyalgia; R56.9 Unspecified convulsions; Z87.01 Personal history of pneumonia (recurrent); E66.9 Obesity, unspecified; Z68.41 Body mass index [BMI] 40.0-44.9, adult; B20 Human immunodeficiency virus [HIV] disease; F41.0 Panic disorder [episodic paroxysmal anxiety]; G89.29 Other chronic pain; M54.9 Dorsalgia, unspecified; E78.5 Hyperlipidemia, unspecified; I10 Essential (primary) hypertension; Z20.822 Contact with and (suspected) exposure to COVID-19; F17.210 Nicotine dependence, cigarettes, uncomplicated; Z71.6 Tobacco abuse counseling; F32.A Depression, unspecified; G43.909 Migraine, unspecified, not intractable, without status migrainosus; I65.23 Occlusion and stenosis of bilateral carotid arteries; Z98.891 History of uterine scar from previous surgery; Z90.49 Acquired absence of other specified parts of digestive tract; Z90.710 Acquired absence of both cervix and uterus; Z82.3 Family history of stroke; Z83.3 Family history of diabetes mellitus; Z98.1 Arthrodesis status; Z82.49 Family history of ischemic heart disease and other diseases of the circulatory system; Z82.62 Family history of osteoporosis; Z84.89 Family history of other specified conditions; Z82.5 Family history of asthma and other chronic lower respiratory diseases; Z96.82 Presence of neurostimulator; Z79.51 Long term (current) use of inhaled steroids; Z79.899 Other long term (current) drug therapy; Z88.5 Allergy status to narcotic agent; Z88.0 Allergy status to penicillin; Z88.8 Allergy status to other drugs, medicaments and biological substances
CPT/HCPCS: 96376 ×3; 96361 ×2; 96365; 96372; 96375 ×3; 96366; 99285; 36415; 94640 ×8; 95819; 93005; 85379; 83880; 80061; 80053 ×2; 82607; 82746; 83605 ×2; 84484; 85025; 85027 ×2; 85610; 85730; 81001; 81025; 87502; 87635; 71046; 93880; 70450; G0378 ×4; S4990 ×3; J2060 ×4; J1030; J1040; J2930; J2405 ×2; J1953 ×3; J1885 ×2

== ENCOUNTER 2022-06-04 17:46 | Emergency (ER) | payer MEDICARE, OTHER ==
[2022-06-04 17:57] VITALS: TEMP 98.4
[2022-06-04 18:18] LABS: Basophils # (A) 0.1 k/uL (0-0.2); Basophils % (A) 1 %; Eosinophils # (A) 0.2 k/uL (0-0.7); Eosinophils % (A) 3 %; HCT 38.7 % (34.0-46.0); HGB 13.1 gm/dL (11.4-16.0); Lymphocytes # (A) 1.3 k/uL (1.0-4.8); Lymphocytes % (A) 23 %; MCH 30.7 pg (25.0-35.0); MCHC 33.8 g/dL (31.0-37.0); MCV 90.8 fL (80.0-100.0); Mean Platelet Volume 7.3; Monocytes # (A) 0.3 k/uL (0-1.0); Monocytes % (A) 5 %; Neutrophils # (A) 3.7 k/uL (1.3-7.7); Neutrophils % (A) 66 %; Platelet Count 251 k/uL (150-450); RBC 4.26 m/uL (3.80-5.40); WBC 5.6 k/uL (3.8-10.6)
[2022-06-04 18:36] LABS: INR 0.9 (<1.2); Partial Thromboplastin Time 22.7 sec (22.0-30.0); Prothrombin Time 9.7 sec (9.0-12.0)
[2022-06-04 18:42] LABS: Albumin 4.4 g/dL (3.5-5.0); Calcium 9.2 mg/dL (8.4-10.2); Potassium 4.3 mmol/L (3.5-5.1); Total Bilirubin 0.3 mg/dL (0.2-1.3); Total Protein 7.5 g/dL (6.3-8.2)
--- NOTE | 2022-06-04 19:29 | ED ---
Chest Pain HPI - General Chief Complaint: Chest Pain Stated Complaint: chest pain Time Seen by Provider: 06/04/22 19:14 Source: patient Mode of arrival: ambulatory Limitations: no limitations - History of Present Illness Initial Comments: 46-year-old female with past medical history of asthma, COPD, fibromyalgia who presents to the emergency department reporting chest pain. She was just discharged on the . She presented with chest pain and had elevated troponin levels. She had a cardiac cath which demonstrated 40% blockage. Patient did not receive any stents. Was discharged home. She began having chest pain last night. She took a nitro this morning with only minimal improvement in her symptoms. The chest pain lasted all day she decided to come into the emergency room. Located substernally and radiates to her back. Symptoms feel consistent to when she was previously hospitalized. She admits to some nausea. No shortness of breath. No calf pain or swelling. No fevers, chills or cough. No alleviating, precipitating or modifying factors - Related Data Home Medications Medication Instructions Recorded Confirmed Elviteg/Cob/Emtri/Tenof Alafen 1 tab PO DAILY 10/02/20 06/04/22 [Genvoya Tablet] HYDROcodone/APAP 10-325MG [[place] 1 tab PO Q8H PRN 10/02/20 06/04/22 10-325] Budesonide/Glycopyr/Formoterol 1 puff INHALATION RT-BID 05/29/22 06/04/22 [Breztri Aerosphere Inhaler] Ergocalciferol [Vitamin D2 (1250 1,250 mcg PO MO 05/29/22 06/04/22 Mcg = 60568 Iu)] busPIRone HCl [Buspar] 5 mg PO BID 05/29/22 06/04/22 Erenumab-Aooe [Aimovig 140 mg SQ QMONTHLY 05/30/22 06/04/22 Autoinjector] Previous Rx's Medication Instructions Recorded levETIRAcetam [Keppra] 500 mg PO Q12HR #30 tab 02/17/22 Aspirin 81 mg PO DAILY #30 tab 05/31/22 Atorvastatin [Lipitor] 40 mg PO DAILY #30 tab 05/31/22 Melatonin 5 mg PO HS 30 Days #30 tablet 05/31/22 Metoprolol Tartrate [Lopressor] 25 mg PO BID #60 tab 05/31/22 Nicotine 21Mg/24Hr Patch [Habitrol] 1 patch TRANSDERM DAILY #3 patch 05/31/22 Nitroglycerin Sl Tabs [Nitrostat] 0.4 mg SUBLINGUAL Q5M PRN #20 tab 05/31/22 Pantoprazole Sodium [Protonix] 40 mg PO BID 30 Days #60 tab 05/31/22 Allergies Allergy/AdvReac Type Severity Reaction Status Date / Time amoxicillin [From Augmentin] Allergy Swelling Verified 06/04/22 20:16 clavulanic acid Allergy Swelling Verified 06/04/22 20:16 [From Augmentin] prochlorperazine edisylate Allergy Confusion Verified 06/04/22 20:16 [From Compazine] prochlorperazine maleate Allergy Confusion Verified 06/04/22 20:16 [From Compazine] morphine AdvReac Chest Pain Verified 06/04/22 20:16 steroids Allergy Unknown Uncoded 05/29/22 17:54 Review of Systems ROS Statement: Those systems with pertinent positive or pertinent negative responses have been documented in the HPI. ROS Other: All systems not noted in ROS Statement are negative. EKG Findings - EKG Comments: EKG Findings:: EKG demonstrates sinus rhythm with a rate of 80. [place] interval 132. QRS 89. QTC 391. No acute ST segment elevations or depressions Past Medical History Past Medical History: Asthma, Chest Pain / Angina, COPD, Fibromyalgia, Myocardial Infarction ([place]), Pneumonia, Seizure Disorder Additional Past Medical History / Comment(s): HIV with AIDS. migraines, "rt eye has scarring and freckles". uti's, "poor circulation" Last Myocardial Infarction Date:: 05/29/2022 History of Any Multi-Drug Resistant Organisms: None Reported Past Surgical History: Section, Cholecystectomy, Heart Catheterization, Hysterectomy, Orthopedic Surgery Additional Past Surgical History / Comment(s): left shoulder sx, c-sec x3, spinal fusion, spinal stimulator Past Anesthesia/Blood Transfusion Reactions: No Reported Reaction Additional Past Anesthesia/Blood Transfusion Reaction / Comment(s): Hard to awake. Past Psychological History: Anxiety, Depression Smoking Status: Current every day smoker Past Alcohol Use History: None Reported Past Drug Use History: Marijuana - Past Family History Mother Family Medical History: CVA/TIA, Diabetes Mellitus, Myocardial Infarction ([place]) Additional Family Medical History / Comment(s): sarcoidosis, osteoporosis Father Family Medical History: Asthma, COPD General Exam Limitations: no limitations General appearance: alert, in no apparent distress Head exam: Present: atraumatic, normocephalic, normal inspection Eye exam: Present: normal appearance, PERRL, EOMI. Absent: scleral icterus, conjunctival injection, periorbital swelling ENT exam: Present: normal exam, mucous membranes moist Neck exam: Present: normal inspection. Absent: tenderness, meningismus, lymphadenopathy Respiratory exam: Present: normal lung sounds bilaterally. Absent: respiratory distress, wheezes, rales, rhonchi, stridor Cardiovascular Exam: Present: regular rate, normal rhythm, normal heart sounds. Absent: systolic murmur, diastolic murmur, rubs, gallop, clicks GI/Abdominal exam: Present: soft, normal bowel sounds. Absent: distended, tenderness, guarding, rebound, rigid Extremities exam: Present: normal inspection, full ROM, normal capillary refill. Absent: tenderness, pedal edema, joint swelling, calf tenderness Back exam: Present: normal inspection Neurological exam: Present: alert, oriented X3, CN II-XII intact Psychiatric exam: Present: normal affect, normal mood Skin exam: Present: warm, dry, intact, normal color. Absent: rash Course Vital Signs 06/04/22 06/04/22 06/04/22 17:55 19:55 21:25 Temperature 98.4 F Pulse Rate 81 79 73 Respiratory 18 14 16 Rate Blood Pressure 138/84 139/88 140/93 O2 Sat by Pulse 100 98 97 Oximetry Chest Pain MDM - MDM Was pt. sent in by a medical professional or institution (PRISCILA Seay, RESIDENT CARE TECHNICIAN, urgent care, hospital, or group home...) When possible be specific @ -No Did you speak to anyone other than the patient for history (EMS, parent, family, police, friend...)? What history was obtained from this source @ -No Did you review nursing and triage notes (agree or disagree)? Why? @ -I reviewed and agree with nursing and triage notes Were old charts reviewed (outside hosp., previous admission, EMS record, old EKG, old radiological studies, urgent care reports/EKG's, group home records)? Report findings @ -old charts were reviewed Differential Diagnosis (chest pain, altered mental status, abdominal pain women, abdominal pain men, vaginal bleeding, weakness, fever, dyspnea, syncope, headache, dizziness, GI bleed, back pain, seizure, CVA, palpatations, mental health, musculoskeletal)? @ -acs, nstemi, coronary dissection, coronary vasospasm EKG interpreted by me (3pts min.). @ -yes X-rays interpreted by me (1pt min.). @ -yes CT interpreted by me (1pt min.). @ -yes U/S interpreted by me (1pt. min.). @ -None done What testing was considered but not performed or refused? (CT, X-rays, U/S, labs)? Why? @ -None What meds were considered but not given or refused? Why? @ -None Did you discuss the management of the patient with other professionals (professionals i.e. , PA, RESIDENT CARE TECHNICIAN, lab, RT, psych nurse, social welfare administrator, incendiaries supervisor, teacher, tactical deception plans officer, senior case manager)? Give summary @ -No Was smoking cessation discussed for >3mins.? @ -No Was critical care preformed (if so, how long)? @ -No Were there social determinants of health that impacted care today? How? (Homelessness, low income, unemployed, alcoholism, drug addiction, transportation, low edu. Level, literacy, decrease access to med. care, long-term, rehab)? @ -No Was there de-escalation of care discussed even if they declined (Discuss DNR or withdrawal of care, Hospice)? DNR status @ -No What co-morbidities impacted this encounter? (DM, HTN, Smoking, COPD, CAD, Cancer, CVA, ARF, Chemo, Hep., AIDS, mental health diagnosis, sleep apnea, morbid obesity)? @ -chest pain Was patient admitted / discharged? Hospital course, mention meds given and route, prescriptions, significant lab abnormalities, going to OR and other pertinent info. @ -Upon arrival patient is placed in room 5. Thorough history and physical exam was performed. IV access established laboratory studies are conducted. 12 lead EKG was performed. Patient remained confused pulse ox and cardiac monitoring. Troponin is normalized. Chest x-ray was performed followed by a CT of the chest due to patient's continued symptoms after her cath. CT demonstrates no evidence of pulmonary embolism. I discussed results with the patient. Recommended admission for overnight observation and to trend her troponins. Patient refused stating he would prefer to go home. She does have an appointment with her primary care physician tomorrow. Also has a cardiology appointment on Friday. Patient is aware of the risks and the limited workup that was performed in the emergency room. She is instructed to return for any new or worsening symptoms. Patient agreeable to plan and was discharged home in stable condition Undiagnosed new problem with uncertain prognosis? @ -yes Drug Therapy requiring intensive monitoring for toxicity (Heparin, Nitro, Insulin, Cardizem)? @ -No Were any procedures done? @ -No Diagnosis/symptom? @ -acute chest pain s/p heart cath Acute, or Chronic, or Acute on Chronic? @ -acute Uncomplicated (without systemic symptoms) or Complicated (systemic symptoms)? @ -complicated Side effects of treatment? @ -No Exacerbation, Progression, or Severe Exacerbation? @ -No Poses a threat to life or bodily function? How? (Chest pain, [place], CO, pneumonia, PE, COPD, DKA, ARF, appy, cholecystitis, CVA, Diverticulitis, Homicidal, Suicidal, threat to staff... and all critical care pts) @ -yes Disposition Clinical Impression: Chest pain Disposition: HOME SELF-CARE Condition: Stable Instructions (If sedation given, give patient instructions): Chest Pain (ED) Additional Instructions: Please follow-up with your primary care doctor tomorrow. Follow up with the cigar packing examiner as directed. Return for any new or worsening symptoms Is patient prescribed a controlled substance at d/c from ED?: No Referrals: Jacque Christian MD [Primary Care Provider] - 1-2 days Time of Disposition: 21:02
[2022-06-04] MEDS ORDERED: MORPHINE SULFATE 2 MG/ML SYRINGE IVP STA (19:31)
[2022-06-04] MEDS ORDERED: ASPIRIN 81 MG PO STA (19:31)
--- NOTE | 2022-06-04 19:47 | XR ---
EXAMINATION TYPE: XR chest 2V DATE OF EXAM: 06/04/2022 COMPARISON: 05/29/2022 HISTORY: Chest pain TECHNIQUE: FINDINGS: Heart and mediastinum are normal. Lungs are clear. Diaphragm is normal. Bony thorax appears normal. There is no stimulator in the lower thoracic spine. IMPRESSION: Normal chest. No change.
--- NOTE | 2022-06-04 20:29 | CT ---
EXAMINATION TYPE: CT chest angio for PE DATE OF EXAM: 06/04/2022 COMPARISON: 10/05/2020 HISTORY: SOB CT DLP: 938.3 mGycm Automated exposure control for dose reduction was used. CONTRAST: Performed with IV Contrast, patient injected with 100 mL of Isovue 370. Images obtained from the thoracic inlet to the diaphragm with the IV contrast. There are Three-D postprocessed images. The lungs are clear of consolidation. No pleural effusion. Heart size is fairly normal. No pericardia l effusion. There are no hilar masses. No mediastinal adenopathy. Thoracic aorta is intact. No aneury sm or dissection. No evidence of filling defect in the pulmonary arteries. The thoracic spine is intact. No compression fracture. There is neural stimulator in the lower thoracic spine. Sternum is intact. IMPRESSION: No evidence of pulmonary embolism. No adverse change.
[2022-06-04 21:26] VITALS: BP 140/93; PULSE 73; RESP 16
== END 2022-06-04 21:33 | disposition home or self-care (01) ==
LOC: EC 17:46
DX: R07.9 Chest pain, unspecified (principal); J44.9 Chronic obstructive pulmonary disease, unspecified; I25.2 Old myocardial infarction; F41.9 Anxiety disorder, unspecified; F32.A Depression, unspecified; F17.200 Nicotine dependence, unspecified, uncomplicated; F12.90 Cannabis use, unspecified, uncomplicated; Z88.1 Allergy status to other antibiotic agents; Z88.0 Allergy status to penicillin; Z88.5 Allergy status to narcotic agent; Z88.8 Allergy status to other drugs, medicaments and biological substances; Z79.51 Long term (current) use of inhaled steroids; Z79.899 Other long term (current) drug therapy
CPT/HCPCS: 36415; 93005; 80053; 84484; 85025; 85610; 85730; 71046; 71275; 99285; 96374; J2270; Q9967

== ENCOUNTER 2022-07-10 16:32 | Emergency (ER) | payer MEDICARE, OTHER ==
[2022-07-10 16:42] VITALS: TEMP 98.6
[2022-07-10] MEDS ORDERED: KETOROLAC 15 MG/ML 1 ML VIAL IM STA (16:55)
[2022-07-10] MEDS ORDERED: ONDANSETRON 4 MG/2 ML VIAL IVP STA ×2 (17:14→19:38)
--- NOTE | 2022-07-10 17:21 | XR ---
EXAMINATION TYPE: XR chest 2V DATE OF EXAM: 07/10/2022 5:06 PM COMPARISON: Chest radiographs from 06/04/2022 TECHNIQUE: XR chest 2V Frontal and lateral views of the chest. CLINICAL INDICATION:Female, 46 years old with history of Chest Pain; FINDINGS: Lungs/Pleura: There is no evidence of pleural effusion, focal consolidation, or pneumothorax. Pulmonary vascularity: Unremarkable. Heart/mediastinum: Cardiomediastinal silhouette is unremarkable. Musculoskeletal: No acute osseous pathology. Other findings: There are stimulator device projects over the spine. IMPRESSION: No acute cardiopulmonary disease/process. No significant change from prior.
--- NOTE | 2022-07-10 17:24 | ED ---
Chest Pain HPI - General Chief Complaint: Chest Pain Stated Complaint: Chest Pain/sob Time Seen by Provider: 07/10/22 16:46 Source: patient, RN notes reviewed Mode of arrival: ambulatory Limitations: no limitations - History of Present Illness Initial Comments: 46-year-old female presents with complaints of shortness of breath and chest pain that feels like somebody is sitting in her chest. He gets worse with deep breathing. He does have a recently diagnosed history of COPD/asthma she is a former smoker she quit over 2 years ago. She was admitted to this facility about 5 weeks ago for what was thought to be an myocardial infarction apparently she suffered from a vascular spasm at that time. She states it feels somewhat similar she has exertional dyspnea. No overt complaints of fevers chills. She does have nausea. The current complaints or modifying factors MD Complaint: chest pain, other - Related Data Home Medications Medication Instructions Recorded Confirmed Elviteg/Cob/Emtri/Tenof Alafen 1 tab PO DAILY 10/02/20 07/10/22 [Genvoya Tablet] HYDROcodone/APAP 10-325MG [[place] 1 tab PO Q8H PRN 10/02/20 07/10/22 10-325] Budesonide/Glycopyr/Formoterol 1 puff INHALATION RT-BID 05/29/22 07/10/22 [Breztri Aerosphere Inhaler] Ergocalciferol [Vitamin D2 (1250 1,250 mcg PO MO 05/29/22 07/10/22 Mcg = 92255 Iu)] busPIRone HCl [Buspar] 5 mg PO BID 05/29/22 07/10/22 Erenumab-Aooe [Aimovig 140 mg SQ QMONTHLY 05/30/22 07/10/22 Autoinjector] Nitroglycerin Sl Tabs [Nitrostat] 0.4 mg SL Q5M PRN 07/10/22 07/10/22 Previous Rx's Medication Instructions Recorded levETIRAcetam [Keppra] 500 mg PO Q12HR #30 tab 02/17/22 Aspirin 81 mg PO DAILY #30 tab 05/31/22 Atorvastatin [Lipitor] 40 mg PO DAILY #30 tab 05/31/22 Melatonin 5 mg PO HS 30 Days #30 tablet 05/31/22 Metoprolol Tartrate [Lopressor] 25 mg PO BID #60 tab 03/10/23 Nicotine 21Mg/24Hr Patch [Habitrol] 1 patch TRANSDERM DAILY #3 patch 05/31/22 Pantoprazole Sodium [Protonix] 40 mg PO BID 30 Days #60 tab 05/31/22 Ketorolac [Toradol] 10 mg PO Q6HR #20 tab 07/10/22 Orphenadrine [Norflex] 100 mg PO Q12H #7 tab 07/10/22 Allergies Allergy/AdvReac Type Severity Reaction Status Date / Time amoxicillin [From Augmentin] Allergy Anaphylaxis Verified 07/10/22 17:28 clavulanic acid Allergy Anaphylaxis Verified 07/10/22 17:28 [From Augmentin] morphine AdvReac Chest Pain Verified 07/10/22 17:28 prochlorperazine edisylate AdvReac Confusion Verified 07/10/22 17:28 [From Compazine] prochlorperazine maleate AdvReac Confusion Verified 07/10/22 17:28 [From Compazine] steroids Allergy Unknown Uncoded 07/10/22 17:28 Review of Systems ROS Statement: Those systems with pertinent positive or pertinent negative responses have been documented in the HPI. ROS Other: All systems not noted in ROS Statement are negative. EKG Findings - EKG Results: EKG: interpreted by ERMD (EKG interpreted by me normal sinus rhythm a 95. Interval 156 QRS duration 93 QT since QTC 333/406 st-t wave changes some artifact present) Past Medical History Past Medical History: Asthma, Chest Pain / Angina, COPD, Fibromyalgia, [place]ocardial Infarction ([place]), Pneumonia, Seizure Disorder Additional Past Medical History / Comment(s): HIV with AIDS. migraines, "rt eye has scarring and freckles". uti's, "poor circulation" Last Myocardial Infarction Date:: 05/29/2022 History of Any Multi-Drug Resistant Organisms: None Reported Past Surgical History: Section, Cholecystectomy, Heart Catheterization, Hysterectomy, Orthopedic Surgery Additional Past Surgical History / Comment(s): left shoulder sx, c-sec x3, spinal fusion, spinal stimulator Past Anesthesia/Blood Transfusion Reactions: No Reported Reaction Additional Past Anesthesia/Blood Transfusion Reaction / Comment(s): Hard to awake. Past Psychological History: Anxiety, Depression Smoking Status: Current every day smoker Past Alcohol Use History: None Reported Past Drug Use History: Marijuana - Past Family History Mother Family Medical History: CVA/TIA, Diabetes Mellitus, Myocardial Infarction ([place]) Additional Family Medical History / Comment(s): sarcoidosis, osteoporosis Father Family Medical History: Asthma, COPD General Exam - General Exam Comments Initial Comments: This a well-developed well-nourished awake alert oriented 4 female Limitations: no limitations General appearance: alert, anxious, in distress Head exam: Present: atraumatic, normocephalic, normal inspection Eye exam: Present: normal appearance, PERRL, EOMI. Absent: scleral icterus, conjunctival injection, periorbital swelling ENT exam: Present: normal exam, mucous membranes moist Neck exam: Present: normal inspection, full ROM, other. Absent: tenderness, meningismus, lymphadenopathy Respiratory exam: Present: chest wall tenderness (Tennis palpation on the right and left costal sternal costochondral margins this does seem to reproduce the patient's pain no step-off or crepitation), decreased breath sounds. Absent: respiratory distress, wheezes, rales, rhonchi, stridor Cardiovascular Exam: Present: regular rate, normal rhythm, normal heart sounds. Absent: systolic murmur, diastolic murmur, rubs, gallop, clicks GI/Abdominal exam: Present: soft, normal bowel sounds. Absent: distended, tenderness, guarding, rebound, rigid Extremities exam: Present: normal inspection, full ROM, normal capillary refill. Absent: tenderness, pedal edema, joint swelling, calf tenderness Back exam: Present: normal inspection Neurological exam: Present: alert, oriented X3, CN II-XII intact Psychiatric exam: Present: normal affect, normal mood Skin exam: Present: warm, dry, intact, normal color. Absent: rash Course Vital Signs 07/10/22 07/10/22 07/10/22 16:40 18:00 19:41 Temperature 98.6 F Pulse Rate 99 56 L 79 Respiratory 24 18 18 Rate Blood Pressure 118/90 111/53 155/89 O2 Sat by Pulse 100 98 99 Oximetry Chest Pain MDM - MDM I did interpret the imaging no acute findings. I did discuss findings with the patient she is feeling improved the presentation appears be consistent with a bronchospasm also with costochondritic chest wall pain. She will be discharged home on oral Toradol and a muscle relaxant. She is to follow-up with her doctor testing all is within normal limits at this time.Was pt. sent in by a medical professional or institution ([facility], [facility], urgent care, hospital, or custodial...) When possible be specific @ -[No] Did you speak to anyone other than the patient for history (EMS, parent, family, police, friend...)? What history was obtained from this source @ -[No] Did you review nursing and triage notes (agree or disagree)? Why? @ -[I reviewed and agree with nursing and triage notes] Were old charts reviewed (outside hosp., previous admission, EMS record, old EKG, old radiological studies, urgent care reports/EKG's, custodial records)? Report findings @ -[No old charts were reviewed] Differential Diagnosis (chest pain, altered mental status, abdominal pain women, abdominal pain men, vaginal bleeding, weakness, fever, dyspnea, syncope, headache, dizziness, GI bleed, back pain, seizure, CVA, palpatations, mental health, musculoskeletal)? @ -[Chest pain, musculoskeletal pain] EKG interpreted by me (3pts min.). @ -[As above] X-rays interpreted by me (1pt min.). @ -As above] CT interpreted by me (1pt min.). @ -[None done] U/S interpreted by me (1pt. min.). @ -[None done] What testing was considered but not performed or refused? (CT, X-rays, U/S, labs)? Why? @ -[None] What meds were considered but not given or refused? Why? @ -[None] Did you discuss the management of the patient with other professionals (professionals i.e. , [facility], [facility], lab, RT, psych nurse, high school social studies tutor, dinkey engine operator, teacher, peace officer, case maker)? Give summary @ -[No] Was smoking cessation discussed for >3mins.? @ -[No] Was critical care preformed (if so, how long)? @ -[No] Were there social determinants of health that impacted care today? How? (Homelessness, low income, unemployed, alcoholism, drug addiction, transportation, low edu. Level, literacy, decrease access to med. care, custodial, rehab)? @ -[No] Was there de-escalation of care discussed even if they declined (Discuss DNR or withdrawal of care, Hospice)? DNR status @ -[No] What co-morbidities impacted this encounter? (DM, HTN, Smoking, COPD, CAD, Cancer, CVA, ARF, Chemo, Hep., AIDS, mental health diagnosis, sleep apnea, morbid obesity)? @ -[Anxiety] Was patient admitted / discharged? Hospital course, mention meds given and route, prescriptions, significant lab abnormalities, going to OR and other pertinent info. @ -[hospital course] patient was discharged she'll be placed on NSAIDs as well as muscle relaxers she is to follow-up with her doctor return when necessary she does discuss weight gain that seems to be reset she will follow-up with her doctor for that Undiagnosed new problem with uncertain prognosis? @ -[No] Drug Therapy requiring intensive monitoring for toxicity (Heparin, Nitro, Insulin, Cardizem)? @ -[No] Were any procedures done? @ -[No] Diagnosis/symptom? @ -[Chest wall pain, costochondritis] Acute, or Chronic, or Acute on Chronic? @ -[Acute] Uncomplicated (without systemic symptoms) or Complicated (systemic symptoms)? @ -[default] Side effects of treatment? @ -[No] Exacerbation, Progression, or Severe Exacerbation? @ -[No] Poses a threat to life or bodily function? How? (Chest pain, [place], [place], pneumonia, PE, COPD, DKA, ARF, appy, cholecystitis, CVA, Diverticulitis, Homicidal, Suicidal, threat to staff... and all critical care pts) @ -[No] Disposition Clinical Impression: Costochondritis, Chest wall syndrome Disposition: HOME SELF-CARE Condition: Good Instructions (If sedation given, give patient instructions): Costochondritis (ED) Prescriptions: Orphenadrine [Norflex] 100 mg PO Q12H #7 tab Ketorolac [Toradol] 10 mg PO Q6HR #20 tab Is patient prescribed a controlled substance at d/c from ED?: No Referrals: Jacque Christian MD [Primary Care Provider] - 1-2 days
[2022-07-10 17:29] LABS: Basophils % (A) 0 %; Eosinophils # (A) 0.2 k/uL (0-0.7); Eosinophils % (A) 3 %; HGB 14.3 gm/dL (11.4-16.0); Lymphocytes # (A) 1.6 k/uL (1.0-4.8); Lymphocytes % (A) 23 %; MCH 30.9 pg (25.0-35.0); Mean Platelet Volume 7.9; Monocytes # (A) 0.4 k/uL (0-1.0); Monocytes % (A) 5 %; Neutrophils # (A) 4.4 k/uL (1.3-7.7); Neutrophils % (A) 66 %; Platelet Count 265 k/uL (150-450); RBC 4.61 m/uL (3.80-5.40); RDW 12.7 % (11.5-15.5); WBC 6.7 k/uL (3.8-10.6)
[2022-07-10 17:42] LABS: INR 0.9 (<1.2); Partial Thromboplastin Time 22.4 sec (22.0-30.0); Prothrombin Time 9.7 sec (9.0-12.0)
[2022-07-10 17:47] LABS: Albumin 4.8 g/dL (3.5-5.0); Calcium 10.1 mg/dL (8.4-10.2); Magnesium 1.9 mg/dL (1.6-2.3); Potassium 3.8 mmol/L (3.5-5.1); Total Bilirubin 0.4 mg/dL (0.2-1.3); Total Protein 8.1 g/dL (6.3-8.2)
[2022-07-10] MEDS ORDERED: MAG HYDROX/AL HYDROX/SIMETH 30 ML, HYOSCYAMINE ELIXIR 10 ML PO STA ×2 (19:19)
[2022-07-10] MEDS ORDERED: HYDROmorphone 1 MG/ML 1 ML SYRINGE IVP STA (19:19)
[2022-07-10 19:26] VITALS: RESP 18
[2022-07-10 20:55] VITALS: BP 135/78; PULSE 74
== END 2022-07-10 20:55 | disposition home or self-care (01) ==
LOC: EC 16:32
DX: M94.0 Chondrocostal junction syndrome [Tietze] (principal); J44.9 Chronic obstructive pulmonary disease, unspecified; I25.2 Old myocardial infarction; M79.7 Fibromyalgia; F32.A Depression, unspecified; F41.9 Anxiety disorder, unspecified; F17.200 Nicotine dependence, unspecified, uncomplicated; F12.90 Cannabis use, unspecified, uncomplicated; Z79.899 Other long term (current) drug therapy; Z88.0 Allergy status to penicillin; Z88.1 Allergy status to other antibiotic agents; Z88.5 Allergy status to narcotic agent; Z88.8 Allergy status to other drugs, medicaments and biological substances
CPT/HCPCS: 36415; 93005; 85379; 83880; 80053; 83690; 83735; 84484; 85025; 85610; 85730; 71046; 99285; 96374; 96375; 96376; 96372; J2405; J1170; J1885

== ENCOUNTER → 2022-07-23 | Outpatient (CLI) | payer MEDICARE, OTHER ==
[2022-07-23 15:04] LABS: Basophils # (A) 0.04 X 10*3/uL (0.00-0.10); Basophils % (A) 0.7 %; Eosinophils # (A) 0.19 X 10*3/uL (0.04-0.35); Eosinophils % (A) 3.2 %; HCT 41.4 % (37.2-46.3); HGB 13.6 g/dL (12.0-15.0); Immature Grans, Automated 0.3 %; Lymphocytes # (A) 1.01 X 10*3/uL (0.90-5.00); MCH 30.4 pg (27.0-32.0); MCHC 32.9 g/dL (32.0-37.0); MCV 92.6 fL (80.0-97.0); Mean Platelet Volume 9.8 fL (9.5-12.2); Monocytes # (A) 0.32 X 10*3/uL (0.20-1.00); Monocytes % (A) 5.4 %; NRBC Per 100 WBC 0 /100 WBCS (0.0-0.0); Neutrophils # (A) 4.35 X 10*3/uL (1.80-7.70); Neutrophils % (A) 73.4 %; Platelet Count 246 X 10*3/uL (140-440); RBC 4.47 X 10*6/uL (4.10-5.20); RDW 12.3 % (11.5-14.5); WBC 5.93 X 10*3/uL (4.50-10.00)
[2022-07-23 15:25] LABS: African American GFR (CKD) 78.8 (60.0-200.0); Albumin 4.6 g/dL (3.8-4.9); Albumin/Globulin Ratio 1.59 (1.60-3.17); Anion Gap 12.4 mmol/L (10.00-18.00); Calcium 9.6 mg/dL (8.7-10.3); Carbon Dioxide 24.6 mmol/L (20.0-27.5); Globulin 2.9 g/dL (1.6-3.3); Potassium 4.5 mmol/L (3.5-5.5); Total Bilirubin 0.3 mg/dL (0.30-1.20); Total Protein 7.5 g/dL (6.2-8.2)
[2022-07-24 00:55] LABS: HIV 2 AB Non-Reactive (Non-Reactive); HIV AB P24 REACTIVE (Non-Reactive); HIV P24 AG Non-Reactive (Non-Reactive)
[2022-07-24 14:34] LABS: T4/T8 Ratio (CD4:CD8) 0.2 (1.0-3.7)
== END | disposition home or self-care (01) ==
LOC: LABWHC1 09:55
PROVIDERS: ATTEND Internal Medicine Infectious Disease
DX: B20 Human immunodeficiency virus [HIV] disease (principal)
CPT/HCPCS: 36415; 80053; 85025; 86360; 87389; 87390

== ENCOUNTER → 2022-08-01 | Outpatient (CLI) | payer MEDICARE, OTHER ==
[2022-08-02 13:19] LABS: HIV-1 RNA DETECTED (Not detected); LOG HIV Copies/mL 3.09 (<1.30)
== END | disposition home or self-care (01) ==
LOC: LABT 11:53
PROVIDERS: ATTEND Internal Medicine Infectious Disease
DX: B20 Human immunodeficiency virus [HIV] disease (principal)
CPT/HCPCS: 87536

== ENCOUNTER → 2022-08-12 | Outpatient (CLI) | payer MEDICARE, OTHER | END | disposition home or self-care (01) | LOC: LABWHC1 11:05 | PROVIDERS: ATTEND Internal Medicine Infectious Disease | DX: B20 Human immunodeficiency virus [HIV] disease (principal) | CPT/HCPCS: 36415; 87901 ==

== ENCOUNTER 2022-09-04 15:30 | Emergency (ER) | payer MEDICARE, OTHER ==
[2022-09-04 15:35] VITALS: TEMP 98
[2022-09-04] MEDS ORDERED: NITROGLYCERIN OINT 1 INCH/GM PACKET TOPICAL STA (15:51)
[2022-09-04] MEDS ORDERED: ONDANSETRON 4 MG/2 ML VIAL IVP STA (15:51)
[2022-09-04] MEDS ORDERED: ASPIRIN 81 MG PO STA (15:51)
--- NOTE | 2022-09-04 15:55 | ED ---
Chest Pain HPI - General Chief Complaint: Chest Pain Stated Complaint: Chest pain Time Seen by Provider: 09/04/22 15:45 Source: patient Mode of arrival: ambulatory Limitations: no limitations - History of Present Illness Initial Comments: This patient is a 47-year-old woman, who gives history of previous [place], who presents with substernal chest pain that is been going on since Friday. She states that over the course of the next few days it was more noticeable and then yesterday she began having some associated nausea with it. Patient describes an aching, constant, has not noted exertional or worsening factors. No relieving factors. MD Complaint: chest pain -: days(s) Onset: during rest Pain Location: substernal Pain Radiation: none Severity: moderate Quality: aching Consistency: constant Improves With: nothing Worsens With: nothing Anginal Symptoms: nausea Treatments Prior to Arrival: aspirin - Related Data Home Medications Medication Instructions Recorded Confirmed Elviteg/Cob/Emtri/Tenof Alafen 1 tab PO DAILY 10/02/20 09/04/22 [Genvoya Tablet] HYDROcodone/APAP 10-325MG [[place] 1 tab PO Q8H PRN 10/02/20 09/04/22 10-325] Budesonide/Glycopyr/Formoterol 1 puff INHALATION RT-BID 05/29/22 09/04/22 [Breztri Aerosphere Inhaler] Erenumab-Aooe [Aimovig 140 mg SQ QMONTHLY 05/30/22 09/04/22 Autoinjector] Nitroglycerin Sl Tabs [Nitrostat] 0.4 mg SL Q5M PRN 07/10/22 09/04/22 busPIRone HCL [Buspar] 7.5 mg PO BID 09/04/22 09/04/22 Previous Rx's Medication Instructions Recorded levETIRAcetam [Keppra] 500 mg PO Q12HR #30 tab 02/17/22 Aspirin 81 mg PO DAILY #30 tab 05/31/22 Atorvastatin [Lipitor] 40 mg PO DAILY #30 tab 05/31/22 Melatonin 5 mg PO HS 30 Days #30 tablet 05/31/22 Metoprolol Tartrate [Lopressor] 25 mg PO BID #60 tab 05/31/22 Pantoprazole Sodium [Protonix] 40 mg PO BID 30 Days #60 tab 05/31/22 Ketorolac [Toradol] 10 mg PO Q6HR #20 tab 07/10/22 Ketorolac [Toradol] 10 mg PO Q6HR PRN #20 tab 09/04/22 methocarbamoL [Robaxin-750] 750 mg PO QID #28 tab 09/04/22 Allergies Allergy/AdvReac Type Severity Reaction Status Date / Time amoxicillin [From Augmentin] Allergy Anaphylaxis Verified 09/04/22 16:26 clavulanic acid Allergy Anaphylaxis Verified 09/04/22 16:26 [From Augmentin] morphine AdvReac Chest Pain Verified 09/04/22 16:26 prochlorperazine edisylate AdvReac Confusion Verified 09/04/22 16:26 [From Compazine] prochlorperazine maleate AdvReac Confusion Verified 09/04/22 16:26 [From Compazine] steroids Allergy Unknown Uncoded 09/04/22 16:26 Review of Systems ROS Statement: Those systems with pertinent positive or pertinent negative responses have been documented in the HPI. ROS Other: All systems not noted in ROS Statement are negative. Constitutional: Denies: fever, chills Respiratory: Denies: cough, dyspnea Cardiovascular: Reports: chest pain. Denies: palpitations, orthopnea, edema, syncope Gastrointestinal: Reports: nausea. Denies: abdominal pain, vomiting, diarrhea Genitourinary: Denies: dysuria, hematuria Musculoskeletal: Denies: back pain Skin: Denies: rash Neurological: Denies: headache, weakness EKG Findings - EKG Results: EKG: interpreted by ERMD, sinus rhythm (Rate 75 bpm), normal axis, normal QRS, normal ST/T Past Medical History Past Medical History: Asthma, Chest Pain / Angina, COPD, Fibromyalgia, Myocardial Infarction ([place]), Pneumonia, Seizure Disorder Additional Past Medical History / Comment(s): HIV with AIDS. migraines, "rt eye has scarring and freckles". uti's, "poor circulation" Last Myocardial Infarction Date:: 05/29/2022 History of Any Multi-Drug Resistant Organisms: None Reported Past Surgical History: Section, Cholecystectomy, Heart Catheterization, Hysterectomy, Orthopedic Surgery Additional Past Surgical History / Comment(s): left shoulder sx, c-sec x3, spinal fusion, spinal stimulator Past Anesthesia/Blood Transfusion Reactions: No Reported Reaction Additional Past Anesthesia/Blood Transfusion Reaction / Comment(s): Hard to aw rafael. Past Psychological History: Anxiety, Depression Smoking Status: Current every day smoker Past Alcohol Use History: None Reported Past Drug Use History: Marijuana - Past Family History Mother Family Medical History: CVA/TIA, Diabetes Mellitus, Myocardial Infarction ([place]) Additional Family Medical History / Comment(s): sarcoidosis, osteoporosis Father Family Medical History: Asthma, COPD General Exam Limitations: no limitations General appearance: alert, in no apparent distress Head exam: Present: atraumatic, normocephalic Eye exam: Present: normal appearance. Absent: scleral icterus, conjunctival injection ENT exam: Present: mucous membranes dry Neck exam: Present: normal inspection Respiratory exam: Present: normal lung sounds bilaterally. Absent: respiratory distress, wheezes, rales, rhonchi, stridor, chest wall tenderness, accessory muscle use Cardiovascular Exam: Present: regular rate, normal rhythm, normal heart sounds. Absent: systolic murmur, diastolic murmur, rubs, gallop GI/Abdominal exam: Present: soft. Absent: distended, tenderness, guarding, rebound, rigid, mass Extremities exam: Present: normal inspection, normal capillary refill. Absent: pedal edema, calf tenderness Back exam: Present: normal inspection. Absent: CVA tenderness (R), CVA tenderness (L) Neurological exam: Present: alert Skin exam: Present: warm, dry, intact, normal color. Absent: rash Course Vital Signs 09/04/22 09/04/22 09/04/22 15:31 16:06 17:00 Temperature 98 F Pulse Rate 79 80 71 Respiratory 20 20 18 Rate Blood Pressure 176/82 104/66 133/74 O2 Sat by Pulse 97 96 97 Oximetry 09/04/22 09/04/22 18:32 19:15 Temperature Pulse Rate 79 68 Respiratory 18 16 Rate Blood Pressure 126/61 122/68 O2 Sat by Pulse 97 96 Oximetry Chest Pain MDM - MDM The patient had chest x-ray which I interpreted as being negative for acute infiltrate, pneumothorax, congestive heart failure Patient is 47-year-old woman here with chest pain. The workup here is negative, including normal EKG and cardiac enzymes. Pain has been present long enough that there would be elevation of troponin were this likely cardiac. Discussed the appropriate further care and follow-up with the patient as well as return parameters. Was pt. sent in by a medical professional or institution (, [facility], [facility], urgent care, hospital, or detention...) When possible be specific @ -[No] Did you speak to anyone other than the patient for history (EMS, parent, family, police, friend...)? What history was obtained from this source @ -[No] Did you review nursing and triage notes (agree or disagree)? Why? @ -[I reviewed and agree with nursing and triage notes] Were old charts reviewed (outside hosp., previous admission, EMS record, old EKG, old radiological studies, urgent care reports/EKG's, detention records)? Report findings @ -[No old charts were reviewed] Differential Diagnosis (chest pain, altered mental status, abdominal pain women, abdominal pain men, vaginal bleeding, weakness, fever, dyspnea, syncope, headache, dizziness, GI bleed, back pain, seizure, CVA, palpatations, mental health, musculoskeletal)? @ -[Differential Chest Pain: Stable Angina, Unstable Angina, STEMI, NSTEMI Aortic Dissection, Pneumothorax, Musculoskeletal, Esophageal Spasm GERD, Cholecystitis, Pancreatitis, Zoster, this is not meant to be an all-inclusive list. EKG interpreted by me (3pts min.). @ -[As above] X-rays interpreted by me (1pt min.). @ -[As above CT interpreted by me (1pt min.). @ -[None done] U/S interpreted by me (1pt. min.). @ -[None done] What testing was considered but not performed or refused? (CT, X-rays, U/S, labs)? Why? @ -[None] What meds were considered but not given or refused? Why? @ -[None] Did you discuss the management of the patient with other professionals (professionals i.e. , [facility], BOARD FILLER, lab, RT, psych nurse, social work professor, pug machine operator, teacher, commanding officer motorized squad, case resolution specialist)? Give summary @ -[No] Was smoking cessation discussed for >3mins.? @ -[No] Was critical care preformed (if so, how long)? @ -[No] Were there social determinants of health that impacted care today? How? (Homelessness, low income, unemployed, alcoholism, drug addiction, transportation, low edu. Level, literacy, decrease access to med. care, shelter, rehab)? @ -[No] Was there de-escalation of care discussed even if they declined (Discuss DNR or withdrawal of care, Hospice)? DNR status @ -[No] What co-morbidities impacted this encounter? (DM, HTN, Smoking, COPD, CAD, Cancer, CVA, ARF, Chemo, Hep., AIDS, mental health diagnosis, sleep apnea, morbid obesity)? @ -[None] Was patient admitted / discharged? Hospital course, mention meds given and route, prescriptions, significant lab abnormalities, going to OR and other pertinent info. @ -[Discharged Undiagnosed new problem with uncertain prognosis? @ -[No] Drug Therapy requiring intensive monitoring for toxicity (Heparin, Nitro, Insulin, Cardizem)? @ -[No] Were any procedures done? @ -[No] Diagnosis/symptom? @ -[Acute chest pain Acute, or Chronic, or Acute on Chronic? @ -[Acute Uncomplicated (without systemic symptoms) or Complicated (systemic symptoms)? @ -[Uncomplicated Side effects of treatment? @ -[No] Exacerbation, Progression, or Severe Exacerbation? @ -[No] Poses a threat to life or bodily function? How? (Chest pain, [place], [place], pneumonia, PE, COPD, DKA, ARF, appy, cholecystitis, CVA, Diverticulitis, Homicidal, Suicidal, threat to staff... and all critical care pts) @ -[No] Disposition Clinical Impression: Chest pain Disposition: HOME SELF-CARE Condition: Good Instructions (If sedation given, give patient instructions): Chest Pain (ED) Prescriptions: methocarbamoL [Robaxin-750] 750 mg PO QID #28 tab Ketorolac [Toradol] 10 mg PO Q6HR PRN #20 tab PRN Reason: Pain Is patient prescribed a controlled substance at d/c from ED?: No Referrals: Jacque Christian MD [Primary Care Provider] - 1-2 days
--- NOTE | 2022-09-04 16:23 | XR ---
EXAMINATION TYPE: XR chest 2V DATE OF EXAM: 09/04/2022 COMPARISON: 07/10/2022 HISTORY: Chest pain TECHNIQUE: Frontal and lateral views of the chest are obtained. FINDINGS: There is no focal air space opacity. No evidence for pneumothorax. No pleural effusion. The cardiac silhouette size is within normal limits. The osseous structures are grossly intact. IMPRESSION: 1. No acute cardiopulmonary process.
[2022-09-04 16:30] LABS: Basophils % (A) 1 %; Eosinophils # (A) 0.3 k/uL (0-0.7); Eosinophils % (A) 6 %; HCT 39.1 % (34.0-46.0); HGB 13.5 gm/dL (11.4-16.0); Lymphocytes % (A) 22 %; MCH 30.5 pg (25.0-35.0); MCHC 34.6 g/dL (31.0-37.0); MCV 88.3 fL (80.0-100.0); Mean Platelet Volume 7.9; Monocytes # (A) 0.2 k/uL (0-1.0); Monocytes % (A) 4 %; Neutrophils # (A) 3.1 k/uL (1.3-7.7); Neutrophils % (A) 66 %; Platelet Count 253 k/uL (150-450); RBC 4.43 m/uL (3.80-5.40); RDW 12.3 % (11.5-15.5); WBC 4.6 k/uL (3.8-10.6)
[2022-09-04 16:43] LABS: ALT 31 U/L (4-34); AST 33 U/L (14-36); African American GFR (CKD) 84 (>60 ml/min/1.73 sqM); Albumin 4.3 g/dL (3.5-5.0); Alkaline Phosphatase 89 U/L (38-126); Amylase 44 U/L (30-110); Anion Gap 10 mmol/L; Blood Urea Nitrogen 20 mg/dL (7-17); Calcium 9.1 mg/dL (8.4-10.2); Carbon Dioxide 25 mmol/L (22-30); Chloride 104 mmol/L (98-107); Glucose 139 mg/dL (74-99); Lipase 337 U/L (23-300); Magnesium 2.1 mg/dL (1.6-2.3); Non-African American GFR(CKD) 73 (>60 ml/min/1.73 sqM); Potassium 4.4 mmol/L (3.5-5.1); Sodium 139 mmol/L (137-145); Total Bilirubin 0.3 mg/dL (0.2-1.3); Total Protein 7.8 g/dL (6.3-8.2)
[2022-09-04 16:58] LABS: INR 0.9 (<1.2); Partial Thromboplastin Time 23.8 sec (22.0-30.0); Prothrombin Time 9.7 sec (9.0-12.0)
[2022-09-04] MEDS ORDERED: KETOROLAC 15 MG/ML 1 ML VIAL IVP STA (17:29)
[2022-09-04 19:33] VITALS: BP 122/68; PULSE 68; RESP 16
== END 2022-09-04 19:25 | disposition home or self-care (01) ==
LOC: EC 15:30
DX: R07.89 Other chest pain (principal); J44.9 Chronic obstructive pulmonary disease, unspecified; I25.2 Old myocardial infarction; F41.9 Anxiety disorder, unspecified; F32.A Depression, unspecified; B20 Human immunodeficiency virus [HIV] disease; F17.200 Nicotine dependence, unspecified, uncomplicated; F12.90 Cannabis use, unspecified, uncomplicated; Z79.51 Long term (current) use of inhaled steroids; Z88.0 Allergy status to penicillin; Z88.1 Allergy status to other antibiotic agents; Z88.5 Allergy status to narcotic agent; Z88.8 Allergy status to other drugs, medicaments and biological substances; Z79.899 Other long term (current) drug therapy
CPT/HCPCS: 99285 ×2; 96374 ×2; 96375 ×2; 36415; 93005; 85379; 83880; 80053; 82150; 83690; 83735; 84484; 85025; 85610; 85730; 71046; J2405; J1885

== ENCOUNTER → 2022-09-17 | Outpatient (CLI) | payer MEDICARE, OTHER ==
[2022-09-17 20:17] LABS: ALT 30 U/L (8-44); AST 23 U/L (13-35); Albumin 4.6 d/dL (3.8-4.9); Albumin/Globulin Ratio 1.44 Ratio (1.60-3.17); Alkaline Phosphatase 81 U/L (41-126); BUN/Creat Ratio 18.11 Ratio (12.00-20.00); Blood Urea Nitrogen 16.3 mg/dL (9.0-27.0); Calcium 9.9 mg/dL (8.7-10.3); Carbon Dioxide 22.6 mmol/L (21.6-31.8); Chloride 100 mmol/L (96-109); Chol/HDL Ratio 6.35 Ratio; Globulin 3.2 d/dL (1.6-3.3); Glucose 111 mg/dL (70-110); LDL Cholesterol,Calculated 103.5 mg/dL (0.0-131.0); Potassium 4.5 mmol/L (3.5-5.5); Sodium 139 mmol/L (135-145); Total Bilirubin 0.3 mg/dL (0.3-1.2); Total Protein 7.8 d/dL (6.2-8.2)
== END | disposition home or self-care (01) ==
LOC: LABWHC1 11:19
PROVIDERS: ATTEND Internal Medicine Interventional Cardiology
DX: E78.2 Mixed hyperlipidemia (principal)
CPT/HCPCS: 36415; 80053; 80061

== ENCOUNTER 2022-10-04 12:35 | Observation (INO) | payer OTHER ==
[2022-10-04] MEDS ORDERED: ASPIRIN 81 MG PO STA (13:05)
[2022-10-04] MEDS ORDERED: NITROGLYCERIN SL TABS 0.4 MG TAB SUBLINGUAL STA ×3 (13:05)
[2022-10-04] MEDS ORDERED: LORazepam 2 MG/ML INJ IV STA (13:06)
--- NOTE | 2022-10-04 13:10 | ED ---
General Adult HPI - General Chief complaint: Chest Pain Stated complaint: Chest Pain Time Seen by Provider: 10/04/22 12:56 Source: patient, RN notes reviewed Mode of arrival: wheelchair Limitations: no limitations - History of Present Illness Initial comments: Patient is a pleasant 47-year-old female presenting to the emergency department with concern for chest pain. Upon presentation and was called into the room a nursing staff. Patient became unresponsive and did have abnormal mouth movements and shaking and staring. Patient does have seizure history. This lasted one to 2 minutes and then patient started to respond. Patient states chest discomfort has been the past one to 2 days. Patient believes she has had a previously. Patient does have some mild shortness of breath and does feel a little bit sweaty at this time. Patient does seem to be a poor historian and she seems somewhat postictal. Patient does take Keppra . Patient adds she does have history of HIV and AIDS and is currently under treatment for this. - Related Data Home Medications Medication Instructions Recorded Confirmed Elviteg/Cob/Emtri/Tenof Alafen 1 tab PO DAILY 10/02/20 10/04/22 [Genvoya Tablet] HYDROcodone/APAP 10-325MG [[place] 1 tab PO Q8H PRN 10/02/20 10/04/22 10-325] Budesonide/Glycopyr/Formoterol 1 puff INHALATION RT-BID 05/29/22 10/04/22 [Breztri Aerosphere Inhaler] Erenumab-Aooe [Aimovig 140 mg SQ Q30D 05/30/22 10/04/22 Autoinjector] Nitroglycerin Sl Tabs [Nitrostat] 0.4 mg SL Q5M PRN 07/10/22 10/04/22 busPIRone HCL [Buspar] 7.5 mg PO BID 09/04/22 10/04/22 Aspirin EC [Ecotrin Low Dose] 81 mg PO DAILY 10/04/22 10/04/22 Spironolactone [Aldactone] 25 mg PO DAILY@119910/04/22 10/04/22 metFORMIN HCL [Glucophage] 850 mg PO DAILY@1200 10/04/22 10/04/22 methocarbamoL [Robaxin-750] 750 mg PO QID PRN 10/04/22 10/04/22 Previous Rx's Medication Instructions Recorded levETIRAcetam [Keppra] 500 mg PO Q12HR #30 tab 02/17/22 Melatonin 5 mg PO HS 30 Days #30 tablet 05/31/22 Metoprolol Tartrate [Lopressor] 25 mg PO BID #60 tab 05/31/22 Ketorolac [Toradol] 10 mg PO Q6HR PRN #20 tab 09/04/22 Allergies Allergy/AdvReac Type Severity Reaction Status Date / Time amoxicillin [From Augmentin] Allergy Anaphylaxis Verified 10/04/22 15:04 clavulanic acid Allergy Anaphylaxis Verified 10/04/22 15:04 [From Augmentin] morphine AdvReac Chest Pain Verified 10/04/22 15:04 prochlorperazine edisylate AdvReac Confusion Verified 10/04/22 15:04 [From Compazine] prochlorperazine maleate AdvReac Confusion Verified 10/04/22 15:04 [From Compazine] steroids Allergy Unknown Uncoded 10/04/22 12:49 Review of Systems ROS Statement: Those systems with pertinent positive or pertinent negative responses have been documented in the HPI. ROS Other: All systems not noted in ROS Statement are negative. Constitutional: Denies: fever Eyes: Denies: eye pain ENT: Denies: ear pain Respiratory: Reports: as per HPI, dyspnea. Denies: cough Cardiovascular: Reports: as per HPI, chest pain Endocrine: Denies: fatigue Gastrointestinal: Denies: abdominal pain Genitourinary: Denies: dysuria Musculoskeletal: Denies: back pain Skin: Denies: rash Neurological: Denies: weakness Past Medical History Past Medical History: Asthma, Chest Pain / Angina, COPD, Fibromyalgia, Myocardial Infarction (MA), Pneumonia, Seizure Disorder Additional Past Medical History / Comment(s): HIV with AIDS. migraines, "rt eye has scarring and freckles". uti's, "poor circulation" Last Myocardial Infarction Date:: 05/29/2022 History of Any Multi-Drug Resistant Organisms: None Reported Past Surgical History: Section, Cholecystectomy, Heart Catheterization, Hysterectomy, Orthopedic Surgery Additional Past Surgical History / Comment(s): left shoulder sx, c-sec x3, spinal fusion, spinal stimulator Past Anesthesia/Blood Transfusion Reactions: No Reported Reaction Additional Past Anesthesia/Blood Transfusion Reaction / Comment(s): Hard to awake. Past Psychological History: Anxiety, Depression Smoking Status: Current every day smoker Past Alcohol Use History: None Reported Past Drug Use History: Marijuana - Past Family History Mother Family Medical History: CVA/TIA, Diabetes Mellitus, Myocardial Infarction (MA) Additional Family Medical History / Comment(s): sarcoidosis, osteoporosis Father Family Medical History: Asthma, COPD General Exam Limitations: no limitations General appearance: other (Original presentation patient is unresponsive and shaking with mild partial seizure the last one to 2 minutes. Following this patient is alert but slightly confused) Head exam: Present: normocephalic Eye exam: Present: normal appearance Neck exam: Present: normal inspection Respiratory exam: Present: normal lung sounds bilaterally Cardiovascular Exam: Present: regular rate, normal rhythm GI/Abdominal exam: Present: soft. Absent: tenderness Neurological exam: Present: alert. Absent: motor sensory deficit Psychiatric exam: Present: normal affect, normal mood Skin exam: Present: normal color Course Vital Signs 10/04/22 10/04/22 12:48 13:02 Temperature 98.8 F Pulse Rate 79 Pulse Rate [ 78 Package Collector ] Respiratory 20 Rate Blood Pressure 144/66 O2 Sat by Pulse 99 Oximetry EKG Findings - EKG Results: EKG: interpreted by ERMD, sinus rhythm, normal axis, normal QRS, normal ST/T Medical Decision Making - Medical Decision Making Was pt. sent in by a medical professional or institution (PRISCILA Seay, [employer], urgent care, hospital, or retirement...) When possible be specific @ -No Did you speak to anyone other than the patient for history (EMS, parent, family, police, friend...)? What history was obtained from this source @ -No Did you review nursing and triage notes (agree or disagree)? Why? @ -I reviewed and agree with nursing and triage notes Were old charts reviewed (outside hosp., previous admission, EMS record, old EKG, old radiological studies, urgent care reports/EKG's, retirement records)? Report findings @ -Old chart was reviewed to obtain history of seizures Differential Diagnosis (chest pain, altered mental status, abdominal pain women, abdominal pain men, vaginal bleeding, weakness, fever, dyspnea, syncope, headache, dizziness, GI bleed, back pain, seizure, CVA, palpatations, mental health, musculoskeletal)? @ -Differential Chest Pain: Stable Angina, Unstable Angina, STEMI, NSTEMI Aortic Dissection, Pneumothorax, Musculoskeletal, Esophageal Spasm GERD, Cholecystitis, Pancreatitis, Zoster, this is not meant to be an all-inclusive list. EKG interpreted by me (3pts min.). @ -As above X-rays interpreted by me (1pt min.). @ -Chest x-ray shows no acute process CT interpreted by me (1pt min.). @ -None done U/S interpreted by me (1pt. min.). @ -None done What testing was considered but not performed or refused? (CT, X-rays, U/S, labs)? Why? @ -None What meds were considered but not given or refused? Why? @ -None Did you discuss the management of the patient with other professionals (professionals i.e. , PA, [employer], lab, RT, psych nurse, social welfare research worker, tube carrier, teacher, hydrographical technical officer, case finisher)? Give summary @ -Case was discussed with Dr. Garcia, who will admit covering Dr. Was smoking cessation discussed for >3mins.? @ -No Was critical care preformed (if so, how long)? @ -No Were there social determinants of health that impacted care today? How? (Homelessness, low income, unemployed, alcoholism, drug addiction, transportatio n, low edu. Level, literacy, decrease access to med. care, fci, rehab)? @ -No Was there de-escalation of care discussed even if they declined (Discuss DNR or withdrawal of care, Hospice)? DNR status @ -No What co-morbidities impacted this encounter? (DM, HTN, Smoking, COPD, CAD, Cancer, CVA, ARF, Chemo, Hep., AIDS, mental health diagnosis, sleep apnea, morbid obesity)? @ -None Was patient admitted / discharged? Hospital course, mention meds given and route, prescriptions, significant lab abnormalities, going to OR and other pertinent info. @ -Patient reevaluated and feeling somewhat better with nitro glycerin. Patient is alert and oriented and acting appropriately. Patient is updated on results and plan. Patient will be admitted. Patient states she's been off her Keppra for the last 10 days. Undiagnosed new problem with uncertain prognosis? @ -No Drug Therapy requiring intensive monitoring for toxicity (Heparin, Nitro, Insulin, Cardizem)? @ -No Were any procedures done? @ -No Diagnosis/symptom? @ -Chest pain Acute, or Chronic, or Acute on Chronic? @ -Acute Uncomplicated (without systemic symptoms) or Complicated (systemic symptoms)? @ -default Side effects of treatment? @ -No Exacerbation, Progression, or Severe Exacerbation? @ -No Poses a threat to life or bodily function? How? (Chest pain, [place], MA, pneumonia, PE, COPD, DKA, ARF, appy, cholecystitis, CVA, Diverticulitis, Homicidal, Suicidal, threat to staff... and all critical care pts) @ -No - Lab Data Result diagrams: 10/04/22 13:31 10/04/22 13:31 Lab Results 10/04/22 10/04/22 10/04/22 Range/Units 13:31 13:31 13:31 WBC 6.3 (3.8-10.6) k/uL RBC 4.84 (3.80-5.40) m/uL Hgb 14.3 (11.4-16.0) gm/dL Hct 42.6 (34.0-46.0) % MCV 88.0 (80.0-100.0) fL MCH 29.5 (25.0-35.0) pg MCHC 33.5 (31.0-37.0) g/dL RDW 12.7 (11.5-15.5) % Plt Count 275 (150-450) k/uL MPV 8.6 Neutrophils % 68 % Lymphocytes % 21 % Monocytes % 5 % Eosinophils % 3 % Basophils % 1 % Neutrophils # 4.3 (1.3-7.7) k/uL Lymphocytes # 1.3 (1.0-4.8) k/uL Monocytes # 0.3 (0-1.0) k/uL Eosinophils # 0.2 (0-0.7) k/uL Basophils # 0.0 (0-0.2) k/uL PT 9.8 (9.0-12.0) sec INR 0.9 (<1.2) APTT 23.5 (22.0-30.0) sec D-Dimer 0.30 (<0.60) mg/L FEU Sodium 139 (137-145) mmol/L Potassium 4.8 (3.5-5.1) mmol/L Chloride 103 (98-107) mmol/L Carbon Dioxide 24 (22-30) mmol/L Anion Gap 12 mmol/L BUN 16 (7-17) mg/dL Creatinine 0.85 (0.52-1.04) mg/dL Est GFR (CKD-EPI)AfAm >90 (>60 ml/min/1.73 sqM) Est GFR (CKD-EPI)NonAf 83 (>60 ml/min/1.73 sqM) Glucose 93 (74-99) mg/dL Calcium 9.8 (8.4-10.2) mg/dL Magnesium 2.0 (1.6-2.3) mg/dL Total Bilirubin 0.7 (0.2-1.3) mg/dL AST 34 (14-36) U/L ALT 34 (4-34) U/L Alkaline Phosphatase 73 (38-126) U/L Total Creatine Kinase (30-135) U/L CK-MB (CK-2) (0.0-3.4) ng/mL CK-MB (CK-2) Rel Index Troponin I (0.000-0.034) ng/mL NT-Pro-B Natriuret Pep pg/mL Total Protein 8.5 H (6.3-8.2) g/dL Albumin 4.7 (3.5-5.0) g/dL Amylase 47 (30-110) U/L Lipase 276 (23-300) U/L 10/04/22 10/04/22 Range/Units 13:31 13:31 WBC (3.8-10.6) k/uL RBC (3.80-5.40) m/uL Hgb (11.4-16.0) gm/dL Hct (34.0-46.0) % MCV (80.0-100.0) fL MCH (25.0-35.0) pg MCHC (31.0-37.0) g/dL RDW (11.5-15.5) % Plt Count (150-450) k/uL MPV Neutrophils % % Lymphocytes % % Monocytes % % Eosinophils % % Basophils % % Neutrophils # (1.3-7.7) k/uL Lymphocytes # (1.0-4.8) k/uL Monocytes # (0-1.0) k/uL Eosinophils # (0-0.7) k/uL Basophils # (0-0.2) k/uL PT (9.0-12.0) sec INR (<1.2) APTT (22.0-30.0) sec D-Dimer (<0.60) mg/L FEU Sodium (137-145) mmol/L Potassium (3.5-5.1) mmol/L Chloride (98-107) mmol/L Carbon Dioxide (22-30) mmol/L Anion Gap mmol/L BUN (7-17) mg/dL Creatinine (0.52-1.04) mg/dL Est GFR (CKD-EPI)AfAm (>60 ml/min/1.73 sqM) Est GFR (CKD-EPI)NonAf (>60 ml/min/1.73 sqM) Glucose (74-99) mg/dL Calcium (8.4-10.2) mg/dL Magnesium (1.6-2.3) mg/dL Total Bilirubin (0.2-1.3) mg/dL AST (14-36) U/L ALT (4-34) U/L Alkaline Phosphatase (38-126) U/L Total Creatine Kinase 155 H (30-135) U/L CK-MB (CK-2) 1.1 (0.0-3.4) ng/mL CK-MB (CK-2) Rel Index 0.7 Troponin I <0.012 (0.000-0.034) ng/mL NT-Pro-B Natriuret Pep <20 pg/mL Total Protein (6.3-8.2) g/dL Albumin (3.5-5.0) g/dL Amylase (30-110) U/L Lipase (23-300) U/L Disposition Clinical Impression: Chest pain Disposition: ADMITTED IP TO THIS HOSP Is patient prescribed a controlled substance at d/c from ED?: No Referrals: Jacque Christian MD [Primary Care Provider] - 1-2 days Time of Disposition: 15:23
[2022-10-04 14:06] LABS: Basophils % (A) 1 %; Eosinophils # (A) 0.2 k/uL (0-0.7); Eosinophils % (A) 3 %; HCT 42.6 % (34.0-46.0); HGB 14.3 gm/dL (11.4-16.0); Lymphocytes # (A) 1.3 k/uL (1.0-4.8); Lymphocytes % (A) 21 %; MCH 29.5 pg (25.0-35.0); MCHC 33.5 g/dL (31.0-37.0); Mean Platelet Volume 8.6; Monocytes # (A) 0.3 k/uL (0-1.0); Monocytes % (A) 5 %; Neutrophils # (A) 4.3 k/uL (1.3-7.7); Neutrophils % (A) 68 %; Platelet Count 275 k/uL (150-450); RBC 4.84 m/uL (3.80-5.40); RDW 12.7 % (11.5-15.5); WBC 6.3 k/uL (3.8-10.6)
--- NOTE | 2022-10-04 14:13 | XR ---
EXAMINATION TYPE: XR chest 2V DATE OF EXAM: 10/04/2022 COMPARISON: 09/04/2022 INDICATION: Chest pain TECHNIQUE: Frontal and lateral views of the chest are obtained. FINDINGS: The heart size is normal. The pulmonary vasculature is normal. The lungs are clear. Thoracic stimulator leads are within the spinal canal IMPRESSION: 1. No acute pulmonary process.
[2022-10-04 14:24] LABS: Creatine Kinase 155 U/L (30-135)
[2022-10-04 14:25] LABS: INR 0.9 (<1.2); Partial Thromboplastin Time 23.5 sec (22.0-30.0); Prothrombin Time 9.8 sec (9.0-12.0)
[2022-10-04 14:26] LABS: ALT 34 U/L (4-34); AST 34 U/L (14-36); African American GFR (CKD) >90 (>60 ml/min/1.73 sqM); Albumin 4.7 g/dL (3.5-5.0); Alkaline Phosphatase 73 U/L (38-126); Amylase 47 U/L (30-110); Anion Gap 12 mmol/L; Blood Urea Nitrogen 16 mg/dL (7-17); Calcium 9.8 mg/dL (8.4-10.2); Carbon Dioxide 24 mmol/L (22-30); Chloride 103 mmol/L (98-107); Glucose 93 mg/dL (74-99); Lipase 276 U/L (23-300); Non-African American GFR(CKD) 83 (>60 ml/min/1.73 sqM); Potassium 4.8 mmol/L (3.5-5.1); Sodium 139 mmol/L (137-145); Total Bilirubin 0.7 mg/dL (0.2-1.3); Total Protein 8.5 g/dL (6.3-8.2)
[2022-10-04 14:36] LABS: Creatine Kinase MB 1.1 ng/mL (0.0-3.4); Troponin I <0.012 ng/mL (0.000-0.034)
[2022-10-04] MEDS ORDERED: methocarbamoL 750 MG TAB PO PRN (15:15)
[2022-10-04] MEDS ORDERED: levETIRAcetam IV 1,000 MG in SODIUM CHLORIDE 0.9% 250 ML IVPB ONE (15:20)
[2022-10-04] MEDS ORDERED: HYDROmorphone 0.5 MG/0.5 ML SYRINGE IVP STA (15:23)
[2022-10-04] MEDS ORDERED: NITROGLYCERIN SL TABS 0.4 MG TAB SUBLINGUAL PRN (15:24)
[2022-10-04] MEDS ORDERED: levETIRAcetam IV 500 MG/5 ML VIAL IV ONE (15:30)
[2022-10-04] MEDS ORDERED: ETODOLAC 300 MG CAPSULE PO PRN (16:10)
[2022-10-04] MEDS ORDERED: HYDROmorphone 0.5 MG/0.5 ML SYRINGE IVP PRN (16:11)
[2022-10-04] MEDS: HYDROcodone/APAP 10-325MG 1 EACH TAB PO PRN (20:33)
[2022-10-04] MEDS: busPIRone HCl 5 MG TAB PO SCH (20:34)
[2022-10-04] MEDS: levETIRAcetam 500 MG TAB PO SCH (20:34)
[2022-10-04] MEDS: METOPROLOL TARTRATE 25 MG TAB PO SCH (20:34)
[2022-10-04] MEDS: SYMBICORT 160-4.5 MCG INHALER INHALATION SCH (20:43)
[2022-10-04] MEDS: IPRATROPIUM 0.5 MG/2.5 ML NEBU INHALATION SCH (20:43)
[2022-10-04] MEDS: NICOTINE 21MG/24HR PATCH TRANSDERM SCH ×2 (20:50→20:53)
[2022-10-04] MEDS: PANTOPRAZOLE SODIUM 40 MG GRANULE PKT PO SCH (20:50)
[2022-10-04] MEDS ORDERED: MELATONIN 5 MG TABLET PO SCH (21:00)
[2022-10-04] MEDS: NICOTINE 14MG/24HR PATCH TRANSDERM SCH (21:03)
[2022-10-04 22:59] VITALS: RESP 16
--- NOTE | 2022-10-05 01:54 | HP ---
HISTORY AND PHYSICAL CHIEF COMPLAINT: Chest pain. HISTORY OF PRESENT ILLNESS: This is a 47-year-old woman with past medical history of asthma, COPD, fibromyalgia, HIV, was complaining of chest pain, which was felt in the anterior part of the chest radiating to the back. The patient apparently also had partial seizures in the ER. There is no history of any fever, rigors, or chills at this time. PAST MEDICAL HISTORY: Reviewed include asthma, angina, COPD, fibromyalgia, HIV, AIDS. Rest of the history and rest of the chart is also reviewed. HOME MEDICATIONS: Reviewed include Robaxin, dose and rest of medications reviewed. ALLERGIES: Reviewed include Amoxicillin. Rest of the allergies noted. FAMILY HISTORY: History of CVA, diabetes mellitus. Rest of the history reviewed. SOCIAL HISTORY: History of smoking. REVIEW OF SYSTEMS: A 14-point review is negative except as mentioned earlier. PHYSICAL EXAMINATION: VITAL SIGNS: Pulse 79, blood pressure 144/63, respirations 20. HEENT: Conjunctivae normal. NECK: No JVD. CARDIOVASCULAR: S1, S2. RESPIRATIONS: Breath sounds diminished at the bases. ABDOMEN: Soft, nontender. LEGS: No edema. NERVOUS SYSTEM: Nonfocal. LABORATORY DATA: Reviewed. ASSESSMENT: 1. Chest pain, possible unstable angina. 2. Chronic obstructive pulmonary disease. 3. Partial seizures. 4. Fibromyalgia. 5. History of human immunodeficiency virus, acquired immuno deficiency syndrome. 6. History of cholecystectomy. 7. Multiple complex medical issues. RECOMMENDATIONS AND DISCUSSION: This is a 47-year-old woman, who presented with multiple complex medical issues, we will monitor the patient closely. We will resume the home medications. We will obtain cardiology consultations and continue to monitor. Prognosis guarded because of multiple complex medical issues. Further recommendations to follow. We will obtain neurology consultation as well. MMODL / IJN: [id number] /
[2022-10-05] MEDS: HYDROcodone/APAP 10-325MG 1 EACH TAB PO PRN (05:58)
[2022-10-05] MEDS: PANTOPRAZOLE SODIUM 40 MG GRANULE PKT PO SCH (05:58)
[2022-10-05 07:43] VITALS: BP 125/80; PULSE 76; TEMP 98
[2022-10-05] MEDS: NICOTINE 14MG/24HR PATCH TRANSDERM SCH (08:22)
[2022-10-05] MEDS: METOPROLOL TARTRATE 25 MG TAB PO SCH (08:23)
[2022-10-05] MEDS: busPIRone HCl 5 MG TAB PO SCH (08:23)
[2022-10-05] MEDS: levETIRAcetam 500 MG TAB PO SCH (08:23)
[2022-10-05] MEDS ORDERED: ALPRAZolam 0.25 MG TAB PO PRN (08:28)
[2022-10-05] MEDS ORDERED: ASPIRIN 325 MG TAB PO SCH (09:00)
[2022-10-05] MEDS ORDERED: [UNRECOGNIZED DRUG - OTHER] PO SCH (09:00)
[2022-10-05] MEDS ORDERED: ASPIRIN 81 MG PO SCH (09:00)
[2022-10-05] MEDS: SYMBICORT 160-4.5 MCG INHALER INHALATION SCH (09:13)
[2022-10-05] MEDS: IPRATROPIUM 0.5 MG/2.5 ML NEBU INHALATION SCH ×2 (09:14→12:21)
[2022-10-05 09:56] LABS: Chol/HDL Ratio 8.29 Ratio; LDL Cholesterol,Calculated 159.6 mg/dL (0.0-131.0); VLDL Calculation 88.4 mg/dL (5.00-40.00)
[2022-10-05] MEDS ORDERED: metFORMIN 850 MG TAB PO SCH (12:00)
[2022-10-05] MEDS ORDERED: SPIRONOLACTONE 25 MG TAB PO SCH (12:00)
--- NOTE | 2022-10-05 13:19 | P.CNNES ---
History of Present Illness Consult date: 10/04/22 Requesting physician: Waleska Garcia Reason for Consult: Seizure? History of Present Illness: Patient is a 47-year-old female with history of nonepileptic seizure, came to the hospital today at 12:35 PM for chest pain. While in the hospital, patient had 2 breakthrough seizures, which prompted neurology consultation. Patient takes Keppra 500 mg twice a day, and patient claims that she was out of town, therefore she was out of Keppra for 10 days. She just received her refills today. Patient's was also present. He mentions that patient seizure starts with steering of/blank stare, then she "sucks her tongue", then her hands locks up and usually the seizure lasts for about a few minutes. However she is confused afterwards for almost an hour. Also gets a headache post ictally. Vital signs on arrival blood pressure 144/66, pulse rate 79 temperature 98.8. Blood tests shows normal CBC, PT/PTT, d-dimer, CMP, troponin, amylase, lipase. Patient's last A1c 5.7 on 04/06/2021, B12 362 and vitamin D 16.4, folate 5.10 on 02/15/2022. Patient states she has history of seizure disorder that started about 7 years ago. Patient stated that she had pneumonia, and was hospitalized for 8 days. She received lot of steroids during hospitalization. 2 weeks after discharge seizures started happening. The seizures would occur everyday, in and out all day. She would be confused, locks up. She was hospitalized at [facility] had multiple MRIs, EEGs even EEG overnight and no seizure activity was found. She was diagnosed with nonepileptic seizures. Patient states that after 2-3 years, the seizures slowed down in frequency. However she has noticed that every time she takes prednisone, her anxiety gets super high, and she goes into panic attacks. Over the years she has learned breathing exercises and she make sure that she does not get prednisone. Patient says that she tried Depakote, which was too strong for her. Patient takes [place], Genvoya, Keppra 500 mg every 12 hour, Breztri inhaler, Aimovig, metoprolol to 5 mg twice a day, BuSpar 7.5 minutes twice a day, to rule out alternative every 6 hours when necessary, aspirin 81 mg, Protonix, Aldactone, metformin, Robaxin. Patient denies diabetes. She does have hypertension and hyperlipidemia. Patient has chronic back pain. She has a spinal cord stimulator. She has aids for 25 years. Patient still smokes < 10 cigarettes per day. She says that she has been a light smoker for over 20 years. Denies any alcohol or drugs. Carotid Doppler 02/15/2022 revealed less than 50% stenosis of bilateral ICA. 2-D echo on 05/30/2022 revealed normal left ventricle size with EF lower limits of normal of 45-50%. Grade 2 diastolic dysfunction. Normal left atrial size. Review of Systems Constitutional: Denies chills, Denies fever Eyes: denies blurred vision, denies pain Ears, nose, mouth and throat: Denies headache, Denies sore throat Cardiovascular: Reports shortness of breath, Denies chest pain Respiratory: Reports cough, Reports cough with sputum, Reports wheezing Gastrointestinal: Denies abdominal pain, Denies diarrhea, Denies nausea, Denies vomiting Genitourinary: Denies dysuria, Denies hematuria Musculoskeletal: Reports low back pain, Reports muscle cramps, Denies myalgias Integumentary: Denies pruritus, Denies rash Neurological: Reports as per HPI Psychiatric: Reports anxiety, Reports depression Endocrine: Denies fatigue, Denies weight change Hematologic/Lymphatic: Denies easy bruising Allergic/Immunologic: Reports persistent infections, Reports wheezing Constitutional: Denies chills, Denies fever Eyes: denies blurred vision, denies diplopia, denies pain Ears: deny: decreased hearing, ear discharge Ears, nose, mouth and throat: Reports headache, Denies sore throat, Denies vertigo Cardiovascular: Reports chest pain, Denies shortness of breath Respiratory: Denies cough, Denies excessive sputum Gastrointestinal: Denies abdominal pain, Denies diarrhea, Denies nausea, Denies vomiting Genitourinary: Denies dysuria, Denies hematuria Musculoskeletal: Denies myalgias, Denies neck pain Integumentary: Denies pruritus, Denies rash Neurological: Reports as per HPI Psychiatric: Reports anxiety attacks, Denies suicidal ideation Past Medical History Past Medical History: Asthma, Chest Pain / Angina, COPD, Fibromyalgia, Myocardial Infarction ([place]), Pneumonia, Seizure Disorder Additional Past Medical History / Comment(s): HIV with AIDS. migraines, "rt eye has scarring and freckles". uti's, "poor circulation" Last Myocardial Infarction Date:: 05/29/2022 History of Any Multi-Drug Resistant Organisms: None Reported Past Surgical History: Section, Cholecystectomy, Heart Catheterization, Hysterectomy, Orthopedic Surgery Additional Past Surgical History / Comment(s): left shoulder sx, c-sec x3, spinal fusion, spinal stimulator Past Anesthesia/Blood Transfusion Reactions: No Reported Reaction Additional Past Anesthesia/Blood Transfusion Reaction / Comment(s): Hard to awake. Past Psychological History: Anxiety, Depression Smoking Status: Current every day smoker Past Alcohol Use History: None Reported Past Drug Use History: Marijuana - Past Family History Mother Family Medical History: CVA/TIA, Diabetes Mellitus, Myocardial Infarction ([place]) Additional Family Medical History / Comment(s): sarcoidosis, osteoporosis Father Family Medical History: Asthma, COPD Medications and Allergies Home Medications Medication Instructions Recorded Confirmed Type Elviteg/Cob/Emtri/Tenof Alafen 1 tab PO DAILY 10/02/20 10/04/22 History [Genvoya Tablet] HYDROcodone/APAP 10-325MG [[place] 1 tab PO Q8H PRN 10/02/20 10/04/22 History 10-325] levETIRAcetam [Keppra] 500 mg PO Q12HR #30 tab 02/17/22 10/04/22 Rx Budesonide/Glycopyr/Formoterol 1 puff INHALATION RT-BID 05/29/22 10/04/22 History [Breztri Aerosphere Inhaler] Erenumab-Aooe [Aimovig 140 mg SQ Q30D 05/30/22 10/04/22 History Autoinjector] Melatonin 5 mg PO HS 30 Days #30 tablet 05/31/22 10/04/22 Rx Metoprolol Tartrate [Lopressor] 25 mg PO BID #60 tab 05/31/22 10/04/22 Rx Nitroglycerin Sl Tabs [Nitrostat] 0.4 mg SL Q5M PRN 07/10/22 10/04/22 History Ketorolac [Toradol] 10 mg PO Q6HR PRN #20 tab 09/04/22 10/04/22 Rx busPIRone HCL [Buspar] 7.5 mg PO BID 09/04/22 10/04/22 History Aspirin EC [Ecotrin Low Dose] 81 mg PO DAILY 10/04/22 10/04/22 History Pantoprazole Sodium [Protonix] 20 mg PO BID 10/04/22 10/04/22 History Spironolactone [Aldactone] 25 mg PO DAILY@1200 10/04/22 10/04/22 History metFORMIN HCL [Glucophage] 850 mg PO DAILY@1200 10/04/22 10/04/22 History methocarbamoL [Robaxin-750] 750 mg PO QID PRN 10/04/22 10/04/22 History Atorvastatin [Lipitor] 20 mg PO DAILY #30 tablet 10/05/22 Rx Allergies Allergy/AdvReac Type Severity Reaction Status Date / Time amoxicillin [From Augmentin] Allergy Anaphylaxis Verified 10/04/22 15:04 clavulanic acid Allergy Anaphylaxis Verified 10/04/22 15:04 [From Augmentin] morphine AdvReac Chest Pain Verified 10/04/22 15:04 prochlorperazine edisylate AdvReac Confusion Verified 10/04/22 15:04 [From Compazine] prochlorperazine maleate AdvReac Confusion Verified 10/04/22 15:04 [From Compazine] steroids Allergy Unknown Uncoded 10/04/22 12:49 Physical Examination - Vital Signs Vital Signs: Vital Signs Temp Pulse Pulse Resp BP Pulse Ox 10/04/22 13:02 78 10/04/22 12:48 98.8 F 79 20 144/66 99 Intake and Output 10/04/22 10/04/22 10/04/22 06:59 14:59 22:59 Other: Weight 117.934 kg Patient is a middle aged female, in no acute distress. Patient is alert awake oriented to time place and person. Speech and language functions are normal. Patient can name and repeat very well. No aphasia or dysarthria. Attention, concentration and fund of knowledge is adequate. On cranial nerve examination, pupils are equal, round and reacting to light, visual zavala are full on confrontation, with no neglect on double simultaneous stimulation. Extraocular muscles are intact with no nystagmus. Her tongue protrudes to the midline. Palatal elevation and sensation normal, hearing and shoulder shrug normal, facial sensation normal. On muscle strength testing, there is no pronator drift and the strength is normal in arms and legs distally and proximally. Deep tendon reflexes are symmetric, but hypoactive biceps 1+, brachioradialis 1+, knees 1 and plantars are downgoing bilaterally. Sensory to touch is normal. No neglect on double simultaneous depression. Cerebellar function showed no ataxia for [id number] testing. No dysdiadochokinesia. No ataxia for [id number] testing on either side. Tone and bulk of muscles normal. Gait deferred.. On general examination, there is no carotid bruit or murmur, S1-S2 audible. Chest is clear on consultation. Abdomen is soft nontender. No organomegaly, bowel sounds present. Peripheral pulses are present. No edema. Results - Laboratory Findings CBC and BMP: 10/04/22 13:31 10/04/22 13:31 Abnormal Lab Findings: Abnormal Labs 10/04/22 10/04/22 13:31 13:31 Total Creatine Kinase 155 H Total Protein 8.5 H Assessment and Plan Assessment: * Possible seizure disorder, with breakthrough seizure while in the hospital. Patient states that she has been diagnosed with nonepileptic pseudoseizures. * HIV, AIDS * Tobacco use * Hyperlipidemia * Hypertension * Chronic back pain * Spinal cord stimulator Plan: * Patient's breakthrough seizures occured because she was out of Keppra for the last 10 days. Patient has received loading dose of Keppra 1000 mg in the ED. She will be maintained on her usual dose of Keppra 500 mg twice a day. * EEG performed previously on 02/15/2022 was technically limited because of presence of near constant 60 cycle hertz artifact during most of the study. Otherwise the study appears to be normal awake and drowsy and sleep. No definitive epileptiform activity was seen. Suggest prolonged, sleep deprived EEG if your suspicion for seizures is high. * Neurologically clear for discharge, if she remains seizure free overnight. Recommend follow-up with her neurologist in 1-2 weeks. Thank you for the cons ult.
--- NOTE | 2022-10-05 13:23 | P.CRDCN ---
History of Present Illness Consult date: 10/05/22 Requesting physician: Waleska Garcia Reason for Consult (text): chest pain Chief complaint: chest pain, shortness of breath History of present illness: This is a pleasant 47-year-old female patient who follows in the office with Dr. Alfaro. The history of mild CAD, nonischemic cardiomyopathy, hyperlipidemia, HIV, nicotine dependence, obstructive sleep apnea, seizure disorder, and polycystic ovarian syndrome. She underwent cardiac catheterization in May of this year which showed 20% lesion in the proximal onto and 30-40 percent stenosis in the proximal RCA. Presented with 2 day episode of chest tightness and tenderness with subsequent shortness of breath which she felt was related to anxiety. She presented to the emergency department and subsequently had seizure which she admits to running out of her Keppra and being off this for at least 10 days. Cardiac enzymes were unremarkable and EKG showed no evidence of ischemia. Chest chest wall tenderness to palpation. Elevated lipids she's been holding her atorvastatin due to muscle and joint pain with improvement in her symptoms. She spent dealing with a lot of anxiety. Dyspnea on exertion has been relatively stable up until yesterday. She has no edema. She denies any orthopnea or PND. She's had no palpitations, dizziness, syncope or near syncope. On examination she is resting fairly in bed. She is feeling a bit bet ter but continues to have chest wall tenderness. Her breathing has stabilized. Past Medical History Past Medical History: Asthma, Chest Pain / Angina, COPD, Fibromyalgia, Myocardial Infarction ([place]), Pneumonia, Seizure Disorder Additional Past Medical History / Comment(s): HIV with AIDS. migraines, "rt eye has scarring and freckles". uti's, "poor circulation" Last Myocardial Infarction Date:: 05/29/2022 History of Any Multi-Drug Resistant Organisms: None Reported Past Surgical History: Section, Cholecystectomy, Heart Catheterization, Hysterectomy, Orthopedic Surgery Additional Past Surgical History / Comment(s): left shoulder sx, c-sec x3, spinal fusion, spinal stimulator Past Anesthesia/Blood Transfusion Reactions: No Reported Reaction Additional Past Anesthesia/Blood Transfusion Reaction / Comment(s): Hard to awake. Past Psychological History: Anxiety, Depression Smoking Status: Current every day smoker Past Alcohol Use History: None Reported Past Drug Use History: Marijuana - Past Family History Mother Family Medical History: CVA/TIA, Diabetes Mellitus, Myocardial Infarction ([place]) Additional Family Medical History / Comment(s): sarcoidosis, osteoporosis Father Family Medical History: Asthma, COPD Medications and Allergies Home Medications Medication Instructions Recorded Confirmed Type Elviteg/Cob/Emtri/Tenof Alafen 1 tab PO DAILY 10/02/20 10/04/22 History [Genvoya Tablet] HYDROcodone/APAP 10-325MG [[place] 1 tab PO Q8H PRN 10/02/20 10/04/22 History 10-325] levETIRAcetam [Keppra] 500 mg PO Q12HR #30 tab 02/17/22 10/04/22 Rx Budesonide/Glycopyr/Formoterol 1 puff INHALATION RT-BID 05/29/22 10/04/22 History [Breztri Aerosphere Inhaler] Erenumab-Aooe [Aimovig 140 mg SQ Q30D 05/30/22 10/04/22 History Autoinjector] Melatonin 5 mg PO HS 30 Days #30 tablet 05/31/22 10/04/22 Rx Metoprolol Tartrate [Lopressor] 25 mg PO BID #60 tab 05/31/22 10/04/22 Rx Nitroglycerin Sl Tabs [Nitrostat] 0.4 mg SL Q5M PRN 07/10/22 10/04/22 History Ketorolac [Toradol] 10 mg PO Q6HR PRN #20 tab 09/04/22 10/04/22 Rx busPIRone HCL [Buspar] 7.5 mg PO BID 09/04/22 10/04/22 History Aspirin EC [Ecotrin Low Dose] 81 mg PO DAILY 10/04/22 10/04/22 History Pantoprazole Sodium [Protonix] 20 mg PO BID 10/04/22 10/04/22 History Spironolactone [Aldactone] 25 mg PO DAILY@1200 10/04/22 10/04/22 History metFORMIN HCL [Glucophage] 850 mg PO DAILY@1200 10/04/22 10/04/22 History methocarbamoL [Robaxin-750] 750 mg PO QID PRN 10/04/22 10/04/22 History Atorvastatin [Lipitor] 20 mg PO DAILY #30 tablet 10/05/22 Rx Allergies Allergy/AdvReac Type Severity Reaction Status Date / Time amoxicillin [From Augmentin] Allergy Anaphylaxis Verified 10/04/22 15:04 clavulanic acid Allergy Anaphylaxis Verified 10/04/22 15:04 [From Augmentin] morphine AdvReac Chest Pain Verified 10/04/22 15:04 prochlorperazine edisylate AdvReac Confusion Verified 10/04/22 15:04 [From Compazine] prochlorperazine maleate AdvReac Confusion Verified 10/04/22 15:04 [From Compazine] steroids Allergy Unknown Uncoded 10/04/22 12:49 Physical Exam Vitals: Vital Signs Temp Pulse Resp BP Pulse Ox 10/05/22 09:14 99 10/05/22 07:00 98.0 F 76 16 125/80 99 10/05/22 02:35 98.2 F 78 16 129/77 95 10/04/22 19:59 97.8 F 90 16 119/80 95 10/04/22 17:15 97.7 F 83 18 143/91 95 Intake and Output 10/04/22 10/05/22 10/05/22 22:59 06:59 14:59 Other: # Voids 1 2 Weight 117.934 kg PHYSICAL EXAMINATION: This is a 47-year-old female in no apparent distress at the time of my examination. HEENT: Head is atraumatic, normocephalic. Pupils are equal, round. Sclerae anicteric. Conjunctivae are clear. Mucous membranes of the mouth are moist. Neck is supple. There is no elevated jugular venous pressure. No carotid bruit is heard. CHEST EXAMINATION: Lungs reveal diminished air entry bilaterally. No wheezes rales or rhonchi. Respirations even and nonlabored. HEART EXAMINATION: Heart regular, positive S1 and S2. No S3. No S4. Systolic ejection murmur at the base. ABDOMEN: Soft, nontender. Bowel sounds are heard. No organomegaly noted. EXTREMITIES: 2+ peripheral pulses with no evidence of peripheral edema and no calf tenderness noted. NEUROLOGIC EXAMINATION: Patient is awake, alert and oriented x3. Results 10/04/22 13:31 10/04/22 13:31 Cardiac Enzymes 10/04/22 10/04/22 10/04/22 Range/Units 13:31 13:31 16:27 AST 34 (14-36) U/L CK-MB (CK-2) 1.1 (0.0-3.4) ng/mL Troponin I <0.012 <0.012 (0.000-0.034) ng/mL 10/04/22 Range/Units 20:04 AST (14-36) U/L CK-MB (CK-2) (0.0-3.4) ng/mL Troponin I <0.012 (0.000-0.034) ng/mL Coagulation 10/04/22 Range/Units 13:31 PT 9.8 (9.0-12.0) sec APTT 23.5 (22.0-30.0) sec Lipids 10/04/22 Range/Units 13:31 Triglycerides 442.00 H (0.00-149.00) mg/dL Cholesterol 282.00 H (0.00-200.00) mg/dL HDL Cholesterol 34.00 L (40.00-60.00) mg/dL Cholesterol/HDL Ratio 8.29 Ratio CBC 10/04/22 Range/Units 13:31 WBC 6.3 (3.8-10.6) k/uL RBC 4.84 (3.80-5.40) m/uL Hgb 14.3 (11.4-16.0) gm/dL Hct 42.6 (34.0-46.0) % Plt Count 275 (150-450) k/uL Comprehensive Metabolic Panel 10/04/22 Range/Units 13:31 Sodium 139 (137-145) mmol/L Potassium 4.8 (3.5-5.1) mmol/L Chloride 103 (98-107) mmol/L Carbon Dioxide 24 (22-30) mmol/L BUN 16 (7-17) mg/dL Creatinine 0.85 (0.52-1.04) mg/dL Glucose 93 (74-99) mg/dL Calcium 9.8 (8.4-10.2) mg/dL AST 34 (14-36) U/L ALT 34 (4-34) U/L Alkaline Phosphatase 73 (38-126) U/L Total Protein 8.5 H (6.3-8.2) g/dL Albumin 4.7 (3.5-5.0) g/dL Current Medications Generic Name Dose Route Start Last Admin Trade Name Freq PRN Reason Stop Dose Admin Hydrocodone Bitart/Acetaminophen 1 each 10/04/22 15:15 10/05/22 05:58 Hydrocodone/Apap 10-325mg 1 Each Tab PO 1 each Q8H PRN Administration Pain Alprazolam 0.25 mg 10/05/22 08:28 10/05/22 08:38 Alprazolam 0.25 Mg Tab PO 0.25 mg TID PRN Administration Anxiety Aspirin 81 mg 10/05/22 09:00 10/05/22 08:23 Aspirin 81 Mg PO 81 mg DAILY GANESH Administration Budesonide/Formoterol Fumarate 2 puff 10/04/22 20:00 10/05/22 09:13 Symbicort 160-4.5 Mcg Inhaler INHALATION Not Given RT-BID GANESH Buspirone HCl 7.5 mg 10/04/22 21:00 10/05/22 08:23 Buspirone Hcl 5 Mg Tab PO 7.5 mg BID GANESH Administration Etodolac 300 mg 10/04/22 16:10 Etodolac 300 Mg Capsule PO Q6HR PRN Pain Hydromorphone HCl 0.5 mg 10/04/22 16:11 Hydromorphone 0.5 Mg/0.5 Ml Syringe IVP Q6HR PRN Pain Ipratropium [place] 0.5 mg 10/04/22 20:00 10/05/22 12:21 Ipratropium 0.5 Mg/2.5 Ml Nebu INHALATION Not Given RT-QID GANESH Levetiracetam 500 mg 10/04/22 21:00 10/05/22 08:23 Levetiracetam 500 Mg Tab PO 500 mg Q12HR GANESH Administration Melatonin 5 mg 10/04/22 21:00 10/04/22 20:33 Melatonin 5 Mg Tablet PO Not Given HS GANESH Metformin HCl 850 mg 10/05/22 12:00 10/05/22 12:34 Metformin 850 Mg Tab PO 850 mg DAILY@1200 GANESH Administration Methocarbamol 750 mg 10/04/22 15:15 Methocarbamol 750 Mg Tab PO QID PRN Muscle Spasm Metoprolol Tartrate 25 mg 10/04/22 21:00 10/05/22 08:23 Metoprolol Tartrate 25 Mg Tab PO 25 mg BID GANESH Administration Nicotine 1 patch 10/04/22 21:00 10/05/22 08:22 Nicotine 14mg/24hr Patch TRANSDERM 1 patch DAILY GANESH Administration Nitroglycerin 0.4 mg 10/04/22 15:24 Nitroglycerin Sl Tabs 0.4 Mg Tab SUBLINGUAL Q5M PRN Chest Pain Non-Formulary Medication 140 mg 10/14/22 09:00 Erenumab-Aooe [Aimovig Autoinjector] SQ Q30D GANESH Non-Formulary Medication 1 tab 10/05/22 09:00 10/05/22 11:06 Elviteg/Cob/Emtri/Tenof Alafen [Genvoya Tablet] PO Not Given DAILY GANESH Pantoprazole Sodium 20 mg 10/04/22 21:00 10/05/22 05:58 Pantoprazole Sodium 40 Mg Granule Pkt PO 20 mg AC-BID GANESH Administration Spironolactone 25 mg 10/05/22 12:00 10/05/22 12:34 Spironolactone 25 Mg Tab PO 25 mg DAILY@1200 GANESH Administration Intake and Output 10/04/22 10/05/22 10/05/22 22:59 06:59 14:59 Other: # Voids 1 2 Weight 117.934 kg 10/04/22 13:31 10/04/22 13:31 Assessment and Plan Assessment: #1 chest discomfort, acute coronary event is ruled out, troponins negative 3, EKG shows no evidence of ischemia #2 hyperlipidemia #3 mild CAD #4 HIV #5 nicotine dependence #6 obstructive sleep apnea 7 PCOS Plan: From cardiology's perspective medications were reviewed and will continue the same. From our standpoint she may be discharged home. She'll follow-up as an outpatient. We will switch her to [facility] as an outpatient. [employer] note has been reviewed, I agree with a documented findings and plan of care. Patient was seen and examined.
[2022-10-05 13:58] LABS: T Helper Cell (CD4) 170 cell/ul (443-1471); T Helper Cell (CD4) % 12 % (35-66); T Suppressor Cell (CD8) 838 cell/ul (190-832); T Suppressor Cell (CD8) % 61 % (9-37); T4/T8 Ratio (CD4:CD8) 0.2 (1.0-3.7)
[2022-10-05 14:21] LABS: Levetiracetam (Keppra) <1.0 ug/mL (3.0-60.0)
--- NOTE | 2022-10-06 00:12 | DS ---
DISCHARGE SUMMARY FINAL DIAGNOSES: 1. Chest pain, myocardial infarction ruled out, possible musculoskeletal pain. 2. Chronic obstructive pulmonary disease. 3. Possible seizure. 4. Fibromyalgia. 5. History of HIV and AIDS. 6. History of cholecystectomy. 7. Multiple complex medical issues. 8. Hyperlipidemia. The patient is discharged in stable condition, guarded prognosis after clearance by Cardiology. HISTORY OF PRESENT ILLNESS: The patient is a 47-year-old woman with a past medical history of multiple medical problems including chest pain. Patient treated symptomatically. The basic labs are negative at this time. I recommended to continue the home medications and follow up with Neurology and cardiology closely as an outpatient. PHYSICAL EXAMINATION: VITAL SIGNS: Stable. CARDIOVASCULAR: S1, S2. ABDOMEN: Soft. NERVOUS SYSTEM: No focal deficits Continue the home medications and add Lipitor 20 mg daily and monitor CK in the outpatient setting and watch for any symptoms of myalgias in case the patient needs to contact with the patient's infectious disease doctor as well as Primary and continue to monitor. Follow up with Dr. Jacque Christian. LELAND / ÁNGEL: [id number] / NICOLA
[2022-10-14] MEDS ORDERED: NON FORMULARY DRUG (Erenumab-Aooe [Aimovig Autoinjector] 140 MG/ML Auto.Injct) SQ SCH (09:00)
== END 2022-10-05 13:29 | disposition home or self-care (01) ==
LOC: EC 12:35 → 6NMEDSUR 15:24
PROVIDERS: ADMIT Hospitalist; ATTEND Hospitalist
DX: R07.89 Other chest pain (principal); J44.9 Chronic obstructive pulmonary disease, unspecified; R56.9 Unspecified convulsions; T42.6X6A Underdosing of other antiepileptic and sedative-hypnotic drugs, initial encounter; B20 Human immunodeficiency virus [HIV] disease; M79.7 Fibromyalgia; I10 Essential (primary) hypertension; E78.5 Hyperlipidemia, unspecified; F17.210 Nicotine dependence, cigarettes, uncomplicated; I65.23 Occlusion and stenosis of bilateral carotid arteries; I25.2 Old myocardial infarction; G89.29 Other chronic pain; M54.9 Dorsalgia, unspecified; I25.110 Atherosclerotic heart disease of native coronary artery with unstable angina pectoris; I42.8 Other cardiomyopathies; G47.33 Obstructive sleep apnea (adult) (pediatric); E28.2 Polycystic ovarian syndrome; F41.9 Anxiety disorder, unspecified; F41.0 Panic disorder [episodic paroxysmal anxiety]; F32.A Depression, unspecified; G43.909 Migraine, unspecified, not intractable, without status migrainosus; Z79.82 Long term (current) use of aspirin; Z79.84 Long term (current) use of oral hypoglycemic drugs; Z79.51 Long term (current) use of inhaled steroids; Z79.899 Other long term (current) drug therapy; Z88.0 Allergy status to penicillin; Z88.5 Allergy status to narcotic agent; Z88.8 Allergy status to other drugs, medicaments and biological substances; Z90.49 Acquired absence of other specified parts of digestive tract; Z87.01 Personal history of pneumonia (recurrent); Z96.82 Presence of neurostimulator; Z87.440 Personal history of urinary (tract) infections; Z90.710 Acquired absence of both cervix and uterus; Z98.891 History of uterine scar from previous surgery; Z98.1 Arthrodesis status; Z98.890 Other specified postprocedural states; Z83.3 Family history of diabetes mellitus; Z82.3 Family history of stroke; Z82.5 Family history of asthma and other chronic lower respiratory diseases; Z82.49 Family history of ischemic heart disease and other diseases of the circulatory system; Z82.62 Family history of osteoporosis; Z83.6 Family history of other diseases of the respiratory system
CPT/HCPCS: 96374; 96375; 99285; 36415; 94760; 93005; 85379; 83880; 80061; 80053; 80177; 86360; 82150; 82550; 82553; 83690; 83735; 84484; 85025; 85610; 85730; 83721; 71046; G0378 ×2; S4990 ×2; J2060; J1953; J1170

== ENCOUNTER → 2023-01-03 | Outpatient (CLI) | payer OTHER ==
[2023-01-03 19:32] LABS: Basophils # (A) 0.05 X 10*3/uL (0.00-0.10); Basophils % (A) 0.8 %; Eosinophils # (A) 0.18 X 10*3/uL (0.04-0.35); Eosinophils % (A) 2.9 %; HCT 41.9 % (37.2-46.3); HGB 13.9 d/dL (12.0-15.0); Lymphocytes # (A) 1.41 X 10*3/uL (0.90-5.00); Lymphocytes % (A) 22.6 %; MCH 30.6 pg (27.0-32.0); MCHC 33.2 d/dL (32.0-37.0); MCV 92.3 FL (80.0-97.0); Mean Platelet Volume 10.2 FL (9.5-12.2); Monocytes # (A) 0.39 X 10*3/uL (0.20-1.00); Monocytes % (A) 6.3 %; NRBC Per 100 WBC 0 X 10*3/uL (0.00-0.01); Neutrophils # (A) 4.16 X 10*3/uL (1.80-7.70); Neutrophils % (A) 66.6 %; Platelet Count 263 X 10*3/uL (140-440); RBC 4.54 X 10*6/uL (4.10-5.20); RDW 12.1 % (11.5-14.5); WBC 6.24 X 10*3/uL (4.50-10.00)
[2023-01-04 03:15] LABS: ALT 37 U/L (8-44); AST 30 U/L (13-35); Albumin 4.8 d/dL (3.8-4.9); Albumin/Globulin Ratio 1.41 Ratio (1.60-3.17); Alkaline Phosphatase 79 U/L (41-126); Blood Urea Nitrogen 16.7 mg/dL (9.0-27.0); Calcium 10.8 mg/dL (8.7-10.3); Chloride 98 mmol/L (96-109); Globulin 3.4 d/dL (1.6-3.3); Glucose 102 mg/dL (70-110); Potassium 4.8 mmol/L (3.5-5.5); Sodium 136 mmol/L (135-145); Total Bilirubin 0.3 mg/dL (0.3-1.2); Total Protein 8.2 d/dL (6.2-8.2)
[2023-01-04 11:01] LABS: T4/T8 Ratio (CD4:CD8) 0.2 (1.0-3.7)
== END | disposition home or self-care (01) ==
LOC: LABWHC1 12:36
PROVIDERS: ATTEND Internal Medicine Infectious Disease
DX: B20 Human immunodeficiency virus [HIV] disease (principal); R60.0 Localized edema
CPT/HCPCS: 36415; 80053; 85025; 86360; 87536

== ENCOUNTER → 2023-01-09 | Outpatient (CLI) | payer OTHER ==
[2023-01-09 17:10] LABS: Chol/HDL Ratio 5.87 Ratio
[2023-01-09 17:11] LABS: ALT 39 U/L (8-44); AST 34 U/L (13-35); LDL Cholesterol,Calculated 91.3 mg/dL (0.0-131.0)
== END | disposition home or self-care (01) ==
LOC: LABWHC1 11:59
PROVIDERS: ATTEND Internal Medicine Interventional Cardiology
DX: E78.2 Mixed hyperlipidemia (principal)
CPT/HCPCS: 36415; 80061; 84450; 84460

== ENCOUNTER 2023-01-20 18:22 | Emergency (ER) | payer MEDICARE, OTHER ==
[2023-01-20 18:44] VITALS: RESP 18
[2023-01-20 20:33] LABS: Basophils % (A) 0 %; Eosinophils # (A) 0.2 k/uL (0-0.7); Eosinophils % (A) 4 %; HCT 40.1 % (34.0-46.0); HGB 13.6 gm/dL (11.4-16.0); Lymphocytes # (A) 1.2 k/uL (1.0-4.8); Lymphocytes % (A) 21 %; MCH 31.2 pg (25.0-35.0); MCV 91.7 fL (80.0-100.0); Mean Platelet Volume 7.7; Monocytes # (A) 0.3 k/uL (0-1.0); Monocytes % (A) 5 %; Neutrophils # (A) 3.9 k/uL (1.3-7.7); Neutrophils % (A) 67 %; Platelet Count 230 k/uL (150-450); RBC 4.37 m/uL (3.80-5.40); RDW 12.6 % (11.5-15.5); WBC 5.8 k/uL (3.8-10.6)
[2023-01-20 20:45] LABS: INR 0.9 (<1.2); Partial Thromboplastin Time 23.9 sec (22.0-30.0); Prothrombin Time 9.7 sec (10.0-12.5)
[2023-01-20 20:59] LABS: ALT 28 U/L (4-34); AST 26 U/L (14-36); African American GFR (CKD) 84 (>60 ml/min/1.73 sqM); Albumin 4.7 g/dL (3.5-5.0); Alkaline Phosphatase 72 U/L (38-126); Anion Gap 11 mmol/L; Blood Urea Nitrogen 19 mg/dL (7-17); Calcium 9.7 mg/dL (8.4-10.2); Carbon Dioxide 21 mmol/L (22-30); Chloride 106 mmol/L (98-107); Glucose 90 mg/dL (74-99); Magnesium 1.8 mg/dL (1.6-2.3); Non-African American GFR(CKD) 73 (>60 ml/min/1.73 sqM); Potassium 4.3 mmol/L (3.5-5.1); Sodium 138 mmol/L (137-145); Total Bilirubin 0.4 mg/dL (0.2-1.3); Total Protein 8.2 g/dL (6.3-8.2)
--- NOTE | 2023-01-20 21:13 | XR ---
EXAMINATION TYPE: XR chest 2V DATE OF EXAM: 01/20/2023 8:49 PM CLINICAL INDICATION:Female, 47 years old with history of Chest Pain; [facility] COMPARISON: Chest radiographs from 10/04/2022 TECHNIQUE: XR chest 2V Frontal and lateral views of the chest. FINDINGS: Lungs/Pleura: There is no evidence of pleural effusion, focal consolidation, or pneumothorax. Pulmonary vascularity: Unremarkable. Heart/mediastinum: Cardiomediastinal silhouette is unremarkable. Musculoskeletal: No acute osseous pathology. Other findings: Nerve stimulator device projects over the spine. IMPRESSION: No acute cardiopulmonary disease/process.
[2023-01-20] MEDS ORDERED: MAG HYDROX/AL HYDROX/SIMETH 30 ML, HYOSCYAMINE ELIXIR 10 ML, LIDOCAINE 2% GLYDO JELLY 1... PO STA ×3 (22:50)
--- NOTE | 2023-01-20 23:11 | ED ---
Chest Pain HPI - General Chief Complaint: Chest Pain Stated Complaint: Chest Pain,Sob Time Seen by Provider: 01/20/23 21:52 Source: patient Mode of arrival: ambulatory Limitations: no limitations - History of Present Illness Initial Comments: This patient is 47-year-old woman who presents to have evaluation of substernal and epigastric pain. Patient relates that she had a heart attack in May requiring stent and therefore anytime she gets chest symptoms she seeks evaluation. She states that this pain not similar to that. Patient has sensation this is heartburn type pain. The patient does note that she did take nitroglycerin and pain did improve. No dyspnea, diaphoresis, palpitations, lightheadedness or syncope. MD Complaint: chest pain -: hour(s) Onset: during rest Pain Location: substernal Pain Radiation: none Severity: moderate Quality: dull, other (Burning) Improves With: nitroglycerin - Related Data Home Medications Medication Instructions Recorded Confirmed Elviteg/Cob/Emtri/Tenof Alafen 1 tab PO DAILY 10/02/20 10/04/22 [Genvoya Tablet] HYDROcodone/APAP 10-325MG [[place] 1 tab PO Q8H PRN 10/02/20 10/04/22 10-325] Budesonide/Glycopyr/Formoterol 1 puff INHALATION RT-BID 05/29/22 10/04/22 [Breztri Aerosphere Inhaler] Erenumab-Aooe [Aimovig 140 mg SQ Q30D 05/30/22 10/04/22 Autoinjector] Nitroglycerin Sl Tabs [Nitrostat] 0.4 mg SL Q5M PRN 07/10/22 10/04/22 busPIRone HCL [Buspar] 7.5 mg PO BID 09/04/22 10/04/22 Aspirin EC [Ecotrin Low Dose] 81 mg PO DAILY 10/04/22 10/04/22 Pantoprazole Sodium [Protonix] 20 mg PO BID 10/04/22 10/04/22 Spironolactone [Aldactone] 25 mg PO DAILY@1200 10/04/22 10/04/22 metFORMIN HCL [Glucophage] 850 mg PO DAILY@1200 10/04/22 10/04/22 methocarbamoL [Robaxin-750] 750 mg PO QID PRN 10/04/22 10/04/22 Previous Rx's Medication Instructions Recorded levETIRAcetam [Keppra] 500 mg PO Q12HR #30 tab 02/17/22 Melatonin 5 mg PO HS 30 Days #30 tablet 05/31/22 Metoprolol Tartrate [Lopressor] 25 mg PO BID #60 tab 05/31/22 Ketorolac [Toradol] 10 mg PO Q6HR PRN #20 tab 09/04/22 Atorvastatin [Lipitor] 20 mg PO DAILY #30 tablet 10/05/22 Allergies Allergy/AdvReac Type Severity Reaction Status Date / Time amoxicillin [From Augmentin] Allergy Anaphylaxis Verified 01/20/23 18:35 clavulanic acid Allergy Anaphylaxis Verified 01/20/23 18:35 [From Augmentin] morphine AdvReac Chest Pain Verified 01/20/23 18:35 prochlorperazine edisylate AdvReac Confusion Verified 01/20/23 18:35 [From Compazine] prochlorperazine maleate AdvReac Confusion Verified 01/20/23 18:35 [From Compazine] steroids Allergy Unknown Uncoded 01/20/23 18:35 Review of Systems ROS Statement: Those systems with pertinent positive or pertinent negative responses have been documented in the HPI. ROS Other: All systems not noted in ROS Statement are negative. Constitutional: Denies: fever, chills Respiratory: Denies: cough, dyspnea Cardiovascular: Reports: chest pain. Denies: palpitations, orthopnea, edema, syncope Gastrointestinal: Denies: abdominal pain, nausea, vomiting, diarrhea, melena, hematochezia Genitourinary: Denies: dysuria, hematuria Musculoskeletal: Denies: back pain Skin: Denies: rash Neurological: Denies: headache, weakness EKG Findings - EKG Results: EKG: interpreted by ERMD, sinus rhythm (Rate 75 bpm), normal axis, normal QRS, normal ST/T Past Medical History Past Medical History: Asthma, Chest Pain / Angina, COPD, Fibromyalgia, Myocardial Infarction ([place]), Pneumonia, Seizure Disorder Additional Past Medical History / Comment(s): HIV with AIDS. migraines, "rt eye has scarring and freckles". uti's, "poor circulation" Last Myocardial Infarction Date:: 05/29/2022 History of Any Multi-Drug Resistant Organisms: None Reported Past Surgical History: Section, Cholecystectomy, Heart Catheterization, Hysterectomy, Orthopedic Surgery Additional Past Surgical History / Comment(s): left shoulder sx, c-sec x3, spinal fusion, spinal stimulator Past Anesthesia/Blood Transfusion Reactions: No Reported Reaction Additional Past Anesthesia/Blood Transfusion Reaction / Comment(s): Hard to awake. Past Psychological History: Anxiety, Depression Smoking Status: Current every day smoker Past Alcohol Use History: None Reported Past Drug Use History: Marijuana - Past Family History Mother Family Medical History: CVA/TIA, Diabetes Mellitus, Myocardial Infarction ([place]) Additional Family Medical History / Comment(s): sarcoidosis, osteoporosis Father Family Medical History: Asthma, COPD General Exam Limitations: no limitations General appearance: alert, in no apparent distress Head exam: Present: atraumatic, normocephalic Eye exam: Present: normal appearance. Absent: scleral icterus, conjunctival injection ENT exam: Present: normal oropharynx Neck exam: Present: normal inspection, full ROM Respiratory exam: Present: normal lung sounds bilaterally. Absent: respiratory distress, wheezes, rales, rhonchi, stridor Cardiovascular Exam: Present: regular rate, normal rhythm, normal heart sounds. Absent: systolic murmur, diastolic murmur, rubs, gallop GI/Abdominal exam: Present: soft. Absent: distended, tenderness, guarding, rebound, rigid, mass Extremities exam: Present: normal inspection, normal capillary refill. Absent: pedal edema, calf tenderness Back exam: Present: normal inspection. Absent: CVA tenderness (R), CVA tenderness (L) Neurological exam: Present: alert Skin exam: Present: warm, dry, intact, normal color. Absent: rash Course Vital Signs 01/20/23 01/21/23 01/21/23 18:33 00:30 02:57 Temperature 98 F 98.0 F Pulse Rate 80 74 75 Respiratory 18 18 18 Rate Blood Pressure 137/90 112/65 104/57 O2 Sat by Pulse 99 97 96 Oximetry Chest Pain MDM - MDM The patient had chest x-ray which I interpreted as negative for acute infiltrate, pneumothorax, congestive heart failure Was pt. sent in by a medical professional or institution (, PA, CONSULTANT EDUCATION, urgent care, hospital, or skilled nursing...) When possible be specific @ -[No] Did you speak to anyone other than the patient for history (EMS, parent, family, police, friend...)? What history was obtained from this source @ -[No] Did you review nursing and triage notes (agree or disagree)? Why? @ -[I reviewed and agree with nursing and triage notes] Were old charts reviewed (outside hosp., previous admission, EMS record, old EKG, old radiological studies, urgent care reports/EKG's, skilled nursing records)? Report findings @ -[No old charts were reviewed] Differential Diagnosis (chest pain, altered mental status, abdominal pain women, abdominal pain men, vaginal bleeding, weakness, fever, dyspnea, syncope, headache, dizziness, GI bleed, back pain, seizure, CVA, palpatations, mental health, musculoskeletal)? @ -[Differential Chest Pain: Stable Angina, Unstable Angina, STEMI, NSTEMI Aortic Dissection, Pneumothorax, Musculoskeletal, Esophageal Spasm GERD, Cholecystitis, Pancreatitis, Zoster, this is not meant to be an all-inclusive list. EKG interpreted by me (3pts min.). @ -[I interpreted As above] X-rays interpreted by me (1pt min.). @ -[I interpreted as above CT interpreted by me (1pt min.). @ -[None done] U/S interpreted by me (1pt. min.). @ -[None done] What testing was considered but not performed or refused? (CT, X-rays, U/S, labs)? Why? @ -[None] What meds were considered but not given or refused? Why? @ -[None] Did you discuss the management of the patient with other professionals (professionals i.e. , PA, CONSULTANT EDUCATION, lab, RT, psych nurse, social worker aide, parts salesperson, teacher, medical officer psychiatry, correctional casework specialist)? Give summary @ -[No] Was smoking cessation discussed for >3mins.? @ -[No] Was critical care preformed (if so, how long)? @ -[No] Were there social determinants of health that impacted care today? How? (Homelessness, low income, unemployed, alcoholism, drug addiction, transportation, low edu. Level, literacy, decrease access to med. care, fci, rehab)? @ -[No] Was there de-escalation of care discussed even if they declined (Discuss DNR or withdrawal of care, Hospice)? DNR status @ -[No] What co-morbidities impacted this encounter? (DM, HTN, Smoking, COPD, CAD, Cancer, CVA, ARF, Chemo, Hep., AIDS, mental health diagnosis, sleep apnea, morbid obesity)? @ -[None] Was patient admitted / discharged? Hospital course, mention meds given and route, prescriptions, significant lab abnormalities, going to OR and other pertinent info. @ -[Patient seen and evaluated for chest pain. She did have workup that was normal, including 2 negative troponins. The patient feeling better. We discussed appropriate further care and follow-up and she would like to go home and follow with cardiology as outpatient. Undiagnosed new problem with uncertain prognosis? @ -[No] Drug Therapy requiring intensive monitoring for toxicity (Heparin, Nitro, Insulin, Cardizem)? @ -[No] Were any procedures done? @ -[No] Diagnosis/symptom? @ -[Acute chest pain Acute, or Chronic, or Acute on Chronic? @ -[Acute Uncomplicated (without systemic symptoms) or Complicated (systemic symptoms)? @ -[Uncomplicated Side effects of treatment? @ -[No] Exacerbation, Progression, or Severe Exacerbation? @ -[No] Poses a threat to life or bodily function? How? (Chest pain, [place], [place], pneumonia, PE, COPD, DKA, ARF, appy, cholecystitis, CVA, Diverticulitis, Homicidal, Suicidal, threat to staff... and all critical care pts) @ -[No] Disposition Clinical Impression: Chest pain Disposition: HOME SELF-CARE Condition: Good Instructions (If sedation given, give patient instructions): Chest Pain (ED) Is patient prescribed a controlled substance at d/c from ED?: No Referrals: Jacque Christian MD [Primary Care Provider] - 1-2 days
[2023-01-20 23:33] LABS: Amylase 56 U/L (30-110); Lipase 203 U/L (23-300)
[2023-01-21] MEDS ORDERED: HYDROmorphone 0.5 MG/0.5 ML SYRINGE IVP STA (00:08)
[2023-01-21 03:13] VITALS: BP 104/57; PULSE 75; TEMP 98
== END 2023-01-21 03:00 | disposition home or self-care (01) ==
LOC: EC 18:22
DX: R07.89 Other chest pain (principal); I25.2 Old myocardial infarction; J44.89 Other specified chronic obstructive pulmonary disease; F41.9 Anxiety disorder, unspecified; F32.A Depression, unspecified; F17.200 Nicotine dependence, unspecified, uncomplicated; F12.90 Cannabis use, unspecified, uncomplicated; Z88.5 Allergy status to narcotic agent; Z88.0 Allergy status to penicillin; Z88.8 Allergy status to other drugs, medicaments and biological substances; Z88.1 Allergy status to other antibiotic agents; Z90.49 Acquired absence of other specified parts of digestive tract; Z79.51 Long term (current) use of inhaled steroids; Z79.899 Other long term (current) drug therapy
CPT/HCPCS: 36415 ×2; 93005; 85379; 80053; 82150; 83690; 83735; 84484 ×2; 85025; 85610; 85730; 71046; 99285; 96374; J1170

== ENCOUNTER 2023-02-05 09:36 | Emergency (ER) | payer MEDICARE, OTHER ==
[2023-02-05] MEDS ORDERED: guaiFENesin-Coden 100-10MG/5ML 10 ML CUP PO ONE (10:15)
[2023-02-05] MEDS ORDERED: IPRATROPIUM-ALBUTEROL 3 ML NEB INHALATION STA (10:15)
--- NOTE | 2023-02-05 10:20 | ED ---
URI HPI - General Chief Complaint: Upper Respiratory Infection Stated Complaint: MICHELINE Time Seen by Provider: 02/05/23 09:42 Source: patient, RN notes reviewed Mode of arrival: ambulatory Limitations: no limitations - History of Present Illness Initial Comments: This is a 47-year-old female who presents to the emergency department for coughing and congestion. States that the symptoms have been going on for 5-7 days at this point. She initially saw her primary care provider who tested her for Covid, which was negative. She was started on a Z-Justo with no relief. She was then told last night that her grandson tested positive for RSV, and they have the same symptoms and have been around each other very frequently. She does report a history of asthma and COPD and is using her inhalers and nebulizer treatments without any relief. Additionally, she is usually unable to take steroids due them triggering anxiety and seizures, however states that she can have IM decadron. MD Complaint: cough, nasal congestion - Related Data Home Medications Medication Instructions Recorded Confirmed Elviteg/Cob/Emtri/Tenof Alafen 1 tab PO DAILY 10/02/20 10/04/22 [Genvoya Tablet] HYDROcodone/APAP 10-325MG [[place] 1 tab PO Q8H PRN 10/02/20 10/04/22 10-325] Budesonide/Glycopyr/Formoterol 1 puff INHALATION RT-BID 05/29/22 10/04/22 [Breztri Aerosphere Inhaler] Erenumab-Aooe [Aimovig 140 mg SQ Q30D 05/30/22 10/04/22 Autoinjector] Nitroglycerin Sl Tabs [Nitrostat] 0.4 mg SL Q5M PRN 07/10/22 10/04/22 busPIRone HCL [Buspar] 7.5 mg PO BID 09/04/22 10/04/22 Aspirin EC [Ecotrin Low Dose] 81 mg PO DAILY 10/04/22 10/04/22 Pantoprazole Sodium [Protonix] 20 mg PO BID 10/04/22 10/04/22 Spironolactone [Aldactone] 25 mg PO DAILY@1200 10/04/22 10/04/22 metFORMIN HCL [Glucophage] 850 mg PO DAILY@1200 10/04/22 10/04/22 methocarbamoL [Robaxin-750] 750 mg PO QID PRN 10/04/22 10/04/22 Previous Rx's Medication Instructions Recorded levETIRAcetam [Keppra] 500 mg PO Q12HR #30 tab 02/17/22 Melatonin 5 mg PO HS 30 Days #30 tablet 05/31/22 Metoprolol Tartrate [Lopressor] 25 mg PO BID #60 tab 05/31/22 Ketorolac [Toradol] 10 mg PO Q6HR PRN #20 tab 09/04/22 Atorvastatin [Lipitor] 20 mg PO DAILY #30 tablet 10/05/22 Ipratropium-Albuterol Nebulize 3 ml INHALATION Q4-6H PRN #90 ml 02/05/23 [Duoneb 0.5 mg-3 mg/3 ml Soln] guaiFENesin-Coden 100-10MG/5ML 5 - 10 ml PO Q6H PRN #120 ml 02/05/23 [Robitussin AC] Allergies Allergy/AdvReac Type Severity Reaction Status Date / Time amoxicillin [From Augmentin] Allergy Anaphylaxis Verified 02/05/23 09:40 clavulanic acid Allergy Anaphylaxis Verified 02/05/23 09:40 [From Augmentin] morphine AdvReac Chest Pain Verified 02/05/23 09:40 prochlorperazine edisylate AdvReac Confusion Verified 02/05/23 09:40 [From Compazine] prochlorperazine maleate AdvReac Confusion Verified 02/05/23 09:40 [From Compazine] steroids Allergy Unknown Uncoded 02/05/23 09:40 Review of Systems ROS Statement: Those systems with pertinent positive or pertinent negative responses have been documented in the HPI. ROS Other: All systems not noted in ROS Statement are negative. Past Medical History Past Medical History: Asthma, Chest Pain / Angina, COPD, Fibromyalgia, Myocardial Infarction ([place]), Pneumonia, Seizure Disorder Additional Past Medical History / Comment(s): HIV with AIDS. migraines, "rt eye has scarring and freckles". uti's, "poor circulation" Last Myocardial Infarction Date:: 05/29/2022 History of Any Multi-Drug Resistant Organisms: None Reported Past Surgical History: Section, Cholecystectomy, Heart Catheterization, Hysterectomy, Orthopedic Surgery Additional Past Surgical History / Comment(s): left shoulder sx, c-sec x3, spinal fusion, spinal stimulator Past Anesthesia/Blood Transfusion Reactions: No Reported Reaction Additional Past Anesthesia/Blood Transfusion Reaction / Comment(s): Hard to awake. Past Psychological History: Anxiety, Depression Smoking Status: Current every day smoker Past Alcohol Use History: None Reported Past Drug Use History: Marijuana - Past Family History Mother Family Medical History: CVA/TIA, Diabetes Mellitus, Myocardial Infarction ([place]) Additional Family Medical History / Comment(s): sarcoidosis, osteoporosis Father Family Medical History: Asthma, COPD General Exam Limitations: no limitations General appearance: alert, in no apparent distress Head exam: Present: atraumatic, normocephalic, normal inspection Respiratory exam: Present: wheezes, decreased breath sounds, prolonged expiratory Cardiovascular Exam: Present: regular rate, normal rhythm, normal heart sounds. Absent: systolic murmur, diastolic murmur, rubs, gallop, clicks Neurological exam: Present: alert, oriented X3, CN II-XII intact Psychiatric exam: Present: normal affect, normal mood Skin exam: Present: warm, dry, intact, normal color. Absent: rash Course Vital Signs 02/05/23 02/05/23 02/05/23 09:38 09:50 11:03 Temperature 98.6 F Pulse Rate 102 H 83 Respiratory 20 18 18 Rate Blood Pressure 141/91 O2 Sat by Pulse 96 Oximetry 02/05/23 02/05/23 11:12 12:02 Temperature 98.2 F Pulse Rate 84 92 Respiratory 18 20 Rate Blood Pressure 141/85 O2 Sat by Pulse 95 Oximetry Medical Decision Making - Medical Decision Making This is a 47-year-old female who presents to the emergency department for coughing and congestion. Was pt. sent in by a medical professional or institution? @ -No Did you speak to anyone other than the patient for history? @ -No Did you review nursing and triage notes? @ -Yes, and I agree, it is accurate with regards to the patient's symptoms. Were old charts reviewed? @ -No Differential Diagnosis? @ -Differential Cough: Influenza, Covid, RSV, croup, allergic rhinitis, GERD, pneumonia, bronchitis, COPD, viral pharyngitis, streptococcal pharyngitis, this is not meant to be an all-inclusive list. EKG interpreted by me (3pts min.)? @ -Not obtained X-rays interpreted by me (1pt min.)? @ -Chest x-ray obtained, my interpretation identifies no localized consolidations or infiltrates. CT interpreted by me (1pt min.)? @ -Not obtained U/S interpreted by me (1pt. min.)? @ -Not obtained What testing was considered but not performed? (CT, X-rays, U/S, labs)? Why? @ -None What meds were considered but not given? Why? @ -None Did you discuss the management of the patient with other professionals? @ -No Did you reconcile home meds? @ -No Was smoking cessation discussed for >3mins.? @ -No Was critical care preformed (if so, how long)? @ -No Were there social determinants of health that impacted care today? How? (Homelessness, low income, unemployed, alcoholism, drug addiction, transportation, low edu. Level, literacy, decrease access to med. care, senior living, rehab)? @ -No Was there de-escalation of care discussed even if they declined? (Discuss DNR or withdrawal of care, Hospice)? @ -No What co-morbidities impacted this encounter? (DM, HTN, Smoking, COPD, CAD, Cancer, CVA, Hep., AIDS, mental health diagnosis, sleep apnea, morbid obesity)? @ -Asthma, COPD, seizure disorder Was patient admitted / discharged? @ -Discharged. COVID, influenza, and RSV testing were negative. Chest x-ray revealed no acute process. Patient given a DuoNeb breathing treatment and cough medication in the emergency department which was helpful. At that point she felt stable for discharge home. States that she cannot do PO steroids, but can safely receive IM Decadron without it triggering anxiety or seizures. This was subsequently administered. Prescription for DuoNeb breathing treatments and Robitussin AC cough medication prescribed. Otherwise advised close follow up with her primary care provider. Undiagnosed new problem with uncertain prognosis? @ -None Drug Therapy requiring intensive monitoring for toxicity (Heparin, Nitro, Insulin, Cardizem)? @ -None Were any procedures done? @ -None Diagnosis/symptom? @ -Asthmatic bronchitis Acute, or Chronic, or Acute on Chronic? @ -Acute Uncomplicated (without systemic symptoms) or Complicated (systemic symptoms)? @ -Uncomplicated Side effects of treatment? @ -None Exacerbation, Progression, or Severe Exacerbation] @ -Not applicable Poses a threat to life or bodily function? @ -This will depend on how her symptoms progress. Return precautions reviewed in depth, the patient is instructed to return to the emergency department with any new, worsening, or concerning symptoms. Patient verbalized understanding. This case was discussed in detail with the attending ED physician, Dr. Bradley. Presentation, findings, and treatment plan discussed in detail as well. - Lab Data Lab Results 02/05/23 Range/Units 09:47 Influenza Type A (PCR) Not Detected (Not Detectd) Influenza Type B (PCR) Not Detected (Not Detectd) RSV (PCR) Not Detected (Not Detectd) SARS-CoV-2 (PCR) Not Detected (Not Detectd) - Radiology Data Radiology results: report reviewed, image reviewed Disposition Clinical Impression: Asthmatic bronchitis Disposition: HOME SELF-CARE Instructions (If sedation given, give patient instructions): Acute Bronchitis (ED), Bronchospasm (ED) Additional Instructions: Return to the emergency department with any new, worsening, or concerning symptoms. Use the DuoNeb breathing treatments every 4-6 hours. Continue to use your rescue inhaler as needed. Use the cough medication every 4-6 hours as needed. Follow up with your primary care provider in 1-2 days. Prescriptions: Ipratropium-Albuterol Nebulize [Duoneb 0.5 mg-3 mg/3 ml Soln] 3 ml INHALATION Q4-6H PRN #90 ml PRN Reason: Shortness Of Breath guaiFENesin-Coden 100-10MG/5ML [Robitussin AC] 5 - 10 ml PO Q6H PRN #120 ml PRN Reason: Cough Is patient prescribed a controlled substance at d/c from ED?: Yes When asked, does pt state using other controlled substances?: Yes If prescribed controlled substance>3 days was MAPS reviewed?: Prescribed <3 Days Referrals: Jacque Christian MD [STAFF PHYSICIAN] - 1-2 days
--- NOTE | 2023-02-05 10:53 | XR ---
EXAMINATION TYPE: XR chest 2V DATE OF EXAM: 02/05/2023 COMPARISON: 01/20/2023 INDICATION: Cough difficulty breathing TECHNIQUE: Frontal and lateral views of the chest are obtained. FINDINGS: The heart size is normal. The pulmonary vasculature is normal. The lungs are clear. Stimulator leads are within the thoracic region IMPRESSION: 1. No acute pulmonary process.
[2023-02-05] MEDS ORDERED: DEXAMETHASONE SOD PHOSPHATE 10 MG/ML 1 ML VIAL IM STA (11:50)
[2023-02-05 12:25] VITALS: BP 141/85; PULSE 92; RESP 20; TEMP 98.2
== END 2023-02-05 12:21 | disposition home or self-care (01) ==
LOC: EC 09:36
DX: J45.909 Unspecified asthma, uncomplicated (principal); J44.89 Other specified chronic obstructive pulmonary disease; I25.2 Old myocardial infarction; M79.7 Fibromyalgia; F41.9 Anxiety disorder, unspecified; F32.A Depression, unspecified; F17.200 Nicotine dependence, unspecified, uncomplicated; F12.90 Cannabis use, unspecified, uncomplicated; Z20.822 Contact with and (suspected) exposure to COVID-19; Z79.82 Long term (current) use of aspirin; Z79.899 Other long term (current) drug therapy; Z88.0 Allergy status to penicillin; Z88.1 Allergy status to other antibiotic agents; Z88.5 Allergy status to narcotic agent; Z88.8 Allergy status to other drugs, medicaments and biological substances; Z90.49 Acquired absence of other specified parts of digestive tract
CPT/HCPCS: 94640; 87636; 71046; 99285; 96372; J1100

== ENCOUNTER 2023-03-31 15:59 | Observation (INO) | payer MEDICARE, OTHER ==
--- NOTE | 2023-03-31 16:53 | ED ---
Chest Pain HPI - General Source: patient, RN notes reviewed Mode of arrival: wheelchair Limitations: no limitations - History of Present Illness MD Complaint: chest pain <Bambi Lopez - Last Filed: 03/31/23 16:51> - General Source: patient, RN notes reviewed Mode of arrival: wheelchair Limitations: no limitations <Javad Horne - Last Filed: 03/31/23 19:01> - General Chief Complaint: Chest Pain Stated Complaint: chest pain Time Seen by Provider: 03/31/23 16:51 - History of Present Illness Initial Comments: This is a 47-year-old female who presents to the emergency department for chest pain. States that this started yesterday. She has radiation down the left arm and also has associated shortness of breath. Reports a history of cardiomyopathy and coronary artery disease. (Bambi Lopez) Patient is a pleasant 47-year-old female presenting to the emergency department with concerns with chest discomfort. Onset of symptoms was around a week ago. Patient has had mild indigestion in her chest since that time. Patient discomfort is somewhat worse today. Discomfort is a pressure. There is some tightness in her left arm. There is some radiation to the back. Discomfort does worsen with exertion. Patient does have associated dyspnea. No nausea or diaphoresis. Patient does have history of heart attack around 6 months ago with somewhat similar symptoms. (Javad Horne) - Related Data Home Medications Medication Instructions Recorded Confirmed Elviteg/Cob/Emtri/Tenof Alafen 1 tab PO DAILY 10/02/20 03/31/23 [Genvoya Tablet] HYDROcodone/APAP 10-325MG [[place] 1 tab PO Q8H PRN 10/02/20 03/31/23 10-325] Budesonide/Glycopyr/Formoterol 2 puff INHALATION RT-DAILY 05/29/22 03/31/23 [Breztri Aerosphere Inhaler] Erenumab-Aooe [Aimovig 140 mg SQ QMONTHLY 05/30/22 03/31/23 Autoinjector] Nitroglycerin Sl Tabs [Nitrostat] 0.4 mg SUBLINGUAL Q5M PRN 07/10/22 03/31/23 busPIRone HCL [Buspar] 7.5 mg PO BID 09/04/22 03/31/23 Aspirin EC [Ecotrin Low Dose] 81 mg PO DAILY 10/04/22 03/31/23 Pantoprazole Sodium [Protonix] 20 mg PO BID 10/04/22 03/31/23 Spironolactone [Aldactone] 25 mg PO DAILY 10/04/22 03/31/23 Rosuvastatin [Crestor] 10 mg PO DAILY 03/31/23 03/31/23 Previous Rx's Medication Instructions Recorded levETIRAcetam [Keppra] 500 mg PO Q12HR #30 tab 02/17/22 Metoprolol Tartrate [Lopressor] 25 mg PO BID #60 tab 05/31/22 Allergies Allergy/AdvReac Type Severity Reaction Status Date / Time amoxicillin [From Augmentin] Allergy Anaphylaxis Verified 03/31/23 18:01 clavulanic acid Allergy Anaphylaxis Verified 03/31/23 18:01 [From Augmentin] prochlorperazine edisylate AdvReac Confusion Verified 03/31/23 18:01 [From Compazine] prochlorperazine maleate AdvReac Confusion Verified 03/31/23 18:01 [From Compazine] steroids Allergy Unknown Uncoded 03/31/23 18:01 Review of Systems ROS Other: All systems not noted in ROS Statement are negative. <Bambi Lopez - Last Filed: 03/31/23 16:51> ROS Other: All systems not noted in ROS Statement are negative. Constitutional: Denies: fever Eyes: Denies: eye pain ENT: Denies: ear pain Respiratory: Reports: as per HPI Cardiovascular: Reports: as per HPI, chest pain, dyspnea on exertion Endocrine: Denies: fatigue Gastrointestinal: Denies: abdominal pain <Javad Horne - Last Filed: 03/31/23 19:01> ROS Statement: Those systems with pertinent positive or pertinent negative responses have been documented in the HPI. EKG Findings - EKG Results: EKG: interpreted by ERMD, sinus rhythm, normal axis, normal QRS, normal ST/T <Javad Horne - Last Filed: 03/31/23 19:01> Past Medical History Past Medical History: Asthma, Chest Pain / Angina, COPD, Fibromyalgia, Myocardial Infarction ([place]), Pneumonia, Seizure Disorder Additional Past Medical History / Comment(s): HIV with AIDS. migraines, "rt eye has scarring and freckles". uti's, "poor circulation" Last Myocardial Infarction Date:: 05/29/2022 History of Any Multi-Drug Resistant Organisms: None Reported Past Surgical History: Section, Cholecystectomy, Heart Catheterization, Hysterectomy, Orthopedic Surgery Additional Past Surgical History / Comment(s): left shoulder sx, c-sec x3, spinal fusion, spinal stimulator Past Anesthesia/Blood Transfusion Reactions: No Reported Reaction Additional Past Anesthesia/Blood Transfusion Reaction / Comment(s): Hard to awake. Past Psychological History: Anxiety, Depression Smoking Status: Current every day smoker Past Alcohol Use History: None Reported Past Drug Use History: Marijuana - Past Family History Mother Family Medical History: CVA/TIA, Diabetes Mellitus, Myocardial Infarction ([place]) Additional Family Medical History / Comment(s): sarcoidosis, osteoporosis Father Family Medical History: Asthma, COPD <Bambi Lopez - Last Filed: 03/31/23 16:51> General Exam Limitations: no limitations <Bambi Lopez - Last Filed: 03/31/23 16:51> Limitations: no limitations General appearance: alert, in no apparent distress Head exam: Present: normocephalic Eye exam: Present: normal appearance Neck exam: Present: normal inspection Respiratory exam: Present: normal lung sounds bilaterally, chest wall tenderness Cardiovascular Exam: Present: regular rate, normal rhythm, normal heart sounds Expanded Peripheral pulses: 2+: Radial (R), Radial (L), Dorsalis Pedis (R), Dorsalis Pedis (L) GI/Abdominal exam: Present: soft. Absent: tenderness Extremities exam: Present: normal inspection. Absent: pedal edema, calf tenderness Neurological exam: Present: alert Psychiatric exam: Present: normal affect, normal mood Skin exam: Present: normal color <Javad Horne - Last Filed: 03/31/23 19:01> - General Exam Comments Initial Comments: Visual Physical Exam Vital signs reviewed General: Well-appearing, nontoxic, no acute distress. Head: Normocephalic, atraumatic Eyes: PERRLA, EOMI ENT: Airway patent Chest: Nonlabored breathing Skin: No visual rash, normal skin tone Neuro: Alert and oriented 3 Musculoskeletal: No gross abnormalities (Bambi Lopez) Course Vital Signs 03/31/23 03/31/23 16:44 18:27 Temperature 98.8 F Pulse Rate 78 70 Respiratory 16 18 Rate Blood Pressure 126/85 108/85 O2 Sat by Pulse 97 96 Oximetry Chest Pain MDM <Bambi Lopez - Last Filed: 03/31/23 16:51> <Javad Horne - Last Filed: 03/31/23 19:01> - MDM I performed the QuickNote portion of this chart. Signed Bambi Lopez PA-C. (Bambi Lopez) Was pt. sent in by a medical professional or institution (PRISCILA Seay, LEASING AGENT, urgent care, hospital, or [facility]cf...) When possible be specific @ -No Did you speak to anyone other than the patient for history (EMS, parent, family, police, friend...)? What history was obtained from this source @ -No Did you review nursing and triage notes (agree or disagree)? Why? @ -I reviewed and agree with nursing and triage notes Were old charts reviewed (outside hosp., previous admission, EMS record, old EKG, old radiological studies, urgent care reports/EKG's, [facility] records)? Report findings @ -Previous chest x-ray reviewed Differential Diagnosis (chest pain, altered mental status, abdominal pain women, abdominal pain men, vaginal bleeding, weakness, fever, dyspnea, syncope, headache, dizziness, GI bleed, back pain, seizure, CVA, palpatations, mental health, musculoskeletal)? @ -Differential Chest Pain: Stable Angina, Unstable Angina, STEMI, NSTEMI Aortic Dissection, Pneumothorax, Musculoskeletal, Esophageal Spasm GERD, Cholecystitis, Pancreatitis, Zoster, this is not meant to be an all-inclusive list. EKG interpreted by me (3pts min.). @ -As above X-rays interpreted by me (1pt min.). @ -Chest x-ray shows no acute process CT interpreted by me (1pt min.). @ -None done U/S interpreted by me (1pt. min.). @ -None done What testing was considered but not performed or refused? (CT, X-rays, U/S, labs)? Why? @ -None What meds were considered but not given or refused? Why? @ -None Did you discuss the management of the patient with other professionals (professionals i.e. PRISCILA Seay, LEASING AGENT, lab, RT, psych nurse, social services technician, river guide, teacher, global chief creative officer, correctional casework specialist)? Give summary @ -Case was discussed with practitioner Janet who will admit covering hospital call Was smoking cessation discussed for >3mins.? @ -No Was critical care preformed (if so, how long)? @ -No Were there social determinants of health that impacted care today? How? (Homelessness, low income, unemployed, alcoholism, drug addiction, transportation, low edu. Level, literacy, decrease access to med. care, alf, rehab)? @ -No Was there de-escalation of care discussed even if they declined (Discuss DNR or withdrawal of care, Hospice)? DNR status @ -No What co-morbidities impacted this encounter? (DM, HTN, Smoking, COPD, CAD, Cancer, CVA, ARF, Chemo, Hep., AIDS, mental health diagnosis, sleep apnea, morbid obesity)? @ -None Was patient admitted / discharged? Hospital course, mention meds given and route, prescriptions, significant lab abnormalities, going to OR and other pertinent info. @ -Patient reevaluated and improved with nitroglycerin. Patient is updated on results and plan. Patient will be admitted. Admission orders written. Consult placed. Undiagnosed new problem with uncertain prognosis? @ -No Drug Therapy requiring intensive monitoring for toxicity (Heparin, Nitro, Insulin, Cardizem)? @ -No Were any procedures done? @ -No Diagnosis/symptom? @ -Chest pain Acute, or Chronic, or Acute on Chronic? @ -Acute Uncomplicated (without systemic symptoms) or Complicated (systemic symptoms)? @ -default Side effects of treatment? @ -No Exacerbation, Progression, or Severe Exacerbation? @ -No Poses a threat to life or bodily function? How? (Chest pain, [place], [place], pneumonia, PE, COPD, DKA, ARF, appy, cholecystitis, CVA, Diverticulitis, Homicidal, Justyna cidal, threat to staff... and all critical care pts) @ -No (Javad Horne) Disposition <Bambi Lopez - Last Filed: 03/31/23 16:51> Is patient prescribed a controlled substance at d/c from ED?: No Time of Disposition: 19:01 <Javad Horne - Last Filed: 03/31/23 19:01> Clinical Impression: Chest pain Disposition: ADMITTED IP TO THIS HOSP Referrals: Fede Mcwilliams MD [Primary Care Provider] - 1-2 days
--- NOTE | 2023-03-31 17:18 | XR ---
EXAMINATION TYPE: XR chest 2V DATE OF EXAM: 03/31/2023 COMPARISON: 02/05/2023 INDICATION: Chest pain TECHNIQUE: Frontal and lateral views of the chest are obtained. FINDINGS: The heart size is normal. The pulmonary vasculature is normal. The lungs are clear. Simulator leads in the midthoracic region are present. IMPRESSION: 1. No acute pulmonary process.
[2023-03-31] MEDS ORDERED: ASPIRIN 81 MG PO STA (17:36)
[2023-03-31] MEDS ORDERED: NITROGLYCERIN SL TABS 0.4 MG TAB SUBLINGUAL STA ×3 (17:36)
[2023-03-31 17:54] LABS: Basophils % (A) 1 %; Eosinophils # (A) 0.2 k/uL (0-0.7); Eosinophils % (A) 3 %; HCT 43.7 % (34.0-46.0); HGB 14.5 gm/dL (11.4-16.0); Lymphocytes # (A) 1.2 k/uL (1.0-4.8); Lymphocytes % (A) 25 %; MCH 30.3 pg (25.0-35.0); MCHC 33.2 g/dL (31.0-37.0); MCV 91.4 fL (80.0-100.0); Mean Platelet Volume 7.6; Monocytes # (A) 0.2 k/uL (0-1.0); Monocytes % (A) 4 %; Neutrophils # (A) 3.1 k/uL (1.3-7.7); Neutrophils % (A) 65 %; Platelet Count 247 k/uL (150-450); RBC 4.78 m/uL (3.80-5.40); RDW 12.6 % (11.5-15.5); WBC 4.8 k/uL (3.8-10.6)
[2023-03-31 18:11] LABS: ALT 54 U/L (4-34); AST 48 U/L (14-36); African American GFR (CKD) >90 (>60 ml/min/1.73 sqM); Albumin 4.8 g/dL (3.5-5.0); Alkaline Phosphatase 76 U/L (38-126); Anion Gap 14 mmol/L; Blood Urea Nitrogen 14 mg/dL (7-17); Calcium 9.4 mg/dL (8.4-10.2); Carbon Dioxide 21 mmol/L (22-30); Chloride 103 mmol/L (98-107); Glucose 164 mg/dL (74-99); Magnesium 2.1 mg/dL (1.6-2.3); Non-African American GFR(CKD) 83 (>60 ml/min/1.73 sqM); Sodium 138 mmol/L (137-145); Total Bilirubin 0.5 mg/dL (0.2-1.3); Total Protein 8.3 g/dL (6.3-8.2)
[2023-03-31 18:14] LABS: INR 0.9 (<1.2); Partial Thromboplastin Time 24.8 sec (22.0-30.0); Prothrombin Time 9.8 sec (10.0-12.5)
[2023-03-31 18:18] LABS: Potassium 4.3 mmol/L (3.5-5.1)
[2023-03-31 18:27] LABS: Appearance,Urine Clear (Clear); Bacteria,Urine Rare /hpf; Bilirubin,Urine Negative (Negative); Blood,Urine Small (Negative); Color,Urine Yellow; Glucose,Urine (UA) Negative (Negative); Ketones,Urine Negative (Negative); Leukocyte Esterase,Urine Negative (Negative); Mucus,Urine Rare /hpf; Nitrite,Urine Negative (Negative); PH, Urine 5.5 (5.0-8.0); Protein,Urine Trace (Negative); RBC,Urine 6 /hpf (0-5); Specific Gravity,Urine 1.024 (1.001-1.035); Squamous Epithelial Cell,Urine 2 /hpf (0-4); Urobilinogen,Urine <2.0 mg/dL (<2.0); WBC,Urine 1 /hpf (0-5)
[2023-03-31] MEDS ORDERED: NITROGLYCERIN SL TABS 0.4 MG TAB SUBLINGUAL PRN (19:01)
[2023-03-31] MEDS: NITROGLYCERIN OINT 1 INCH/GM PACKET TOPICAL SCH (23:42)
[2023-04-01] MEDS ORDERED: CALCIUM CARBONATE 500 MG CHEWABLE PO ONE (03:14)
[2023-04-01] MEDS: HYDROcodone/APAP 10-325MG 1 EACH TAB PO PRN ×2 (03:21→09:48)
[2023-04-01] MEDS: NITROGLYCERIN OINT 1 INCH/GM PACKET TOPICAL SCH ×3 (07:38→12:03)
[2023-04-01] MEDS ORDERED: DOBUTamine DRIP for NUC MED 500 MG/250 ML BAG IV ONE (08:00)
[2023-04-01] MEDS ORDERED: DOBUTamine DRIP for NUC MED 500 MG in DEXTROSE/WATER 1 250ML.BAG IV PRN (08:00)
[2023-04-01] MEDS ORDERED: ASPIRIN 325 MG TAB PO SCH (09:00)
[2023-04-01] MEDS ORDERED: SPIRONOLACTONE 25 MG TAB PO SCH (10:15)
--- NOTE | 2023-04-01 10:23 | P.CRDCN ---
History of Present Illness Consult date: 04/01/23 Consult reason: chest pain History of present illness: History of present illness: This is a 47-year-old female patient of Dr. Alfaro with past medical history of coronary artery disease, cardiomyopathy, tobacco use and dependence, hyperlipidemia, glucose, HIV positive. We have been asked to evaluate the patient for chest pain. Patient presented to the emergency center yesterday afternoon due to chest pain that started yesterday with radiation down her left arm with shortness of breath. Patient is seen today in the emergency center waiting for a bed on the observation unit. EKG sinus rhythm with no acute ST changes Chest x-ray: No acute process CBC within normal limits, INR 0.9, d-dimer 0.3. Electrolytes essentially normal. Creatinine 0.85. Troponin negative 3. AST 48, ALT 54. Magnesium 2.1. Urinalysis negative for infection. Home cardiac medications: Aspirin 81 mg daily, Lopressor 25 mg twice daily, Nitrostat as needed, Crestor 10 mg daily, Aldactone 25 mg daily Cardiac catheterization 05/29/2022 revealed [id number] disease in the RCA and circumflex. Right dominance. Recommendations for aggressive coronary mod ification. Echocardiogram performed 05/30/2022 revealed EF 45-50%. Review Of Systems: At the time of my exam: CONSTITUTIONAL: Denies fever or chills. CARDIOVASCULAR: Reports chest pain, Denies shortness of breath, no orthopnea, PND or palpitations. RESPIRATORY: Denies cough. GASTROINTESTINAL: Denies abdominal pain, diarrhea, constipation, nausea or vomiting. MUSCULOSKELETAL: Denies myalgias. NEUROLOGIC: Denies numbness, tingling or weakness. ENDOCRINE: Denies fatigue, weight change, polydipsia or polyurina. GENITOURINARY: Denies burning, hematuria or urgency with micturation. HEMATOLOGIC: Denies history of anemia or bleeding. Physical examination: Gen: This is a 47-year-old morbidly obese female. She is resting in the ER and appears comfortable. VS: reviewed HEENT: Head is atraumatic, normocephalic. Pupils equal, round. Sclerae is anicteric. NECK: Supple. No JVD. LUNGS: Clear to auscultation. No wheezes or rhonchi. No intercostal retractions. HEART: Regular rate and rhythm. Systolic ejection murmur. ABDOMEN: Soft No tenderness. EXTREMITIES: No pedal edema. No calf tenderness. NEUROLOGICAL: Patient is awake, alert and oriented x3. Assessment: Chest pain, acute coronary syndrome ruled out Mild coronary artery disease on cardiac catheterization Cardiomyopathy with EF of 45% Hyperlipidemia PCOS HIV positive Tobacco use Plan: Resume patient's home cardiac medications Obtain dobutamine stress test today Obtain 2-D echocardiogram and Doppler study to assess cardiac structure and function If dobutamine stress test is unremarkable, patient is cleared for discharge and may follow-up with Dr. Alfaro in the office in one to 2 weeks Thank you kindly for this consultation. Nurse practitioner note has been reviewed, I agree with documented findings and plan of care. Patient was seen and examined. Past Medical History Past Medical History: Asthma, Chest Pain / Angina, COPD, Fibromyalgia, Myocardial Infarction ([place]), Pneumonia, Seizure Disorder Additional Past Medical History / Comment(s): HIV with AIDS. migraines, "rt eye has scarring and freckles". uti's, "poor circulation" Last Myocardial Infarction Date:: 05/29/2022 History of Any Multi-Drug Resistant Organisms: None Reported Past Surgical History: Section, Cholecystectomy, Heart Catheterization, Hysterectomy, Orthopedic Surgery Additional Past Surgical History / Comment(s): left shoulder sx, c-sec x3, spinal fusion, spinal stimulator Past Anesthesia/Blood Transfusion Reactions: No Reported Reaction Additional Past Anesthesia/Blood Transfusion Reaction / Comment(s): Hard to awake. Past Psychological History: Anxiety, Depression Smoking Status: Current every day smoker Past Alcohol Use History: None Reported Past Drug Use History: Marijuana - Past Family History Mother Family Medical History: CVA/TIA, Diabetes Mellitus, Myocardial Infarction ([place]) Additional Family Medical History / Comment(s): sarcoidosis, osteoporosis Father Family Medical History: Asthma, COPD Medications and Allergies Home Medications Medication Instructions Recorded Confirmed Type Elviteg/Cob/Emtri/Tenof Alafen 1 tab PO DAILY 10/02/20 03/31/23 History [Genvoya Tablet] HYDROcodone/APAP 10-325MG [[place] 1 tab PO Q8H PRN 10/02/20 03/31/23 History 10-325] levETIRAcetam [Keppra] 500 mg PO Q12HR #30 tab 02/17/22 03/31/23 Rx Budesonide/Glycopyr/Formoterol 2 puff INHALATION RT-DAILY 05/29/22 03/31/23 History [Breztri Aerosphere Inhaler] Erenumab-Aooe [Aimovig 140 mg SQ QMONTHLY 05/30/22 03/31/23 History Autoinjector] Metoprolol Tartrate [Lopressor] 25 mg PO BID #60 tab 05/31/22 03/31/23 Rx Nitroglycerin Sl Tabs [Nitrostat] 0.4 mg SUBLINGUAL Q5M PRN 07/10/22 03/31/23 History busPIRone HCL [Buspar] 7.5 mg PO BID 09/04/22 03/31/23 History Aspirin EC [Ecotrin Low Dose] 81 mg PO DAILY 10/04/22 03/31/23 History Pantoprazole Sodium [Protonix] 20 mg PO BID 10/04/22 03/31/23 History Spironolactone [Aldactone] 25 mg PO DAILY 10/04/22 03/31/23 History Rosuvastatin [Crestor] 10 mg PO DAILY 03/31/23 03/31/23 History Allergies Allergy/AdvReac Type Severity Reaction Status Date / Time amoxicillin [From Augmentin] Allergy Anaphylaxis Verified 03/31/23 18:01 clavulanic acid Allergy Anaphylaxis Verified 03/31/23 18:01 [From Augmentin] prochlorperazine edisylate AdvReac Confusion Verified 03/31/23 18:01 [From Compazine] prochlorperazine maleate AdvReac Confusion Verified 03/31/23 18:01 [From Compazine] steroids Allergy Unknown Uncoded 03/31/23 18:01 Physical Exam Vitals: Vital Signs Temp Pulse Resp BP Pulse Ox 04/01/23 03:25 68 18 126/73 99 04/01/23 00:00 86 18 112/56 98 03/31/23 20:00 68 18 137/84 100 03/31/23 18:27 70 18 108/85 96 03/31/23 16:44 98.8 F 78 16 126/85 97 Intake and Output 03/31/23 04/01/23 04/01/23 22:59 06:59 14:59 Other: Weight 115.666 kg Results 03/31/23 17:32 03/31/23 17:32 Cardiac Enzymes 03/31/23 03/31/23 03/31/23 Range/Units 17:32 17:32 20:01 AST 48 H (14-36) U/L Troponin I <0.012 <0.012 (0.000-0.034) ng/mL 03/31/23 Range/Units 23:21 AST (14-36) U/L Troponin I <0.012 (0.000-0.034) ng/mL Coagulation 03/31/23 Range/Units 17:32 PT 9.8 L (10.0-12.5) sec APTT 24.8 (22.0-30.0) sec CBC 03/31/23 Range/Units 17:32 WBC 4.8 (3.8-10.6) k/uL RBC 4.78 (3.80-5.40) m/uL Hgb 14.5 (11.4-16.0) gm/dL Hct 43.7 (34.0-46.0) % Plt Count 247 (150-450) k/uL Comprehensive Metabolic Panel 03/31/23 Range/Units 17:32 Sodium 138 (137-145) mmol/L Potassium 4.3 (3.5-5.1) mmol/L Chloride 103 (98-107) mmol/L Carbon Dioxide 21 L (22-30) mmol/L BUN 14 (7-17) mg/dL Creatinine 0.85 (0.52-1.04) mg/dL Glucose 164 H (74-99) mg/dL Calcium 9.4 (8.4-10.2) mg/dL AST 48 H (14-36) U/L ALT 54 H (4-34) U/L Alkaline Phosphatase 76 (38-126) U/L Total Protein 8.3 H (6.3-8.2) g/dL Albumin 4.8 (3.5-5.0) g/dL Current Medications Generic Name Dose Route Start Last Admin Trade Name Freq PRN Reason Stop Dose Admin Hydrocodone Bitart/Acetaminophen 1 each 04/01/23 03:13 04/01/23 03:21 Hydrocodone/Apap 10-325mg 1 Each Tab PO 1 each Q8HR PRN Administration Pain Aspirin 325 mg 04/01/23 09:00 Aspirin 325 Mg Tab PO DAILY GANESH Dobutamine HCl/Dextrose 500 mg 250 mls @ 34.7 mls/hr 04/01/23 07:46 / IV Solution IV 04/01/23 11:47 .Q7H13M PRN Per Protocol Protocol 10 MCG/KG/MIN Nitroglycerin 0.4 mg 03/31/23 19:01 Nitroglycerin Sl Tabs 0.4 Mg Tab SUBLINGUAL Q5M PRN Chest Pain Nitroglycerin 1 inch 04/01/23 00:00 04/01/23 07:38 Nitroglycerin Oint 1 Inch/Gm Packet TOPICAL 1 inch Q6HR GANESH Administration Intake and Output 03/31/23 04/01/23 04/01/23 22:59 06:59 14:59 Other: Weight 115.666 kg 03/31/23 17:32 03/31/23 17:32
[2023-04-01] MEDS ORDERED: METOPROLOL TARTRATE 25 MG TAB PO SCH (12:00)
[2023-04-01 12:15] VITALS: BP 124/76; PULSE 82; RESP 18; TEMP 98.1
--- NOTE | 2023-04-01 12:32 | CA ---
Dobutamine Stress Echocardiogram Report Mirtha Victor Age: 47 Gender: F : 1975 Exam Date: 04/01/2023 11:15 Exam Location: [facility] Ordering Physician: Brenda Castro Referring Physician: Gloria GUARDADO Flight Test Engineer: Liberty Cortez RDCS Technologist: Ht (in): 63 Wt (lb): 255 Procedure CPT: Indication: CP ICD-9 Codes: Rhythm: Patient History: CP, MICHELINE, PALP, NUMBNESS FACE/NECK, HTN, CHOL, FAMILY HX, TOB, [place], CATH, ASTHMA, COPD Cardiac Medications: Medications in past 24 hours: Contrast: N/A Total Dose (mL): Stress Results Protocol: Dobutamine Peak Dose (???g/kg/min): 30 Duration (min:sec): Atropine:(mg) None Target HR: 148 Double Product: [id number] Resting HR: 64 Resting BP: 113 / 72 Peak HR: 150 Peak BP: 140 / 59 Max Predicted HR: 174 86 % Max Predicted HR Stress Summary: BP Response: Reason for Termination: Exceeded target heart rate (85% max predicted) Cardiac Symptoms: ECG Analysis Resting EKG: Normal sinus rhythm normal axis normal intervals Stress EKG: Patient was given intravenous dobutamine or a period of 9 minutes per protocol without chest pain or diagnostic ST segment depression attained 85% of predicted maximal heart rate Arrhythmia: Echo Analysis Base Echo Analysis: Normal left ventricle a size wall motion systolic function Low Echo Anaylsis: Normal hyperdynamic response Peak Echo Analysis: Normal hyperdynamic response Recovery Echo: Normal MEASUREMENTS (Male/Female) Normal Values CONCLUSIONS Negative dobutamine stress echo Dr. Collin Beltrán MD (Electronically Signed) Final Date: 01 April 2023 12:31
[2023-04-01] MEDS: PANTOPRAZOLE 40 MG TABLET PO SCH (12:43)
[2023-04-01 15:14] LABS: LDL Cholesterol,Calculated 79.5 mg/dL (0.0-131.0)
--- NOTE | 2023-04-01 16:39 | CA ---
Transthoracic Echo Report Name: Mirtha Victor Age: 47 Gender: F : 1975 Exam Date: 04/01/2023 11:33 Exam Location: [facility] Ht (in): 63 Wt (lb): 255 Ordering Physician: Brenda Castro Attending/Referring Phys: [id number], Gloria Industrial Ecology Technician Liberty Cortez RDCS Procedure CPT: Indications: LVF Cardiac Hx: Technical Quality: Fair Contrast 1: Total Dose (mL): Contrast 2: Total Dose (mL): MEASUREMENTS (Male / Female) Normal Values 2D ECHO LV Diastolic Diameter PLAX 4.0 cm 4.2 - 5.9 / 3.9 - 5.3 cm LV Systolic Diameter PLAX 2.6 cm IVS Diastolic Thickness 1.2 cm 0.6 - 1.0 / 0.6 - 0.9 cm LVPW Diastolic Thickness 1.5 cm 0.6 - 1.0 / 0.6 - 0.9 cm LV Relative Wall Thickness 0.7 RV Internal Dim ED PLAX 4.1 cm LA Volume 50.4 cm??? 18 - 58 / 22 - 52 cm??? LA Volume Index 21.6 cm???/m??? 16 - 28 cm???/m??? M-MODE Aortic Root Diameter MM 2.4 cm LA Systolic Diameter MM 4.2 cm LA Ao Ratio MM 1.8 AV Cusp Separation MM 1.6 cm DOPPLER AV Peak Velocity 153.9 cm/s AV Peak Gradient 9.5 mmHg AV Mean Velocity 112.1 cm/s AV Mean Gradient 5.6 mmHg AV Velocity Time Integral 31.6 cm LVOT Peak Velocity 111.6 cm/s LVOT Peak Gradient 5.0 mmHg LVOT Velocity Time Integral 25.9 cm MV Area PHT 2.6 cm??? Mitral E Point Velocity 98.0 cm/s Mitral A Point Velocity 91.8 cm/s Mitral E to A Ratio 1.1 MV Deceleration Time 288.3 ms MV E' Velocity 7.3 cm/s Mitral E to MV E' Ratio 13.5 TR Peak Velocity 219.2 cm/s TR Peak Gradient 19.2 mmHg Right Ventricular Systolic Press 24.0 mmHg FINDINGS Left Ventricle Mildly increased left ventricular wall thickness. Normal left ventricular systolic function with no obvious regional wall motion abnormalities. Left ventricular cavity size normal. Left ventricular ejection fraction is estimated at 55 %. Right Ventricle Moderate right ventricular dilatation. Right ventricular systolic pressure within normal limits. Right Atrium Normal right atrial size. Left Atrium Normal left atrial size. Mitral Valve Structurally normal mitral valve. Mild mitral regurgitation. Aortic Valve Trileaflet aortic valve. No aortic valve stenosis or regurgitation. Tricuspid Valve Structurally normal tricuspid valve. Mild tricuspid regurgitation. Pulmonic Valve Structurally normal pulmonic valve. Pericardium No pericardial effusion. Aorta Normal size aortic root and proximal ascending aorta. CONCLUSIONS Normal LV systolic function Mild mitral regurgitation Previewed by: Dr. Collin Beltrán MD (Electronically Signed) Final Date: 01 April 2023 16:38
--- NOTE | 2023-04-02 00:23 | HP ---
HISTORY AND PHYSICAL This is a combined history and physical and discharge summary. CHIEF COMPLAINT: Chest pain. HISTORY OF PRESENT ILLNESS: This is a 47-year-old woman with a past medical history of multiple medical problems including mild coronary artery disease and the previous cardiac catheterization, ejection fraction 45%, HIV positive, was complaining of chest pain. The pain was felt mostly in the central part and right side, which is aggravated by pressure. Cardiology performed a stress test and dobutamine stress echo was reported as normal. There is no history of any fever, rigors, or chills. PAST MEDICAL HISTORY: Reviewed include cardiomyopathy, ejection fraction 45%, history of polycystic ovary syndrome, HIV. Rest of the history and rest of the chart is also reviewed. HOME MEDICATIONS: Reviewed include Aldactone. Rest of the medications and rest of the chart is also reviewed. ALLERGIES: Reviewed. Multiple allergies including Augmentin. FAMILY HISTORY: Reviewed including diabetes mellitus type 2. Rest of the history and rest of the chart is also reviewed. SOCIAL HISTORY: Smoking. REVIEW OF SYSTEMS: Fourteen-point review is negative except as mentioned earlier. PHYSICAL EXAMINATION: VITAL SIGNS: Pulse 75, blood pressure 97/76, respirations 16. HEENT: Conjunctivae normal. NECK: No jugular venous distention. CARDIOVASCULAR: S1, S2. RESPIRATIONS: Breath sounds diminished at the bases. No rhonchi. No crackles. ABDOMEN: Soft, nontender. LEGS: No edema. NERVOUS SYSTEM: No focal deficits. LYMPHATICS: No lymph node palpable in neck, axillae or groin. SKIN: No ulcer, rash, bleeding. JOINTS: No active deforming arthropathy. LABORATORY DATA: Noted. ASSESSMENT: 1. Chest pain, possibly musculoskeletal. 2. Negative dobutamine stress echo. 3. History of mild coronary artery disease on previous cardiac catheterization. 4. HIV positive. 5. Hyperlipidemia. 6. Cardiomyopathy with ejection fraction 45%. 7. History of nicotine dependence. RECOMMENDATIONS AND DISCUSSION: This is a 47-year-old woman presented with chest pain, has ruled out for myocardial infarction. The patient's stress echo was normal. I would recommend to resume the home medications. Follow with primary physician outpatient treatment, otherwise follow with Cardiology and Primary Physician in the outpatient setting. Symptomatic treatment. The patient will be discharged with the same home medications. Please refer to the current home medications for list of medications. MMODL / IJN: [id number] /
[2023-04-02] MEDS ORDERED: NON FORMULARY DRUG (Aspirin Ec 81 MG Tablet) PO SCH (09:00)
[2023-04-02] MEDS ORDERED: ATORVASTATIN 20 MG TAB PO SCH (09:00)
== END 2023-04-01 13:00 | disposition home or self-care (01) ==
LOC: EC 15:59 → 6NMEDSUR 19:02
PROVIDERS: ADMIT Hospitalist; ATTEND Hospitalist
DX: R07.9 Chest pain, unspecified (principal); I25.10 Atherosclerotic heart disease of native coronary artery without angina pectoris; I42.9 Cardiomyopathy, unspecified; J44.9 Chronic obstructive pulmonary disease, unspecified; F32.A Depression, unspecified; F41.9 Anxiety disorder, unspecified; B20 Human immunodeficiency virus [HIV] disease; E78.5 Hyperlipidemia, unspecified; E28.2 Polycystic ovarian syndrome; F17.200 Nicotine dependence, unspecified, uncomplicated; I25.2 Old myocardial infarction; Z79.82 Long term (current) use of aspirin; Z79.899 Other long term (current) drug therapy; Z88.0 Allergy status to penicillin
CPT/HCPCS: 99285; 36415; 93005; 93306; 93351; 85379; 80061; 80053; 83735; 84484; 85025; 85610; 85730; 81001; 71046; G0378 ×3

== ENCOUNTER → 2023-06-10 | Outpatient (CLI) | payer MEDICARE, OTHER ==
--- NOTE | 2023-06-10 13:23 | XR ---
EXAMINATION TYPE: XR lumbar spine with bend/flex DATE OF EXAM: 06/10/2023 12:10 PM CLINICAL INDICATION:Female, 47 years old with history of M43.16 Spondylolisthesis lumbar region; PH[facility] COMPARISON: None TECHNIQUE: XR lumbar spine with bend/flex - Frontal, lateral and coned in L5-S1 lateral views of the spine. FINDINGS: No evidence of any acute osseous pathology. No evidence of loss of vertebral body height i s seen. There is normal alignment of the lumbar vertebral bodies. Mild scattered disc space narrowing . Multilevel marginal osteophyte formation throughout the visualized spine. There is facet joint arth ropathy throughout the spine. Scattered at least mild neural foraminal stenosis. Mild degeneration ch anges throughout the spine. Fixation hardware L5-S1 appears intact. There are stimulator leads enter the spine and appear intact. IMPRESSION: 1. No acute fracture. 2. Postsurgical changes with hardware intact with mild multilevel disc degeneration.
== END | disposition home or self-care (01) ==
LOC: RADXRMAIN 11:26
PROVIDERS: ATTEND Neurological Surgery
DX: M51.36 Other intervertebral disc degeneration, lumbar region (principal); M43.16 Spondylolisthesis, lumbar region; Z98.890 Other specified postprocedural states
CPT/HCPCS: 72114

== ENCOUNTER 2023-07-31 15:47 | Emergency (ER) | payer MEDICARE, OTHER ==
[2023-07-31 16:37] LABS: Basophils % (A) 0 %; Eosinophils # (A) 0.1 k/uL (0-0.7); Eosinophils % (A) 1 %; HCT 42.7 % (34.0-46.0); HGB 14.2 gm/dL (11.4-16.0); Lymphocytes # (A) 1.2 k/uL (1.0-4.8); Lymphocytes % (A) 6 %; MCH 29.8 pg (25.0-35.0); MCHC 33.2 g/dL (31.0-37.0); MCV 89.9 fL (80.0-100.0); Mean Platelet Volume 7.5; Monocytes # (A) 0.7 k/uL (0-1.0); Monocytes % (A) 4 %; Neutrophils # (A) 17.6 k/uL (1.3-7.7); Neutrophils % (A) 89 %; Platelet Count 340 k/uL (150-450); RBC 4.75 m/uL (3.80-5.40); RDW 13.1 % (11.5-15.5); WBC 19.7 k/uL (3.8-10.6)
[2023-07-31 16:45] VITALS: TEMP 98
[2023-07-31 16:56] LABS: INR 0.9 (<1.2); Partial Thromboplastin Time 22.2 sec (22.0-30.0); Prothrombin Time 10.5 sec (10.0-12.5)
[2023-07-31 17:02] LABS: ALT 29 U/L (4-34); AST 24 U/L (14-36); African American GFR (CKD) 82 (>60 ml/min/1.73 sqM); Albumin 4.9 g/dL (3.5-5.0); Alkaline Phosphatase 73 U/L (38-126); Anion Gap 9 mmol/L; Blood Urea Nitrogen 24 mg/dL (7-17); Calcium 10.3 mg/dL (8.4-10.2); Carbon Dioxide 22 mmol/L (22-30); Chloride 106 mmol/L (98-107); Glucose 124 mg/dL (74-99); Non-African American GFR(CKD) 71 (>60 ml/min/1.73 sqM); Potassium 5.2 mmol/L (3.5-5.1); Sodium 137 mmol/L (137-145); Total Bilirubin 0.5 mg/dL (0.2-1.3); Total Protein 8.3 g/dL (6.3-8.2)
--- NOTE | 2023-07-31 17:53 | XR ---
EXAMINATION TYPE: XR chest 2V DATE OF EXAM: 07/31/2023 4:57 PM CLINICAL INDICATION:Female, 47 years old with history of Chest Pain; COMPARISON: Chest radiographs from 03/31/2023. TECHNIQUE: XR chest 2V Frontal and lateral views of the chest. FINDINGS: Lungs/Pleura: There is no evidence of pleural effusion, focal consolidation, or pneumothorax. Pulmonary vascularity: Unremarkable. Heart/mediastinum: Cardiomediastinal silhouette is unremarkable. Musculoskeletal: No acute osseous pathology. Other findings: Nerve stimulator leads project over the spine. IMPRESSION: No acute cardiopulmonary disease/process.
[2023-07-31] MEDS: SODIUM CHLORIDE 0.9% 1,000 ML IV STA (18:56)
[2023-07-31] MEDS: KETOROLAC 15 MG/ML 1 ML VIAL IVP STA (18:57)
[2023-07-31] MEDS: diphenhydrAMINE 50 MG/ML 1 ML VIAL IVP STA (18:58)
[2023-07-31] MEDS: METOCLOPRAMIDE 5 MG/ML 2 ML VIAL IVP STA (18:58)
[2023-07-31] MEDS: MAGNESIUM SULFATE-D5W PMX 1 GM in DEXTROSE/WATER 1 100ML.BAG IVPB ONE (19:01)
--- NOTE | 2023-07-31 20:42 | ED ---
Chest Pain HPI - General Chief Complaint: Chest Pain Stated Complaint: headache,heart palpitations Time Seen by Provider: 07/31/23 16:15 Source: patient Mode of arrival: ambulatory Limitations: no limitations - History of Present Illness Initial Comments: 47-year-old female presents emergency department reporting chest pain. States she has a history of cardiomyopathy. Today she began having a headache which is very common for her. She was driving to an urgent care in order to obtain medications for the migraine. During her drive she began having left-sided chest wall pain which radiated into her left arm. Because of the chest pain she decided to come to the hospital instead. Patient has been hospitalized several times for the chest pain. She did not take anything at home before coming into the emergency department. She admits to photophobia. No neck pain or stiffness. No fevers. No head trauma. States that her migraine has no atyp ical features. Chest pain has resolved at this time. No other alleviating, precipitating or modifying factors - Related Data Home Medications Medication Instructions Recorded Confirmed Elviteg/Cob/Emtri/Tenof Alafen 1 tab PO DAILY 10/02/20 03/31/23 [Genvoya Tablet] HYDROcodone/APAP 10-325MG [[place] 1 tab PO Q8H PRN 10/02/20 03/31/23 10-325] Budesonide/Glycopyr/Formoterol 2 puff INHALATION RT-DAILY 05/29/22 03/31/23 [Breztri Aerosphere Inhaler] Erenumab-Aooe [Aimovig 140 mg SQ QMONTHLY 05/30/22 03/31/23 Autoinjector] Nitroglycerin Sl Tabs [Nitrostat] 0.4 mg SUBLINGUAL Q5M PRN 07/10/22 03/31/23 busPIRone HCL [Buspar] 7.5 mg PO BID 09/04/22 03/31/23 Aspirin EC [Ecotrin Low Dose] 81 mg PO DAILY 10/04/22 03/31/23 Pantoprazole Sodium [Protonix] 20 mg PO BID 10/04/22 03/31/23 Spironolactone [Aldactone] 25 mg PO DAILY 10/04/22 03/31/23 Rosuvastatin [Crestor] 10 mg PO DAILY 03/31/23 03/31/23 Previous Rx's Medication Instructions Recorded levETIRAcetam [Keppra] 500 mg PO Q12HR #30 tab 02/17/22 Metoprolol Tartrate [Lopressor] 25 mg PO BID #60 tab 05/31/22 Allergies Allergy/AdvReac Type Severity Reaction Status Date / Time amoxicillin [From Augmentin] Allergy Anaphylaxis Verified 07/31/23 16:15 clavulanic acid Allergy Anaphylaxis Verified 07/31/23 16:15 [From Augmentin] prochlorperazine edisylate AdvReac Confusion Verified 07/31/23 16:15 [From Compazine] prochlorperazine maleate AdvReac Confusion Verified 07/31/23 16:15 [From Compazine] steroids Allergy Unknown Uncoded 07/31/23 16:15 Review of Systems ROS Statement: Those systems with pertinent positive or pertinent negative responses have been documented in the HPI. ROS Other: All systems not noted in ROS Statement are negative. Past Medical History Past Medical History: Asthma, Chest Pain / Angina, COPD, Fibromyalgia, [place]ocardial Infarction ([place]), Pneumonia, Seizure Disorder Additional Past Medical History / Comment(s): HIV with AIDS. migraines, "rt eye has scarring and freckles". uti's, "poor circulation" Last Myocardial Infarction Date:: 05/29/2022 History of Any Multi-Drug Resistant Organisms: None Reported Past Surgical History: Section, Cholecystectomy, Heart Catheterization, Hysterectomy, Orthopedic Surgery Additional Past Surgical History / Comment(s): left shoulder sx, c-sec x3, spinal fusion, spinal stimulator Past Anesthesia/Blood Transfusion Reactions: No Reported Reaction Additional Past Anesthesia/Blood Transfusion Reaction / Comment(s): Hard to awake. Past Psychological History: Anxiety, Depression Smoking Status: Current every day smoker Past Alcohol Use History: None Reported Past Drug Use History: Marijuana - Past Family History Mother Family Medical History: CVA/TIA, Diabetes Mellitus, Myocardial Infarction ([place]) Additional Family Medical History / Comment(s): sarcoidosis, osteoporosis Father Family Medical History: Asthma, COPD General Exam Limitations: no limitations General appearance: alert, in no apparent distress Head exam: Present: atraumatic, normocephalic, normal inspection Eye exam: Present: normal appearance, PERRL, EOMI. Absent: scleral icterus, conjunctival injection, periorbital swelling ENT exam: Present: normal exam, mucous membranes moist Neck exam: Present: normal inspection. Absent: tenderness, meningismus, lymphadenopathy Respiratory exam: Present: normal lung sounds bilaterally. Absent: respiratory distress, wheezes, rales, rhonchi, stridor Cardiovascular Exam: Present: regular rate, normal rhythm, normal heart sounds. Absent: systolic murmur, diastolic murmur, rubs, gallop, clicks GI/Abdominal exam: Present: soft, normal bowel sounds. Absent: distended, tenderness, guarding, rebound, rigid Extremities exam: Present: normal inspection, full ROM, normal capillary refill. Absent: tenderness, pedal edema, joint swelling, calf tenderness Back exam: Present: normal inspection Neurological exam: Present: alert, oriented X3, CN II-XII intact Psychiatric exam: Present: normal affect, normal mood Skin exam: Present: warm, dry, intact, normal color. Absent: rash Course Vital Signs 07/31/23 07/31/23 07/31/23 16:12 18:06 21:01 Temperature 98 F Pulse Rate 99 94 84 Respiratory 20 20 16 Rate Blood Pressure 117/65 133/89 124/80 O2 Sat by Pulse 99 96 95 Oximetry Chest Pain MDM - MDM Was pt. sent in by a medical professional or institution (, PA, [employer], urgent care, hospital, or shelter...) When possible be specific @ -No Did you speak to anyone other than the patient for history (EMS, parent, family, police, friend...)? What history was obtained from this source @ -No Did you review nursing and triage notes (agree or disagree)? Why? @ -I reviewed and agree with nursing and triage notes Were old charts reviewed (outside hosp., previous admission, EMS record, old EKG, old radiological studies, urgent care reports/EKG's, shelter records)? Report findings @ -I reviewed patient's discharge summary from March where she was admitted for chest pain Differential Diagnosis (chest pain, altered mental status, abdominal pain women, abdominal pain men, vaginal bleeding, weakness, fever, dyspnea, syncope, headache, dizziness, GI bleed, back pain, seizure, CVA, palpatations, mental health, musculoskeletal)? @ -Differential Chest Pain: Stable Angina, Unstable Angina, STEMI, NSTEMI Aortic Dissection, Pneumothorax, Musculoskeletal, Esophageal Spasm GERD, Cholecystitis, Pancreatitis, Zoster, this is not meant to be an all-inclusive list. EKG interpreted by me (3pts min.). @ -Yes and demonstrates sinus rhythm with a rate of 95. NE interval 149. QRS 90. QTc of 381. J-point elevation in 2, 3, aVF as well as V4 through V6. No reciprocal changes X-rays interpreted by me (1pt min.). @ -Yes and demonstrates no acute process CT interpreted by me (1pt min.). @ -None done U/S interpreted by me (1pt. min.). @ -None done What testing was considered but not performed or refused? (CT, X-rays, U/S, labs)? Why? @ -None What meds were considered but not given or refused? Why? @ -None Did you discuss the management of the patient with other professionals (professionals i.e. , PA, [employer], lab, RT, psych nurse, geriatric social work professor, training program manager, teacher, workplace rehabilitation officer, piano case maker)? Give summary @ -No Was smoking cessation discussed for >3mins.? @ -No Was critical care preformed (if so, how long)? @ -No Were there social determinants of health that impacted care today? How? (Homelessness, low income, unemployed, alcoholism, drug addiction, transportatio n, low edu. Level, literacy, decrease access to med. care, senior care, rehab)? @ -No Was there de-escalation of care discussed even if they declined (Discuss DNR or withdrawal of care, Hospice)? DNR status @ -No What co-morbidities impacted this encounter? (DM, HTN, Smoking, COPD, CAD, Cancer, CVA, ARF, Chemo, Hep., AIDS, mental health diagnosis, sleep apnea, morbid obesity)? @ -Migraines, cardiomyopathy Was patient admitted / discharged? Hospital course, mention meds given and route, prescriptions, significant lab abnormalities, going to OR and other pertinent info. @ -Upon arrival patient was seen and evaluated in room 3. Thorough history and physical exam was performed. Patient placed on continuous pulse ox and cardiac monitoring. Twelve-lead EKG was obtained. Laboratory studies are conducted and chest x-ray was performed. Results were discussed with the patient. Did recommend admission however the patient refused. States that she would like to obtain control of her migraine and be discharged home for cardiology follow-up. Patient was given a migraine cocktail. She does have improvement in her symptoms. I did complete a second troponin which was negative. Patient was [facility] recently hospitalized and cleared from a cardiac standpoint in March. At this time she will be discharged home. Recommend that the patient follow-up with cardiology for her most recent symptoms and return for any new or worsening symptoms. Patient was agreeable to plan. Discharged in stable condition Undiagnosed new problem with uncertain prognosis? @ -No Drug Therapy requiring intensive monitoring for toxicity (Heparin, Nitro, Insulin, Cardizem)? @ -No Were any procedures done? @ -No Diagnosis/symptom? @ -Acute migraine cephalgia, acute chest pain Acute, or Chronic, or Acute on Chronic? @ -Acute on chronic Uncomplicated (without systemic symptoms) or Complicated (systemic symptoms)? @ -Complicated Side effects of treatment? @ -No Exacerbation, Progression, or Severe Exacerbation? @ -Yes Poses a threat to life or bodily function? How? (Chest pain, [place], [place], pneumonia, PE, COPD, DKA, ARF, appy, cholecystitis, CVA, Diverticulitis, Homicidal, Suicidal, threat to staff... and all critical care pts) @ -No Disposition Clinical Impression: Chest pain, Headache Disposition: HOME SELF-CARE Condition: Stable Instructions (If sedation given, give patient instructions): Chest Pain (ED), Acute Headache (ED) Additional Instructions: Please follow-up with your primary care doctor and your [employer] for further management of your symptoms. Return for any new or worsening symptoms Is patient prescribed a controlled substance at d/c from ED?: No Referrals: Juancarlos Salgado DO [Primary Care Provider] - 1-2 days Time of Disposition: 20:42
[2023-07-31 21:26] VITALS: BP 124/80; PULSE 84; RESP 16
== END 2023-07-31 21:01 | disposition home or self-care (01) ==
LOC: EC 15:47
DX: G43.909 Migraine, unspecified, not intractable, without status migrainosus (principal); R07.89 Other chest pain; F17.200 Nicotine dependence, unspecified, uncomplicated; F12.90 Cannabis use, unspecified, uncomplicated; Z88.0 Allergy status to penicillin; Z88.8 Allergy status to other drugs, medicaments and biological substances
CPT/HCPCS: 36415; 93005; 80053; 83735; 84484; 85025; 85610; 85730; 71046; 99285; 96365; 96366; 96375 ×3; J1200; J2765; J3475; J1885

== ENCOUNTER 2024-03-03 11:38 | Inpatient (IN) | payer MEDICARE, OTHER ==
[2024-03-03 11:58] LABS: Glucose,Whole Blood 96 mg/dL (70-110)
[2024-03-03 12:10] LABS: Basophils # (A) 0.1 k/uL (0-0.2); Basophils % (A) 1 %; Eosinophils # (A) 0.2 k/uL (0-0.7); Eosinophils % (A) 3 %; HCT 47.2 % (34.0-46.0); HGB 15.9 gm/dL (11.4-16.0); Lymphocytes # (A) 1.7 k/uL (1.0-4.8); Lymphocytes % (A) 23 %; MCH 30.4 pg (25.0-35.0); MCHC 33.7 g/dL (31.0-37.0); MCV 90.1 fL (80.0-100.0); Mean Platelet Volume 7.5; Monocytes # (A) 0.3 k/uL (0-1.0); Monocytes % (A) 4 %; Neutrophils # (A) 4.9 k/uL (1.3-7.7); Neutrophils % (A) 67 %; Platelet Count 293 k/uL (150-450); RBC 5.24 m/uL (3.80-5.40); RDW 12.4 % (11.5-15.5); WBC 7.3 k/uL (3.8-10.6)
[2024-03-03 12:18] LABS: INR 0.9 (<1.2); Partial Thromboplastin Time 23.1 sec (22.0-30.0)
[2024-03-03] MEDS: SODIUM CHLORIDE 0.9% 500 ML 500 ML IV STA (12:20)
[2024-03-03 12:22] LABS: ALT 38 U/L (4-34); AST 32 U/L (14-36); African American GFR (CKD) 79 (>60 ml/min/1.73 sqM); Albumin 5.5 g/dL (3.5-5.0); Alkaline Phosphatase 77 U/L (38-126); Anion Gap 12 mmol/L; Blood Urea Nitrogen 19 mg/dL (7-17); Calcium 10.5 mg/dL (8.4-10.2); Carbon Dioxide 24 mmol/L (22-30); Chloride 103 mmol/L (98-107); Creatine Kinase 146 U/L (30-135); Glucose 96 mg/dL (74-99); Non-African American GFR(CKD) 68 (>60 ml/min/1.73 sqM); Potassium 4.9 mmol/L (3.5-5.1); Sodium 139 mmol/L (137-145); Total Bilirubin 0.6 mg/dL (0.2-1.3)
--- NOTE | 2024-03-03 12:26 | CT ---
EXAMINATION TYPE: CODE STROKE: CT brain wo contr CT DLP: 1090.9 mGycm, Automated exposure control for dose reduction was used. DATE OF EXAM: 03/03/2024 12:23 PM COMPARISON: CT brain 02/14/2022 CLINICAL INDICATION:Female, 48 years old with history of Neuro deficit, acute, stroke suspected, STRO KE/ HEADACHE TECHNIQUE: Brain: Multiple axial CT images of the brain were obtained without IV contrast. . Coronal and sagitta l reformats reviewed. FINDINGS: Brain: Extra-axial spaces: No abnormal extra-axial fluid collections. Ventricular system: Within normal limits Cerebral parenchyma: No acute intraparenchymal hemorrhage or mass effect. The lim-white junction is well differentiated. Cerebellum: Unremarkable. Mass effect: No evidence of midline shift. Intracranial vasculature: unremarkable Soft tissues: Normal. Calvarium/osseous structures: No depressed skull fracture. Paranasal sinuses and mastoid air cells: Clear Visualized orbits: Orbital contents are intact. IMPRESSION: No acute intracranial process. [facility], , 03/03/2024 12:24 PM
--- NOTE | 2024-03-03 12:29 | CT ---
EXAMINATION TYPE: CT angio head neck CT DLP: 590.4 mGycm, Automated exposure control for dose reduction was used. DATE OF EXAM: 03/03/2024 12:23 PM COMPARISON: CT brain 03/03/2024, 02/14/2022, carotid ultrasound 02/15/2022. CLINICAL INDICATION:Female, 48 years old with history of Neuro deficit, acute, stroke suspected; PHH, STROKE TECHNIQUE: Axially acquired helical CT angiogram of the head and neck was obtained with contrast util izing 75 cc of Isovue-370 administered intravenously. Axial images are supplemented with 3D reconstru ctions which were post-processed at an independent workstation. NASCET criteria used. FINDINGS: CTA HEAD: No evidence of acute intracranial hemorrhage, mass effect, or midline shift. The ventricles, sulci, a nd cisterns are unremarkable. The visualized portions of the internal carotid arteries, middle cerebral arteries, anterior cerebral arteries, and posterior cerebral arteries are patent. The basilar and vertebral arteries are patent. CTA NECK: Right Carotid System: The common carotid artery and external carotid artery are patent. The carotid bifurcation demonstrate s no evidence of hemodynamically significant stenosis. The remaining portions of the internal carotid artery demonstrate normal size without significant narrowing. Left Carotid System: The common carotid artery and external carotid artery are patent. The carotid bifurcation demonstrate s no evidence of hemodynamically significant stenosis. The remaining portions of the internal carotid artery demonstrate normal size without significant narrowing. Vertebral arteries are patent without evidence hemodynamically significant stenosis. There is a three-vessel aortic arch. The origins of the great vessels are patent. No evidence of hemo dynamically significant stenosis. Mild multilevel degenerative disc disease of the cervical spine. IMPRESSION: 1. No evidence of dissection of the cervical internal carotid arteries or vertebral arteries or any e vidence of significant stenosis at the carotid bifurcations. 2. No evidence of high-grade stenosis or intracranial aneurysm. [facility], , 03/03/2024 12:27 PM
[2024-03-03] MEDS: LORazepam 2 MG/ML INJ IV STA (12:44)
--- NOTE | 2024-03-03 12:44 | ED ---
General Adult HPI - General Chief complaint: Neuro Symptoms/Deficit Stated complaint: poss stroke Time Seen by Provider: 03/03/24 11:48 Source: patient, RN notes reviewed, old records reviewed Mode of arrival: wheelchair Limitations: no limitations - History of Present Illness Initial comments: 48 female presenting with left-sided facial droop. Patient reports that approximately 1 hour prior to arrival she developed a left-sided facial droop and a headache which has been present for the past 3 to 4 days. Headache is left-sided and left neck going into the left shoulder. Patient has history of fibromyalgia, HIV, diabetes, hypertension, hyperlipidemia. After initial evaluation the patient does indicate that she is not 100% certain of the onset of the symptoms of facial droop but believes it was in the last 3 hours. No chest pain. No fever. No difficulty breathing. - Related Data Home Medications Medication Instructions Recorded Confirmed Elviteg/Cob/Emtri/Tenof Alafen 1 tab PO DAILY 10/02/20 03/03/24 [Genvoya Tablet] HYDROcodone/APAP 10-325MG [[place] 1 tab PO Q8H PRN 10/02/20 03/03/24 10-325] Budesonide/Glycopyr/Formoterol 2 puff INHALATION RT-DAILY 05/29/22 03/03/24 [Breztri Aerosphere Inhaler] Erenumab-Aooe [Aimovig 140 mg SQ QMONTHLY 05/30/22 03/03/24 Autoinjector] Nitroglycerin Sl Tabs [Nitrostat] 0.4 mg SUBLINGUAL Q5M PRN 07/10/22 03/03/24 busPIRone HCL [Buspar] 7.5 mg PO BID 09/04/22 03/03/24 Aspirin EC [Ecotrin Low Dose] 81 mg PO DAILY 10/04/22 03/03/24 Pantoprazole Sodium [Protonix] 20 mg PO BID 10/04/22 03/03/24 Spironolactone [Aldactone] 25 mg PO DAILY 10/04/22 03/03/24 Rosuvastatin [Crestor] 10 mg PO DAILY 03/31/23 03/03/24 Ezetimibe [Zetia] 10 mg PO DAILY 03/03/24 03/03/24 Semaglutide [Ozempic] 0.5 mg SQ Q7D 03/03/24 03/03/24 Previous Rx's Medication Instructions Recorded levETIRAcetam [Keppra] 500 mg PO Q12HR #30 tab 02/17/22 Metoprolol Tartrate [Lopressor] 25 mg PO BID #60 tab 05/31/22 Allergies Allergy/AdvReac Type Severity Reaction Status Date / Time amoxicillin [From Augmentin] Allergy Anaphylaxis, Verified 03/03/24 12:58 swelling clavulanic acid Allergy Anaphylaxis, Verified 03/03/24 12:58 [From Augmentin] swelling prochlorperazine edisylate AdvReac Confusion, Verified 03/03/24 12:58 [From Compazine] anxiety, "feels like i'm crawling out of my skin" prochlorperazine maleate AdvReac Confusion, Verified 03/03/24 12:58 [From Compazine] anxiety, "feels like i'm crawling out of my skin" steroids Allergy Confusion, Uncoded 03/03/24 12:58 anxiety, "feels like i'm crawling out of my skin" Review of Systems ROS Statement: Those systems with pertinent positive or pertinent negative responses have been documented in the HPI. ROS Other: All systems not noted in ROS Statement are negative. Past Medical History Past Medical History: Asthma, Chest Pain / Angina, COPD, Diabetes Mellitus, Fibromyalgia, Hyperlipidemia, Hypertension, Myocardial Infarction ([place]), Pneumonia, Seizure Disorder Additional Past Medical History / Comment(s): HIV with AIDS. migraines, "rt eye has scarring and freckles". uti's, "poor circulation" Last Myocardial Infarction Date:: 05/29/2022 History of Any Multi-Drug Resistant Organisms: None Reported Past Surgical History: Section, Cholecystectomy, Heart Catheterization, Hysterectomy, Orthopedic Surgery Additional Past Surgical History / Comment(s): left shoulder sx, c-sec x3, spinal fusion, spinal stimulator Past Anesthesia/Blood Transfusion Reactions: No Reported Reaction Additional Past Anesthesia/Blood Transfusion Reaction / Comment(s): Hard to awake. Past Psychological History: Anxiety, Depression Smoking Status: Current every day smoker Past Alcohol Use History: None Reported Past Drug Use History: Marijuana - Past Family History Mother Family Medical History: CVA/TIA, Diabetes Mellitus, Myocardial Infarction ([place]) Additional Family Medical History / Comment(s): sarcoidosis, osteoporosis Father Family Medical History: Asthma, COPD General Exam Limitations: no limitations General appearance: alert, in no apparent distress Head exam: Present: atraumatic, normocephalic Eye exam: Present: normal appearance, PERRL Neck exam: Present: normal inspection, tenderness (Left lateral). Absent: meningismus Respiratory exam: Present: normal lung sounds bilaterally. Absent: respiratory distress, wheezes Cardiovascular Exam: Present: regular rate, normal rhythm GI/Abdominal exam: Present: soft. Absent: distended, tenderness Extremities exam: Present: normal inspection Neurological exam: Present: alert, oriented X3, motor sensory deficit (Intermittent left-sided facial droop and spasm, left upper extremity drift, mild dysarthria. Initial NIH of 4). Absent: CN II-XII intact Psychiatric exam: Present: anxious Skin exam: Present: warm, dry, intact Course Vital Signs 03/03/24 03/03/24 11:43 12:09 Temperature 98.3 F Pulse Rate 82 87 Respiratory 18 18 Rate Blood Pressure 151/108 148/99 O2 Sat by Pulse 97 98 Oximetry - Reevaluation(s) Reevaluation #1: 03/03/24 12:20 options discussed at length with the patient given the exam and uncertain onset the patient is informed of the risks of thrombolytics and declines treatment. 03/03/24 12:[address] Clark sinclair for stroke intervention. Medical Decision Making - Medical Decision Making Was pt. sent in by a medical professional or institution (, PA, [facility], urgent care, hospital, or snf...) When possible be specific @ -No Did you speak to anyone other than the patient for history (EMS, parent, family, police, friend...)? What history was obtained from this source @ -No Did you review nursing and triage notes (agree or disagree)? Why? @ -I reviewed and agree with nursing and triage notes Were old charts reviewed (outside hosp., previous admission, EMS record, old EKG, old radiological studies, urgent care reports/EKG's, snf records)? Report findings @ -No old charts were reviewed Differential CVA Ischemic stroke, hemorrhagic stroke, brain tumor, atypical migraine, Wernicke's encephalopathy, seizure, multiple sclerosis, meningitis, encephalitis, hypoglycemia, Guillain-Worrell, electrolytes disturbance, myasthenia gravis.... This is not meant to be an all-inclusive list EKG interpreted by me (3pts min.). @Sinus rhythm rate of 80, GA interval 158, QRS duration 94, QTc [address] segment elevation X-rays interpreted by me (1pt min.). @ -Chest x-ray negative for acute cardiopulmonary findings. CT interpreted by me (1pt min.). @ -CT brain is negative for intracranial hemorrhage. U/S interpreted by me (1pt. min.). @ -None done What testing was considered but not performed or refused? (CT, X-rays, U/S, labs)? Why? @ -None What meds were considered but not given or refused? Why? @ -None Did you discuss the management of the patient with other professionals (professionals i.e. , PA, [facility], lab, RT, psych nurse, perinatal social worker, crocheter, teacher, airplane first officer, medical case manager)? Give summary @ will admit, Dr Rodas covering for stroke Was smoking cessation discussed for >3mins.? @ -No Was critical care preformed (if so, how long)? @ -No Were there social determinants of health that impacted care today? How? (Homelessness, low income, unemployed, alcoholism, drug addiction, transportation, low edu. Level, literacy, decrease access to med. care, nursing home, r ehab)? @ -No Was there de-escalation of care discussed even if they declined (Discuss DNR or withdrawal of care, Hospice)? DNR status @ -No What co-morbidities impacted this encounter? (DM, HTN, Smoking, COPD, CAD, Cancer, CVA, ARF, Chemo, Hep., AIDS, mental health diagnosis, sleep apnea, morbid obesity)? @ -Hypertension, hyperlipidemia, diabetes, HIV Was patient admitted / discharged? Hospital course, mention meds given and route, prescriptions, significant lab abnormalities, going to OR and other pertinent info. @ -48-year-old female presenting with left-sided facial droop, mild slurred speech and left arm drift. Symptoms likely began approximately 3 hours prior to arrival although the time history is quite difficult to accurately state due to the patient's uncertainty. She does admit she had headache and left neck pain over the past 3 days as well as left shoulder pain. Patient is in sinus rhythm. Initial NIH of 4. The facial asymmetry is inconsistent and there does appear to be some spasm associated with the facial droop. She is a stroke activation and she receives immediate CT and CT angiography. The care is discussed with the stroke interventionalists. Patient declines thrombolytics. She is given aspirin, IV fluid. Workup in the emergency department is unremarkable. Patient will be admitted for further stroke evaluation. Undiagnosed new problem with uncertain prognosis? @ -No Drug Therapy requiring intensive monitoring for toxicity (Heparin, Nitro, Insul in, Cardizem)? @ -No Were any procedures done? @ -No Diagnosis/symptom? @ -[Left facial asymmetry, CVA Acute, or Chronic, or Acute on Chronic? @ -Acute Uncomplicated (without systemic symptoms) or Complicated (systemic symptoms)? @ -[complicated Side effects of treatment? @ -[No Exacerbation, Progression, or Severe Exacerbation? @ -No Poses a threat to life or bodily function? How? (Chest pain, [place], [place], pneumonia, PE, COPD, DKA, ARF, appy, cholecystitis, CVA, Diverticulitis, Homicidal, Smith icidal, threat to staff... and all critical care pts) @ -yes, CVA - Lab Data Result diagrams: 03/03/24 12:03 03/03/24 12:03 Lab Results 03/03/24 03/03/24 03/03/24 Range/Units 11:56 12:03 12:03 WBC 7.3 (3.8-10.6) k/uL RBC 5.24 (3.80-5.40) m/uL Hgb 15.9 (11.4-16.0) gm/dL Hct 47.2 H (34.0-46.0) % MCV 90.1 (80.0-100.0) fL MCH 30.4 (25.0-35.0) pg MCHC 33.7 (31.0-37.0) g/dL RDW 12.4 (11.5-15.5) % Plt Count 293 (150-450) k/uL MPV 7.5 Neutrophils % 67 % Lymphocytes % 23 % Monocytes % 4 % Eosinophils % 3 % Basophils % 1 % Neutrophils # 4.9 (1.3-7.7) k/uL Lymphocytes # 1.7 (1.0-4.8) k/uL Monocytes # 0.3 (0-1.0) k/uL Eosinophils # 0.2 (0-0.7) k/uL Basophils # 0.1 (0-0.2) k/uL PT 10.0 (10.0-12.5) sec INR 0.9 (<1.2) APTT 23.1 (22.0-30.0) sec Sodium (137-145) mmol/L Potassium (3.5-5.1) mmol/L Chloride (98-107) mmol/L Carbon Dioxide (22-30) mmol/L Anion Gap mmol/L BUN (7-17) mg/dL Creatinine (0.52-1.04) mg/dL Est GFR (CKD-EPI)AfAm (>60 ml/min/1.73 sqM) Est GFR (CKD-EPI)NonAf (>60 ml/min/1.73 sqM) Glucose (74-99) mg/dL POC Glucose (mg/dL) 96 (70-110) mg/dL POC Glu Personnel Associate ID Yevgeniy Juli Plasma Lactic Acid Rowdy (0.7-2.0) mmol/L Calcium (8.4-10.2) mg/dL Total Bilirubin (0.2-1.3) mg/dL AST (14-36) U/L ALT (4-34) U/L Alkaline Phosphatase (38-126) U/L Creatine Kinase (30-135) U/L Troponin I (0.000-0.034) ng/mL Total Protein (6.3-8.2) g/dL Albumin (3.5-5.0) g/dL 03/03/24 03/03/24 03/03/24 Range/Units 12:03 12:03 13:05 WBC (3.8-10.6) k/uL RBC (3.80-5.40) m/uL Hgb (11.4-16.0) gm/dL Hct (34.0-46.0) % MCV (80.0-100.0) fL MCH (25.0-35.0) pg MCHC (31.0-37.0) g/dL RDW (11.5-15.5) % Plt Count (150-450) k/uL MPV Neutrophils % % Lymphocytes % % Monocytes % % Eosinophils % % Basophils % % Neutrophils # (1.3-7.7) k/uL Lymphocytes # (1.0-4.8) k/uL Monocytes # (0-1.0) k/uL Eosinophils # (0-0.7) k/uL Basophils # (0-0.2) k/uL PT (10.0-12.5) sec INR (<1.2) APTT (22.0-30.0) sec Sodium 139 (137-145) mmol/L Potassium 4.9 (3.5-5.1) mmol/L Chloride 103 (98-107) mmol/L Carbon Dioxide 24 (22-30) mmol/L Anion Gap 12 mmol/L BUN 19 H (7-17) mg/dL Creatinine 0.99 (0.52-1.04) mg/dL Est GFR (CKD-EPI)AfAm 79 (>60 ml/min/1.73 sqM) Est GFR (CKD-EPI)NonAf 68 (>60 ml/min/1.73 sqM) Glucose 96 (74-99) mg/dL POC Glucose (mg/dL) (70-110) mg/dL POC Glu Personnel Associate ID Plasma Lactic Acid Rowdy 1.3 (0.7-2.0) mmol/L Calcium 10.5 H (8.4-10.2) mg/dL Total Bilirubin 0.6 (0.2-1.3) mg/dL AST 32 (14-36) U/L ALT 38 H (4-34) U/L Alkaline Phosphatase 77 (38-126) U/L Creatine Kinase 146 H (30-135) U/L Troponin I <0.012 (0.000-0.034) ng/mL Total Protein 9.0 H (6.3-8.2) g/dL Albumin 5.5 H (3.5-5.0) g/dL Critical Care Time Critical Care Time: Yes Total Critical Care Time: 35 Disposition Clinical Impression: Cerebrovascular accident (CVA) Disposition: HOME SELF-CARE Condition: Stable Is patient prescribed a controlled substance at d/c from ED?: No Referrals: None,Stated [Primary Care Provider] - 1-2 days Time of Disposition: 13:35
[2024-03-03] MEDS: ASPIRIN 325 MG TAB PO STA (12:48)
[2024-03-03] MEDS: SODIUM CHLORIDE 0.9% 1,000 ML IV ONE (12:48)
--- NOTE | 2024-03-03 12:48 | XR ---
EXAMINATION TYPE: XR chest 2V DATE OF EXAM: 03/03/2024 12:23 PM COMPARISON: None. CLINICAL INDICATION: Female, 48 years old with history of altered mental status, TECHNIQUE: XR chest 2V view(s) obtained. FINDINGS: The heart size is normal. The pulmonary vasculature is normal. The lungs are clear. Or thoracic spinal canal stimulator leads are evident. IMPRESSION: 1. No acute pulmonary process. [facility], , 03/03/2024 12:46 PM
[2024-03-03] MEDS ORDERED: NITROGLYCERIN SL TABS 0.4 MG TAB SUBLINGUAL PRN (13:17)
--- NOTE | 2024-03-03 13:25 | P.HPIM ---
History of Present Illness 48-year-old female came in after she had a facial droop earlier today morning. Patient had a CT of the head and CT angio of the head and neck which did not show any significant abnormality. Patient has history of migraine and seizure history on Keppra patient usual aura his headache as per the patient and patient started with headache, loss sometimes did not lose any consciousness denied any postictal activity and started having speech abnormality while speaking to her daughter patient also was complaining of heaviness in the left arm and possibly in the left leg as well upon exam patient does have drift on the left hand as w ell as very minimal decrease in asthma educator strength on the left side. Patient does have facial droop towards left. Lactic acid will be obtained patient anion gap is 12 bicarbonate is 24. Patient denied any history of atrial fibrillation does have history of coronary artery disease. Patient takes aspirin but does not take any other antiplatelet or any other anticoagulation. REVIEW OF SYSTEMS: All other systems are negative except those mentioned in the HPI PHYSICAL EXAMINATION: GENERAL: The patient is alert and oriented x3, not in any acute distress. Well developed, well nourished. HEENT: Pupils are round and equally reacting to light. EOMI. No scleral icterus. No conjunctival pallor. Normocephalic, atraumatic. No pharyngeal erythema. No thyromegaly. CARDIOVASCULAR: S1 and S2 present. No murmurs, rubs, or gallops. PULMONARY: Chest is clear to auscultation, no wheezing or crackles. ABDOMEN: Soft, nontender, nondistended, normoactive bowel sounds. No palpable organomegaly. MUSCULOSKELETAL: No joint swelling or deformity. EXTREMITIES: No cyanosis, clubbing, or pedal edema. NEUROLOGICAL neurodeficits as mentioned above no other tingling or numbness or visual problems SKIN: No rashes. Assessment and plan -Possible CVA involving the left hand and face: Possibility of cerebrovascular accident, neurology will be consulted with other differentials being complicated migraine or seizure. Leave addition of MRI and EEG to neurology lipid panel will be obtained patient is on rosuvastatin which will be resumed aspirin will be resumed. Physical therapy Occupational Therapy consultation Type 2 diabetes mellitus: Home regimen along with sliding scale insulin obtain hemoglobin A1c -Hyperlipidemia obtain lipid panel tomorrow morning -Coronary artery disease -HIV with acquired immunodeficiency syndrome: Continue her antiretroviral therapy -History of migraines -Depression DVT prophylaxis: Lovenox Past Medical History Past Medical History: Asthma, Chest Pain / Angina, COPD, Diabetes Mellitus, Fibromyalgia, Hyperlipidemia, Hypertension, Myocardial Infarction ([place]), Pneumonia, Seizure Disorder Additional Past Medical History / Comment(s): HIV with AIDS. migraines, "rt eye has scarring and freckles". uti's, "poor circulation" Last Myocardial Infarction Date:: 05/29/2022 History of Any Multi-Drug Resistant Organisms: None Reported Past Surgical History: Section, Cholecystectomy, Heart Catheterization, Hysterectomy, Orthopedic Surgery Additional Past Surgical History / Comment(s): left shoulder sx, c-sec x3, spinal fusion, spinal stimulator Past Anesthesia/Blood Transfusion Reactions: No Reported Reaction Additional Past Anesthesia/Blood Transfusion Reaction / Comment(s): Hard to awake. Past Psychological History: Anxiety, Depression Smoking Status: Current every day smoker Past Alcohol Use History: None Reported Past Drug Use History: Marijuana - Past Family History Mother Family Medical History: CVA/TIA, Diabetes Mellitus, Myocardial Infarction ([place]) Additional Family Medical History / Comment(s): sarcoidosis, osteoporosis Father Family Medical History: Asthma, COPD Medications and Allergies Home Medications Medication Instructions Recorded Confirmed Type Elviteg/Cob/Emtri/Tenof Alafen 1 tab PO DAILY 10/02/20 03/03/24 History [Genvoya Tablet] HYDROcodone/APAP 10-325MG [[place] 1 tab PO Q8H PRN 10/02/20 03/03/24 History 10-325] levETIRAcetam [Keppra] 500 mg PO Q12HR #30 tab 02/17/22 03/03/24 Rx Budesonide/Glycopyr/Formoterol 2 puff INHALATION RT-DAILY 05/29/22 03/03/24 History [Breztri Aerosphere Inhaler] Erenumab-Aooe [Aimovig 140 mg SQ QMONTHLY 05/30/22 03/03/24 History Autoinjector] Metoprolol Tartrate [Lopressor] 25 mg PO BID #60 tab 05/31/22 03/03/24 Rx Nitroglycerin Sl Tabs [Nitrostat] 0.4 mg SUBLINGUAL Q5M PRN 07/10/22 03/03/24 History busPIRone HCL [Buspar] 7.5 mg PO BID 09/04/22 03/03/24 History Aspirin EC [Ecotrin Low Dose] 81 mg PO DAILY 10/04/22 03/03/24 History Pantoprazole Sodium [Protonix] 20 mg PO BID 10/04/22 03/03/24 History Spironolactone [Aldactone] 25 mg PO DAILY 10/04/22 03/03/24 History Rosuvastatin [Crestor] 10 mg PO DAILY 03/31/23 03/03/24 History Ezetimibe [Zetia] 10 mg PO DAILY 03/03/24 03/03/24 History Semaglutide [Ozempic] 0.5 mg SQ Q7D 03/03/24 03/03/24 History Allergies Allergy/AdvReac Type Severity Reaction Status Date / Time amoxicillin [From Augmentin] Allergy Anaphylaxis, Verified 03/03/24 12:58 swelling clavulanic acid Allergy Anaphylaxis, Verified 03/03/24 12:58 [From Augmentin] swelling prochlorperazine edisylate AdvReac Confusion, Verified 03/03/24 12:58 [From Compazine] anxiety, "feels like i'm crawling out of my skin" prochlorperazine maleate AdvReac Confusion, Verified 03/03/24 12:58 [From Compazine] anxiety, "feels like i'm crawling out of my skin" steroids Allergy Confusion, Uncoded 03/03/24 12:58 anxiety, "feels like i'm crawling out of my skin" Physical Exam Vitals: Vital Signs Temp Pulse Resp BP Pulse Ox 03/03/24 12:09 87 18 148/99 98 03/03/24 11:43 98.3 F 82 18 151/108 97 Intake and Output 03/02/24 03/03/24 03/03/24 22:59 06:59 14:59 Other: Weight 105.233 kg Results CBC & Chem 7: 03/03/24 12:03 03/03/24 12:03 Labs: Abnormal Lab Results - Last 24 Hours (Table) 03/03/24 03/03/24 Range/Units 12:03 12:03 Hct 47.2 H (34.0-46.0) % BUN 19 H (7-17) mg/dL Calcium 10.5 H (8.4-10.2) mg/dL ALT 38 H (4-34) U/L Creatine Kinase 146 H (30-135) U/L Total Protein 9.0 H (6.3-8.2) g/dL Albumin 5.5 H (3.5-5.0) g/dL
[2024-03-03] MEDS: levETIRAcetam 500 MG TAB PO SCH (13:34)
[2024-03-03 13:42] LABS: Appearance,Urine Clear (Clear); Bilirubin,Urine Negative (Negative); Blood,Urine Negative (Negative); Color,Urine Colorless; Glucose,Urine (UA) Negative (Negative); Ketones,Urine Negative (Negative); Leukocyte Esterase,Urine Small (Negative); Nitrite,Urine Negative (Negative); Protein,Urine Negative (Negative); RBC,Urine <1 /hpf (0-5); Squamous Epithelial Cell,Urine 4 /hpf (0-4); Urobilinogen,Urine <2.0 mg/dL (<2.0); WBC,Urine <1 /hpf (0-5)
[2024-03-03] MEDS: HYDROcodone/APAP 10-325MG 1 EACH TAB PO PRN (13:52)
[2024-03-03] MEDS: SODIUM CHLORIDE 0.9% 1,000 ML IV SCH (13:54)
[2024-03-03 14:06] LABS: Amphetamine Screen,Urine Not Detected (NotDetected); Barbiturate Screen,Urine Not Detected (NotDetected); Benzodiazepines Screen,Urine Not Detected (NotDetected); Cocaine Screen,Urine Not Detected (NotDetected); Methadone Screen, Urine Not Detected (NotDetected); Opiate Screen,Urine Detected (NotDetected); Oxycodone Screen, Urine Not Detected (NotDetected); Phencyclidine Screen,Urine Not Detected (NotDetected); Tricyclic Antidepressant,Urine Not Detected (NotDetected); Urn Cannabinoid Scrn Not Detected (NotDetected)
[2024-03-03 14:24] LABS: Specific Gravity,Urine 1.046 (1.001-1.035)
[2024-03-03] MEDS: IPRATROPIUM 0.5 MG/2.5 ML NEBU INHALATION SCH (15:39)
[2024-03-03 18:14] VITALS: BP 116/69; PULSE 75; RESP 16; TEMP 98
--- NOTE | 2024-03-03 19:36 | P.CNNES ---
History of Present Illness Consult date: 03/03/24 Requesting physician: Mayur Bradley Reason for Consult: cva History of Present Illness: This is a 48-year-old woman with history of seizure and seems that she has nonepileptic seizures, migraine, chronic back pain with spinal stimulator, HIV, hypertension, hyperlipidemia, tobacco use who presents emergency department because of left facial numbness as well as left upper and lower extremity numbness associate with weakness on the left side. Patient stated that she has been having headache for the past couple days and she felt was a low bit different than her usual headache and the headache was in the occipital region bilaterally and she had a hard time describing it but the was at bedside he stated she she had a pressure headache and the headache was rating down the left neck and headache was 10/10 she had nausea minimal photophobia no phonophobia. Then today early in the morning she was doing well other than the headache and the headache was constant and she had left sided numbness and weak ness. Seems that patient symptoms began approximate 3 hours prior to arrival to our facility. She denies any history of stroke. She states that she does have history of seizures and she is on Keppra 500 mg twice daily. Regarding her migraine she is on Fioricet, Nurtec and Aimovig. She felt like this was different than her usual seizures and with a seizure she will do the clicking she will be confused she will be test on the left side with some speech difficulty. Patient states that she follows up with Dr. Morris's team for her neurological care. She had multiple MRIs of the brain as well as multiple EEGs and there were normal according to the patient and her was at bedside. She was evaluated by Dr. 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 It seems Dr. Yepez placed her on Keppra 500 mg twice daily. Please refer to his note for further details. Some of the workup during this hospital visit consisted of: I reviewed the lab workup Urine drug screen is positive for opiates. CT of the head is reported as no acute intracranial process. I personally reviewed the CT and agree with report CT angiography of the head and neck is reported as no evidence of dissection of cervical internal carotid artery or vertebral artery or any evidence of significant stenosis of the carotid bifurcation. No evidence of high-grade stenosis or intracranial aneurysm. A code stroke was activated and ED spoke with the stroke attending Dr. Rodas. NIH stroke scale was a 4 per the ED. Patient declined IV thrombolytic. Review of Systems As per HPI. Past Medical History Past Medical History: Asthma, Chest Pain / Angina, COPD, Diabetes Mellitus, Fibromyalgia, Hyperlipidemia, Hypertension, Myocardial Infarction (VT), Pneumonia, Seizure Disorder Additional Past Medical History / Comment(s): HIV with AIDS. migraines, "rt eye has scarring and freckles". uti's, "poor circulation" Last Myocardial Infarction Date:: 05/29/2022 History of Any Multi-Drug Resistant Organisms: None Reported Past Surgical History: Section, Cholecystectomy, Heart Catheterization, Hysterectomy, Orthopedic Surgery Additional Past Surgical History / Comment(s): left shoulder sx, c-sec x3, s christiano fusion, spinal stimulator Past Anesthesia/Blood Transfusion Reactions: No Reported Reaction Additional Past Anesthesia/Blood Transfusion Reaction / Comment(s): Hard to awake. Past Psychological History: Anxiety, Depression Smoking Status: Current every day smoker Past Alcohol Use History: None Reported Past Drug Use History: Marijuana - Past Family History Mother Family Medical History: CVA/TIA, Diabetes Mellitus, Myocardial Infarction (VT) Additional Family Medical History / Comment(s): sarcoidosis, osteoporosis Father Family Medical History: Asthma, COPD Medications and Allergies Home Medications Medication Instructions Recorded Confirmed Type Elviteg/Cob/Emtri/Tenof Alafen 1 tab PO DAILY 10/02/20 03/03/24 History [Genvoya Tablet] HYDROcodone/APAP 10-325MG [[place] 1 tab PO Q8H PRN 10/02/20 03/03/24 History 10-325] levETIRAcetam [Keppra] 500 mg PO Q12HR #30 tab 02/17/22 03/03/24 Rx Budesonide/Glycopyr/Formoterol 2 puff INHALATION RT-DAILY 05/29/22 03/03/24 History [Breztri Aerosphere Inhaler] Erenumab-Aooe [Aimovig 140 mg SQ QMONTHLY 05/30/22 03/03/24 History Autoinjector] Metoprolol Tartrate [Lopressor] 25 mg PO BID #60 tab 05/31/22 03/03/24 Rx Nitroglycerin Sl Tabs [Nitrostat] 0.4 mg SUBLINGUAL Q5M PRN 07/10/22 03/03/24 History busPIRone HCL [Buspar] 7.5 mg PO BID 09/04/22 03/03/24 History Aspirin EC [Ecotrin Low Dose] 81 mg PO DAILY 10/04/22 03/03/24 History Pantoprazole Sodium [Protonix] 20 mg PO BID 10/04/22 03/03/24 History Spironolactone [Aldactone] 25 mg PO DAILY 10/04/22 03/03/24 History Rosuvastatin [Crestor] 10 mg PO DAILY 03/31/23 03/03/24 History Ezetimibe [Zetia] 10 mg PO DAILY 03/03/24 03/03/24 History Semaglutide [Ozempic] 0.5 mg SQ Q7D 03/03/24 03/03/24 History Allergies Allergy/AdvReac Type Severity Reaction Status Date / Time amoxicillin [From Augmentin] Allergy Anaphylaxis, Verified 03/03/24 12:58 swelling clavulanic acid Allergy Anaphylaxis, Verified 03/03/24 12:58 [From Augmentin] swelling prochlorperazine edisylate AdvReac Confusion, Verified 03/03/24 12:58 [From Compazine] anxiety, "feels like i'm crawling out of my skin" prochlorperazine maleate AdvReac Confusion, Verified 03/03/24 12:58 [From Compazine] anxiety, "feels like i'm crawling out of my skin" steroids Allergy Confusion, Uncoded 03/03/24 12:58 anxiety, "feels like i'm crawling out of my skin" Physical Examination - Vital Signs Vital Signs: Vital Signs Temp Pulse Resp BP Pulse Ox 03/03/24 18:08 98.0 F 75 16 116/69 98 03/03/24 14:15 97.9 F 71 18 121/81 100 03/03/24 13:39 71 18 136/88 97 03/03/24 12:09 87 18 148/99 98 03/03/24 11:43 98.3 F 82 18 151/108 97 Intake and Output 03/03/24 03/03/24 03/03/24 06:59 14:59 22:59 Other: Weight 105.233 kg GENERAL: The patient is lying in bed and is not in acute distress. NEUROLOGICAL: Higher mental function: The patient is awake, alert, oriented to self, place and time. Patient is following commands. No aphasia and no neglect. Cranial nerves: The pupils are round, equal and reactive to light and accommodation. Visual zavala are full to confrontation throughout. Extraocular movement is intact no nystagmus is noted. Facial sensation is decreased to touch over the left side. The facial strength is ?subtle left facial weakness. Hearing is normal bilaterally to hand rub. Tongue is midline and moved [id number] without any difficulty. No dysarthria is noted. Shoulder shrug is normal bilaterally. Motor: The strength is limited but had 4-4+ on the left and upon asking the patient to try to push harder she was upset and said "that is it". Normal tone and bulk. Cerebellum: Normal finger to nose bilaterally. Sensation: Sensation is Decreased to touch on the left. Reflexes (right/left):2+ throughout. Plantars are mute bilaterally. Then after just finishing the examination patient had seizure-like activity in which she had her eye closed not responsive but was still sitting on bed was making her normal seizure-like activity clicking noise according to the and she had her left thumb up during the episode but no jerking of any extremity. And during the episode I was asking the patient to follow commands and she was following commands after multiple attempts without any issues even though she was making the clicking noise and she had no postictal event after Results - Laboratory Findings CBC and BMP: 03/03/24 12:03/03/24 12:03 Abnormal Lab Findings: Abnormal Labs 03/03/24 03/03/24 03/03/24 12: 12:03 13:18 Hct 47.2 H BUN 19 H Calcium 10.5 H ALT 38 H Creatine Kinase 146 H Total Protein 9.0 H Albumin 5.5 H Ur Specific [place] 1.046 H Ur Leukocyte Esterase Small H Urine Opiates Screen Detected H Assessment and Plan Assessment: This is a 48-year-old woman who present emergency department because of left facial numbness as well as left upper lower extremity numbness with left-sided weakness. She stated that she has been having headache for the past 3 days. While examining the ED she had a seizure-like activity and it seems nonepileptic. Acute left-sided numbness weakness: Rule out acute ischemic stroke which I feel is unlikely. This could be possible complicated migraine versus conversion. NIH stroke scale in the ED was a 4. CT CT angiography of was unremarkable. Patient refused IV thrombolytic. Breakthrough seizure and it seems nonepileptic History of nonepileptic seizure and patient is on Keppra 500 mg twice daily. History of migraine Chronic back pain and has a spinal stimulator History of HIV Hypertension Hyperlipidemia Tobacco use Plan: Patient cannot have MRI because of the pain stimulator. Recommend a repeat CT of the head tomorrow Patient was given aspirin 325 once. Recommend starting the patient on aspirin 81 mg daily and Lipitor 40 mg nightly for secondary stroke prophylaxis Will get the rest of the stroke workup including 2D echo, lipid panel Continue neurochecks Cardiac monitoring In addition to her Keppra 500 mg twice daily will start the patient on Topamax 50 mg twice daily which helps with migraines and seizures Will obtain an EEG. Seizure precautions seizure pads PT OT and also be consulted Will defer the rest of the medical management to primary other specialist Upon discharge recommend the patient to follow-up with her outpatient neurologist (Dr. Morris's team). The plan discussed with the patient and her is at bedside as well as her nurse Thank you for the consultation Time with Patient: Greater than 30
[2024-03-03] MEDS ORDERED: SYMBICORT 160-4.5 MCG INHALER INHALATION SCH (20:00)
[2024-03-03] MEDS ORDERED: TOPIRAMATE 25 MG TAB PO SCH (21:00)
[2024-03-03] MEDS ORDERED: ATORVASTATIN 80 MG TAB PO SCH (21:00)
[2024-03-03] MEDS ORDERED: levETIRAcetam 500 MG TAB PO SCH ×2 (21:00)
[2024-03-03] MEDS ORDERED: busPIRone HCl 5 MG TAB PO SCH (21:00)
[2024-03-03] MEDS ORDERED: METOPROLOL TARTRATE 25 MG TAB PO SCH (21:00)
[2024-03-04] MEDS ORDERED: PANTOPRAZOLE 40 MG TABLET PO SCH (07:30)
[2024-03-04] MEDS ORDERED: [UNRECOGNIZED DRUG - OTHER] PO SCH (09:00)
[2024-03-04] MEDS ORDERED: ATORVASTATIN 20 MG TAB PO SCH (09:00)
[2024-03-04] MEDS ORDERED: EZETIMIBE 10 MG TAB PO SCH (09:00)
[2024-03-04] MEDS ORDERED: SPIRONOLACTONE 25 MG TAB PO SCH (09:00)
[2024-03-04] MEDS ORDERED: ASPIRIN 81 MG PO SCH (09:00)
[2024-03-04] MEDS ORDERED: ASPIRIN 325 MG TAB PO SCH (09:00)
--- NOTE | 2024-03-04 15:17 | P.DS ---
Providers Date of admission: 03/03/24 13:31 Expected date of discharge: 03/03/24 Attending physician: Rose Cobian Consults: 03/03/24 13:31 Consult Physician Routine Consulting Provider: Sathish Alvarado Consult Reason/Comments: CVA Do you want consulting provider notified?: Yes Primary care physician: Stated None Hospital Course: Final diagnosis -Possible CVA involving the left hand and face: Possibility of cerebrovascular accident, neurology following with other differentials being complicated migraine or seizure. EEG ordered along with repeat CT for a.m. Patient unable to have MRI -Type 2 diabetes mellitus: Uncontrolled with hyperglycemia -Hyperlipidemia -Coronary artery disease history -HIV with acquired immunodeficiency syndrome: Continue her antiretroviral therapy -History of migraines -Depression -Obesity with a BMI of 39.8 DVT prophylaxis: Lovenox GI prophylaxis Full code Discharge disposition Patient has left AGAINST MEDICAL ADVICE. According to nursing, patient was adamant about leaving and risk versus benefits including were discussed and patient signed the paperwork for AMA.. Patient will follow-up with her primary care provider in the outpatient setting upon discharge. Total time taken is greater than 35 minutes. Hospital course 48-year-old female came in after she had a facial droop earlier today morning. Patient had a CT of the head and CT angio of the head and neck which did not show any significant abnormality. Patient has history of migraine and seizure history on Keppra patient usual aura his headache as per the patient and patient started with headache, loss sometimes did not lose any consciousness denied any postictal activity and started having speech abnormality while speaking to her daughter patient also was complaining of heaviness in the left arm and possibly in the left leg as well upon exam patient does have drift on the left hand as well as very minimal decrease in hoop maker machine strength on the left side. Patient does have facial droop towards left. Lactic acid will be obtained patient anion gap is 12 bicarbonate is 24. Patient denied any history of atrial fibrillation does have history of coronary artery disease. Patient takes aspirin but does not take any other antiplatelet or any other anticoagulation. Nursing staff contacted after hours reporting patient was adamant about leaving as she had to get home and take care of her animals. Risk versus benefits were explained including and patient persisted on leaving. Patient did sign AMA paperwork. Patient was instructed to follow-up with her primary care provider as well as going to the nearest emergency department or calling 911 if having any new or worsening symptoms. Please refer to medication reconciliation sheet for a list of medications. The impression and plan of care has been dictated by Ann Anderson, Nurse Practitioner as directed. Dr. Aranza MD I have performed a history and examination and MDM of this patient, discussed the same with the dictator, and agree with the dictator's assessment and plan as written ,documented as a scribe. Based on total visit time, I have performed more than 50% of the visit. Patient Condition at Discharge: Undetermined Plan - Discharge Summary New Discharge Prescriptions: No Action Elviteg/Cob/Emtri/Tenof Alafen [Genvoya Tablet] 1 tab PO DAILY Erenumab-Aooe [Aimovig Autoinjector] 140 mg SQ QMONTHLY Metoprolol Tartrate [Lopressor] 25 mg PO BID #60 tab Nitroglycerin Sl Tabs [Nitrostat] 0.4 mg SUBLINGUAL Q5M PRN PRN Reason: Chest Pain busPIRone HCL [Buspar] 7.5 mg PO BID Aspirin EC [Ecotrin Low Dose] 81 mg PO DAILY Pantoprazole Sodium [Protonix] 20 mg PO BID Ezetimibe [Zetia] 10 mg PO DAILY HYDROcodone/APAP 10-325MG [[place] 10-325] 1 tab PO Q8H PRN PRN Reason: Pain levETIRAcetam [Keppra] 500 mg PO Q12HR #30 tab Budesonide/Glycopyr/Formoterol [Breztri Aerosphere Inhaler] 2 puff INHALATION RT-DAILY Spironolactone [Aldactone] 25 mg PO DAILY Rosuvastatin [Crestor] 10 mg PO DAILY Semaglutide [Ozempic] 0.5 mg SQ Q7D Discharge Medication List Elviteg/Cob/Emtri/Tenof Alafen [Genvoya Tablet] 1 tab PO DAILY 10/02/20 [History] HYDROcodone/APAP 10-325MG [[place] 10-325] 1 tab PO Q8H PRN 10/02/20 [History] levETIRAcetam [Keppra] 500 mg PO Q12HR #30 tab 02/17/22 [Rx] Budesonide/Glycopyr/Formoterol [Breztri Aerosphere Inhaler] 2 puff INHALATION RT-DAILY 05/29/22 [History] Erenumab-Aooe [Aimovig Autoinjector] 140 mg SQ QMONTHLY 05/30/22 [History] Metoprolol Tartrate [Lopressor] 25 mg PO BID #60 tab 05/31/22 [Rx] Nitroglycerin Sl Tabs [Nitrostat] 0.4 mg SUBLINGUAL Q5M PRN 07/10/22 [History] busPIRone HCL [Buspar] 7.5 mg PO BID 09/04/22 [History] Aspirin EC [Ecotrin Low Dose] 81 mg PO DAILY 10/04/22 [History] Pantoprazole Sodium [Protonix] 20 mg PO BID 10/04/22 [History] Spironolactone [Aldactone] 25 mg PO DAILY 10/04/22 [History] Rosuvastatin [Crestor] 10 mg PO DAILY 03/31/23 [History] Ezetimibe [Zetia] 10 mg PO DAILY 03/03/24 [History] Semaglutide [Ozempic] 0.5 mg SQ Q7D 03/03/24 [History] Follow up Appointment(s)/Referral(s): [facility] [NON-STAFF] - 1 Week [facility] [NON-STA[facility]] - 1 Week None,Stated [Primary Care Provider] - 1-2 days Discharge/Stand Alone Forms: Area PCPs Discharge Disposition: LEFT AGAINST MEDICAL ADVICE
== END 2024-03-03 18:35 | disposition left against medical advice (07) | DRG 65 ==
LOC: EC 11:38 → 3SCARD 13:31
PROVIDERS: ADMIT Internal Medicine; ATTEND Internal Medicine
DX: I63.9 Cerebral infarction, unspecified (principal); B20 Human immunodeficiency virus [HIV] disease; E66.9 Obesity, unspecified; Z68.39 Body mass index [BMI] 39.0-39.9, adult; E78.5 Hyperlipidemia, unspecified; F32.A Depression, unspecified; Z53.29 Procedure and treatment not carried out because of patient's decision for other reasons; F41.9 Anxiety disorder, unspecified; G40.909 Epilepsy, unspecified, not intractable, without status epilepticus; G43.909 Migraine, unspecified, not intractable, without status migrainosus; I25.10 Atherosclerotic heart disease of native coronary artery without angina pectoris; E11.65 Type 2 diabetes mellitus with hyperglycemia; I25.2 Old myocardial infarction; M79.7 Fibromyalgia; R29.704 NIHSS score 4; R29.810 Facial weakness; Z53.20 Procedure and treatment not carried out because of patient's decision for unspecified reasons; G89.29 Other chronic pain; M54.9 Dorsalgia, unspecified; Z96.0 Presence of urogenital implants; Z79.4 Long term (current) use of insulin; Z79.82 Long term (current) use of aspirin; Z79.899 Other long term (current) drug therapy; Z82.49 Family history of ischemic heart disease and other diseases of the circulatory system; Z90.710 Acquired absence of both cervix and uterus; Z98.1 Arthrodesis status; Z90.49 Acquired absence of other specified parts of digestive tract; Z88.1 Allergy status to other antibiotic agents; Z88.8 Allergy status to other drugs, medicaments and biological substances; Z87.440 Personal history of urinary (tract) infections; Z88.6 Allergy status to analgesic agent
CPT/HCPCS: 36415; 70450; 70496; 70498; 71046; 80053; 80306; 81001; 82550; 83605; 84484; 85025; 85610; 85730; 93005; 96361; 96374; 99285

== ENCOUNTER 2024-03-05 22:42 | Observation (INO) | payer MEDICARE, OTHER ==
[2024-03-05 23:27] LABS: Basophils # (A) 0.1 k/uL (0-0.2); Basophils % (A) 1 %; Eosinophils # (A) 0.3 k/uL (0-0.7); Eosinophils % (A) 5 %; HCT 41.9 % (34.0-46.0); HGB 14.2 gm/dL (11.4-16.0); Lymphocytes # (A) 1.1 k/uL (1.0-4.8); Lymphocytes % (A) 16 %; MCH 30.3 pg (25.0-35.0); MCHC 33.9 g/dL (31.0-37.0); MCV 89.6 fL (80.0-100.0); Mean Platelet Volume 7.5; Monocytes # (A) 0.3 k/uL (0-1.0); Monocytes % (A) 5 %; Neutrophils # (A) 4.6 k/uL (1.3-7.7); Neutrophils % (A) 71 %; Platelet Count 251 k/uL (150-450); RBC 4.68 m/uL (3.80-5.40); RDW 12.3 % (11.5-15.5); WBC 6.4 k/uL (3.8-10.6)
[2024-03-05 23:36] LABS: ALT 32 U/L (4-34); AST 29 U/L (14-36); African American GFR (CKD) 79 (>60 ml/min/1.73 sqM); Albumin 4.8 g/dL (3.5-5.0); Alkaline Phosphatase 69 U/L (38-126); Anion Gap 8 mmol/L; Blood Urea Nitrogen 15 mg/dL (7-17); Calcium 9.4 mg/dL (8.4-10.2); Carbon Dioxide 23 mmol/L (22-30); Chloride 107 mmol/L (98-107); Glucose 99 mg/dL (74-99); Magnesium 1.8 mg/dL (1.6-2.3); Non-African American GFR(CKD) 69 (>60 ml/min/1.73 sqM); Sodium 138 mmol/L (137-145); Total Bilirubin 0.5 mg/dL (0.2-1.3); Total Protein 7.8 g/dL (6.3-8.2)
[2024-03-05] MEDS: LIDOCAINE 4% PATCH TOPICAL STA (23:37)
[2024-03-05] MEDS: SODIUM CHLORIDE 0.9% 1,000 ML IV STA (23:37)
[2024-03-05] MEDS: levETIRAcetam IV 500 MG/5 ML VIAL IVP STA (23:39)
[2024-03-05] MEDS: LORazepam 2 MG/ML INJ IV STA (23:40)
[2024-03-05] MEDS: ASPIRIN 81 MG PO STA (23:42)
[2024-03-05] MEDS: CYCLOBENZAPRINE 5 MG TAB PO STA (23:43)
--- NOTE | 2024-03-05 23:51 | CT ---
EXAMINATION TYPE: CT brain cspine wo con DATE OF EXAM: 03/05/2024 COMPARISON: CT brain March 03, 2024 HISTORY: neck pain, recent TIA CT DLP: 1801.8 mGycm. Automated Exposure Control for Dose Reduction was Utilized. TECHNIQUE: CT scan of the head and cervical spine are performed without contrast. FINDINGS: There is no acute intracranial hemorrhage, mass effect, or midline shift identified. The ventricles and sulci are within normal limits in size. Kaur-white matter differentiation is maintain ed. Mild/moderate mucosal thickening left ethmoid sinuses is now present. The globes are intact bilat erally. Cervical spine is visualized in its entirety from C1 through upper thoracic levels and demonstrates s light grade 1 retrolisthesis C5 on C6 without evidence of acute fracture or dislocation. Prevertebra l soft tissue appears within normal limits. The C1-C2 articulation is within normal limits on the co kyle images. Vertebral bodies and disc space heights are fairly well preserved. [id number] mu ltilevel anterior spurring is seen. Thyroid gland is unremarkable. Lung apices show no pneumothorax. IMPRESSION: 1. There is no acute fracture or dislocation evident in the cervical spine. 2. No acute intracranial hemorrhage or midline shift is seen. [facility], , 03/05/2024 11:48 PM
--- NOTE | 2024-03-05 23:56 | XR ---
EXAMINATION TYPE: XR chest 1V DATE OF EXAM: 03/05/2024 COMPARISON: Chest x-ray 2 days earlier CLINICAL INDICATION: Female, 48 years old with history of Chest Pain; TECHNIQUE: Single frontal view of the chest is obtained. FINDINGS: Low lung volumes are redemonstrated. There is no focal air space opacity, pleural effusion , or pneumothorax seen. The cardiac silhouette size is stable and within normal limits. Lower thorac ic spinal stimulator is redemonstrated. IMPRESSION: No acute process. No significant change from most recent prior. [facility], , 03/05/2024 11:54 PM
[2024-03-06 00:02] LABS: INR 0.9 (<1.2); Partial Thromboplastin Time 23.6 sec (22.0-30.0); Prothrombin Time 10.4 sec (10.0-12.5)
--- NOTE | 2024-03-06 00:13 | ED ---
General Adult HPI - General Chief complaint: Chest Pain Stated complaint: left sided numbness headache Time Seen by Provider: 03/05/24 23:13 Source: patient, RN notes reviewed, old records reviewed Mode of arrival: ambulatory Limitations: no limitations - History of Present Illness Initial comments: Patient is a 48-year-old female with past medical history remarkable for hypertension, pseudoseizures/seizures, COPD, diabetes, fibromyalgia, apparent DE, as well as what sounds like possible TIA for which she signed out AMA on March 03.Patient does have a past medical history remarkable for CAD, cardiomyopathy, hyperlipidemia, HIV positive compliant with all medications as well. Presents for further evaluation at this time. States that since she signed out she has been having some left-sided neck pain which was present at that time as well. However now is also experiencing worsening of the pain and seems to have shooting pains down her left arm towards her fingertips as well as some pains that go from the left side of her neck towards her left pectoral muscle. Worse on palpation and with movements. Denies any blurry vision. Denies any other symptoms. States does not like how it was the other day. Has had multiple seizures over the last few days as well. Was told she had pseudoseizures upon last admission as well. She states she was too stressed out and left AGAINST MEDICAL ADVICE. She is on Keppra which she states she has been compliant with. Presents for further evaluation at this time. Denies shortness of breath, abdominal pain with nausea, vomiting. Did not receive tenecteplase on March 03. - Related Data Home Medications Medication Instructions Recorded Confirmed Elviteg/Cob/Emtri/Tenof Alafen 1 tab PO DAILY 10/02/20 03/03/24 [Genvoya Tablet] HYDROcodone/APAP 10-325MG [[place] 1 tab PO Q8H PRN 10/02/20 03/03/24 10-325] Budesonide/Glycopyr/Formoterol 2 puff INHALATION RT-DAILY 05/29/22 03/03/24 [Breztri Aerosphere Inhaler] Erenumab-Aooe [Aimovig 140 mg SQ QMONTHLY 05/30/22 03/03/24 Autoinjector] Nitroglycerin Sl Tabs [Nitrostat] 0.4 mg SUBLINGUAL Q5M PRN 07/10/22 03/03/24 busPIRone HCL [Buspar] 7.5 mg PO BID 09/04/22 03/03/24 Aspirin EC [Ecotrin Low Dose] 81 mg PO DAILY 10/04/22 03/03/24 Pantoprazole Sodium [Protonix] 20 mg PO BID 10/04/22 03/03/24 Spironolactone [Aldactone] 25 mg PO DAILY 10/04/22 03/03/24 Rosuvastatin [Crestor] 10 mg PO DAILY 03/31/23 03/03/24 Ezetimibe [Zetia] 10 mg PO DAILY 03/03/24 03/03/24 Semaglutide [Ozempic] 0.5 mg SQ Q7D 03/03/24 03/03/24 Previous Rx's Medication Instructions Recorded levETIRAcetam [Keppra] 500 mg PO Q12HR #30 tab 02/17/22 Metoprolol Tartrate [Lopressor] 25 mg PO BID #60 tab 05/31/22 Allergies Allergy/AdvReac Type Severity Reaction Status Date / Time amoxicillin [From Augmentin] Allergy Anaphylaxis, Verified 03/05/24 22:49 swelling clavulanic acid Allergy Anaphylaxis, Verified 03/05/24 22:49 [From Augmentin] swelling prochlorperazine edisylate AdvReac Confusion, Verified 03/05/24 22:49 [From Compazine] anxiety, "feels like i'm crawling out of my skin" prochlorperazine maleate AdvReac Confusion, Verified 03/05/24 22:49 [From Compazine] anxiety, "feels like i'm crawling out of my skin" steroids Allergy Confusion, Uncoded 03/05/24 22:49 anxiety, "feels like i'm crawling out of my skin" Review of Systems ROS Statement: Those systems with pertinent positive or pertinent negative responses have been documented in the HPI. Review of Systems: CONST: Denies fever EYES: Denies blurry vision ENT: Denies nasal congestion C/V: Endorses chest pain chest pain RESP: Denies shortness of breath GI: Denies abdominal pain : Denies dysuria SKIN: Denies rash. MSK: Endorses shooting left arm pain and left neck pain NEURO: Denies headache ROS Other: All systems not noted in ROS Statement are negative. Past Medical History Past Medical History: Asthma, Chest Pain / Angina, COPD, Diabetes Mellitus, Fibromyalgia, Hyperlipidemia, Hypertension, Myocardial Infarction ([place]), Pneumonia, Seizure Disorder Additional Past Medical History / Comment(s): HIV with AIDS. migraines, "rt eye has scarring and freckles". uti's, "poor circulation" Last Myocardial Infarction Date:: 05/29/2022 History of Any Multi-Drug Resistant Organisms: None Reported Past Surgical History: Section, Cholecystectomy, Heart Catheterization, Hysterectomy, Orthopedic Surgery Additional Past Surgical History / Comment(s): left shoulder sx, c-sec x3, spinal fusion, spinal stimulator Past Anesthesia/Blood Transfusion Reactions: No Reported Reaction Additional Past Anesthesia/Blood Transfusion Reaction / Comment(s): Hard to awake. Past Psychological History: Anxiety, Depression Smoking Status: Current every day smoker Past Alcohol Use History: None Reported Past Drug Use History: Marijuana - Past Family History Mother Family Medical History: CVA/TIA, Diabetes Mellitus, Myocardial Infarction ([place]) Additional Family Medical History / Comment(s): sarcoidosis, osteoporosis Father Family Medical History: Asthma, COPD General Exam - General Exam Comments Initial Comments: General: Appears in no acute distress. HEAD: Normal with no signs of head trauma. EYES: PERRLA, EOMI, conjunctiva normal, no discharge. Pupils are 3 mm and equal bilaterally. ENT: Hearing grossly intact, normal oropharynx. RESPIRATORY: Clear breath sounds bilaterally. No wheezes, rales, or rhonchi. C/V: Regular rate and rhythm. S1 and S2 auscultated, no edema, peripheral pulses 2+ and intact throughout ABD: Abd is soft, nontender, nondistended EXT: Normal range of motion, no obvious deformity. Chest pain is not significantly reproducible on palpation or with movements on exam. Patient does have tenderness to palpation over the left trapezius muscle which is likely the source of the neck pain as well as mild midline tenderness of the neck. SKIN: No rashes or lesions observed on exposed skin. NEURO: Alert and oriented x 4. No focal deficits. NIH is 0. GCS of 15. Paresthesias in the left fingertips only. Limitations: no limitations Course Vital Signs 03/05/24 03/05/24 22:44 23:40 Temperature 98.7 F 98.7 F Pulse Rate 96 80 Respiratory 20 18 Rate Blood Pressure 134/90 152/96 O2 Sat by Pulse 98 99 Oximetry Medical Decision Making - Medical Decision Making Was pt. sent in by a medical professional or institution (PRISCILA Seay, [facility]KER, urgent care, hospital, or [facility]...) When possible be specific @ -No Did you speak to anyone other than the patient for history (EMS, parent, family, police, friend...)? What history was obtained from this source @ -No Did you review nursing and triage notes (agree or disagree)? Why? @ -I reviewed and agree with nursing and triage notes Were old charts reviewed (outside hosp., previous admission, EMS record, old EKG, old radiological studies, urgent care reports/EKG's, [facility] records)? Report findings @ -Charts from recent admission on March 03, [address] imaging at that time which was negative. Reviewed neurology note that stated concern for possible conversion disorder as well as pseudoseizures. Today's EKG with EKG from March 03 with no obvious acute changes. Differential Diagnosis (chest pain, altered mental status, abdominal pain women, abdominal pain men, vaginal bleeding, weakness, fever, dyspnea, syncope, headache, dizziness, GI bleed, back pain, seizure, CVA, palpatations, mental health, musculoskeletal)? @ -Differential Chest Pain: Stable Angina, Unstable Angina, STEMI, NSTEMI Aortic Dissection, Pneumothorax, M usculoskeletal, Esophageal Spasm GERD, Cholecystitis, Pancreatitis, Zoster, this is not meant to be an all-inclusive list. EKG interpreted by me (3pts min.). @ -As above X-rays interpreted by me (1pt min.). @ -Chest x-ray reveals no obvious acute cardiopulmonary process. CT interpreted by me (1pt min.). @ -CT brain, C-spine shows no obvious acute injury or changes. Patient does have slight retrolisthesis of C5 on C6 but no other obvious findings. U/S interpreted by me (1pt. min.). @ -None done What testing was considered but not performed or refused? (CT, X-rays, U/S, labs)? Why? @ -None What meds were considered but not given or refused? Why? @ -None Did you discuss the management of the patient with other professionals (professionals i.e. PRISCILA Seay, SHANK MAKER, lab, RT, psych nurse, social work professor, knit goods press hand, teacher, deck officer, leather case finisher)? Give summary @ -Discussed with DOMI Juarez of [facility] who accepted the admission. Was smoking cessation discussed for >3mins.? @ -No Was critical care preformed (if so, how long)? @ -No Were there social determinants of health that impacted care today? How? (Homelessness, low income, unemployed, alcoholism, drug addiction, transportation, low edu. Level, literacy, decrease access to med. care, group home, rehab)? @ -No Was there de-escalation of care discussed even if they declined (Discuss DNR or withdrawal of care, Hospice)? DNR status @ -No What co-morbidities impacted this encounter? (DM, HTN, Smoking, COPD, CAD, Cancer, CVA, ARF, Chemo, Hep., AIDS, mental health diagnosis, sleep apnea, morbid obesity)? @ -Seizures/pseudoseizures, CAD, cardiomyopathy Was patient admitted / discharged? Hospital course, mention meds given and route, prescriptions, significant lab abnormalities, going to OR and other pertinent info. @ -Patient presents emergency department complaining of left-sided chest pain, left what seems to be musculoskeletal or neuropathic shoulder pain and neck pain. Patient recently evaluated for TIA here in the emergency department and left AGAINST MEDICAL ADVICE a few days ago. We will obtain cardiac workup at th is time as well as repeat CT imaging of brain and C-spine. Patient was in agreement this plan. Vitals are currently within acceptable limits. Should be empirically given a dose of IV Keppra as well as 324 mg of aspirin, Flexeril, lidocaine patch, IV fluids. EKG showed no signs of acute ischemia. After patient received CT brain, before she received her evening Keppra, patient had what appeared to be a pseudoseizure in the hallway. Patient had clicking of her tongue and was blinking her left eye and not responding to questions. Sternal rub was applied and many of her symptoms resolved and then patient spontaneously had resolution of her symptoms as we supplied a small dose of IV Ativan 1 mg. Patient had no postictal state. She stated "I am here." CT brain negative for any obvious acute process or findings. CT cervical spine also negative. Chest x-ray unremarkable. Patient's laboratory studies are remarkable for an undetectable troponin. Remainder the workup unremarkable. I nitial lactic acid was 1.3 which was obtained prior to the pseudoseizure activity. We will repeat a lactic acid at this time. Repeat lactic acid remained within normal limits at 1.0. Did review the patient's previous chart and per neurology it did appear that they believe patient may suffer from pseudoseizures as well as conversion disorder which I am in agreement with and I did discuss this with the patient. She is open minded to this and states she is under a lot of stress lately which could explain her current symptoms as well as her symptoms the other day as it is around the time a year when her father . She already follows up with a therapist and a psychiatrist outpatient. Chest pain is improved on reevaluation but patient is still having some trapezius pain. Patient will be administered analgesia medications and admitted for cardiac observation. With the admitting provider, DOMI Juarez of [facility] who accepted the admission. Cardiology consulted. Neurology once again consulted for evaluation and input. Undiagnosed new problem with uncertain prognosis? @ -No Drug Therapy requiring intensive monitoring for toxicity (Heparin, Nitro, Insulin, Cardizem)? @ -No Were any procedures done? @ -No Diagnosis/symptom? @ -Chest pain, pseudoseizures Acute, or Chronic, or Acute on Chronic? @ -Acute Uncomplicated (without systemic symptoms) or Complicated (systemic symptoms)? @ -Complicated Side effects of treatment? @ -No Exacerbation, Progression, or Severe Exacerbation? @ -No Poses a threat to life or bodily function? How? (Chest pain, [place], [place], pneumonia, PE, COPD, DKA, ARF, appy, cholecystitis, CVA, Diverticulitis, Homicidal, Suicidal, threat to staff... and all critical care pts) @ -Potentially, yes this patient does have cardiac history and cannot de finitively rule out ACS. - Lab Data Result diagrams: 03/05/24 23:05 03/05/24 23:05 Lab Results 03/05/24 03/05/24 03/05/24 Range/Units 23:05 23:05 23:05 WBC 6.4 (3.8-10.6) k/uL RBC 4.68 (3.80-5.40) m/uL Hgb 14.2 (11.4-16.0) gm/dL Hct 41.9 (34.0-46.0) % MCV 89.6 (80.0-100.0) fL MCH 30.3 (25.0-35.0) pg MCHC 33.9 (31.0-37.0) g/dL RDW 12.3 (11.5-15.5) % Plt Count 251 (150-450) k/uL MPV 7.5 Neutrophils % 71 % Lymphocytes % 16 % Monocytes % 5 % Eosinophils % 5 % Basophils % 1 % Neutrophils # 4.6 (1.3-7.7) k/uL Lymphocytes # 1.1 (1.0-4.8) k/uL Monocytes # 0.3 (0-1.0) k/uL Eosinophils # 0.3 (0-0.7) k/uL Basophils # 0.1 (0-0.2) k/uL PT 10.4 (10.0-12.5) sec INR 0.9 (<1.2) APTT 23.6 (22.0-30.0) sec Sodium 138 (137-145) mmol/L Potassium 4.0 (3.5-5.1) mmol/L Chloride 107 (98-107) mmol/L Carbon Dioxide 23 (22-30) mmol/L Anion Gap 8 mmol/L BUN 15 (7-17) mg/dL Creatinine 0.98 (0.52-1.04) mg/dL Est GFR (CKD-EPI)AfAm 79 (>60 ml/min/1.73 sqM) Est GFR (CKD-EPI)NonAf 69 (>60 ml/min/1.73 sqM) Glucose 99 (74-99) mg/dL Plasma Lactic Acid Rowdy (0.7-2.0) mmol/L Calcium 9.4 (8.4-10.2) mg/dL Magnesium 1.8 (1.6-2.3) mg/dL Total Bilirubin 0.5 (0.2-1.3) mg/dL AST 29 (14-36) U/L ALT 32 (4-34) U/L Alkaline Phosphatase 69 (38-126) U/L Troponin I (0.000-0.034) ng/mL Total Protein 7.8 (6.3-8.2) g/dL Albumin 4.8 (3.5-5.0) g/dL 03/05/24 03/05/24 03/05/24 Range/Units 23:05 23:05 23:53 WBC (3.8-10.6) k/uL RBC (3.80-5.40) m/uL Hgb (11.4-16.0) gm/dL Hct (34.0-46.0) % MCV (80.0-100.0) fL MCH (25.0-35.0) pg MCHC (31.0-37.0) g/dL RDW (11.5-15.5) % Plt Count (150-450) k/uL MPV Neutrophils % % Lymphocytes % % Monocytes % % Eosinophils % % Basophils % % Neutrophils # (1.3-7.7) k/uL Lymphocytes # (1.0-4.8) k/uL Monocytes # (0-1.0) k/uL Eosinophils # (0-0.7) k/uL Basophils # (0-0.2) k/uL PT (10.0-12.5) sec INR (<1.2) APTT (22.0-30.0) sec Sodium (137-145) mmol/L Potassium (3.5-5.1) mmol/L Chloride (98-107) mmol/L Carbon Dioxide (22-30) mmol/L Anion Gap mmol/L BUN (7-17) mg/dL Creatinine (0.52-1.04) mg/dL Est GFR (CKD-EPI)AfAm (>60 ml/min/1.73 sqM) Est GFR (CKD-EPI)NonAf (>60 ml/min/1.73 sqM) Glucose (74-99) mg/dL Plasma Lactic Acid Rowdy 1.3 1.0 (0.7-2.0) mmol/L Calcium (8.4-10.2) mg/dL Magnesium (1.6-2.3) mg/dL Total Bilirubin (0.2-1.3) mg/dL AST (14-36) U/L ALT (4-34) U/L Alkaline Phosphatase (38-126) U/L Troponin I <0.012 (0.000-0.034) ng/mL Total Protein (6.3-8.2) g/dL Albumin (3.5-5.0) g/dL - EKG Data -: EKG Interpreted by Me EKG Comments: 12-lead Electrocardiogram Interpretation Note EKG was reviewed and interpreted by myself. 12-lead ECG performed at 2257 is interpreted by me as revealing normal sinus rhythm at a rate of 96 beats per minute. [place] is normal. OR interval is 126 ms, QRS durations 90 ms, QTc is 401 ms.. There were no ST or T wave abnormalities to suggest myocardial ischemia or injury. R wave progression across the precordium was satisfactory. By my interpretation this EKG is non-diagnostic for acute ischemia. Disposition Clinical Impression: Chest pain, Cervical radiculopathy, Nonconvulsive seizure Disposition: ADMITTED IP TO THIS HOSP Condition: Stable Referrals: Jacque Christian MD [Primary Care Provider] - 1-2 days Time of Disposition: 12:21
[2024-03-06] MEDS ORDERED: ONDANSETRON 4 MG/2 ML VIAL IVP PRN (00:21)
[2024-03-06] MEDS ORDERED: NALOXONE 0.4 MG/ML 1 ML VIAL IV PRN (00:21)
[2024-03-06] MEDS: HYDROmorphone 1 MG/ML 1 ML SYRINGE IVP STA (00:44)
[2024-03-06] MEDS: HYDROcodone/APAP 10-325MG 1 EACH TAB PO PRN (03:28)
[2024-03-06 06:38] LABS: Appearance,Urine Clear (Clear); Bacteria,Urine Rare /hpf; Bilirubin,Urine Negative (Negative); Blood,Urine Trace (Negative); Budding Yeast,Urine Rare /hpf; Color,Urine Yellow; Glucose,Urine (UA) Negative (Negative); Ketones,Urine Negative (Negative); Leukocyte Esterase,Urine Small (Negative); Mucus,Urine Occasional /hpf; Nitrite,Urine Negative (Negative); PH, Urine 5.5 (5.0-8.0); Protein,Urine Trace (Negative); RBC,Urine 2 /hpf (0-5); Specific Gravity,Urine 1.029 (1.001-1.035); Squamous Epithelial Cell,Urine 3 /hpf (0-4); Urobilinogen,Urine <2.0 mg/dL (<2.0); WBC,Urine 5 /hpf (0-5)
[2024-03-06] MEDS: levETIRAcetam 500 MG TAB PO SCH (08:09)
[2024-03-06] MEDS: SPIRONOLACTONE 25 MG TAB PO SCH (08:09)
[2024-03-06] MEDS: METOPROLOL TARTRATE 25 MG TAB PO SCH (08:09)
[2024-03-06] MEDS: SYMBICORT 160-4.5 MCG INHALER INHALATION SCH (08:39)
[2024-03-06] MEDS: IPRATROPIUM 0.5 MG/2.5 ML NEBU INHALATION SCH (08:39)
--- NOTE | 2024-03-06 11:30 | P.CNNES ---
History of Present Illness Consult date: 03/06/24 Reason for Consult: Seizure versus pseudoseizure History of Present Illness: The patient is a 48-year-old female who was seen in neurologic consultation on March 06, 2024, in collaboration with Renee Delong, via teleneurology. Patient reports that she was actually in the emergency department on Friday of this week (today is Friday). She says she came in with complaints of a headache that she thought was different than her usual migraine. She also reported left-sided weakness, facial droop, difficulty with speech. Patient was seen by neurology however ended up leaving l the hospital AMA. She returns with similar symptoms. She says that she has a sharp stabbing pain in the left side of her neck which radiates down her left arm and into her fingers. She states that this is often how her seizure will start. She says in itially, with her seizure she gets a "warning of fogginess and confusion". She said that her left side tightens. Her left face droops and she has difficulty with her speech. The symptoms reportedly lasted approximately 15 to 20 minutes. Patient reports that she is then confused with a headache, lasting for several hours. The patient reports that she has these episodes of pseudoseizure, associ ated with stress. She says that she had recently been doing better in regards to her stress level. She states that when she was in the hospital earlier this week, the neurologist was "bombarded me with questions". She says I was "way overstimulated and had a seizure". The patient also reports a recent, sudden loss of hearing, with severe headache and left arm, hand tingling. She continues to report left neck shoulder and arm pain. She does state that she had a seizure last night. She says she was given Ativan and her IV. The patient currently denies nausea and vomiting. She reports photophobia. She does take Nurtec as an outpatient. Her last dose was "2 days ago". The patient also reportedly takes Fioricet and Aimovig for migraines. CT scan of the brain was performed in the emergency department. There is no reported evidence of acute hemorrhage or infarct. Laboratory evaluation is reviewed. Past Medical History Past Medical History: Asthma, Chest Pain / Angina, COPD, Diabetes Mellitus, Fibromyalgia, Hyperlipidemia, Hypertension, Myocardial Infarction ([place]), Pneumonia, Seizure Disorder Additional Past Medical History / Comment(s): HIV with AIDS. migraines, "rt eye has scarring and freckles". uti's, "poor circulation" Last Myocardial Infarction Date:: 05/29/2022 History of Any Multi-Drug Resistant Organisms: None Reported Past Surgical History: Section, Cholecystectomy, Heart Catheterization, Hysterectomy, Orthopedic Surgery Additional Past Surgical History / Comment(s): left shoulder sx, c-sec x3, spinal fusion, spinal stimulator Past Anesthesia/Blood Transfusion Reactions: No Reported Reaction Additional Past Anesthesia/Blood Transfusion Reaction / Comment(s): Hard to awake. Past Psychological History: Anxiety, Depression Smoking Status: Current every day smoker Past Alcohol Use History: None Reported Past Drug Use History: Marijuana - Past Family History Mother Family Medical History: CVA/TIA, Diabetes Mellitus, Myocardial Infarction ([place]) Additional Family Medical History / Comment(s): sarcoidosis, osteoporosis Father Family Medical History: Asthma, COPD Medications and Allergies Home Medications Medication Instructions Recorded Confirmed Type Elviteg/Cob/Emtri/Tenof Alafen 1 tab PO DAILY 10/02/20 03/06/24 History [Genvoya Tablet] HYDROcodone/APAP 10-325MG [[place] 1 tab PO Q8H PRN 10/02/20 03/06/24 History 10-325] levETIRAcetam [Keppra] 500 mg PO Q12HR #30 tab 02/17/22 03/06/24 Rx Budesonide/Glycopyr/Formoterol 2 puff INHALATION RT-DAILY 05/29/22 03/06/24 History [Breztri Aerosphere Inhaler] Erenumab-Aooe [Aimovig 140 mg SQ QMONTHLY 05/30/22 03/06/24 History Autoinjector] Metoprolol Tartrate [Lopressor] 25 mg PO BID #60 tab 05/31/22 03/06/24 Rx Nitroglycerin Sl Tabs [Nitrostat] 0.4 mg SUBLINGUAL Q5M PRN 07/10/22 03/06/24 History busPIRone HCL [Buspar] 7.5 mg PO BID 09/04/22 03/06/24 History Aspirin EC [Ecotrin Low Dose] 81 mg PO DAILY 10/04/22 03/06/24 History Pantoprazole Sodium [Protonix] 20 mg PO BID 10/04/22 03/06/24 History Spironolactone [Aldactone] 25 mg PO DAILY 10/04/22 03/06/24 History Rosuvastatin [Crestor] 10 mg PO DAILY 03/31/23 03/06/24 History Ezetimibe [Zetia] 10 mg PO DAILY 03/03/24 03/06/24 History Semaglutide [Ozempic] 0.5 mg SQ MO 03/03/24 03/06/24 History Allergies Allergy/AdvReac Type Severity Reaction Status Date / Time amoxicillin [From Augmentin] Allergy Anaphylaxis, Verified 03/06/24 09:15 swelling clavulanic acid Allergy Anaphylaxis, Verified 03/06/24 09:15 [From Augmentin] swelling prochlorperazine edisylate AdvReac Confusion, Verified 03/06/24 09:15 [From Compazine] anxiety, "feels like i'm crawling out of my skin" prochlorperazine maleate AdvReac Confusion, Verified 03/06/24 09:15 [From Compazine] anxiety, "feels like i'm crawling out of my skin" steroids AdvReac Confusion, Uncoded 03/06/24 09:15 anxiety, "feels like i'm crawling out of my skin" Physical Examination - Vital Signs Vital Signs: Vital Signs Temp Pulse Resp BP Pulse Ox 03/06/24 06:00 89 24 113/74 99 03/06/24 03:13 76 16 107/70 97 03/06/24 02:16 76 15 111/65 98 03/06/24 01:48 74 18 143/120 99 03/05/24 23:40 98.7 F 80 18 152/96 99 03/05/24 22:44 98.7 F 96 20 134/90 98 Intake and Output 03/05/24 03/06/24 03/06/24 22:59 06:59 14:59 Other: Weight 105.233 kg General: The patient is well-nourished, well-developed and in no acute distress HEENT: Head is atraumatic, normocephalic. Fundus not visualized. There is no scleral icterus. Mucous membranes are moist. Neck: Supple without carotid bruits Heart: Regular rate and rhythm Lungs: Essentially clear to auscultation Extremities: Lower extremity edema Neurological examination Mental status: The patient is awake, alert and oriented x 3. There is no dysarthria or aphasia. Speech is fluent Cranial nerves: Pupils are equal, round at 3mm and reactive to light. Visual zavala are full to confrontation. Extraocular movements are intact. Facial sensation is intact. There is no facial asymmetry. Hearing is grossly intact. Uvula and palate are midline. Shoulder shrug is symmetric. Tongue protrudes midline. Motor: Strength is 5/5 in the bilateral upper extremities and 4/5 in the left lower extremity. Sensation: Intact to light touch throughout. There is no extinction with double simultaneous stimulation. Deep tendon reflexes: 2+/4+ throughout. Plantar responses mute. Coordination: [id number], [id number] and rapid alternating movements are intact. There is no pronator drift. Gait: Not assessed Results - Laboratory Findings CBC and BMP: 03/05/24 23:05 03/05/24 23:05 Abnormal Lab Findings: Abnormal Labs 03/06/24 06:12 Urine Protein Trace H Urine Blood Trace H Ur Leukocyte Esterase Small H Urine Bacteria Rare H Urine Mucus Occasional H Urine Yeast (Budding) Rare H Assessment and Plan Assessment: 1. Complicated migraine 2. History of seizure versus pseudoseizure 3. Neck pain 4. History of fibromyalgia 5. History of diabetes mellitus 6. History of coronary artery disease 7. Hyperlipidemia 8. Hypertension Plan: 1. Begin prednisone 20 mg, 3 times daily for acute migraine treatment as Nurtec is not available per formulary 2. If prednisone is ineffective, consider initiation of Depakote 3. Would avoid narcotics for treatment of migraine 4. Continue Keppra at this time 5. EEG is not indicated at this time 6. Would not recommend triptans for migraine in the setting of hypotension and complicated migraine Time with Patient: Greater than 30 (60 minutes were spent caring for this patient today including, obtaining a history, examining patient, reviewing imaging, chart documentation, labs, placing orders and creating this note)
--- NOTE | 2024-03-06 11:39 | P.HPIM ---
History of Present Illness Patient is a pleasant 48-year-old female came in with a severe headache and photophobia. Patient has a known history of migraine headaches and uses Nurtec but only uses it 6 doses a month of Nurtec. Patient also complaining of severe neck pain and obtaining radiating to the chest which is musculoskeletal in nature with troponins are negative EKG did not show any acute ST-T wave changes patient had a workup for for coronary disease in the past. Patient was seen by neurology and patient was ordered to have prednisone although patient has issues with psychosis with no intake prednisone because of which I am ordering Toradol along with Protonix. Patient apparently is also allergic to Compazine because of that reason will use Reglan. Symptoms improved patient will be given prescription for Nurtec every other day for migraine prevention REVIEW OF SYSTEMS: All other systems are negative except those mentioned in the HPI PHYSICAL EXAMINATION: GENERAL: The patient is alert and oriented x3, not in any acute distress. Well developed, well nourished. HEENT: Pupils are round and equally reacting to light. EOMI. No scleral icterus. No conjunctival pallor. Normocephalic, atraumatic. No pharyngeal erythema. No thyromegaly. CARDIOVASCULAR: S1 and S2 present. No murmurs, rubs, or gallops. PULMONARY: Chest is clear to auscultation, no wheezing or crackles. ABDOMEN: Soft, nontender, nondistended, normoactive bowel sounds. No palpable organomegaly. MUSCULOSKELETAL: No joint swelling or deformity. EXTREMITIES: No cyanosis, clubbing, or pedal edema. NEUROLOGICAL: Gross neurological examination did not reveal any focal deficits. SKIN: No rashes. Assessment and plan Migraine attack management as mentioned above Toradol, Pepcid and Protonix, Reglan. -Patient has severe frequent migraines is a candidate for Nurtec will be discharged on every alternate day Nurtec for migraine prevention as well as for migraine attacks. -Chest pain musculoskeletal in nature evaledby cardiology, cleared from their perspective -Neck pain: Secondary to degenerative neck disease of cervical cephalalgia -COPD without any acute exacerbation -Hypothyroidism -Hyperlipidemia -Hypertension -Seizure disorder For above-mentioned chronic medical problems patient resumed on appropriate home medications If her headache is better patient will be discharged with above-mentioned plan. DVT prophylaxis:-Early ambulation Past Medical History Past Medical History: Asthma, Chest Pain / Angina, COPD, Diabetes Mellitus, Fibromyalgia, Hyperlipidemia, Hypertension, Myocardial Infarction ([place]), Pneumonia, Seizure Disorder Additional Past Medical History / Comment(s): HIV with AIDS. migraines, "rt eye has scarring and freckles". uti's, "poor circulation" Last Myocardial Infarction Date:: 05/29/2022 History of Any Multi-Drug Resistant Organisms: None Reported Past Surgical History: Section, Cholecystectomy, Heart Catheterization, Hysterectomy, Orthopedic Surgery Additional Past Surgical History / Comment(s): left shoulder sx, c-sec x3, spinal fusion, spinal stimulator Past Anesthesia/Blood Transfusion Reactions: No Reported Reaction Additional Past Anesthesia/Blood Transfusion Reaction / Comment(s): Hard to awake. Past Psychological History: Anxiety, Depression Smoking Status: Current every day smoker Past Alcohol Use History: None Reported Past Drug Use History: Marijuana - Past Family History Mother Family Medical History: CVA/TIA, Diabetes Mellitus, Myocardial Infarction ([place]) Additional Family Medical History / Comment(s): sarcoidosis, osteoporosis Father Family Medical History: Asthma, COPD Medications and Allergies Home Medications Medication Instructions Recorded Confirmed Type Elviteg/Cob/Emtri/Tenof Alafen 1 tab PO DAILY 10/02/20 03/06/24 History [Genvoya Tablet] HYDROcodone/APAP 10-325MG [[place] 1 tab PO Q8H PRN 10/02/20 03/06/24 History 10-325] levETIRAcetam [Keppra] 500 mg PO Q12HR #30 tab 02/17/22 03/06/24 Rx Budesonide/Glycopyr/Formoterol 2 puff INHALATION RT-DAILY 05/29/22 03/06/24 His tory [Breztri Aerosphere Inhaler] Erenumab-Aooe [Aimovig 140 mg SQ QMONTHLY 05/30/22 03/06/24 History Autoinjector] Metoprolol Tartrate [Lopressor] 25 mg PO BID #60 tab 05/31/22 03/06/24 Rx Nitroglycerin Sl Tabs [Nitrostat] 0.4 mg SUBLINGUAL Q5M PRN 07/10/22 03/06/24 History busPIRone HCL [Buspar] 7.5 mg PO BID 09/04/22 03/06/24 History Aspirin EC [Ecotrin Low Dose] 81 mg PO DAILY 10/04/22 03/06/24 History Pantoprazole Sodium [Protonix] 20 mg PO BID 10/04/22 03/06/24 History Spironolactone [Aldactone] 25 mg PO DAILY 10/04/22 03/06/24 History Rosuvastatin [Crestor] 10 mg PO DAILY 03/31/23 03/06/24 History Ezetimibe [Zetia] 10 mg PO DAILY 03/03/24 03/06/24 History Semaglutide [Ozempic] 0.5 mg SQ MO 03/03/24 03/06/24 History Rimegepant Sulfate [Nurtec Odt] 75 mg PO Q2D #30 tab 03/06/24 Rx Allergies Allergy/AdvReac Type Severity Reaction Status Date / Time amoxicillin [From Augmentin] Allergy Anaphylaxis, Verified 03/06/24 09:15 swelling clavulanic acid Allergy Anaphylaxis, Verified 03/06/24 09:15 [From Augmentin] swelling prochlorperazine edisylate AdvReac Confusion, Verified 03/06/24 09:15 [From Compazine] anxiety, "feels like i'm crawling out of my skin" prochlorperazine maleate AdvReac Confusion, Verified 03/06/24 09:15 [From Compazine] anxiety, "feels like i'm crawling out of my skin" steroids AdvReac Confusion, Uncoded 03/06/24 09:15 anxiety, "feels like i'm crawling out of my skin" Physical Exam Vitals: Vital Signs Temp Pulse Resp BP Pulse Ox 03/06/24 10:36 65 18 119/81 97 03/06/24 06:00 89 24 113/74 99 03/06/24 03:13 76 16 107/70 97 03/06/24 02:16 76 15 111/65 98 03/06/24 01:48 74 18 143/120 99 03/05/24 23:40 98.7 F 80 18 152/96 99 03/05/24 22:44 98.7 F 96 20 134/90 98 Intake and Output 03/05/24 03/06/24 03/06/24 22:59 06:59 14:59 Other: Weight 105.233 kg Results CBC & Chem 7: 03/05/24 23:05 03/05/24 23:05 Labs: Abnormal Lab Results - Last 24 Hours (Table) 03/06/24 Range/Units 06:12 Urine Protein Trace H (Negative) Urine Blood Trace H (Negative) Ur Leukocyte Esterase Small H (Negative) Urine Bacteria Rare H (None) /hpf Urine Mucus Occasional H (None) /hpf Urine Yeast (Budding) Rare H (None) /hpf
--- NOTE | 2024-03-06 11:40 | P.DS ---
Providers Date of admission: 03/06/24 00:23 Attending physician: Waleska Garcia Consults: 03/06/24 00:21 Consult Physician Routine Consulting Provider: Sathish Alvarado Consult Reason/Comments: seizure vs pseudoseizure Do you want consulting provider notified?: Yes Consult Physician Routine Consulting Provider: [facility] Consult Reason/Comments: chest pain Do you want consulting provider notified?: Yes Primary care physician: [facility] Course: Patient is a pleasant 48-year-old female came in with a severe headache and photophobia. Patient has a known history of migraine headaches and uses Nurtec but only uses it 6 doses a month of Nurtec. Patient also complaining of severe neck pain and obtaining radiating to the chest which is musculoskeletal in nature with troponins are negative EKG did not show any acute ST-T wave changes patient had a workup for for coronary disease in the past. Patient was seen by neurology and patient was ordered to have prednisone although patient has issues with psychosis with no intake prednisone because of which I am ordering Toradol along with Protonix. Patient apparently is also allergic to Compazine because of that reason will use Reglan. Symptoms improved patient will be given prescription for Nurtec every other day for migraine prevention REVIEW OF SYSTEMS: All other systems are negative except those mentioned in the HPI PHYSICAL EXAMINATION: GENERAL: The patient is alert and oriented x3, not in any acute distress. Well developed, well nourished. HEENT: Pupils are round and equally reacting to light. EOMI. No scleral icterus. No conjunctival pallor. Normocephalic, atraumatic. No pharyngeal erythema. No thyromegaly. CARDIOVASCULAR: S1 and S2 present. No murmurs, rubs, or gallops. PULMONARY: Chest is clear to auscultation, no wheezing or crackles. ABDOMEN: Soft, nontender, nondistended, normoactive bowel sounds. No palpable organomegaly. MUSCULOSKELETAL: No joint swelling or deformity. EXTREMITIES: No cyanosis, clubbing, or pedal edema. NEUROLOGICAL: Gross neurological examination did not reveal any focal deficits. SKIN: No rashes. Assessment and plan Migraine attack management as mentioned above Toradol, Pepcid and Protonix, Reglan. -Patient has severe frequent migraines is a candidate for Nurtec will be discharged on every alternate day Nurtec for migraine prevention as well as for migraine attacks. -Chest pain musculoskeletal in nature evaledby cardiology, cleared from their perspective -Neck pain: Secondary to degenerative neck disease of cervical cephalalgia -COPD without any acute exacerbation -Hypothyroidism -Hyperlipidemia -Hypertension -Seizure disorder For above-mentioned chronic medical problems patient resumed on appropriate home medications If her headache is better patient will be discharged with above-mentioned plan. Patient Condition at Discharge: Stable Plan - Discharge Summary New Discharge Prescriptions: New Rimegepant Sulfate [Nurtec Odt] 75 mg PO Q2D #30 tab Continue Elviteg/Cob/Emtri/Tenof Alafen [Genvoya Tablet] 1 tab PO DAILY Erenumab-Aooe [Aimovig Autoinjector] 140 mg SQ QMONTHLY Metoprolol Tartrate [Lopressor] 25 mg PO BID #60 tab Nitroglycerin Sl Tabs [Nitrostat] 0.4 mg SUBLINGUAL Q5M PRN PRN Reason: Chest Pain busPIRone HCL [Buspar] 7.5 mg PO BID Aspirin EC [Ecotrin Low Dose] 81 mg PO DAILY Pantoprazole Sodium [Protonix] 20 mg PO BID Ezetimibe [Zetia] 10 mg PO DAILY HYDROcodone/APAP 10-325MG [[place] 10-325] 1 tab PO Q8H PRN PRN Reason: Pain levETIRAcetam [Keppra] 500 mg PO Q12HR #30 tab Budesonide/Glycopyr/Formoterol [Breztri Aerosphere Inhaler] 2 puff INHALATION RT-DAILY Spironolactone [Aldactone] 25 mg PO DAILY Rosuvastatin [Crestor] 10 mg PO DAILY Semaglutide [Ozempic] 0.5 mg SQ MO Discharge Medication List Elviteg/Cob/Emtri/Tenof Alafen [Genvoya Tablet] 1 tab PO DAILY 10/02/20 [History] HYDROcodone/APAP 10-325MG [[place] 10-325] 1 tab PO Q8H PRN 10/02/20 [History] levETIRAcetam [Keppra] 500 mg PO Q12HR #30 tab 02/17/22 [Rx] Budesonide/Glycopyr/Formoterol [Breztri Aerosphere Inhaler] 2 puff INHALATION RT-DAILY 05/29/22 [History] Erenumab-Aooe [Aimovig Autoinjector] 140 mg SQ QMONTHLY 05/30/22 [History] Metoprolol Tartrate [Lopressor] 25 mg PO BID #60 tab 05/31/22 [Rx] Nitroglycerin Sl Tabs [Nitrostat] 0.4 mg SUBLINGUAL Q5M PRN 07/10/22 [History] busPIRone HCL [Buspar] 7.5 mg PO BID 09/04/22 [History] Aspirin EC [Ecotrin Low Dose] 81 mg PO DAILY 10/04/22 [History] Pantoprazole Sodium [Protonix] 20 mg PO BID 10/04/22 [History] Spironolactone [Aldactone] 25 mg PO DAILY 10/04/22 [History] Rosuvastatin [Crestor] 10 mg PO DAILY 03/31/23 [History] Ezetimibe [Zetia] 10 mg PO DAILY 03/03/24 [History] Semaglutide [Ozempic] 0.5 mg SQ MO 03/03/24 [History] Rimegepant Sulfate [Nurtec Odt] 75 mg PO Q2D #30 tab 03/06/24 [Rx] Follow up Appointment(s)/Referral(s): Jacque Christian MD [Primary Care Provider] - 3 Days Sanam Morris MD [Medical Doctor] - 1 Week Discharge Disposition: HOME SELF-CARE
[2024-03-06] MEDS: METOCLOPRAMIDE 5 MG/ML 2 ML VIAL IVP STA (11:59)
[2024-03-06] MEDS: KETOROLAC 15 MG/ML 1 ML VIAL IVP PRN (11:59)
[2024-03-06 13:09] VITALS: BP 128/75; PULSE 66; RESP 16; TEMP 97.7
--- NOTE | 2024-03-06 14:24 | P.CRDCN ---
History of Present Illness Consult date: 03/06/24 Consult reason: chest pain History of present illness: The patient is a 48-year-old female who follows in the office with Dr. Alfaro. Patient sustained a fall at home, for which she presented to the emergency room. She had been experiencing left anterior chest wall discomfort which radiated down her left arm. On arrival to the emergency room she had a pseudoseizure. Patient states that over the last 2 months she has had severe nausea and frequent bouts of vomiting. She states it is likely that she is not absorbed many of her medications. She continues to report left arm pain, notably forearm down through her wrist. No chest heaviness with exertion. DIAGNOSTICS: EKG shows sinus mechanism without ST or T wave abnormalities Chest x-ray shows no acute cardiopulmonary process CT scan brain and cervical spine shows no acute intracranial hemorrhage or acute fracture/dislocation Lab data: WBC 6.4, hemoglobin 14.2, Mariscal crit 41.9, platelet 251, sodium 138, potassium 4.0, BUN 15, creatinine 0.98, troponins less than 0.012 x 3 REVIEW OF SYSTEMS: No fever or chills. No cough or expectoration. No diaphoresis. Patient denies headache, dizziness, blurred vision, double vision. Patient denies any stomach discomfort. No nausea, vomiting. No hematochezia. No hematemesis. Denies any black stools or blood in his stools. Denies dysuria or hematuria. No muscle weakness or numbness. No current chest discomfort. Positive for left arm discomfort, likely neuropathy PHYSICAL EXAMINATION: This is a 48-year-old female in no apparent distress at the time of my examination. HEENT: Head is atraumatic, normocephalic. Pupils are equal, round. There is no jugular venous distention. No carotid bruit is heard. CHEST EXAMINATION: Lungs are clear to auscultation. No chest wall tenderness is noted on palpation or with deep breathing. HEART EXAMINATION: Heart regular rate and rhythm. S1, S2 heard. No murmurs, gallops or rub. ABDOMEN: Soft, nontender. Bowel sounds are heard. No organomegaly noted. EXTREMITIES: 2+ peripheral pulses with no evidence of peripheral edema and no calf tenderness noted. NEUROLOGIC EXAMINATION: Patient is awake, alert and oriented x3. FINAL ASSESSMENT AND PLAN: Chest discomfort, noncardiac Recent persistent nausea and vomiting History of hypertension History of dyslipidemia History of mild coronary artery disease History of Takotsubo cardiomyopathy, recent EF in office shows preserved LV function History of seizure disorder PLAN: Recommend resuming home cardiac medication regimen Outpatient follow-up with primary manifest/order organizer print orders Dr. Alfaro I am dictating on behalf of Dr Jarret Bill's history/physical and assessment/plan. Past Medical History Past Medical History: Asthma, Chest Pain / Angina, COPD, Diabetes Mellitus, Fibromyalgia, Hyperlipidemia, Hypertension, Myocardial Infarction ([place]), Pneumonia, Seizure Disorder Additional Past Medical History / Comment(s): HIV with AIDS. migraines, "rt eye has scarring and freckles". uti's, "poor circulation" Last Myocardial Infarction Date:: 05/29/2022 History of Any Multi-Drug Resistant Organisms: None Reported Past Surgical History: Section, Cholecystectomy, Heart Catheterization, Hysterectomy, Orthopedic Surgery Additional Past Surgical History / Comment(s): left shoulder sx, c-sec x3, spinal fusion, spinal stimulator Past Anesthesia/Blood Transfusion Reactions: No Reported Reaction Additional Past Anesthesia/Blood Transfusion Reaction / Comment(s): Hard to awake. Past Psychological History: Anxiety, Depression Smoking Status: Current every day smoker Past Alcohol Use History: None Reported Past Drug Use History: Marijuana - Past Family History Mother Family Medical History: CVA/TIA, Diabetes Mellitus, Myocardial Infarction ([place]) Additional Family Medical History / Comment(s): sarcoidosis, osteoporosis Father Family Medical History: Asthma, COPD Medications and Allergies Home Medications Medication Instructions Recorded Confirmed Type Elviteg/Cob/Emtri/Tenof Alafen 1 tab PO DAILY 10/02/20 03/06/24 History [Genvoya Tablet] HYDROcodone/APAP 10-325MG [[place] 1 tab PO Q8H PRN 10/02/20 03/06/24 History 10-325] levETIRAcetam [Keppra] 500 mg PO Q12HR #30 tab 02/17/22 03/06/24 Rx Budesonide/Glycopyr/Formoterol 2 puff INHALATION RT-DAILY 05/29/22 03/06/24 History [Breztri Aerosphere Inhaler] Erenumab-Aooe [Aimovig 140 mg SQ QMONTHLY 05/30/22 03/06/24 History Autoinjector] Metoprolol Tartrate [Lopressor] 25 mg PO BID #60 tab 05/31/22 03/06/24 Rx Nitroglycerin Sl Tabs [Nitrostat] 0.4 mg SUBLINGUAL Q5M PRN 07/10/22 03/06/24 History busPIRone HCL [Buspar] 7.5 mg PO BID 09/04/22 03/06/24 History Aspirin EC [Ecotrin Low Dose] 81 mg PO DAILY 10/04/22 03/06/24 History Pantoprazole Sodium [Protonix] 20 mg PO BID 10/04/22 03/06/24 History Spironolactone [Aldactone] 25 mg PO DAILY 10/04/22 03/06/24 History Rosuvastatin [Crestor] 10 mg PO DAILY 03/31/23 03/06/24 History Ezetimibe [Zetia] 10 mg PO DAILY 03/03/24 03/06/24 History Semaglutide [Ozempic] 0.5 mg SQ MO 03/03/24 03/06/24 History Rimegepant Sulfate [Nurtec Odt] 75 mg PO Q2D #30 tab 03/06/24 Rx Allergies Allergy/AdvReac Type Severity Reaction Status Date / Time amoxicillin [From Augmentin] Allergy Anaphylaxis, Verified 03/06/24 09:15 swelling clavulanic acid Allergy Anaphylaxis, Verified 03/06/24 09:15 [From Augmentin] swelling prochlorperazine edisylate AdvReac Confusion, Verified 03/06/24 09:15 [From Compazine] anxiety, "feels like i'm crawling out of my skin" prochlorperazine maleate AdvReac Confusion, Verified 03/06/24 09:15 [From Compazine] anxiety, "feels like i'm crawling out of my skin" steroids AdvReac Confusion, Uncoded 03/06/24 09:15 anxiety, "feels like i'm crawling out of my skin" Physical Exam Vitals: Vital Signs Temp Pulse Resp BP Pulse Ox 03/06/24 12:56 97.7 F 66 16 128/75 98 03/06/24 10:36 65 18 119/81 97 03/06/24 06:00 89 24 113/74 99 03/06/24 03:13 76 16 107/70 97 03/06/24 02:16 76 15 111/65 98 03/06/24 01:48 74 18 143/120 99 03/05/24 23:40 98.7 F 80 18 152/96 99 03/05/24 22:44 98.7 F 96 20 134/90 98 Intake and Output 03/05/24 03/06/24 03/06/24 22:59 06:59 14:59 Other: Weight 105.233 kg Results 03/05/24 23:05 03/05/24 23:05 Cardiac Enzymes 03/05/24 03/05/24 03/06/24 Range/Units 23:05 23:05 03:39 AST 29 (14-36) U/L Troponin I <0.012 <0.012 (0.000-0.034) ng/mL 03/06/24 Range/Units 06:03 AST (14-36) U/L Troponin I <0.012 (0.000-0.034) ng/mL Coagulation 03/05/24 Range/Units 23:05 PT 10.4 (10.0-12.5) sec APTT 23.6 (22.0-30.0) sec CBC 03/05/24 Range/Units 23:05 WBC 6.4 (3.8-10.6) k/uL RBC 4.68 (3.80-5.40) m/uL Hgb 14.2 (11.4-16.0) gm/dL Hct 41.9 (34.0-46.0) % Plt Count 251 (150-450) k/uL Comprehensive Metabolic Panel 03/05/24 Range/Units 23:05 Sodium 138 (137-145) mmol/L Potassium 4.0 (3.5-5.1) mmol/L Chloride 107 (98-107) mmol/L Carbon Dioxide 23 (22-30) mmol/L BUN 15 (7-17) mg/dL Creatinine 0.98 (0.52-1.04) mg/dL Glucose 99 (74-99) mg/dL Calcium 9.4 (8.4-10.2) mg/dL AST 29 (14-36) U/L ALT 32 (4-34) U/L Alkaline Phosphatase 69 (38-126) U/L Total Protein 7.8 (6.3-8.2) g/dL Albumin 4.8 (3.5-5.0) g/dL Intake and Output 03/05/24 03/06/24 03/06/24 22:59 06:59 14:59 Other: Weight 105.233 kg 03/05/24 23:05 03/05/24 23:05
[2024-03-06] MEDS ORDERED: predniSONE 20 MG TAB PO SCH (16:00)
== END 2024-03-06 13:12 | disposition home or self-care (01) ==
LOC: EC 22:42 → 6NMEDSUR 03-06 00:23
PROVIDERS: ADMIT Hospitalist; ATTEND Hospitalist
DX: G43.109 Migraine with aura, not intractable, without status migrainosus (principal); R07.89 Other chest pain; M50.30 Other cervical disc degeneration, unspecified cervical region; G40.909 Epilepsy, unspecified, not intractable, without status epilepticus; J44.89 Other specified chronic obstructive pulmonary disease; E03.9 Hypothyroidism, unspecified; E11.9 Type 2 diabetes mellitus without complications; E78.5 Hyperlipidemia, unspecified; B20 Human immunodeficiency virus [HIV] disease; F17.200 Nicotine dependence, unspecified, uncomplicated; F32.A Depression, unspecified; F41.9 Anxiety disorder, unspecified; I10 Essential (primary) hypertension; I25.10 Atherosclerotic heart disease of native coronary artery without angina pectoris; I25.2 Old myocardial infarction; I51.81 Takotsubo syndrome; M79.7 Fibromyalgia; Z79.82 Long term (current) use of aspirin; Z79.899 Other long term (current) drug therapy; Z98.1 Arthrodesis status; Z88.0 Allergy status to penicillin; Z88.1 Allergy status to other antibiotic agents; Z88.8 Allergy status to other drugs, medicaments and biological substances
CPT/HCPCS: 96374 ×2; 96375 ×2; 99285; 36415; 93005; 80053; 83605 ×2; 83735; 84484 ×2; 85025; 85610; 85730; 81001; 71045; 72125; 70450; G0378; J2060; J2765; J1171; J1953; J1885

== ENCOUNTER 2024-06-24 13:44 | Emergency (ER) | payer MEDICARE, OTHER ==
--- NOTE | 2024-06-24 14:43 | ED ---
Headache HPI - General Mode of arrival: ambulatory Limitations: no limitations - History of Present Illness Complaint: "migraine" Improves With: nothing Worsens With: none Context: occurred at rest Associated Symptoms: nausea, vomiting, photophobia, confusion <Downing,Iraida - Last Filed: 06/24/24 15:50> <Andree North - Last Filed: 06/26/24 16:32> - General Chief Complaint: Headache Stated Complaint: Headache Time Seen by Provider: 06/24/24 13:50 - History of Present Illness Initial Comments: Patient is a 48 female who presented to the ER with severe headache. Patient states she has history of migraines. States that in the last month she has not had migraines for more than half the days. She states this migraine has been been ongoing since Friday. She has had a few episodes of nonbilious nonbloody vomiting as well. Patient has not been tolerating oral intake due to her migraine. Patient states she has Nurtec at home, but does not take very often as it interacts with her Genovya. Patient endorses that she has tried Imitrex, Fioricet, and Excedrin with no relief. Patient follows with Dr. Pérez from neurology who has plans of doing Botox injections. Patient states she has a stimulator in her back that is not compatible with our MRI and has an MRI scheduled at another facility. (Iraida Downing) - Related Data Home Medications Medication Instructions Recorded Confirmed Elviteg/Cob/Emtri/Tenof Alafen 1 tab PO DAILY 10/02/20 03/06/24 [Genvoya Tablet] HYDROcodone/APAP 10-325MG [Sibley 1 tab PO Q8H PRN 10/02/20 03/06/24 10-325] Budesonide/Glycopyr/Formoterol 2 puff INHALATION RT-DAILY 05/29/22 03/06/24 [Breztri Aerosphere Inhaler] Erenumab-Aooe [Aimovig 140 mg SQ QMONTHLY 05/30/22 03/06/24 Autoinjector] Nitroglycerin Sl Tabs [Nitrostat] 0.4 mg SUBLINGUAL Q5M PRN 07/10/22 03/06/24 busPIRone HCL [Buspar] 7.5 mg PO BID 09/04/22 03/06/24 Aspirin EC [Ecotrin Low Dose] 81 mg PO DAILY 10/04/22 03/06/24 Pantoprazole Sodium [Protonix] 20 mg PO BID 10/04/22 03/06/24 Spironolactone [Aldactone] 25 mg PO DAILY 10/04/22 03/06/24 Rosuvastatin [Crestor] 10 mg PO DAILY 03/31/23 03/06/24 Ezetimibe [Zetia] 10 mg PO DAILY 03/03/24 03/06/24 Semaglutide [Ozempic] 0.5 mg SQ MO 03/03/24 03/06/24 Previous Rx's Medication Instructions Recorded levETIRAcetam [Keppra] 500 mg PO Q12HR #30 tab 02/17/22 Metoprolol Tartrate [Lopressor] 25 mg PO BID #60 tab 05/31/22 Rimegepant Sulfate [Nurtec Odt] 75 mg PO Q2D #30 tab 03/06/24 Allergies Allergy/AdvReac Type Severity Reaction Status Date / Time amoxicillin [From Augmentin] Allergy Anaphylaxis, Verified 06/24/24 13:48 swelling clavulanic acid Allergy Anaphylaxis, Verified 06/24/24 13:48 [From Augmentin] swelling prochlorperazine edisylate AdvReac Confusion, Verified 06/24/24 13:48 [From Compazine] anxiety, "feels like i'm crawling out of my skin" prochlorperazine maleate AdvReac Confusion, Verified 06/24/24 13:48 [From Compazine] anxiety, "feels like i'm crawling out of my skin" steroids AdvReac Confusion, Uncoded 06/24/24 13:48 anxiety, "feels like i'm crawling out of my skin" Review of Systems ROS Other: All systems not noted in ROS Statement are negative. Constitutional: Denies: fever, chills, weakness Eyes: Reports: eye pain Cardiovascular: Reports: palpitations. Denies: chest pain, dyspnea on exertion, syncope Endocrine: Denies: fatigue Gastrointestinal: Reports: nausea, vomiting. Denies: abdominal pain, diarrhea, constipation Genitourinary: Denies: urgency, dysuria, hematuria Musculoskeletal: Denies: back pain Skin: Denies: rash, lesions Neurological: Reports: headache. Denies: weakness, numbness, paresthesias, abnormal gait <Iraida Downing - Last Filed: 06/24/24 15:50> ROS Other: All systems not noted in ROS Statement are negative. <Andree North - Last Filed: 06/26/24 16:32> ROS Statement: Those systems with pertinent positive or pertinent negative responses have been documented in the HPI. Past Medical History Past Medical History: Asthma, Chest Pain / Angina, COPD, Diabetes Mellitus, Fibromyalgia, Hyperlipidemia, Hypertension, [place]ocardial Infarction ([place]), Pneumonia, Seizure Disorder Additional Past Medical History / Comment(s): HIV with AIDS. migraines, "rt eye has scarring and freckles". uti's, "poor circulation" Last Myocardial Infarction Date:: 05/29/2022 History of Any Multi-Drug Resistant Organisms: None Reported Past Surgical History: Section, Cholecystectomy, Heart Catheterization, Hysterectomy, Orthopedic Surgery Additional Past Surgical History / Comment(s): left shoulder sx, c-sec x3, spinal fusion, spinal stimulator Past Anesthesia/Blood Transfusion Reactions: No Reported Reaction Additional Past Anesthesia/Blood Transfusion Reaction / Comment(s): Hard to awake. Past Psychological History: Anxiety, Depression Smoking Status: Current every day smoker Past Alcohol Use History: None Reported Past Drug Use History: Marijuana - Past Family History Mother Family Medical History: CVA/TIA, Diabetes Mellitus, Myocardial Infarction ([place]) Additional Family Medical History / Comment(s): sarcoidosis, osteoporosis Father Family Medical History: Asthma, COPD <Iraida Downing - Last Filed: 06/24/24 15:50> General Exam Limitations: no limitations General appearance: alert, anxious Head exam: Absent: atraumatic, normocephalic Neck exam: Present: full ROM Respiratory exam: Present: normal lung sounds bilaterally. Absent: respiratory distress, wheezes, rales, rhonchi Cardiovascular Exam: Present: normal rhythm, tachycardia, normal heart sounds GI/Abdominal exam: Present: soft. Absent: distended, tenderness, guarding, rebound Extremities exam: Absent: calf tenderness Neurological exam: Present: alert, oriented X3 Skin exam: Present: warm, dry, intact <DowningIraida - Last Filed: 06/24/24 15:50> Course <DowningIraida - Last Filed: 06/24/24 15:50> Vital Signs 06/24/24 06/24/24 13:46 16:02 Temperature 98.7 F 98.2 F Pulse Rate 108 H 92 Respiratory 20 17 Rate Blood Pressure 143/87 136/82 O2 Sat by Pulse 96 97 Oximetry - Reevaluation(s) Reevaluation #1: 06/24/24 15:26 Upon reevaluation after administration of migraine cocktail(Toradol, magnesium, Reglan, Benadryl), patient states her migraine is drastically improved and she is ready and excited to be discharged home. (Iraida Downing) Medical Decision Making - Lab Data Result diagrams: 06/24/24 14:44 06/24/24 14:44 <Iraida Downing - Last Filed: 06/24/24 15:50> - Lab Data Result diagrams: 06/24/24 14:44 06/24/24 14:44 <Andree North - Last Filed: 06/26/24 16:32> - Medical Decision Making Was pt. sent in by a medical professional or institution (Dr. PA, FIRM ADMINISTRATOR, urgent care, hospital, or [place] [facility] care facility...) When possible be specific @ -No Did you speak to anyone other than the patient for history (EMS, parent, family, police, friend...)? What history was obtained from this source @ -No Did you review nursing and triage notes (agree or disagree)? Why? @ -I reviewed and agree with nursing and triage notes Were old charts reviewed (outside hosp., previous admission, EMS record, old EKG, old radiological studies, urgent care reports/EKG's, [place] health care facility records)? Report findings @ -No old charts were reviewed Differential Diagnosis? @ -Differential Headache: Migraine, tension, cluster, carbon monoxide, central venous thrombosis, pension karma temporal arteritis, acute closure glaucoma, intercranial hemorrhage, mastoiditis, sinusitis, head injury, this is not meant to be an all-inclusive list. EKG interpreted by me (3pts min.). @ -Not done X-rays interpreted by me (1pt min.). @ -Not done CT interpreted by me (1pt min.). @ -Not done U/S interpreted by me (1pt. min.). @ -Not the What testing was considered but not performed or refused? (CT, X-rays, U/S, labs)? Why? @ -None What meds were considered but not given or refused? Why? @ -None Did you discuss the management of the patient with other professionals (professionals i.e. , PA, FIRM ADMINISTRATOR, lab, RT, psych nurse, social work manager, geology instructor, teacher, building drafting officer, foster care case manager)? Give summary @ -Case discussed with attending ED physician Dr. North. Patient received migraine cocktail of Toradol, magnesium, Reglan, Benadryl. Was smoking cessation discussed for >3mins.? @ -No Was critical care preformed (if so, how long)? @ -No Were there social determinants of health that impacted care today? How? (Homelessness, low income, unemployed, alcoholism, drug addiction, transportation, low edu. Level, literacy, decrease access to med. care, skilled nursing, rehab)? @ -No Was there de-escalation of care discussed even if they declined (Discuss DNR or withdrawal of care, Hospice)? DNR status @ -No What co-morbidities impacted this encounter? (DM, HTN, Smoking, COPD, CAD, Cancer, CVA, ARF, Chemo, Hep., AIDS, mental health diagnosis, sleep apnea, morbid obesity)? @ -None Was patient admitted / discharged? Hospital course, mention meds given and route, prescriptions, significant lab abnormalities, going to OR and other pertinent info. @ -Likely will be discharged home Undiagnosed new problem with uncertain prognosis? @ -No Drug Therapy requiring intensive monitoring for toxicity (Heparin, Nitro, In sulin, Cardizem)? @ -No Were any procedures done? @ -No Diagnosis/symptom? @ -Acute migraine headache Acute, or Chronic, or Acute on Chronic? @ -Acute Uncomplicated (without systemic symptoms) or Complicated (systemic symptoms)? @ -Uncomplicated Side effects of treatment? @ -No Exacerbation, Progression, or Severe Exacerbation? @ -No Poses a threat to life or bodily function? How? (Chest pain, [place], [place], pneumonia, PE, COPD, DKA, ARF, appy, cholecystitis, CVA, Diverticulitis, Homicidal, Suicidal, threat to staff... and all critical care pts) @ -No (Iraida Downing) I personally saw the patient and performed the critical portion of the service. I discussed the patient care with the resident. I directed management, care planning and final disposition of the patient. This includes, but not limited to, review of all lab work, radiological studies, EKG's, consultations, vital signs, and nursing notes. (Andree North) - Lab Data Lab Results 06/24/24 06/24/24 Range/Units 14:44 14:44 WBC 5.5 (3.8-10.6) k/uL RBC 5.67 H (3.80-5.40) m/uL Hgb 17.2 H (11.4-16.0) gm/dL Hct 50.2 H (34.0-46.0) % MCV 88.6 (80.0-100.0) fL MCH 30.3 (25.0-35.0) pg MCHC 34.2 (31.0-37.0) g/dL RDW 12.3 (11.5-15.5) % Plt Count 275 (150-450) k/uL MPV 8.1 Neutrophils % 70 % Lymphocytes % 22 % Monocytes % 3 % Eosinophils % 2 % Basophils % 1 % Neutrophils # 3.8 (1.3-7.7) k/uL Lymphocytes # 1.2 (1.0-4.8) k/uL Monocytes # 0.2 (0-1.0) k/uL Eosinophils # 0.1 (0-0.7) k/uL Basophils # 0.1 (0-0.2) k/uL Sodium 138 (137-145) mmol/L Potassium 5.1 (3.5-5.1) mmol/L Chloride 103 (98-107) mmol/L Carbon Dioxide 24 (22-30) mmol/L Anion Gap 11 mmol/L BUN 11 (7-17) mg/dL Creatinine 1.02 (0.52-1.04) mg/dL Est GFR (CKD-EPI)AfAm 76 (>60 ml/min/1.73 sqM) Est GFR (CKD-EPI)NonAf 66 (>60 ml/min/1.73 sqM) Glucose 117 H (74-99) mg/dL Calcium 10.1 (8.4-10.2) mg/dL Total Bilirubin 1.0 (0.2-1.3) mg/dL AST 43 H (14-36) U/L ALT 38 H (4-34) U/L Alkaline Phosphatase 49 (38-126) U/L Total Protein 8.9 H (6.3-8.2) g/dL Albumin 5.1 H (3.5-5.0) g/dL Disposition Is patient prescribed a controlled substance at d/c from ED?: No <Iraida Downing - Last Filed: 06/24/24 15:50> <Andree North - Last Filed: 06/26/24 16:32> Clinical Impression: Migraine headache Narrative: Patient presented with severe acute migraine. Patient received migraine cocktail and states headache is almost completely resolved. Patient will be discharged home with self-care. She has to follow-up PCP in 1 to 2 days. She is also to follow-up with neurology. Return precautions to ED discussed including worsening or intractable headache or inability to tolerate oral intake. (Iraida Downing) Disposition: HOME SELF-CARE Referrals: Jacque Christian MD [Primary Care Provider] - 1-2 days
[2024-06-24] MEDS: MAGNESIUM OXIDE 400 MG TAB PO STA (14:48)
[2024-06-24] MEDS: METOCLOPRAMIDE 5 MG/ML 2 ML VIAL IVP STA (14:49)
[2024-06-24] MEDS: diphenhydrAMINE 50 MG/ML 1 ML VIAL IVP STA (14:49)
[2024-06-24] MEDS: KETOROLAC 15 MG/ML 1 ML VIAL IVP STA (14:49)
[2024-06-24 15:00] LABS: Basophils # (A) 0.1 k/uL (0-0.2); Basophils % (A) 1 %; Eosinophils # (A) 0.1 k/uL (0-0.7); Eosinophils % (A) 2 %; HCT 50.2 % (34.0-46.0); HGB 17.2 gm/dL (11.4-16.0); Lymphocytes # (A) 1.2 k/uL (1.0-4.8); Lymphocytes % (A) 22 %; MCH 30.3 pg (25.0-35.0); MCHC 34.2 g/dL (31.0-37.0); MCV 88.6 fL (80.0-100.0); Mean Platelet Volume 8.1; Monocytes # (A) 0.2 k/uL (0-1.0); Monocytes % (A) 3 %; Neutrophils # (A) 3.8 k/uL (1.3-7.7); Neutrophils % (A) 70 %; Platelet Count 275 k/uL (150-450); RBC 5.67 m/uL (3.80-5.40); RDW 12.3 % (11.5-15.5); WBC 5.5 k/uL (3.8-10.6)
[2024-06-24 15:23] LABS: ALT 38 U/L (4-34); African American GFR (CKD) 76 (>60 ml/min/1.73 sqM); Anion Gap 11 mmol/L; Blood Urea Nitrogen 11 mg/dL (7-17); Calcium 10.1 mg/dL (8.4-10.2); Carbon Dioxide 24 mmol/L (22-30); Chloride 103 mmol/L (98-107); Glucose 117 mg/dL (74-99); Non-African American GFR(CKD) 66 (>60 ml/min/1.73 sqM); Sodium 138 mmol/L (137-145)
[2024-06-24 15:44] LABS: AST 43 U/L (14-36); Albumin 5.1 g/dL (3.5-5.0); Alkaline Phosphatase 49 U/L (38-126); Potassium 5.1 mmol/L (3.5-5.1); Total Protein 8.9 g/dL (6.3-8.2)
[2024-06-24 16:02] VITALS: BP 136/82; PULSE 92; RESP 17; TEMP 98.2
== END 2024-06-24 16:01 | disposition home or self-care (01) ==
LOC: EC 13:44
DX: G43.909 Migraine, unspecified, not intractable, without status migrainosus (principal); F17.200 Nicotine dependence, unspecified, uncomplicated; Z88.0 Allergy status to penicillin; Z88.1 Allergy status to other antibiotic agents; Z88.8 Allergy status to other drugs, medicaments and biological substances
CPT/HCPCS: 99283; 96374; 96375 ×2; 36415; 80053; 85025; J1200; J2765; J1885